=== PATIENT | male | born 1940 | race Caucasian/White ===

== ENCOUNTER 2016-10-26 11:45 | Inpatient (IN) | payer MEDICARE ==
[2016-10-26] MEDS ORDERED: SODIUM CHLORIDE 0.9% 1,000 ML IV STA (13:42)
[2016-10-26] MEDS ORDERED: MECLIZINE 12.5 MG TAB PO STA (13:42)
[2016-10-26] MEDS ORDERED: RX INFO: IV CONTRAST WAS GIVEN 1 EACH MISC MISCELLANE PRN (13:43)
[2016-10-26] MEDS ORDERED: METOCLOPRAMIDE 5 MG/ML 2 ML VIAL IVP STA (13:43)
--- NOTE | 2016-10-26 13:46 | ED ---
General Adult HPI - General Chief complaint: Dizziness Stated complaint: VISUAL DISTURBANCE, DIZZINESS Time Seen by Provider: 10/26/16 13:26 Source: patient, family, RN notes reviewed Mode of arrival: ambulatory Limitations: no limitations - History of Present Illness Initial comments: Patient is a pleasant 76-year-old male presenting to the emergency department complaining of dizziness. Onset of symptoms was a few days ago. Symptoms do worsen with exertion and improves with rest or lying down. Patient feels lightheaded. Patient has blurred vision. Patient has double and occasionally triple vision. Family states patient's words are sometimes hard to understand. Family also states patient has been somewhat more forgetful over the past couple of days. No isolated area of weakness. - Related Data Home Medications Medication Instructions Recorded Confirmed Lisinopril [Zestril] 20 mg PO BID 01/13/14 10/26/16 Pravastatin Sodium [Pravachol] 40 mg PO HS 01/13/14 10/26/16 Ranitidine HCl 150 mg PO BID 01/13/14 10/26/16 amLODIPine BESYLATE [Norvasc] 5 mg PO DAILY 01/13/14 10/26/16 Acetaminophen [Tylenol] 500 mg PO Q4-6H PRN 07/06/16 10/26/16 glipiZIDE [Glucotrol] 5 mg PO AC-BRKFST 07/06/16 10/26/16 Allergies Allergy/AdvReac Type Severity Reaction Status Date / Time celecoxib [From Celebrex] Allergy Severe GI BLEED Verified 10/26/16 14:15 aspirin Allergy Intermediate STOMACH Verified 10/26/16 14:15 PROBLEMS Review of Systems ROS Statement: Those systems with pertinent positive or pertinent negative responses have been documented in the HPI. ROS Other: All systems not noted in ROS Statement are negative. Constitutional: Denies: fever Eyes: Denies: eye pain ENT: Denies: ear pain Respiratory: Denies: cough Cardiovascular: Denies: chest pain Endocrine: Denies: fatigue Gastrointestinal: Denies: abdominal pain Genitourinary: Denies: dysuria Musculoskeletal: Denies: back pain Skin: Denies: rash Neurological: Reports: other (Dizziness) Past Medical History Past Medical History: Cancer, COPD, Diabetes Mellitus, Eye Disorder, GERD/Reflux , GI Bleed, Hyperlipidemia, Hypertension, Prostate Disorder, Sleep Apnea/CPAP/ BIPAP Additional Past Medical History / Comment(s): HX GLAUCOMA. PROSTATE CA 2014, HX RADIATION X24 TX, LAST 3 WKS AGO. NO TX FOR SLEEP APNEA IN YEARS. homone injections, biopsy 2015, 56 seed inplants jun 2016, radiation may 2016. History of Any Multi-Drug Resistant Organisms: None Reported Past Surgical History: Adenoidectomy, Appendectomy, Orthopedic Surgery, Tonsillectomy Additional Past Surgical History / Comment(s): EXC BACK CYSTS. EXC BILAT CATARACTS. BILAT SHOULDERS. ORIF RT FEMUR, 1 F/U SURGERY, THEN MANIPULATION. Past Anesthesia/Blood Transfusion Reactions: No Reported Reaction Past Psychological History: No Psychological Hx Reported Smoking Status: Former smoker Past Alcohol Use History: None Reported Additional Past Alcohol Use History / Comment(s): SMOKED [age] YEARS OLD EST, 1 PPD OR <, QUIT 1993 Past Drug Use History: None Reported - Past Family History Sister(s) Family Medical History: Cancer Mother Family Medical History: Cancer General Exam Limitations: no limitations General appearance: alert, in no apparent distress Head exam: Present: atraumatic, normocephalic Eye exam: Present: normal appearance, PERRL, EOMI. Absent: nystagmus ENT exam: Present: normal oropharynx Neck exam: Present: normal inspection Respiratory exam: Present: normal lung sounds bilaterally Cardiovascular Exam: Present: regular rate, normal rhythm GI/Abdominal exam: Present: soft. Absent: tenderness Extremities exam: Present: normal inspection. Absent: pedal edema, calf tenderness Neurological exam: Present: alert, oriented X3, CN II-XII intact. Absent: motor sensory deficit Expanded Patient oriented to: Present: person, place, time Cranial nerves: EOM's Intact: Normal, Facial Sensation: Normal Cerebellar function: Finger to Nose: Normal Sensory exam: Upper Extremity Light Touch: Normal, Lower Extremity Light Touch: Normal Motor strength exam: RUE: 5, LUE: 5, RLE: 5, LLE: 5 Eye Response: (4) open spontaneously Motor Response: (6) obeys commands Verbal Response: (5) oriented Psychiatric exam: Present: normal affect, normal mood Skin exam: Absent: rash Course Vital Signs 10/26/16 10/26/16 10/26/16 12:22 13:22 14:22 Temperature 98.8 F Pulse Rate 101 H 90 82 Respiratory 17 18 18 Rate Blood Pressure 150/67 134/77 139/81 O2 Sat by Pulse 96 99 99 Oximetry 10/26/16 15:22 Temperature Pulse Rate 82 Respiratory 18 Rate Blood Pressure 140/61 O2 Sat by Pulse Oximetry EKG Findings - EKG Comments: EKG Findings:: Normal sinus rhythm at 94. Normal intervals. Normal axis. Normal QRS. Normal ST-T. Medical Decision Making - Medical Decision Making Patient reevaluated and resting comfortably in bed. No improvement with medications. Patient and family updated on results and plan. Case was thus in detail with Dr. Howard, covering for Dr. nathan, who will admit for Dr. Morrow. - Lab Data Result diagrams: 10/26/16 13:55 10/26/16 13:55 Lab Results 10/26/16 10/26/16 10/26/16 Range/Units 13:55 13:55 13:55 WBC 5.6 (3.8-10.6) k/uL RBC 4.36 (4.30-5.90) m/uL Hgb 12.6 L (13.0-17.5) gm/dL Hct 37.6 L (39.0-53.0) % MCV 86.2 (80.0-100.0) fL MCH 29.0 (25.0-35.0) pg MCHC 33.6 (31.0-37.0) g/dL RDW 14.4 (11.5-15.5) % Plt Count 205 (150-450) k/uL Neutrophils % 66 % Lymphocytes % 17 % Monocytes % 9 % Eosinophils % 4 % Basophils % 1 % Neutrophils # 3.7 (1.3-7.7) k/uL Lymphocytes # 1.0 (1.0-4.8) k/uL Monocytes # 0.5 (0-1.0) k/uL Eosinophils # 0.2 (0-0.7) k/uL Basophils # 0.0 (0-0.2) k/uL PT 10.2 (9.0-12.0) sec INR 1.0 (<1.1) Sodium 140 (137-145) mmol/L Potassium 4.8 (3.5-5.1) mmol/L Chloride 100 (98-107) mmol/L Carbon Dioxide 28 (22-30) mmol/L Anion Gap 12 mmol/L BUN 29 H (9-20) mg/dL Creatinine 1.18 (0.66-1.25) mg/dL Est GFR (MDRD) Af Amer >60 (>60 ml/min/1.73 sqM) Est GFR (MDRD) Non-Af >60 (>60 ml/min/1.73 sqM) Glucose 114 H (74-99) mg/dL Calcium 10.1 (8.4-10.2) mg/dL Total Bilirubin 0.6 (0.2-1.3) mg/dL AST 33 (17-59) U/L ALT 36 (21-72) U/L Alkaline Phosphatase 93 (38-126) U/L Troponin I (0.000-0.034) ng/mL Total Protein 7.8 (6.3-8.2) g/dL Albumin 4.0 (3.5-5.0) g/dL 10/26/16 Range/Units 13:55 WBC (3.8-10.6) k/uL RBC (4.30-5.90) m/uL Hgb (13.0-17.5) gm/dL Hct (39.0-53.0) % MCV (80.0-100.0) fL MCH (25.0-35.0) pg MCHC (31.0-37.0) g/dL RDW (11.5-15.5) % Plt Count (150-450) k/uL Neutrophils % % Lymphocytes % % Monocytes % % Eosinophils % % Basophils % % Neutrophils # (1.3-7.7) k/uL Lymphocytes # (1.0-4.8) k/uL Monocytes # (0-1.0) k/uL Eosinophils # (0-0.7) k/uL Basophils # (0-0.2) k/uL PT (9.0-12.0) sec INR (<1.1) Sodium (137-145) mmol/L Potassium (3.5-5.1) mmol/L Chloride (98-107) mmol/L Carbon Dioxide (22-30) mmol/L Anion Gap mmol/L BUN (9-20) mg/dL Creatinine (0.66-1.25) mg/dL Est GFR (MDRD) Af Amer (>60 ml/min/1.73 sqM) Est GFR (MDRD) Non-Af (>60 ml/min/1.73 sqM) Glucose (74-99) mg/dL Calcium (8.4-10.2) mg/dL Total Bilirubin (0.2-1.3) mg/dL AST (17-59) U/L ALT (21-72) U/L Alkaline Phosphatase (38-126) U/L Troponin I <0.012 (0.000-0.034) ng/mL Total Protein (6.3-8.2) g/dL Albumin (3.5-5.0) g/dL - Radiology Data Radiology results: report reviewed (Computed tomography scan of the brain shows no acute intercranial abnormality. Atrophy and chronic changes are present.) Disposition Clinical Impression: Transient cerebral ischemia Disposition: ADMITTED IP TO THIS HOSP
[2016-10-26 14:17] LABS: Basophils % (A) 1 %; CH 29.2; Eosinophils # (A) 0.2 k/uL (0-0.7); Eosinophils % (A) 4 %; HCT 37.6 % (39.0-53.0); HDW 3.14; HGB 12.6 gm/dL (13.0-17.5); Luc # (Auto) 0.19; Luc % (Auto) 3; Lymphocytes % (A) 17 %; MCHC 33.6 g/dL (31.0-37.0); MCV 86.2 fL (80.0-100.0); Mean Platelet Volume 7.3; Monocytes # (A) 0.5 k/uL (0-1.0); Monocytes % (A) 9 %; Neutrophils # (A) 3.7 k/uL (1.3-7.7); Neutrophils % (A) 66 %; RBC 4.36 m/uL (4.30-5.90); RDW 14.4 % (11.5-15.5); WBC 5.6 k/uL (3.8-10.6); WBC (Perox) 5.77
[2016-10-26 14:24] LABS: Prothrombin Time 10.2 sec (9.0-12.0)
[2016-10-26 14:29] LABS: ALT 36 U/L (21-72); AST 33 U/L (17-59); Alkaline Phosphatase 93 U/L (38-126); Anion Gap 12 mmol/L; Blood Urea Nitrogen 29 mg/dL (9-20); Calcium 10.1 mg/dL (8.4-10.2); Carbon Dioxide 28 mmol/L (22-30); Chloride 100 mmol/L (98-107); Glucose 114 mg/dL (74-99); Non-African American GFR(MDRD) >60 (>60 ml/min/1.73 sqM); Potassium 4.8 mmol/L (3.5-5.1); Sodium 140 mmol/L (137-145); Total Bilirubin 0.6 mg/dL (0.2-1.3); Total Protein 7.8 g/dL (6.3-8.2)
--- NOTE | 2016-10-26 15:24 | CT ---
EXAMINATION TYPE: CT brain wo/w con DATE OF EXAM: 10/26/2016 3:15 PM COMPARISON: NONE HISTORY: Patient complains of episode of dizziness, blurred vision, and confusion today. CT DLP: 2072.1 mGycm Automated exposure control for dose reduction was used. CONTRAST: CT scan of the head is performed with IV Contrast, patient injected with 100 mL of Omnipaque 300. FINDINGS: There are mild, generalized changes of sulcal prominence and ventriculomegaly, compatible with atroph ic change. There is mild, diffuse periventricular white matter lucency, compatible with chronic white matter ischemic change. There is no acute focal lesion, mass effect or midline shift identified. I d o not see evidence of intracranial blood. Following intravenous administration of contrast, I do not see evidence of abnormal enhancement. There is mild mucoperiosteal thickening involving the ethmoid air cells and maxillary sinuses. IMPRESSION: 1. NO ACUTE INTRACRANIAL ABNORMALITY. 2. MILD ATROPHIC CHANGE. 3. CHRONIC WHITE MATTER ISCHEMIC CHANGE. 4. CHRONIC MUCOPERIOSTEAL THICKENING INVOLVING THE MAXILLARY AND ETHMOID AIR CELLS.
[2016-10-26] MEDS: SODIUM CHLORIDE 0.9% 1,000 ML IV SCH (17:23)
--- NOTE | 2016-10-26 17:44 | US ---
EXAMINATION TYPE: US carotid duplex BILAT DATE OF EXAM: 10/26/2016 5:00 PM COMPARISON: NONE CLINICAL HISTORY: Stenosis. Dizziness, double vision, slurred speech EXAM MEASUREMENTS: RIGHT: Peak Systolic Velocity (PSV) cm/sec ----- Right CCA: 99.3 ----- Right ICA: 117.0 ----- Right ECA: 97.6 ICA/CCA ratio: 1.2 RIGHT: End Diastole cm/sec ----- Right CCA: 18.4 ----- Right ICA: 28.5 ----- Right ECA: 6.2 LEFT: Peak Systolic Velocity (PSV) cm/sec ----- Left CCA: 105.7 ----- Left ICA: 97.6 ----- Left ECA: 74.4 ICA/CCA ratio: 0.9 LEFT: End Diastole cm/sec ----- Left CCA: 13.7 ----- Left ICA: 23.8 ----- Left ECA: 74.4 VERTEBRALS (direction of flow): Right Vertebral: Antegrade Left Vertebral: Antegrade IMPRESSION: 1. Mild plaque noted bilateral bifurcations. 2. No evidence of significant stenosis. 3. Increased velocities left vertebral.
[2016-10-26 19:21] LABS: Hemoglobin A1C 6.8 % (4.2-6.1)
[2016-10-26] MEDS: PRAVASTATIN SODIUM 40 MG TAB PO SCH (20:11)
[2016-10-26] MEDS: FAMOTIDINE 20 MG TAB PO SCH (20:11)
--- NOTE | 2016-10-26 20:12 | P.CNNES ---
History of Present Illness Consult date: 10/26/16 Reason for Consult: This patient admitted with acute diplopia and slurred speech. Review of Systems Constitutional: Denies chills, Denies fever Eyes: denies blurred vision, denies pain Ears, nose, mouth and throat: Denies headache, Denies sore throat Cardiovascular: Denies chest pain, Denies shortness of breath Respiratory: Denies cough Gastrointestinal: Denies abdominal pain, Denies diarrhea, Denies nausea, Denies vomiting Musculoskeletal: Denies myalgias Integumentary: Denies pruritus, Denies rash Neurological: Reports aphasia, Reports double vision, Reports gait dysfunction, Reports headaches, Reports motor disturbance, Reports paresthesias, Denies numbness, Denies weakness Psychiatric: Denies anxiety, Denies depression Endocrine: Denies fatigue, Denies weight change Past Medical History Past Medical History: Cancer, COPD, Diabetes Mellitus, Eye Disorder, GERD/Reflux , GI Bleed, Hyperlipidemia, Hypertension, Prostate Disorder, Sleep Apnea/CPAP/ BIPAP Additional Past Medical History / Comment(s): HX GLAUCOMA. PROSTATE CA 2014, HX RADIATION X24 TX, LAST 3 WKS AGO. NO TX FOR SLEEP APNEA IN YEARS. homone injections, biopsy 2015, 56 seed inplants jun 2016, radiation may 2016. History of Any Multi-Drug Resistant Organisms: None Reported Past Surgical History: Adenoidectomy, Appendectomy, Orthopedic Surgery, Tonsillectomy Additional Past Surgical History / Comment(s): EXC BACK CYSTS. EXC BILAT CATARACTS. BILAT SHOULDERS. ORIF RT FEMUR, 1 F/U SURGERY, THEN MANIPULATION. Past Anesthesia/Blood Transfusion Reactions: No Reported Reaction Past Psychological History: No Psychological Hx Reported Smoking Status: Former smoker Past Alcohol Use History: None Reported Additional Past Alcohol Use History / Comment(s): SMOKED [age] YEARS OLD EST, 1 PPD OR <, QUIT 1993 Past Drug Use History: None Reported - Past Family History Sister(s) Family Medical History: Cancer Mother Family Medical History: Cancer Medications and Allergies Home Medications Medication Instructions Recorded Confirmed Type Lisinopril [Zestril] 20 mg PO BID 01/13/14 10/26/16 History Pravastatin Sodium [Pravachol] 40 mg PO HS 01/13/14 10/26/16 History Ranitidine HCl 150 mg PO BID 01/13/14 10/26/16 History amLODIPine BESYLATE [Norvasc] 5 mg PO DAILY 01/13/14 10/26/16 History Acetaminophen [Tylenol] 500 mg PO Q4-6H PRN 07/06/16 10/26/16 History glipiZIDE [Glucotrol] 5 mg PO AC-BRKFST 07/06/16 10/26/16 History Allergies Allergy/AdvReac Type Severity Reaction Status Date / Time celecoxib [From Celebrex] Allergy Severe GI BLEED Verified 10/26/16 14:15 aspirin Allergy Intermediate STOMACH Verified 10/26/16 14:15 PROBLEMS Physical Examination - Vital Signs Vital Signs: Vital Signs Temp Pulse Pulse Resp BP BP Pulse Ox 10/26/16 17:59 98.4 F 99 18 143/69 100 10/26/16 17:07 97.8 F 87 20 158/65 99 - Constitutional General appearance: average body habitus, cooperative - EENT EENT: PERRL, mucous membranes moist - Respiratory Respiratory: lungs clear, normal breath sounds - Cardiovascular Cardiovascular: regular rate, normal S1, normal S2 Extremities: no peripheral edema bilaterally - Gastrointestinal Gastrointestinal: normoactive bowel sounds - Integumentary Integumentary: normal - Neurologic Cranial nerve examination: PERRL, EOMI, V1/V2/V3 grossly intact, face symmetric , intact gag reflex, intact corneal reflex, normal palatal elevation Speech examination: intact Sensorimotor examination: intact Detailed motor examination: grossly full strength in all extremities Motor examination - right side: 5/5: biceps, triceps, wrist flexion, wrist extension, justice court judge, hip flexors, knee extensors, dorsiflexion, toe extension (EHL) , plantarflexion Motor examination - left side: 5/5: biceps, triceps, wrist flexion, wrist extension, justice court judge, hip flexors, knee extensors, dorsiflexion, toe extension (EHL) , plantarflexion Detailed sensory examination: intact Reflex and gait examination: intact Reflexes: 1+: ankle, bicep, knee, tricep Cerebellar examination: ocular dysmetria - Musculoskeletal Musculoskeletal: no pain - Psychiatric Psychiatric: mood/affect appropriate, cooperative Results - Laboratory Findings CBC and BMP: 10/26/16 13:55 10/26/16 13:55 Assessment and Plan (1) Arterial ischemic stroke, vertebrobasilar, brainstem, acute Status: Acute Code(s): I63.219 - CEREB INFRC DUE TO UNSP OCCLS OR STENOSIS OF UNSP VERTEB ART; I63.22 - CEREBRAL INFRC DUE TO UNSP OCCLS OR STENOSIS OF BASILAR ART (2) Aphasia Status: Acute Code(s): R47.01 - APHASIA (3) Diplopia Status: Acute Code(s): H53.2 - DIPLOPIA (4) Transient cerebral ischemia Status: Acute Code(s): G45.9 - TRANSIENT CEREBRAL ISCHEMIC ATTACK, UNSPECIFIED Plan: This patient is a 76-year-old male who was admitted to Hospital with symptoms of mild expressive aphasia and diplopia. Patient states his symptoms started on Saturday in which she was noticing double vision. He describes it mostly as a horizontal diplopia. His symptoms worsened on Saturday. Due to the difficulty with his driving he became very concerned on Saturday evening. He decided to come to the hospital for further evaluation today. He was seen in the ER at [facility] by Dr. Ordoñez. He underwent a computed tomography scan of the brain which revealed no acute intracranial abnormality. Dr. Ordoñez performed NIH stroke scale which was noted to be 0. He was admitted to hospital for further neurological evaluation. Patient did complain of mild dizziness but mostly visual disturbance with diplopia. His neurological examination at this time reveals him to have some left ocular muscle impairment. These findings suggest possibility of brainstem stroke. We have recommended that he undergo a complete stroke evaluation. He has an underlying recent history of prostate cancer for which he is undergone extensive radiation therapy and seed implants. He is being followed closely in the neurology clinic for this. His most recent PSA was 0.08. The patient has no previous history of TIA or stroke. At this time we would recommend he be placed on one aspirin 81 mg daily for secondary stroke prevention and will await his further stroke workup and evaluation. His overall prognosis at this time remains guarded. Time with Patient: Greater than 30
[2016-10-26 22:00] LABS: Glucose,Whole Blood 160 mg/dL (75-99)
[2016-10-26] MEDS: INSULIN LISPRO (humaLOG) 300 UNIT/3 ML VIAL SQ SCH (22:09)
[2016-10-27] MEDS: SODIUM CHLORIDE 0.9% 1,000 ML IV SCH ×2 (05:32→10:41)
[2016-10-27 06:22] LABS: Basophils % (A) 1 %; CH 28.6; CHCM 32.9; Eosinophils # (A) 0.3 k/uL (0-0.7); Eosinophils % (A) 6 %; HCT 32.9 % (39.0-53.0); HDW 3.06; Luc % (Auto) 4; Lymphocytes % (A) 21 %; MCH 29.1 pg (25.0-35.0); MCHC 33.3 g/dL (31.0-37.0); MCV 87.1 fL (80.0-100.0); Mean Platelet Volume 6.5; Monocytes # (A) 0.4 k/uL (0-1.0); Monocytes % (A) 9 %; Neutrophils # (A) 2.8 k/uL (1.3-7.7); Neutrophils % (A) 60 %; RBC 3.77 m/uL (4.30-5.90); RDW 14.3 % (11.5-15.5); WBC 4.6 k/uL (3.8-10.6); WBC (Perox) 4.82
[2016-10-27 06:31] LABS: Anion Gap 8 mmol/L; Blood Urea Nitrogen 23 mg/dL (9-20); Calcium 9.2 mg/dL (8.4-10.2); Carbon Dioxide 28 mmol/L (22-30); Chloride 102 mmol/L (98-107); Cholesterol 130 mg/dL (<200); Glucose 171 mg/dL (74-99); HDL Cholesterol 39 mg/dL (40-60); Non-African American GFR(MDRD) >60 (>60 ml/min/1.73 sqM); Potassium 4.8 mmol/L (3.5-5.1); Sodium 138 mmol/L (137-145); Triglycerides 95 mg/dL (<150)
[2016-10-27 06:34] LABS: Glucose,Whole Blood 172 mg/dL (75-99)
[2016-10-27] MEDS: INSULIN LISPRO (humaLOG) 300 UNIT/3 ML VIAL SQ SCH ×4 (07:06→22:37)
[2016-10-27] MEDS: glipiZIDE 5 MG TAB PO SCH (07:06)
--- NOTE | 2016-10-27 09:09 | MR ---
EXAMINATION TYPE: MR brain wo/w con DATE OF EXAM: 10/27/2016 8:52 AM COMPARISON: Previous CT scan of the brain dated 10/26/2016. HISTORY: Dizziness, blurred vision TECHNIQUE: Multiplanar, multiecho imaging of the brain was obtained with and without intravenous adm inistration of 17 mL intravenous MultiHance. FINDINGS: Midline structures are unremarkable. There is a normal craniocervical junction. Echoplanar diffusion imaging is normal. There are generalized changes of sulcal prominence and ventriculomegaly compatible with atrophic marquis ge. There are normal vascular flow voids. The orbits appear normal. There is no evidence of a CP angle mass lesion. There are innumerable punctate FLAIR lesions within the cerebral hemispheres. This is likely on the b asis of small vessel disease. There is no mass effect, midline shift or intracranial blood. Following intravenous administration of gadolinium, I do not see evidence of abnormal enhancement. There is mucoperiosteal thickening involving the maxillary sinuses. IMPRESSION: 1. NO ACUTE INTRACRANIAL ABNORMALITY. 2. GENERALIZED ATROPHY. 3. DIFFUSE PUNCTATE FLAIR LESIONS THROUGHOUT THE CEREBRAL HEMISPHERES LIKELY ON THE BASIS SMALL VESSE L DISEASE. 4. CHRONIC MAXILLARY MUCOSAL SINUS DISEASE.
[2016-10-27] MEDS: FAMOTIDINE 20 MG TAB PO SCH ×2 (10:40→20:44)
[2016-10-27 11:55] LABS: Glucose,Whole Blood 147 mg/dL (75-99)
[2016-10-27 16:42] LABS: Glucose,Whole Blood 103 mg/dL (75-99)
--- NOTE | 2016-10-27 17:26 | HP ---
DATE OF ADMISSION: 10/26/2016 CHIEF COMPLAINT: Dizziness and severe vertigo. HISTORY OF PRESENT ILLNESS: This 76-year-old gentleman with a past medical history of multiple medical problems including COPD, history of diabetes, history of GERD, gastrointestinal bleed, hypertension, hyperlipidemia, history of sleep apnea, and history of glaucoma, history of adenoidectomy, being followed by Dr. Morrow in the outpatient setting is complaining of dizziness and vertigo. The patient had symptoms about a few days ago. The patient also had diplopia on looking to the left apparently which improved significantly. The patient also felt lightheadedness. The patient also had blurring of vision. Because of multiple symptomatology, the patient came to [facility] and was admitted to the hospital for further evaluation and treatment. The patient's neurologist evaluated the patient, multiple neurovascular work-up. CT scan showed mild atrophic changes of chronic white matter changes. No acute intracranial abnormality was noted. Carotid Doppler showed mild plaques with no evidence of any significant stenosis and increased velocity of the left was also noted. The brain MRI shows generalized atrophy, diffuse punctate linear lesions and chronic maxillary mucosal disease. There is no history of any fevers, no history of headache, loss of consciousness or seizures. PAST MEDICAL HISTORY: History of COPD, diabetes mellitus, type II, GERD, GI bleed, hypertension, hyperlipidemia, prostate disorder, sleep apnea. Medications prior to admission include home medications are: 1. Tylenol 500 mg q.4 6 p.r.n. 2. Glucotrol 5 mg a.c. breakfast. 3. Norvasc 5 mg p.o. daily. 4. Ranitidine 150 mg p.o. b.i.d. 5. Pravachol 40 mg at bedtime. 6. Zestril 20 mg b.i.d. ALLERGIES: CELEBREX AND ASPIRIN. FAMILY HISTORY: History of heart problems and cancer in the family. SOCIAL HISTORY: Previous history of smoking. No history of current smoking, alcohol intake. REVIEW OF SYSTEMS: HEENT: As mentioned earlier. CARDIOVASCULAR: No angina or palpitations. RESPIRATORY: No cough. GI: No nausea. : No dysuria. Nervous system: As mentioned earlier. ALLERGY/IMMUNOLOGY: No asthma or hayfever. MUSCULOSKELETAL: as mentioned earlier. HEMATOLOGY/ONCOLOGY: No history of anemia. ENDOCRINE: Diabetes. CONSTITUTIONAL: As mentioned earlier. DERMATOLOGY: Negative. PSYCHIATRY: As mentioned earlier. RHEUMATOLOGY: Negative. PHYSICAL EXAMINATION: Patient is alert and oriented x3. Pulse is 84, blood pressure 124/74, respiration 16, temperature 97.6, pulse ox 98% on 2 liters. HEENT: Conjunctivae normal. Oral mucosa moist. NECK: No jugular venous distention. No carotid bruit. No lymph node enlargement. CARDIOVASCULAR: S1, S2 muffled. No S3, no S4. RESPIRATORY: Breath sounds diminished at the bases. No rhonchi. No crackles. ABDOMEN: Soft, nontender. No mass palpable. EXTREMITIES: Legs no edema, no swelling. Nervous system: Higher functions as mentioned. Cranial nerves II through XII grossly intact. No weakness. No diplopia. No nystagmus. Moves all 4 limbs. No weakness. No signs of cerebellar incoordination. LABS: WBC 4.7 and hemoglobin 11, glucose 117. 39. ASSESSMENT: 1. Dizziness and vertigo and diplopia, possible acute transient ischemic attack involving the vertebrobasilar system. 2. Anemia, normocytic anemia of chronic disease. 3. Increased velocity in the left vertebral artery. 4. Increased random blood sugar. 5. Diabetes mellitus type 2. 6. History of chronic obstructive pulmonary disease. 7. History gastroesophageal reflux disease. 8. History of gastrointestinal bleed. 9. Hypertension. 10. Hyperlipidemia. 11. History of sleep apnea. 12. History of glaucoma. 13. History of prostate cancer. 14. History of radiation. 15. History of sleep apnea. 16. History of adenoidectomy. 17. History of degenerative joint disease. 18. Remote history of nicotine dependence. 19. FULL CODE. RECOMMENDATIONS AND DISCUSSION: In this 76-year-old gentleman who presented with multiple complex medical issues, we will monitor the patient closely. Continue the current medications, continue symptomatic treatment. I recommend continue with current medications. I would also recommend antiplatelet treatment and closely follow with neurology. Guarded prognosis because of multiple complex medical issues. Further recommendations to follow. Please also add to the final diagnosis(es): History of. Otherwise copy to Dr. Morrow who is the primary care physician. I would also recommend MRA also. MTDD
--- NOTE | 2016-10-27 17:51 | ECHOF ---
Referral Reason:Thrombus MEASUREMENTS -------- HEIGHT: 182.9 cm WEIGHT: 88.5 kg BP: 131/57 RVIDd: 2.5 cm (< 3.3) IVSd: 1.0 cm (0.6 - 1.1) LVIDd: 4.4 cm (3.9 - 5.3) LVPWd: 1.1 cm (0.6 - 1.1) IVSs: 1.3 cm LVIDs: 3.4 cm LVPWs: 1.2 cm LA Diam: 4.0 cm (2.7 - 3.8) LAESV Index (A-L): 23.13 ml/m Ao Diam: 3.3 cm (2.0 - 3.7) AV Cusp: 1.9 cm (1.5 - 2.6) LA Diam: 4.0 cm (2.7 - 3.8) MV EXCURSION: 24.295 mm (> 18.000) MV EF SLOPE: 63 mm/s (70 - 150) EPSS: 0.7 cm MV E Acosta: 0.66 m/s MV DecT: 324 ms MV A Acosta: 1.01 m/s MV E/A Ratio: 0.65 RAP: 5.00 mmHg RVSP: 18.36 mmHg FINDINGS -------- Sinus rhythm. This was a technically adequate study. The left ventricular size is normal. There is mild concentric left ventricular hypertrophy. Overall left ventricular systolic function is normal with, an EF between 55 - 60 %. The right ventricle is normal in size. The left atrial size is normal. The right atrial size is normal. The aortic valve is trileaflet, and appears structurally normal. No aortic stenosis or regurgitation. The mitral valve is normal. Mild mitral regurgitation is present. The tricuspid valve appears structurally normal. Mild tricuspid regurgitation present. There is no evidence of pulmonary hypertension. The right ventricular systolic pressure, as measured by Doppler, is 18.36mmHg. There is no pulmonic regurgitation present. The aortic root size is normal. There is no pericardial effusion. CONCLUSIONS -------- 1. Sinus rhythm. 2. There is no pericardial effusion. 3. There is mild concentric left ventricular hypertrophy. 4. Overall left ventricular systolic function is normal with, an EF between 55 - 60 %. 5. The left atrial size is normal. 6. The aortic valve is trileaflet, and appears structurally normal. No aortic stenosis or regurgitation. 7. Mild mitral regurgitation is present. 8. Mild tricuspid regurgitation present. 9. There is no evidence of pulmonary hypertension. 10. There is no pulmonic regurgitation present. BUSINESS INTEGRATION MANAGER: Astrid Lim RDCS
--- NOTE | 2016-10-27 18:37 | P.PN ---
Subjective This patient is a 76-year-old male who was admitted to Hospital with symptoms of acute diplopia. Patient also had some mild speech impairment which did slowly resolve. His speech is now back to normal. Patient was admitted for possible stroke involving the brainstem area. He was sent for MRI of the brain this morning. MRI is reported negative for any acute stroke. Specifically there is no evidence of brainstem stroke. Dr. Jernigan has requested MRA of the brain. We will await these results. There was no enhancing lesions noted on the MRI of the brain. Patient does have history of underlying prostate cancer. Patient seems to be doing fairly well this morning. Patient states he has had no further episodes of recurrent diplopia. He denies any feelings of dizziness today. Daughter was at bedside and states that his initial symptoms were clearly more severe with the involvement of his speech. She states his speech is now entirely normal. His initial presentation revealed him to have some dysarthric speech. We will await further completion of his stroke workup. Patient does have some ALLERGY to aspirin. We would recommend beginning the patient on Plavix 75 mg daily for secondary stroke prevention. Patient has not had any further recurrence of diplopia. He does have an speech teacher he sees Dr. Vladimir Obrien in the outpatient setting. Patient may benefit from ophthalmology consultation soon after discharge. We will await the MRA to be done and will review those results when they become available. Case was discussed today at length with the patient and his daughter at bedside. All their questions were answered. His overall prognosis at this time remains fair. Objective - Vital Signs Vital signs: Vital Signs Temp 97.6 F 10/27/16 09:22 Pulse 86 10/27/16 09:22 Resp 16 10/27/16 09:22 BP 128/74 10/27/16 09:22 Pulse Ox 98 10/27/16 09:22 Intake & Output 10/26/16 10/27/16 10/27/16 18:59 06:59 18:59 Intake Total 375 180 Output Total 100 150 Balance 275 30 Weight 88.5 kg Intake: IV 375 Sodium Chloride 0.9% 1, 375 000 ml @ 75 mls/hr IV . [id number] STA Rx#:[id number] Oral 180 Output: Urine 100 150 Other: Voiding Method Urinal Urinal # Voids 200 - Exam Physical examination: PHYSICAL EXAMINATION: Patient is resting comfortably in bed. VITAL SIGNS: Blood pressure is [125/72]. Heart rate is [92]. Respiration is [16] . Temperature is [97.7]. HEENT: Head is atraumatic, neck is supple, there were no carotid bruits. CHEST: Lungs are clear to auscultation and percussion. CARDIAC: S1, S2 normal rate and rhythm. There is no murmur. ABDOMEN: Soft and nontender. Bowel sounds are present. EXTREMITIES: There is no pedal edema. Peripheral pulses are present. Neurological examination: Patient's neurological examination is unchanged from yesterday. Patient has no evidence of any ocular muscle weakness involving the left eye movements. Patient denies any dizziness or vertigo. Neurological examination is nonfocal. - Labs CBC & Chem 7: 10/27/16 05:36 10/27/16 05:36 Labs: Abnormal Lab Results - Last 24 Hours (Table) 10/26/16 10/27/16 10/27/16 Range/Units 21:40 05:36 05:36 RBC 3.77 L (4.30-5.90) m/uL Hgb 11.0 L (13.0-17.5) gm/dL Hct 32.9 L (39.0-53.0) % BUN 23 H (9-20) mg/dL Glucose 171 H (74-99) mg/dL POC Glucose (mg/dL) 160 H (75-99) mg/dL HDL Cholesterol 39 L (40-60) mg/dL 10/27/16 Range/Units 06:08 RBC (4.30-5.90) m/uL Hgb (13.0-17.5) gm/dL Hct (39.0-53.0) % BUN (9-20) mg/dL Glucose (74-99) mg/dL POC Glucose (mg/dL) 172 H (75-99) mg/dL HDL Cholesterol (40-60) mg/dL Assessment and Plan (1) Arterial ischemic stroke, vertebrobasilar, brainstem, acute Status: Acute Code(s): I63.219 - CEREB INFRC DUE TO UNSP OCCLS OR STENOSIS OF UNSP VERTEB ART; I63.22 - CEREBRAL INFRC DUE TO UNSP OCCLS OR STENOSIS OF BASILAR ART (2) Aphasia Status: Acute Code(s): R47.01 - APHASIA (3) Diplopia Status: Acute Code(s): H53.2 - DIPLOPIA (4) Transient cerebral ischemia Status: Acute Code(s): G45.9 - TRANSIENT CEREBRAL ISCHEMIC ATTACK, UNSPECIFIED Plan: This patient is a 76-year-old male initially admitted with episode of diplopia and slurred speech. He underwent MRI of the brain today which fails to reveal any evidence of acute intracranial abnormality. Nonspecific white matter changes were noted. Patient was recommended started on Plavix 75 mg daily for secondary stroke prevention. Echocardiogram reveals ejection fraction of 55-60 percent. he has had no further episodes of lightheadedness or dizziness. We're waiting MRA study to be completed. His overall prognosis at this time remains guarded. Case was discussed at length with the patient and his daughter. MRI results were reviewed today in detail. There is no evidence to suggest brainstem stroke. His clinical history suggests possibility of vertebrobasilar insufficiency as possible etiology for his symptoms. We will continue close neurological follow-up of this patient during this admission.
[2016-10-27] MEDS: PRAVASTATIN SODIUM 40 MG TAB PO SCH (20:43)
[2016-10-27 21:06] LABS: Glucose,Whole Blood 183 mg/dL (75-99)
[2016-10-28] MEDS: SODIUM CHLORIDE 0.9% 1,000 ML IV SCH ×3 (00:15→19:35)
[2016-10-28 07:28] LABS: Glucose,Whole Blood 151 mg/dL (75-99)
[2016-10-28] MEDS: INSULIN LISPRO (humaLOG) 300 UNIT/3 ML VIAL SQ SCH ×4 (07:55→20:06)
[2016-10-28] MEDS: glipiZIDE 5 MG TAB PO SCH (07:56)
[2016-10-28] MEDS: CLOPIDOGREL 75 MG TAB PO SCH (11:36)
[2016-10-28] MEDS: FAMOTIDINE 20 MG TAB PO SCH ×2 (11:36→20:06)
[2016-10-28] MEDS: PANTOPRAZOLE 40 MG TABLET PO SCH ×2 (11:36→17:31)
[2016-10-28 11:41] LABS: Glucose,Whole Blood 196 mg/dL (75-99)
--- NOTE | 2016-10-28 15:23 | P.PN ---
Subjective This patient is a 76-year-old male who was admitted to Hospital with symptoms of acute diplopia. Patient also had some mild speech impairment which did slowly resolve. His speech is now back to normal. Patient was admitted for possible stroke involving the brainstem area. He was sent for MRI of the brain this morning. MRI is reported negative for any acute stroke. Specifically there is no evidence of brainstem stroke. Dr. Jernigan has requested MRA of the brain. We will await these results. There was no enhancing lesions noted on the MRI of the brain. Patient does have history of underlying prostate cancer. Patient seems to be doing fairly well this morning. Patient states he has had no further episodes of recurrent diplopia. He denies any feelings of dizziness today. Daughter was at bedside and states that his initial symptoms were clearly more severe with the involvement of his speech. She states his speech is now entirely normal. His initial presentation revealed him to have some dysarthric speech. We will await further completion of his stroke workup. Patient does have some ALLERGY to aspirin. We would recommend beginning the patient on Plavix 75 mg daily for secondary stroke prevention. Patient has not had any further recurrence of diplopia. 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 Vladimir Obrien in the outpatient setting. Patient may benefit from ophthalmology consultation soon after discharge. We will await the MRA to be done and will review those results when they become available. MRA will likely be completed tomorrow. Patient has been started on Plavix for secondary stroke prevention. The patient states he was able to get up and walk around the hallways today several times. He did feel slight dizziness but nothing severe. We have explained to the patient that this could be some form of mild vestibulitis. We will await his MRA results and if this is negative he may be able to be discharged home tomorrow. His mild vestibular disturbance can be followed up outpatient. All their questions were answered. His overall prognosis at this time remains fair. Objective - Vital Signs Vital signs: Vital Signs Temp 97.6 F 10/28/16 07:00 Pulse 94 10/27/16 20:00 Resp 16 10/28/16 07:00 BP 139/66 10/28/16 07:00 Pulse Ox 96 10/28/16 07:00 Intake & Output 10/27/16 10/28/16 10/28/16 18:59 06:59 18:59 Intake Total 1930 620 Output Total 800 300 Balance 1130 -300 620 Intake: IV 1000 Sodium Chloride 0.9% 1, 1000 000 ml @ 75 mls/hr IV . [id number] STA Rx#:[id number] Oral 930 620 Output: Urine 800 300 Other: Voiding Method Urinal Urinal # Voids 2 - Exam Physical examination: PHYSICAL EXAMINATION: Patient is resting comfortably in bed. VITAL SIGNS: Blood pressure is [139/67]. Heart rate is [94]. Respiration is [16] . Temperature is [97.7]. HEENT: Head is atraumatic, neck is supple, there were no carotid bruits. CHEST: Lungs are clear to auscultation and percussion. CARDIAC: S1, S2 normal rate and rhythm. There is no murmur. ABDOMEN: Soft and nontender. Bowel sounds are present. EXTREMITIES: There is no pedal edema. Peripheral pulses are present. Neurological examination: Patient's neurological examination is unchanged from yesterday. Patient has no evidence of any ocular muscle weakness involving the left eye movements. Patient denies any dizziness or vertigo. Neurological examination is nonfocal. - Labs CBC & Chem 7: 10/27/16 05:36 10/27/16 05:36 Labs: Abnormal Lab Results - Last 24 Hours (Table) 10/27/16 10/27/16 10/28/16 Range/Units 16:40 21:04 07:26 POC Glucose (mg/dL) 103 H 183 H 151 H (75-99) mg/dL 10/28/16 Range/Units 11:39 POC Glucose (mg/dL) 196 H (75-99) mg/dL Assessment and Plan (1) Arterial ischemic stroke, vertebrobasilar, brainstem, acute Status: Acute Code(s): I63.219 - CEREB INFRC DUE TO UNSP OCCLS OR STENOSIS OF UNSP VERTEB ART; I63.22 - CEREBRAL INFRC DUE TO UNSP OCCLS OR STENOSIS OF BASILAR ART (2) Aphasia Status: Acute Code(s): R47.01 - APHASIA (3) Diplopia Status: Acute Code(s): H53.2 - DIPLOPIA (4) Transient cerebral ischemia Status: Acute Code(s): G45.9 - TRANSIENT CEREBRAL ISCHEMIC ATTACK, UNSPECIFIED Plan: This patient is a 76-year-old male who was admitted to hospital with symptoms suggesting possible TIA. Patient had symptoms of double vision as well as mild slurred speech. He also had intermittent dizziness. He underwent an MRI of the brain which was negative for any evidence of acute stroke. He is scheduled to undergo MRA for further evaluation. Patient has been doing better with no further recurrence of double vision. He does follow with Dr. Obrien his control systems specialist in the outpatient setting. We've recommended that he see Dr. Obrien soon after he is discharged from hospital. Patient has been started on Plavix for secondary stroke prevention. His current symptoms suggest possibility of TIA at this time. We will continue close monitoring of the patient during this admission. His overall prognosis at this time remains guarded.
--- NOTE | 2016-10-28 16:43 | PN ---
DATE OF SERVICE: 10/28/2016 This 76-year-old gentleman was admitted with possible acute vertebrobasilar TIA is being closely monitored. No chest pain or palpitation. No fever. The MRI did not show any acute abnormality. MRA is pending. On exam, alert and oriented x3, pulse 80, blood pressure is 139/62, respiratory rate 16, temperature 97.9, pulse ox 98% on room air. HEENT: Conjunctivae normal. NECK: No jugular venous distention. CARDIOVASCULAR: S1, S2 muffled. RESPIRATORY: Breath sounds diminished at the bases. No rhonchi. No crackles. ABDOMEN: Soft. Nontender. Legs: No edema. No swelling. CENTRAL NERVOUS SYSTEM: Higher functions as mentioned. Moves all four limbs. No focal deficits. LYMPHATICS: No lymph nodes palpable in the neck, axillae or groin. SKIN: No ulcer, rash or bleeding. LABS: Accu-Cheks 151, 186. ASSESSMENT: 1. Dizziness, vertigo, diplopia, possible acute transient ischemic attack involving the vertebrobasilar system. 2. Anemia, normocytic anemia of chronic disease. 3. Increased velocity in the left vertebral artery. 4. Increased random blood sugar. 5. Type 2 diabetes mellitus. 6. History of chronic obstructive pulmonary disease. 7. History of gastroesophageal reflux disease. 8. History of gastrointestinal bleed. 9. Hypertension, essential. 10. Hyperlipidemia. 11. History of sleep apnea. 12. History of glaucoma. 13. History of prostate cancer. 14. History of radiation. 15. History of adenoidectomy. 16. History of degenerative joint disease. 17. Remote history of nicotine dependence. 18. FULL CODE. RECOMMENDATIONS AND DISCUSSION: Recommend to continue current medications, continue with monitoring, symptomatic treatment. This 76-year-old gentleman admitted with multiple medical problems, at this time, we will await for the MRI report. Recommended Plavix and combination of the Protonix if okay with Dr. Martínez because of the patient's allergies mostly, GI intolerance also. Prognosis guarded. Discussed with the patient, the patient understands and agrees.
[2016-10-28 17:17] LABS: Glucose,Whole Blood 149 mg/dL (75-99)
[2016-10-28] MEDS: PRAVASTATIN SODIUM 40 MG TAB PO SCH (20:06)
[2016-10-28 20:12] LABS: Glucose,Whole Blood 189 mg/dL (75-99)
[2016-10-29] MEDS: SODIUM CHLORIDE 0.9% 1,000 ML IV SCH ×2 (05:12→14:26)
[2016-10-29 06:57] LABS: Glucose,Whole Blood 135 mg/dL (75-99)
[2016-10-29] MEDS: CLOPIDOGREL 75 MG TAB PO SCH (07:22)
[2016-10-29] MEDS: PANTOPRAZOLE 40 MG TABLET PO SCH ×2 (07:22→17:36)
[2016-10-29] MEDS: glipiZIDE 5 MG TAB PO SCH (07:23)
[2016-10-29] MEDS: FAMOTIDINE 20 MG TAB PO SCH (07:23)
[2016-10-29] MEDS: INSULIN LISPRO (humaLOG) 300 UNIT/3 ML VIAL SQ SCH ×4 (07:24→21:50)
[2016-10-29 12:02] LABS: Glucose,Whole Blood 105 mg/dL (75-99)
[2016-10-29] MEDS ORDERED: ACETAMINOPHEN TAB 500 MG TAB PO PRN (15:20)
[2016-10-29 17:13] LABS: Glucose,Whole Blood 185 mg/dL (75-99)
--- NOTE | 2016-10-29 19:00 | PN ---
DATE OF SERVICE: 10/29/2016 This 76-year-old gentleman who was admitted with dizziness and vertigo is being evaluated for vertebrobasilar TIA. MRA is pending at this time. No chest pain. No palpitations. No fever. On exam, alert and oriented times three. Pulse 72, blood pressure 140/77, respiratory rate 16, temperature 98.1, pulse ox 97% on room air. HEENT: Conjunctivae normal. NECK: No jugular venous distention. CARDIOVASCULAR SYSTEM: S1, S2 muffled. RESPIRATORY: Breath sounds diminished at the bases. No rhonchi and no crackles. ABDOMEN: Soft. LEGS: No edema. No swelling. CENTRAL NERVOUS SYSTEM: No focal deficits. LABS: Accu-Cheks 109. Other labs are noted. ASSESSMENT: 1. Dizziness, vertigo, diplopia; possible acute transient ischemic attack involving the vertebrobasilar system. 2. Anemia, normocytic anemia of chronic disease. 3. Increased blood loss in the left vertebral artery. 4. Increased random blood sugar. 5. Diabetes mellitus type 2. 6. History of chronic obstructive pulmonary disease. 7. History of gastroesophageal reflux disease. 8. History of gastrointestinal bleed. 9. Hypertension, essential. 10. Hyperlipidemia. 11. History of sleep apnea. 12. History of glaucoma. 13. History of prostate cancer. 14. History of radiation. 15. History of adenoidectomy. 16. History of degenerative joint disease. 17. Remote history of nicotine dependence. 18. FULL CODE. RECOMMENDATIONS AND DISCUSSION: Recommend to continue current medications. Continue symptomatic treatment. Continue complete neurovascular work-up. Otherwise symptomatic treatment will be provide. The patient is only on antiplatelet agents. Further recommendations to follow.
[2016-10-29 20:21] LABS: Glucose,Whole Blood 183 mg/dL (75-99)
[2016-10-29] MEDS: PRAVASTATIN SODIUM 40 MG TAB PO SCH (21:52)
--- NOTE | 2016-10-29 22:27 | MR ---
EXAMINATION TYPE: MR angio head wo/neck wo/w con DATE OF EXAM: 10/29/2016 5:13 PM COMPARISON: NONE HISTORY: TIA headaches lightheaded CONTRAST: 20 mL MultiHance TECHNIQUE: Multiplanar multiecho imaging on a 3.0 Diane magnet is performed through the takotna of Kel lis. 3-D wngz-un-wadqgs imaging is performed. Source images are reviewed on the computer in the axi al plane. Reconstructed images rotating on the computer are reviewed. FINDINGS: The internal carotid arteries bifurcate normally into A1 and M1 segments. The A2 segments are normal. Middle cerebral artery branches are normal. Anterior communicating artery is patent. Posterior communicating arteries are not well identified on Three-D reconstructed images. However, wh at appears to be an infundibulum appear to be present. Close evaluation of the source images suggest small patent posterior communicating arteries present bilaterally which appears to account for the ap parent infundibulum. Vertebrobasilar arteries within the ticqa-gx-wtxc are normal. Posterior cerebral vasculature is norm al although somewhat tortuous.. No suspicious aneurysm or aneurysmal dilatation is evident. No obst ructions are identified. No significant flow-limiting stenosis is evident. IMPRESSIONS: 1. NORMAL MRA CROW OF GUZMAN. MRA neck INDICATION: TIA, dizzy, headaches Contrast: 20 mL MultiHance TECHNIQUE: 3-D jeim-pp-eyhyoc imaging is performed through the bilateral carotid vessels and proximal vertebral arteries. Three-D reconstructed images are reviewed. FINDINGS: No persistent stenosis is evident within the common carotid arteries or carotid bifurcation s. Internal and external carotid vessels appear patent. Source images are reviewed. No focal stenosis is evident. On the 3-D reconstructed images some mild n arrowing without flow-limiting stenosis may be within the origin of the right proximal internal carot id artery. IMPRESSIONS: 1. Mild plaquing without significant flow-limiting stenosis proximal origin right internal carotid ar christa. 2. No significant flow-limiting stenosis within the left vertebral artery or bilateral vertebral ender edward.
--- NOTE | 2016-10-29 23:15 | P.PN ---
Subjective This patient is a 76-year-old male who was admitted to Hospital with symptoms of acute diplopia. Patient also had some mild speech impairment which did slowly resolve. His speech is now back to normal. Patient was admitted for possible stroke involving the brainstem area. He was sent for MRI of the brain this morning. MRI is reported negative for any acute stroke. Specifically there is no evidence of brainstem stroke. Dr. Jernigan has requested MRA of the brain. We will await these results. There was no enhancing lesions noted on the MRI of the brain. Patient does have history of underlying prostate cancer. Patient seems to be doing fairly well this morning. Patient states he has had no further episodes of recurrent diplopia. He denies any feelings of dizziness today. Daughter was at bedside and states that his initial symptoms were clearly more severe with the involvement of his speech. She states his speech is now entirely normal. His initial presentation revealed him to have some dysarthric speech. We will await further completion of his stroke workup. Patient does have some ALLERGY to aspirin. We would recommend beginning the patient on Plavix 75 mg daily for secondary stroke prevention. Patient has not had any further recurrence of diplopia. 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 Vladimir Obrien in the outpatient setting. Patient may benefit from ophthalmology consultation soon after discharge. We will await the MRA to be done and will review those results when they become available. MRA will likely be completed tomorrow. Patient has been started on Plavix for secondary stroke prevention. The patient states he was able to get up and walk around the hallways today several times. He did feel slight dizziness but nothing severe. We have explained to the patient that this could be some form of mild vestibulitis. We will await his MRA results and if this is negative he may be able to be discharged home tomorrow. His mild vestibular disturbance can be followed up outpatient. Patient underwent MRI of the brain today which is reviewed and is negative for any acute changes. MRI in GO of the head and neck is negative for any changes. We would recommend patient may be discharged tomorrow now that neuro imaging studies have been reviewed and are negative. He may follow-up in the outpatient neurology clinic in 2-3 weeks. All their questions were answered. His overall prognosis at this time remains fair. Objective - Vital Signs Vital signs: Vital Signs Temp 98.1 F 10/29/16 14:49 Pulse 95 10/29/16 17:44 Resp 16 10/29/16 16:00 BP 165/76 10/29/16 17:44 Pulse Ox 96 10/29/16 14:49 Intake & Output 10/29/16 10/29/16 10/30/16 06:59 18:59 06:59 Intake Total 480 400 Output Total 300 Balance 180 400 Weight 88.5 kg Intake: Oral 480 400 Output: Urine 300 Other: Voiding Method Urinal Urinal # Voids 3 2 - Exam Physical examination: PHYSICAL EXAMINATION: Patient is resting comfortably in bed. VITAL SIGNS: Blood pressure is [165/76]. Heart rate is [95]. Respiration is [16] . Temperature is [98.1]. HEENT: Head is atraumatic, neck is supple, there were no carotid bruits. CHEST: Lungs are clear to auscultation and percussion. CARDIAC: S1, S2 normal rate and rhythm. There is no murmur. ABDOMEN: Soft and nontender. Bowel sounds are present. EXTREMITIES: There is no pedal edema. Peripheral pulses are present. Neurological examination: Patient's neurological examination is unchanged from yesterday. Patient has no evidence of any ocular muscle weakness involving the left eye movements. Patient denies any dizziness or vertigo. Neurological examination is nonfocal. - Labs CBC & Chem 7: 10/27/16 05:36 10/27/16 05:36 Labs: Abnormal Lab Results - Last 24 Hours (Table) 10/29/16 10/29/16 10/29/16 Range/Units 06:51 11:56 17:10 POC Glucose (mg/dL) 135 H 105 H 185 H (75-99) mg/dL 10/29/16 Range/Units 20:11 POC Glucose (mg/dL) 183 H (75-99) mg/dL Assessment and Plan (1) Arterial ischemic stroke, vertebrobasilar, brainstem, acute Status: Acute Code(s): I63.219 - CEREB INFRC DUE TO UNSP OCCLS OR STENOSIS OF UNSP VERTEB ART; I63.22 - CEREBRAL INFRC DUE TO UNSP OCCLS OR STENOSIS OF BASILAR ART (2) Aphasia Status: Acute Code(s): R47.01 - APHASIA (3) Diplopia Status: Acute Code(s): H53.2 - DIPLOPIA (4) Transient cerebral ischemia Status: Acute Code(s): G45.9 - TRANSIENT CEREBRAL ISCHEMIC ATTACK, UNSPECIFIED Plan: This patient is a 76-year-old male being evaluated for recent episode of diplopia and possible vertebrobasilar insufficiency. He underwent MRI MRA today the results of which are noted above. MRI/MRA is negative for any acute changes. Patient neurological examination is nonfocal today. He may be considered for discharge home tomorrow. He may follow-up in the outpatient neurology clinic in 2-3 weeks. His overall prognosis at this time remains guarded.
[2016-10-30 02:07] VITALS: RESP 16
[2016-10-30] MEDS: SODIUM CHLORIDE 0.9% 1,000 ML IV SCH (04:22)
[2016-10-30 06:53] LABS: Glucose,Whole Blood 133 mg/dL (75-99)
[2016-10-30] MEDS: glipiZIDE 5 MG TAB PO SCH (07:31)
[2016-10-30] MEDS: PANTOPRAZOLE 40 MG TABLET PO SCH (07:32)
[2016-10-30] MEDS: INSULIN LISPRO (humaLOG) 300 UNIT/3 ML VIAL SQ SCH (07:32)
[2016-10-30] MEDS: CLOPIDOGREL 75 MG TAB PO SCH (07:32)
[2016-10-30 07:35] VITALS: TEMP 98
[2016-10-30 07:42] VITALS: BP 144/63; PULSE 97
[2016-10-30 07:42] LABS: Basophils % (A) 0 %; CH 28.8; CHCM 34.5; Eosinophils # (A) 0.3 k/uL (0-0.7); Eosinophils % (A) 6 %; HCT 33.2 % (39.0-53.0); HDW 3.23; HGB 11.4 gm/dL (13.0-17.5); Luc # (Auto) 0.21; Luc % (Auto) 4; Lymphocytes # (A) 0.8 k/uL (1.0-4.8); Lymphocytes % (A) 16 %; MCH 28.6 pg (25.0-35.0); MCHC 34.2 g/dL (31.0-37.0); MCV 83.6 fL (80.0-100.0); Mean Platelet Volume 6.7; Monocytes # (A) 0.5 k/uL (0-1.0); Monocytes % (A) 10 %; Neutrophils # (A) 3.5 k/uL (1.3-7.7); Neutrophils % (A) 65 %; RBC 3.97 m/uL (4.30-5.90); RDW 14.3 % (11.5-15.5); WBC 5.4 k/uL (3.8-10.6); WBC (Perox) 5.63
[2016-10-30 07:51] LABS: Anion Gap 12 mmol/L; Blood Urea Nitrogen 23 mg/dL (9-20); Calcium 9.5 mg/dL (8.4-10.2); Carbon Dioxide 26 mmol/L (22-30); Chloride 100 mmol/L (98-107); Glucose 137 mg/dL (74-99); Non-African American GFR(MDRD) >60 (>60 ml/min/1.73 sqM); Potassium 4.5 mmol/L (3.5-5.1); Sodium 138 mmol/L (137-145)
--- NOTE | 2016-10-31 11:11 | DS ---
DATE OF ADMISSION: 10/26/2016 DATE OF DISCHARGE: 10/30/2016 DATE OF SERVICE: 10/30/2016 FINAL DIAGNOSES: 1. Dizziness, vertigo, diplopia, possible acute transient ischemic attack involving the vertebrobasilar system. 2. Anemia, normocytic anemia of chronic disease. 3. Normal vertebral arteries in MRA of the brain. 4. Increased random blood sugar and diabetes mellitus type 2. 5. History of chronic obstructive pulmonary disease. 6. History of gastroesophageal reflux disease. 7. History of gastrointestinal bleed. 8. Hypertension, essential. 9. Hyperlipidemia. 10. History of sleep apnea. 11. History of glaucoma. 12. History of prostate cancer. 13. History of radiation. 14. History of adenoidectomy. 15. History of degenerative joint disease. 16. Remote history nicotine dependence. 17. FULL CODE. DISCHARGE DISPOSITION: The patient will be discharged in a stable condition with guarded prognosis. Neurology cleared the patient for discharge. HISTORY OF PRESENT ILLNESS: This 76-year-old gentleman with a past medical history of multiple medical problems being followed by Dr. Morrow in the outpatient setting, admitted with dizziness and some diplopia. The patient was monitored closely. CAT scan was normal and MRI and MRA was also normal, not showing any abnormalities in the vasculature or acute stroke. The patient treated symptomatically, improved significantly. Dr. Martínez saw the patient during the hospitalization. Please refer to the multiple consultation notes and progress notes for further details. Neurovascular work-up was basically negative. On exam, vitals are stable. CARDIOVASCULAR SYSTEM: S1, S2 muffled. ABDOMEN: Soft. NERVOUS SYSTEM: No focal deficits. DISCHARGE ADVICE: 1. Diet is cardiac. 2. Activity limited until followup. 3. Follow up with Dr. Martínez as advised. 4. Follow up with Dr. Morrow in 2 to 3 days. Medications will be: 1. Tylenol 500 mg q.4 p.r.n. 2. Plavix 75 mg p.o. daily. 3. Zestril 10 mg p.o. b.i.d. 4. Antivert 12.5 mg q.8 p.r.n. 5. Protonix 40 mg b.i.d. 6. Pravachol 40 mg q.h.s. 7. Glucotrol 5 mg a.c. breakfast. Once again, the patient will be discharged in a stable condition with guarded prognosis.
--- NOTE | 2016-11-02 21:46 | EEG ---
DATE OF SERVICE: 10/29/2016 INDICATION FOR EXAMINATION: This patient is a 76-year-old male being evaluated for dizziness and diplopia. Symptoms came on suddenly and have now gradually resolved. Patient being evaluated for brainstem TIA. AGE: 76 years. EEG FINDINGS: A routine 21-channel, awake digital EEG recording was accomplished utilizing the 10-20 international system with bipolar and referential montages. The background activity in the most alert resting state consists of a low to medium amplitude, fairly well-developed and well-sustained 7-8 Hz activity over the posterior head regions. This posterior rhythm attenuates to eye opening. There is a small amount of low amplitude 18-20 Hz beta activity seen maximally over the anterior head regions. Muscle and movement artifact was observed on a few occasions during the tracing. Hyperventilation was not performed. Photic stimulation at flash frequencies of 2-30 Hz produced a good symmetrical occipital driving response. No epileptiform discharges were seen. IMPRESSION: This EEG is within normal limits for the patient's age. The EEG failed to reveal any focal, lateralized or epileptiform abnormalities. Clinical correlation is recommended.
== END 2016-10-30 11:20 | disposition home or self-care (01) | DRG 69 ==
LOC: EC 11:45 → 6SEL 16:07 → 3SUR 10-27 21:01
PROVIDERS: ADMIT Internal Medicine; ATTEND Internal Medicine
DX: G45.0 Vertebro-basilar artery syndrome (principal); J44.9 Chronic obstructive pulmonary disease, unspecified; E11.9 Type 2 diabetes mellitus without complications; I10 Essential (primary) hypertension; D63.8 Anemia in other chronic diseases classified elsewhere; E78.5 Hyperlipidemia, unspecified; K21.9 Gastro-esophageal reflux disease without esophagitis; G47.30 Sleep apnea, unspecified; H40.9 Unspecified glaucoma; M19.91 Primary osteoarthritis, unspecified site; Z87.891 Personal history of nicotine dependence; Z88.6 Allergy status to analgesic agent; Z88.8 Allergy status to other drugs, medicaments and biological substances; Z90.49 Acquired absence of other specified parts of digestive tract; Z98.41 Cataract extraction status, right eye; Z98.42 Cataract extraction status, left eye; Z85.46 Personal history of malignant neoplasm of prostate; Z92.3 Personal history of irradiation; Z79.84 Long term (current) use of oral hypoglycemic drugs; Z79.899 Other long term (current) drug therapy
CPT/HCPCS: 36415; 70470; 70544; 70549; 70553; 80048; 80053; 80061; 83036; 84484; 85025; 85610; 93005; 93306; 93880; 95819; 96361; 96374; 99285

== ENCOUNTER → 2016-11-09 | Outpatient (CLI) | payer MEDICARE | END | disposition home or self-care (01) | LOC: LABWHC1 14:14 | PROVIDERS: ATTEND Ophthalmology | DX: H20.9 Unspecified iridocyclitis (principal) | CPT/HCPCS: 36415; 85652 ==

== ENCOUNTER 2016-11-29 11:03 | Day surgery (SDC) | payer MEDICARE ==
--- NOTE | 2016-11-28 13:19 | P.HPIHPCON ---
History of Present Illness H&P Date: 11/28/16 Chief Complaint: central vision loss right eye, elevated sed rate, bilateral temporal headac impression; 1. central vision loss right eye blurred vision left eye 2. posterior distribution TIA with dysarthria, diploplia, diminished acuity left eye, central vision loss right eye 09/2016 3. diabetes mellitus 4. elevated sedimentation rate with diagnosis of temporal arteritis plan; 1. bilateral temporal artery biopsy and related procedures Risks and benefits of procedure discussed including infection, bleeding, poor wound healing. Patient understands the risks and benefits of the procedure and is willing to have it performed. Scheduled urgently for 11/29/2016. 76 y/o man, referred for aforementioned complaints. Hospitalized in September 2016 for visual loss in right eye, blurred vision left eye, diplopia, dysarthria. Extensive workup including carotid duplex, MRA of neck and brain failed to demonstrate evidence of carotid stenosis. 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 Recent opthalmology evaluation demonstrated central vision loss right eye and ESR = 66. Patient denies a history of collagen vascular disease or giant cell arteritis in the past. Denies history of CVA. CMHx; HTN, diabetes mellitus, GERD, hyperlipidemia, COPD, prostate cancer in remission, nicotine dependence in remission, glaucoma PSHx; radiation seeds for prostate, appendix, right leg femur rodding after trauma x 2, knee surgery, bilateral rotator cuff repair, cataract extraction bilaterally, tonsils and adenoids Habits; 30 pack year history of nicotine dependence stopped 30 years ago, no EtOH or IVDA ROS; 10 system review with positive findings as per HPI Allergies; ASA, Celebrex FHx; CVA, CA, stomach cancer, breast cancer PE: WDWN male in NAD, BP =  HEENT: normocephalic, anicteric sclera, normal oral mucosa, good dentition, no carotid bruits or JVD, trachea is midline, no thyromegaly or lymphadenopathy, Lungs; clear bilaterally Heart; RRR, normal S1 and S2 ABD; soft, non-tender, no palpable pulsatile organomegaly or bruits EXTR; femoral, popliteal, dorsalis pedis and posterior tibial pulses are palpable bilaterally; moderate right leg edema with degenerative changes of the right knee Sed Rate; 66 Remainder of records including carotid duplex, MRA, MRI reviewed. No evidence of significant carotid stenosis bilaterally. Consent for Procedure: I have explained the operation/procedure to the patient, including the risks, benefits, side effects, alternative therapies (including not receiving the proposed treatment or service), the likelihood of the patient achieving his/her goals, and potential recuperation problems for the procedure/sedation/analgesia , as well as any blood products, if indicated. I also explained to the patient the risks, benefits and side effects of the alternatives, as well as the risks related to not receiving the proposed procedure, care, treatment, or services. Past Medical History Past Medical History: Cancer, COPD, Diabetes Mellitus, Eye Disorder, GERD/Reflux , GI Bleed, Hyperlipidemia, Hypertension, Prostate Disorder, Sleep Apnea/CPAP/ BIPAP Additional Past Medical History / Comment(s): HX past GLAUCOMA. PROSTATE CA 2014, HX RADIATION X24 TX, LAST 3 WKS AGO. NO TX FOR SLEEP APNEA IN YEARS. homone injections, biopsy 2015, 54 seed inplants jun 2016, radiation may 2016.PNE VACCINE 2-3 YEARS AGO NOT SURE OF EXACT DATE. History of Any Multi-Drug Resistant Organisms: None Reported Past Surgical History: Adenoidectomy, Appendectomy, Orthopedic Surgery, Tonsillectomy Additional Past Surgical History / Comment(s): EXC BACK CYSTS. EXC BILAT CATARACTS. BILAT SHOULDERS sx. ORIF RT FEMUR, 1 F/U SURGERY, THEN MANIPULATION.PROSTATE BRACHYTHERAPY/RADIOACTIVE SEED INPLANTS Past Anesthesia/Blood Transfusion Reactions: No Reported Reaction Past Psychological History: No Psychological Hx Reported Additional Psychological History / Comment(s): PT LIVES ALONE IN A SINGLE LEVEL HOME THAT HAS 5 STEPS TO GET INTO HOME. PT IS INDEPENDANT. NO OUTSIDE SERVICES , NO MEDICAL EQUIPMENT. DRIVES. NO PETS. SERVED IN THE [employer]. 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 Smoking Status: Former smoker Past Alcohol Use History: None Reported Additional Past Alcohol Use History / Comment(s): SMOKED [age] YEARS OLD EST, 1 PPD OR <, QUIT 1993 Past Drug Use History: None Reported - Past Family History Sister(s) Family Medical History: Cancer Father Additional Family Medical History / Comment(s): " FROM [place] FLU IN THE 1959'S Mother Family Medical History: Cancer Additional Family Medical History / Comment(s): "HEART PROBLEMS" Medications and Allergies Home Medications Medication Instructions Recorded Confirmed Type Pravastatin Sodium [Pravachol] 40 mg PO HS 01/13/14 10/26/16 History Acetaminophen [Tylenol] 500 mg PO Q4-6H PRN 07/06/16 10/26/16 History glipiZIDE [Glucotrol] 5 mg PO AC-BRKFST 07/06/16 10/26/16 History Allergies Allergy/AdvReac Type Severity Reaction Status Date / Time celecoxib [From Celebrex] Allergy Severe GI BLEED Verified 10/26/16 14:15 aspirin Allergy Intermediate STOMACH Verified 10/26/16 14:15 PROBLEMS
[2016-11-28 13:45] VITALS: BMI 26.7
[~2016-11-29 11:03] MED LIST: DEXAMETHASONE SOD PHOSPHATE 10 MG/ML 1 ML VIAL IV ONE; HYDROmorphone 1 MG/ML 1 ML SYRINGE IVP PRN; LACTATED RINGERS 1,000 ML IV SCH; LIDOCAINE 1% 20 ML VIAL (10MG/ML) FOR IV START INTRADERMA PRN; MIDAZOLAM 2 MG/2 ML VIAL IV PRN; ONDANSETRON 4 MG/2 ML VIAL IVP ONE; ceFAZolin 2 GM in SODIUM CHLORIDE 0.9% 100 ML IVPB ONE
[2016-11-29 11:30] VITALS: RESP 16
[2016-11-29 11:39] LABS: Glucose,Whole Blood 139 mg/dL (75-99)
[2016-11-29] MEDS ORDERED: fentaNYL (PF) 50 MCG/ML 2 ML AMP ONE (12:24)
[2016-11-29] MEDS ORDERED: PHENYLEPHRINE-0.9% NACL SYG 1 MG/10 ML SYRINGE ONE (12:24)
[2016-11-29] MEDS ORDERED: PROPOFOL 10 MG/ML 20 ML VIAL IV ONE (12:24)
[2016-11-29] MEDS ORDERED: LIDOCAINE 1% INJ 10MG/ML (20 ML MDV) ONE ×2 (12:24)
[2016-11-29] MEDS ORDERED: SUCCINYLCHOLINE CHLORIDE 100 MG/5 ML SYR IV ONE (12:24)
[2016-11-29] MEDS ORDERED: GLYCOPYRROLATE 0.2 MG/ML 2 ML VIAL ONE (12:24)
[2016-11-29] MEDS ORDERED: MIDAZOLAM 2 MG/2 ML VIAL ONE (12:24)
[2016-11-29] MEDS ORDERED: LIDOCAINE 1%-EPI 1:100,000 20 ML VIAL SUBMUCOSAL ONE ×4 (13:41→14:04)
[2016-11-29 14:42] VITALS: TEMP 97.2
[2016-11-29] MEDS ORDERED: ONDANSETRON 4 MG TAB PO PRN (14:43)
[2016-11-29] MEDS ORDERED: oxyCODONE-APAP 5-325MG 1 EACH TAB PO PRN (14:45)
[2016-11-29 14:57] LABS: Glucose,Whole Blood 102 mg/dL (75-99)
--- NOTE | 2016-11-29 15:42 | P.OP ---
Date of Procedure: 11/29/16 Preoperative Diagnosis: temporal arteritis Postoperative Diagnosis: temporal arteritis Procedure(s) Performed: bilateral temporal artery biopsies Anesthesia: GETA Surgeon: Ilsa Hopson Estimated Blood Loss (ml): 10 Pathology: other (bilateral temporal artery) Condition: stable Disposition: PACU Indications for Procedure: temporal arteritis Description of Procedure: After induction of adequate general anesthesia via LMA, the patient's right temporal area was prepped and draped in the usual sterile fashion. An incision was made overlying the right temporal artery adjacent to the ear. This was carried through the skin and subcutaneous tissues to the right temporal artery. Branches of the right temporal artery was identified and isolated and divided between 4-0 silk ties. A 5-0 Prolene stick tie was used to ligate the right temporal artery proximally and distally. A 2 cm segment of the artery was submitted as a specimen. The area was copiously irrigated with saline solution. Hemostasis was assured with electrocautery. The incision was closed in layers with a 5-0 Monocryl used to approximate the subcutaneous tissues and a 5-0 Monocryl used to approximate the skin in a subcuticular fashion. Dermabond to skin. Needle and sponge counts were correct. The left temporal artery was harvested in a similar fashion to the patient's right. Patient tolerated the procedure well and was returned to the recovery room in satisfactory condition.
[2016-11-29 15:49] VITALS: BP 122/55; PULSE 88
[2016-11-29 15:49] LABS: Glucose,Whole Blood 123 mg/dL (75-99)
== END 2016-11-29 16:30 | disposition home or self-care (01) ==
LOC: OR 11:03
PROVIDERS: ATTEND Surgery
DX: M31.6 Other giant cell arteritis (principal); I10 Essential (primary) hypertension; E78.5 Hyperlipidemia, unspecified; G47.30 Sleep apnea, unspecified; E11.9 Type 2 diabetes mellitus without complications; Z79.4 Long term (current) use of insulin; Z79.84 Long term (current) use of oral hypoglycemic drugs; I69.398 Other sequelae of cerebral infarction; H54.61 Unqualified visual loss, right eye, normal vision left eye; K21.9 Gastro-esophageal reflux disease without esophagitis; Z79.02 Long term (current) use of antithrombotics/antiplatelets; Z79.52 Long term (current) use of systemic steroids; Z79.899 Other long term (current) drug therapy; R42 Dizziness and giddiness
CPT/HCPCS: 88305; 37609; J2250; J0690; J2405; J2001; J3010; J2370; J0330; J2704

== ENCOUNTER → 2016-12-27 | Outpatient (CLI) | payer MEDICARE ==
--- NOTE | 2016-12-27 19:18 | CT ---
EXAMINATION TYPE: CT angio chest DATE OF EXAM: 12/27/2016 COMPARISON: 07/25/2012 HISTORY: recent TIA with vasculitis to brain. CONTRAST: CTA thoracic aorta with 3-D reconstruction is performed following the injection of 80 mL of Visipaque 320. Contrast CTA of the thoracic aorta was performed from the lung apex through the upper abdomen. 3D reconstruction imaging obtained at a separate workstation. CT Chest: THORACIC AORTA: No evidence for thoracic aortic aneurysm. Mild atheromatous changes seen. There is n o evidence for dissection or periaortic collection. No vascular irregularity to suggest vasculitis. B ranch vessels are patent. LUNGS: The lungs are clear and free of infiltrate or atelectasis. No pulmonary nodule or mass is det ected. No pleural effusion or CT evidence of interstitial lung disease. MEDIASTINUM: No evidence for mediastinal hematoma. The heart is not enlarged. No evidence for med iastinal mass or adenopathy. HILAR STRUCTURES: No evidence for mass. No hilar adenopathy is appreciated. OTHER: 4 cm cyst upper pole right kidney. Mild fatty hepatic infiltration. 1 cm cyst left hepatic lob e. IMPRESSION- No evidence for thoracic aortic aneurysm, dissection or changes of arteritis.
== END | disposition home or self-care (01) ==
LOC: RADCTMAIN 16:40
PROVIDERS: ATTEND Internal Medicine Rheumatology
DX: M31.6 Other giant cell arteritis (principal)
CPT/HCPCS: 71275; Q9967

== ENCOUNTER → 2017-01-31 | Outpatient (CLI) | payer MEDICARE | END | disposition home or self-care (01) | LOC: LABWHC1 11:04 | PROVIDERS: ATTEND Radiology Radiation Oncology | DX: C61 Malignant neoplasm of prostate (principal) | CPT/HCPCS: 36415; 84153 ==

== ENCOUNTER 2017-03-11 17:35 | Inpatient (IN) | payer MEDICARE ==
[2017-03-11] MEDS ORDERED: NITROGLYCERIN OINT 1 INCH/GM PACKET TOPICAL STA (18:11)
--- NOTE | 2017-03-11 18:16 | ED ---
Arrhythmia/Palpitations HPI - General Chief Complaint: Arrhythmia/Palpitations Stated Complaint: abnormal EKG sent by PCP Time Seen by Provider: 03/11/17 17:55 Source: patient, family Mode of arrival: wheelchair Limitations: no limitations - History of Present Illness Initial Comments: This 76-year-old white male presents with a complaint of a heart arrhythmia. He relates that he was at his doctor's office today and they did an EKG which showed evidence of atrial fibrillation with rapid ventricular response with a heart rate of 141. He denies any known history of previous atrial fibrillation or atrial flutter. He states that he has, over the past 2 weeks, had intermittent episodes of similar. This apparently was a routine evaluation today. He will obtain some chest pain which is described as a achy pressure in the midsternal region with diaphoresis and shortness of breath. He has converted back to normal sinus rhythm on arrival to ER and his symptoms have resolved at this time. He denies any previous known cardiac problems. He has a remote history of stress test many years ago. He is unsure of when this was. He's never had a heart catheterization. He denies any radiation of the pain. He denies any leg pain but complains of some minimal swelling which he thinks is due to his steroids. He apparently was diagnosed with temporal arteritis back in September 2016 and has been on some steroids ever since. Eyes any history of DVT or PE but does have a history of COPD. No other complaints or modifying factors. - Related Data Home Medications Medication Instructions Recorded Confirmed Pravastatin Sodium [Pravachol] 40 mg PO HS 01/13/14 03/11/17 Insulin Aspart [NovoLOG Flexpen] See Protocol SQ TID-W/MEALS 11/28/16 03/11/17 Pantoprazole [Protonix] 40 mg PO QAM 11/28/16 03/11/17 predniSONE 30 mg PO DAILY 11/28/16 03/11/17 Bimatoprost [Lumigan .01% Ophth 1 drop BOTH EYES HS 03/11/17 03/11/17 Soln] Insulin Aspart [NovoLOG Flexpen] 12 units SQ AC-TID 03/11/17 03/11/17 Insulin Glargine [Lantus] 16 unit SQ HS 03/11/17 03/11/17 Timolol 0.5% Ophth Soln [Timoptic 1 drop BOTH EYES BID 03/11/17 03/11/17 0.5% Ophth Soln] glipiZIDE [Glucotrol] 10 mg PO AC-BRKFST 03/11/17 03/11/17 Previous Rx's Medication Instructions Recorded Clopidogrel [Plavix] 75 mg PO DAILY #30 tab 10/29/16 Lisinopril [Zestril] 10 mg PO BID #0 10/29/16 Allergies Allergy/AdvReac Type Severity Reaction Status Date / Time celecoxib [From Celebrex] Allergy Severe GI BLEED Verified 03/11/17 18:51 aspirin Allergy Intermediate STOMACH Verified 03/11/17 18:51 PROBLEMS Review of Systems ROS Statement: Those systems with pertinent positive or pertinent negative responses have been documented in the HPI. ROS Other: All systems not noted in ROS Statement are negative. Past Medical History Past Medical History: Atrial Flutter, Cancer, COPD, Diabetes Mellitus, Eye Disorder, GERD/Reflux, GI Bleed, Hyperlipidemia, Hypertension, Prostate Disorder , Sleep Apnea/CPAP/BIPAP Additional Past Medical History / Comment(s): having problems at times being unable to see and head pressure,HX past GLAUCOMA. PROSTATE CA 2015, HX RADIATION X24 TX-Apr 2016,. NO TX FOR SLEEP APNEA IN YEARS. hormone injections , biopsy 2015, 54 seed inplants jun 2016, radiation may 2016.PNE VACCINE 2-3 YEARS AGO NOT SURE OF EXACT DATE.freq urination,Steroid tx November 2016 History of Any Multi-Drug Resistant Organisms: None Reported Past Surgical History: Adenoidectomy, Appendectomy, Orthopedic Surgery, Tonsillectomy Additional Past Surgical History / Comment(s): EXC BACK CYSTS. EXC BILAT CATARACTS. BILAT SHOULDERS sx. ORIF RT FEMUR, 1 F/U SURGERY, THEN MANIPULATION.PROSTATE BRACHYTHERAPY/RADIOACTIVE SEED INPLANTS Past Anesthesia/Blood Transfusion Reactions: Motion Sickness Past Psychological History: No Psychological Hx Reported Smoking Status: Former smoker Past Alcohol Use History: None Reported Past Drug Use History: None Reported - Past Family History Sister(s) Family Medical History: Cancer Additional Family Medical History / Comment(s): breast CA Father History Unknown: Yes Additional Family Medical History / Comment(s): " FROM [place] FLU IN THE S Mother Family Medical History: Cancer, CVA/TIA Additional Family Medical History / Comment(s): "HEART PROBLEMS" General Exam - General Exam Comments Initial Comments: GENERAL: The patient is well nourished and well hydrated. VITAL SIGNS: Heart rate, blood pressure, respiratory rate reviewed as recorded in nurse's notes. EYES: Pupils are round and reactive. Extraocular movements are intact. No conjunctival / lid redness or swelling. ENT: No external evidence of injury, swelling, or ecchymosis. Airway is patent. Throat is clear. NECK: Nontender. No swelling or evidence of injury. No subcutaneous emphysema. Trachea is midline. No thyroid mass. HEART: Regular rate and rhythm. Good peripheral pulses. LUNGS/CHEST: Breath sounds clear and equal bilaterally. No rales, rhonchi, or wheezes. No ecchymosis, subcutaneous emphysema, or tenderness. ABDOMEN: Abdomen soft without tenderness. No palpable masses or organomegaly. No peritoneal signs. No abdominal wall swelling or ecchymosis. EXTREMITIES: No extremity tenderness. Normal muscle tone and function. No thoracolumbar tenderness. NEUROLOGIC: Sensation is grossly intact. Cranial nerve exam reveals face is symmetrical, tongue is midline, speech is clear. SKIN: No abrasions or ecchymosis is noted. No induration or masses noted. PSYCHIATRIC: Alert and oriented. Appropriate behavior and judgment. Limitations: no limitations Course Vital Signs 03/11/17 03/11/17 17:39 18:26 Temperature 96.2 F L Pulse Rate 104 H 82 Respiratory 18 Rate Blood Pressure 181/82 149/69 O2 Sat by Pulse 97 98 Oximetry Medical Decision Making - Medical Decision Making The patient was seen and examined. All diagnostics were reviewed. The EKG from his doctor's office earlier today does show evidence of atrial fibrillation with rapid ventricular response at a heart rate of [address]-T wave changes primarily in lead 1 and aVL. The EKG in the ER shows a normal sinus rhythm at a rate of [address]-T wave changes. The SD interval is 114, QRS duration is 82, and the QTc interval is 389. An IV is started and he is placed on a ekg monitor tech no ectopy is identified. Aspirin was not given due to his ALLERGY. He started on some Nitropaste. The chest x- ray does not show any acute processes per my review. The laboratory overall is fairly unremarkable. He is doing quite well on recheck with continued normal sinus rhythm and no further chest pain. It is felt as though he would benefit from admission to the hospital for further treatment. He is agreeable. Case will be discussed with internal medicine shortly for admission. - Lab Data Result diagrams: 03/11/17 18:09 03/11/17 18:09 Lab Results 03/11/17 03/11/17 03/11/17 Range/Units 18:09 18:09 18:09 WBC 9.1 (3.8-10.6) k/uL RBC 4.33 (4.30-5.90) m/uL Hgb 13.5 (13.0-17.5) gm/dL Hct 40.8 (39.0-53.0) % MCV 94.3 (80.0-100.0) fL MCH 31.1 (25.0-35.0) pg MCHC 33.0 (31.0-37.0) g/dL RDW 16.1 H (11.5-15.5) % Plt Count 148 L (150-450) k/uL Neutrophils % 91 % Lymphocytes % 5 % Monocytes % 3 % Eosinophils % 0 % Basophils % 0 % Neutrophils # 8.3 H (1.3-7.7) k/uL Lymphocytes # 0.4 L (1.0-4.8) k/uL Monocytes # 0.3 (0-1.0) k/uL Eosinophils # 0.0 (0-0.7) k/uL Basophils # 0.0 (0-0.2) k/uL Anisocytosis Slight PT (9.0-12.0) sec INR (<1.2) APTT (22.0-30.0) sec Sodium 136 L (137-145) mmol/L Potassium 4.7 (3.5-5.1) mmol/L Chloride 103 (98-107) mmol/L Carbon Dioxide 27 (22-30) mmol/L Anion Gap 6 mmol/L BUN 30 H (9-20) mg/dL Creatinine 0.99 (0.66-1.25) mg/dL Est GFR (MDRD) Af Amer >60 (>60 ml/min/1.73 sqM) Est GFR (MDRD) Non-Af >60 (>60 ml/min/1.73 sqM) Glucose 247 H (74-99) mg/dL Calcium 9.2 (8.4-10.2) mg/dL Magnesium 1.8 (1.6-2.3) mg/dL Total Bilirubin 0.5 (0.2-1.3) mg/dL AST 22 (17-59) U/L ALT 53 (21-72) U/L Alkaline Phosphatase 95 (38-126) U/L Total Creatine Kinase 39 L (55-170) U/L CK-MB (CK-2) 1.6 (0.0-2.4) ng/mL CK-MB (CK-2) Rel Index 4.1 Troponin I 0.033 (0.000-0.034) ng/mL Total Protein 5.9 L (6.3-8.2) g/dL Albumin 3.6 (3.5-5.0) g/dL / Range/Units 18:09 WBC (3.8-10.6) k/uL RBC (4.30-5.90) m/uL Hgb (13.0-17.5) gm/dL Hct (39.0-53.0) % MCV (80.0-100.0) fL MCH (25.0-35.0) pg MCHC (31.0-37.0) g/dL RDW (11.5-15.5) % Plt Count (150-450) k/uL Neutrophils % % Lymphocytes % % Monocytes % % Eosinophils % % Basophils % % Neutrophils # (1.3-7.7) k/uL Lymphocytes # (1.0-4.8) k/uL Monocytes # (0-1.0) k/uL Eosinophils # (0-0.7) k/uL Basophils # (0-0.2) k/uL Anisocytosis PT 9.6 (9.0-12.0) sec INR 0.9 (<1.2) APTT 20.4 L (22.0-30.0) sec Sodium (137-145) mmol/L Potassium (3.5-5.1) mmol/L Chloride (98-107) mmol/L Carbon Dioxide (22-30) mmol/L Anion Gap mmol/L BUN (9-20) mg/dL Creatinine (0.66-1.25) mg/dL Est GFR (MDRD) Af Amer (>60 ml/min/1.73 sqM) Est GFR (MDRD) Non-Af (>60 ml/min/1.73 sqM) Glucose (74-99) mg/dL Calcium (8.4-10.2) mg/dL Magnesium (1.6-2.3) mg/dL Total Bilirubin (0.2-1.3) mg/dL AST (17-59) U/L ALT (21-72) U/L Alkaline Phosphatase (38-126) U/L Total Creatine Kinase (55-170) U/L CK-MB (CK-2) (0.0-2.4) ng/mL CK-MB (CK-2) Rel Index Troponin I (0.000-0.034) ng/mL Total Protein (6.3-8.2) g/dL Albumin (3.5-5.0) g/dL Disposition Clinical Impression: Atrial fibrillation with rapid ventricular response, Chest pain, Unstable angina, Dyspnea Disposition: ADMITTED IP TO THIS [facility] Condition: Good Time of Disposition: 19:06 Decision Date: 03/11/17 Decision Time: 19:06
[2017-03-11 18:33] LABS: ALT 53 U/L (21-72); AST 22 U/L (17-59); Alkaline Phosphatase 95 U/L (38-126); Anion Gap 6 mmol/L; Blood Urea Nitrogen 30 mg/dL (9-20); Calcium 9.2 mg/dL (8.4-10.2); Carbon Dioxide 27 mmol/L (22-30); Chloride 103 mmol/L (98-107); Glucose 247 mg/dL (74-99); Magnesium 1.8 mg/dL (1.6-2.3); Non-African American GFR(MDRD) >60 (>60 ml/min/1.73 sqM); Potassium 4.7 mmol/L (3.5-5.1); Sodium 136 mmol/L (137-145); Total Bilirubin 0.5 mg/dL (0.2-1.3); Total Protein 5.9 g/dL (6.3-8.2)
[2017-03-11 18:36] LABS: Anisocytosis Slight; Basophils % (A) 0 %; CH 31.9; Eosinophils % (A) 0 %; HCT 40.8 % (39.0-53.0); HDW 3.02; HGB 13.5 gm/dL (13.0-17.5); Luc # (Auto) 0.09; Luc % (Auto) 1; Lymphocytes # (A) 0.4 k/uL (1.0-4.8); Lymphocytes % (A) 5 %; MCH 31.1 pg (25.0-35.0); MCV 94.3 fL (80.0-100.0); Mean Platelet Volume 7.5; Monocytes # (A) 0.3 k/uL (0-1.0); Monocytes % (A) 3 %; Neutrophils # (A) 8.3 k/uL (1.3-7.7); Neutrophils % (A) 91 %; RBC 4.33 m/uL (4.30-5.90); RDW 16.1 % (11.5-15.5); WBC 9.1 k/uL (3.8-10.6); WBC (Perox) 8.79
[2017-03-11 18:39] LABS: INR 0.9 (<1.2); Prothrombin Time 9.6 sec (9.0-12.0)
[2017-03-11 18:49] LABS: Partial Thromboplastin Time 20.4 sec (22.0-30.0)
[2017-03-11 18:54] LABS: Creatine Kinase MB 1.6 ng/mL (0.0-2.4); Troponin I 0.033 ng/mL (0.000-0.034)
--- NOTE | 2017-03-11 19:06 | XR ---
EXAMINATION TYPE: XR chest 2V DATE OF EXAM: 03/11/2017 COMPARISON: NONE HISTORY: Tachycardia and chest pain TECHNIQUE: Frontal and lateral views of the chest are obtained. FINDINGS: Heart is normal. Lungs are clear of consolidation. There is small linear density at the hayede ng bases. There is no pleural effusion. Thoracic aorta is atheromatous. IMPRESSION: Mild subsegmental atelectasis at the lung bases. Normal heart.
[2017-03-11] MEDS ORDERED: HEPARIN SODIUM,PORCINE 5,000 UNIT/ML 1 ML VIAL IV PRN (19:28)
[2017-03-11] MEDS ORDERED: NITROGLYCERIN SL TABS 0.4 MG TAB SUBLINGUAL PRN (19:28)
[2017-03-11] MEDS ORDERED: HEPARIN SODIUM,PORCINE 5,000 UNIT/ML 1 ML VIAL IV ONE (19:28)
[2017-03-11] MEDS: HEPARIN SODIUM,PORCINE/D5W PMX 25,000 UNIT in DEXTROSE/WATER 1 500ML.BAG IV SCH (19:41)
[2017-03-11 20:45] LABS: Glucose,Whole Blood 215 mg/dL (75-99)
[2017-03-11 20:58] VITALS: BMI 28.7
[2017-03-11] MEDS ORDERED: LISINOPRIL 10 MG TAB PO SCH (21:00)
[2017-03-11] MEDS ORDERED: PRAVASTATIN SODIUM 40 MG TAB PO SCH (21:00)
[2017-03-11] MEDS: INSULIN GLARGINE 100 UNIT/ML 10 ML VIAL SQ SCH (21:06)
[2017-03-11] MEDS: INSULIN LISPRO (humaLOG) 300 UNIT/3 ML VIAL SQ SCH (21:10)
[2017-03-11] MEDS: TIMOLOL 0.5% OPHTH DROPS 5 ML BTL BOTH EYES SCH (21:11)
[2017-03-11] MEDS: LATANOPROST 0.005% OPHTH DROPS 2.5 ML BTL BOTH EYES SCH (21:11)
[2017-03-11 23:38] LABS: Hemoglobin A1C 8.6 % (4.2-6.1)
[2017-03-12 00:54] LABS: Creatine Kinase MB 1.7 ng/mL (0.0-2.4)
[2017-03-12 00:57] LABS: Troponin I 0.093 ng/mL (0.000-0.034)
[2017-03-12] MEDS: NITROGLYCERIN OINT 1 INCH/GM PACKET TOPICAL SCH ×5 (01:32→23:53)
[2017-03-12 07:01] LABS: Glucose,Whole Blood 166 mg/dL (75-99)
[2017-03-12 07:47] LABS: Mean Platelet Volume 7.7
[2017-03-12 08:15] LABS: Cholesterol 157 mg/dL (<200); HDL Cholesterol 78 mg/dL (40-60)
[2017-03-12 08:22] LABS: Creatine Kinase MB 1.6 ng/mL (0.0-2.4)
[2017-03-12 08:29] LABS: Troponin I 0.093 ng/mL (0.000-0.034)
[2017-03-12] MEDS: TIMOLOL 0.5% OPHTH DROPS 5 ML BTL BOTH EYES SCH ×2 (08:42→21:48)
[2017-03-12] MEDS: INSULIN LISPRO (humaLOG) 300 UNIT/3 ML VIAL SQ SCH ×7 (08:46→21:53)
[2017-03-12] MEDS: PANTOPRAZOLE 40 MG TABLET PO SCH (08:47)
[2017-03-12] MEDS: CLOPIDOGREL 75 MG TAB PO SCH (08:48)
[2017-03-12] MEDS: glipiZIDE 10 MG TAB PO SCH (08:48)
[2017-03-12] MEDS: predniSONE 20 MG TAB PO SCH (08:49)
[2017-03-12] MEDS: LISINOPRIL 20 MG TAB PO SCH (08:55)
[2017-03-12] MEDS: METOPROLOL TARTRATE 25 MG TAB PO SCH ×2 (08:56→21:49)
[2017-03-12] MEDS ORDERED: amLODIPine 5 MG TAB PO SCH (09:00)
--- NOTE | 2017-03-12 09:45 | ECHOF ---
Referral Reason: MEASUREMENTS -------- HEIGHT: 180.3 cm WEIGHT: 95.7 kg BP: 162/79 IVSd: 1.4 cm (0.6 - 1.1) LVIDd: 3.7 cm (3.9 - 5.3) LVPWd: 1.4 cm (0.6 - 1.1) IVSs: 1.7 cm LVIDs: 2.1 cm LVPWs: 1.8 cm Ao Diam: 3.4 cm (2.0 - 3.7) AV Cusp: 2.1 cm (1.5 - 2.6) LA Diam: 3.7 cm (2.7 - 3.8) MV EXCURSION: 10.065 mm (> 18.000) MV EF SLOPE: 56 mm/s (70 - 150) EPSS: 0.6 cm MV E Acosta: 0.88 m/s MV DecT: 203 ms MV A Acosta: 1.02 m/s MV E/A Ratio: 0.86 RAP: 5.00 mmHg RVSP: 9.64 mmHg FINDINGS -------- Sinus rhythm. This was a technically good study. There is moderate concentric left ventricular hypertrophy. Overall left ventricular systolic function is normal with, an EF between 55 - 60 %. The right ventricle is normal in size and function. The left atrium is normal in size. The right atrium is normal in size. Aortic valve is trileaflet and is mildly thickened. The mitral valve leaflets are mildly thickened. Mild mitral regurgitation is present. Trace tricuspid regurgitation present. The right ventricular systolic pressure, as measured by Doppler, is 9.64mmHg. Pulmonic valve appears structurally normal. The aortic root size is normal. The pericardium is normal. CONCLUSIONS -------- 1. Sinus rhythm. 2. Mild mitral regurgitation is present. 3. Trace tricuspid regurgitation present. 4. The right ventricular systolic pressure, as measured by Doppler, is 9.64mmHg. 5. Pulmonic valve appears structurally normal. 6. The aortic root size is normal. 7. The pericardium is normal. 8. This was a technically good study. 9. There is moderate concentric left ventricular hypertrophy. 10. Overall left ventricular systolic function is normal with, an EF between 55 - 60 %. 11. The right ventricle is normal in size and function. 12. The left atrium is normal in size. 13. The right atrium is normal in size. 14. Aortic valve is trileaflet and is mildly thickened. 15. The mitral valve leaflets are mildly thickened. WOOD PILER: Paris Charles RDCS
[2017-03-12 12:10] LABS: Glucose,Whole Blood 126 mg/dL (75-99)
--- NOTE | 2017-03-12 12:13 | CONS ---
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 He also carries a diagnosis of some temporal arteritis, takes Prednisone. He went to Dr. Morrow office and he was evaluated by Dr. Morrow who felt that he was looking pale, short of breath, diaphoretic, and was in atrial fibrillation with rapid rate and was transferred here. By the time he came to the ER, he was in normal sinus rhythm. At the time he was here with TIA in spring of this year, no arrhythmia was detected and his carotids were unremarkable. However, it appears that paroxysmal atrial fibrillation is the cause for his TIA. He is now in sinus rhythm resting comfortably. Troponins show borderline elevation. He has symptoms of palpitations, diaphoresis and chest tightness have resolved completely. He has had an echocardiogram which was also unremarkable. He is resting comfortably without symptoms. PAST MEDICAL HISTORY: 1. Type 2 diabetes mellitus. 2. Hypertensive cardiovascular disease. 3. Recent TIA from which he had a decent recovery. 4. History of sleep apnea, uses BIPAP. 5. Prostate CA status post radiation therapy. 6. History of gastroesophageal reflux disease. ALLERGIES: He has some bleeding with Celebrex. HOME MEDICATIONS: At home include: 1. Pravastatin 40 mg daily. 2. Insulin. 3. Protonix. 4. Glipizide. 5. Plavix 75 mg daily. 6. Lisinopril 20 mg b.i.d. 7. Prednisone 30 mg daily. On examination, blood pressure is 170/70. Pulse rate is about 80 per minute and regular. HEENT unremarkable. Fundus was not examined by me. Neck is supple. There is no JVD. I do not hear a carotid bruit. There is no thyromegaly. Heart exam reveals S1, S2 heard normally without rub, murmur or gallop. Lungs are clear. Abdomen soft, nontender. Lower extremities reveal bilateral 1+ edema. Diminished pulses. Central nervous system grossly no focal deficits. IMPRESSION: 1. Paroxysmal symptomatic atrial fibrillation back in sinus rhythm now. 2. Type 2 diabetes. 3. Hypertension. 4. Hyperlipidemia. 5. Sleep apnea syndrome. 6. History of prostate cancer. 7. History of recent transient ischemic attack. RECOMMENDATIONS: this patient will require full anticoagulation. I am recommending an echocardiogram, additional troponin levels and also to continue IV heparin for the time being. I will obtain information regarding his Prednisone usage and also if there is any other inflammatory arthritis going on. The patient will require a stress test which can probably be arranged as an outpatient. We will increase activity at this time, initiate him on a beta yoselyn as well. BP control needs to be optimized. Thank you very much for the consult. OMAR
[2017-03-12 17:00] LABS: Glucose,Whole Blood 313 mg/dL (75-99)
[2017-03-12 17:00] LABS: Glucose,Whole Blood 343 mg/dL (75-99)
[2017-03-12] MEDS ORDERED: ATORVASTATIN 40 MG TAB PO SCH (21:00)
[2017-03-12 21:11] LABS: Glucose,Whole Blood 233 mg/dL (75-99)
[2017-03-12] MEDS: LATANOPROST 0.005% OPHTH DROPS 2.5 ML BTL BOTH EYES SCH (21:48)
[2017-03-12] MEDS: APIXABAN 5 MG TAB PO SCH (21:49)
[2017-03-12] MEDS: INSULIN GLARGINE 100 UNIT/ML 10 ML VIAL SQ SCH (21:52)
[2017-03-12] MEDS: HEPARIN SODIUM,PORCINE/D5W PMX 25,000 UNIT in DEXTROSE/WATER 1 500ML.BAG IV SCH (22:04)
--- NOTE | 2017-03-12 22:34 | P.HPIM ---
History of Present Illness H&P Date: 03/12/17 Chief Complaint: Abnormal EKGs sent by PCP This 76-year-old male with a known history of hypertension, diabetes type 2 due to steroid-induced, recently diagnosed in September with temporal arteritis on steroids, history of TIA, obstructive sleep apnea, presents with a complaint of a heart arrhythmia. He relates that he was at his doctor's office today and they did an EKG which showed evidence of atrial fibrillation with rapid ventricular response with a heart rate of 141. He denies any known history of previous atrial fibrillation or atrial flutter. He states that he has, over the past 2 weeks, had intermittent episodes of similar. This apparently was a routine evaluation today. He will obtain some chest pain which is described as a achy pressure in the midsternal region with diaphoresis and shortness of breath. He has converted back to normal sinus rhythm on arrival to ER. And His Symptoms Have Resolved at This Stevie e. He denies any previous known cardiac problems. He has a remote history of stress test many years ago. He denies any radiation of the pain. He denies any leg pain but complains of some minimal swelling which he thinks is due to his steroids. He apparently was diagnosed with temporal arteritis back in September 2016 and has been on long-term tapping steroids ever since. Patient denied any dizziness or lightheadedness. Patient had 2-D echocardiogram done today. Patient was found to have elevated troponin level peaked at 0.093. Cardiology is planning for stress test tomorrow. Review of Systems CONSTITUTIONAL: No fever, no malaise, no fatigue. HEENT: No recent visual problems or hearing problems. Denied any sore throat. CARDIOVASCULAR: No chest pain, orthopnea, PND, no palpitations, no syncope. PULMONARY: , no hemoptysis. GASTROINTESTINAL: No diarrhea, no nausea, no vomiting, no abdominal pain. Normoactive bowel sounds. NEUROLOGICAL: No headaches, no weakness, no numbness. HEMATOLOGICAL: Denies any bleeding or petechiae. GENITOURINARY: Denies any burning micturition, frequency, or urgency. MUSCULOSKELETAL/RHEUMATOLOGICAL: Denies any joint pain, swelling, or any muscle pain. ENDOCRINE: Denies any polyuria or polydipsia. The rest of the 14-point review of systems is negative. Past Medical History Past Medical History: Atrial Flutter, Cancer, COPD, Diabetes Mellitus, Eye Disorder, GERD/Reflux, GI Bleed, Hyperlipidemia, Hypertension, Prostate Disorder , Sleep Apnea/CPAP/BIPAP Additional Past Medical History / Comment(s): having problems at times being unable to see and head pressure,HX past GLAUCOMA. PROSTATE CA 2015, HX RADIATION X24 TX-Apr 2016,. NO TX FOR SLEEP APNEA IN YEARS. hormone injections , biopsy 2016, 54 seed inplants jun 2016, radiation may 2016.PNE VACCINE 2-3 YEARS AGO NOT SURE OF EXACT DATE.freq urination,Steroid tx November 2016 History of Any Multi-Drug Resistant Organisms: None Reported Past Surgical History: Adenoidectomy, Appendectomy, Orthopedic Surgery, Tonsillectomy Additional Past Surgical History / Comment(s): EXC BACK CYSTS. EXC BILAT CATARACTS. BILAT SHOULDERS sx. ORIF RT FEMUR, 1 F/U SURGERY, THEN MANIPULATION.PROSTATE BRACHYTHERAPY/RADIOACTIVE SEED INPLANTS Past Anesthesia/Blood Transfusion Reactions: Motion Sickness Past Psychological History: No Psychological Hx Reported Additional Psychological History / Comment(s): PT LIVES ALONE IN A SINGLE LEVEL HOME THAT HAS 5 STEPS TO GET INTO HOME. PT IS INDEPENDANT. NO OUTSIDE SERVICES , NO MEDICAL EQUIPMENT. DRIVES. NO PETS. SERVED IN THE [employer]. 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 Smoking Status: Former smoker Past Alcohol Use History: None Reported Additional Past Alcohol Use History / Comment(s): SMOKED 16-40 YEARS OLD EST, 1 PPD OR <, QUIT Past Drug Use History: None Reported - Past Family History Sister(s) Family Medical History: Cancer Additional Family Medical History / Comment(s): breast CA Father History Unknown: Yes Additional Family Medical History / Comment(s): " FROM [place] FLU IN THE Mother Family Medical History: Cancer, CVA/TIA Additional Family Medical History / Comment(s): "HEART PROBLEMS" Medications and Allergies Home Medications Medication Instructions Recorded Confirmed Type Pravastatin Sodium [Pravachol] 40 mg PO HS 01/13/14 03/11/17 History Insulin Aspart [NovoLOG Flexpen] See Protocol SQ TID-W/MEALS 11/28/16 03/11/17 History Pantoprazole [Protonix] 40 mg PO QAM 11/28/16 03/11/17 History predniSONE 30 mg PO DAILY 11/28/16 03/11/17 History Bimatoprost [Lumigan .01% Ophth 1 drop BOTH EYES HS 03/11/17 03/11/17 History Soln] Insulin Aspart [NovoLOG Flexpen] 12 units SQ AC-TID 03/11/17 03/11/17 History Insulin Glargine [Lantus] 16 unit SQ HS 03/11/17 03/11/17 History Timolol 0.5% Ophth Soln [Timoptic 1 drop BOTH EYES BID 03/11/17 03/11/17 History 0.5% Ophth Soln] glipiZIDE [Glucotrol] 10 mg PO AC-BRKFST 03/11/17 03/11/17 History Allergies Allergy/AdvReac Type Severity Reaction Status Date / Time celecoxib [From Celebrex] Allergy Severe GI BLEED Verified 03/11/17 18:51 aspirin Allergy Intermediate STOMACH Verified 03/11/17 18:51 PROBLEMS Physical Exam Vitals: Vital Signs Temp Pulse Pulse Resp BP BP Pulse Ox 03/12/17 15:44 98.3 F 73 18 141/68 94 L 03/12/17 11:48 98.0 F 68 18 155/75 96 03/12/17 08:00 18 03/12/17 07:59 97.7 F 67 18 158/75 97 03/12/17 04:00 71 16 03/12/17 03:52 98.1 F 71 16 162/79 98 03/12/17 00:00 73 16 03/11/17 23:43 97.7 F 73 16 182/81 98 03/11/17 20:34 97.8 F 76 16 196/83 100 03/11/17 20:30 80 16 03/11/17 20:18 97.3 F L 03/11/17 19:30 79 17 168/75 97 03/11/17 18:26 82 149/69 98 03/11/17 17:39 96.2 F L 104 H 18 181/82 97 Intake and Output 03/12/17 03/12/17 03/12/17 06:59 14:59 22:59 Intake Total 117 405.737 Output Total 200 Balance 117 205.737 Intake: Intake, IV Titration 117 165.737 Amount Heparin Sodium,Porcine/ 117 165.737 D5w Pmx 25,000 unit In Dextrose/Water 1 500ml. bag @ 10.351 UNITS/KG/HR 20 mls/hr IV .Q24H [facility] Rx #:[id number] Oral 240 Output: Urine 200 Other: Voiding Method Toilet Toilet # Voids 1 Weight 96 kg PHYSICAL EXAMINATION: Patient is lying in the bed comfortably, no acute distress, awake alert and oriented.. HEENT: Normocephalic. Neck is supple. Pupils reactive. Nostrils clear. Oral cavity is moist. Ears reveal no drainage. Neck reveals no JVD, carotid bruits, or thyromegaly. CHEST EXAMINATION: Trachea is central. Symmetrical expansion. Lung [place] clear to auscultation and percussion. CARDIAC: Normal S1, S2 with no gallops. No murmurs ABDOMEN: Soft. Bowel sounds normal. No organomegaly. No abdominal bruits. Extremities: 1+ edema. No clubbing or cyanosis Neurologically awake, alert, oriented x3 with well-coordinated movements. Skin: no rash or skin lesions Musculoskeletal: no joint swelling or deformity. Results CBC & Chem 7: 03/12/17 07:27 03/11/17 18:09 Labs: Abnormal Lab Results - Last 24 Hours (Table) 03/11/17 03/11/17 03/11/17 Range/Units 18:09 18:09 18:09 RDW 16.1 H (11.5-15.5) % Plt Count 148 L (150-450) k/uL Neutrophils # 8.3 H (1.3-7.7) k/uL Lymphocytes # 0.4 L (1.0-4.8) k/uL APTT (22.0-30.0) sec Sodium 136 L (137-145) mmol/L BUN 30 H (9-20) mg/dL Glucose 247 H (74-99) mg/dL POC Glucose (mg/dL) (75-99) mg/dL Hemoglobin A1c (4.2-6.1) % Total Creatine Kinase 39 L (55-170) U/L Troponin I (0.000-0.034) ng/mL Total Protein 5.9 L (6.3-8.2) g/dL HDL Cholesterol (40-60) mg/dL 03/11/17 03/11/17 03/11/17 Range/Units 18:09 18:09 20:42 RDW (11.5-15.5) % Plt Count (150-450) k/uL Neutrophils # (1.3-7.7) k/uL Lymphocytes # (1.0-4.8) k/uL APTT 20.4 L (22.0-30.0) sec Sodium (137-145) mmol/L BUN (9-20) mg/dL Glucose (74-99) mg/dL POC Glucose (mg/dL) 215 H (75-99) mg/dL Hemoglobin A1c 8.6 H (4.2-6.1) % Total Creatine Kinase (55-170) U/L Troponin I (0.000-0.034) ng/mL Total Protein (6.3-8.2) g/dL HDL Cholesterol (40-60) mg/dL 03/12/17 03/12/17 03/12/17 Range/Units 00:01 06:59 07:27 RDW (11.5-15.5) % Plt Count (150-450) k/uL Neutrophils # (1.3-7.7) k/uL Lymphocytes # (1.0-4.8) k/uL APTT (22.0-30.0) sec Sodium (137-145) mmol/L BUN (9-20) mg/dL Glucose (74-99) mg/dL POC Glucose (mg/dL) 166 H (75-99) mg/dL Hemoglobin A1c (4.2-6.1) % Total Creatine Kinase 31 L 23 L (55-170) U/L Troponin I 0.093 H* 0.093 H* (0.000-0.034) ng/mL Total Protein (6.3-8.2) g/dL HDL Cholesterol (40-60) mg/dL 03/12/17 03/12/17 03/12/17 Range/Units 07:27 07:27 07:27 RDW (11.5-15.5) % Plt Count 135 L (150-450) k/uL Neutrophils # (1.3-7.7) k/uL Lymphocytes # (1.0-4.8) k/uL APTT 103.6 H* (22.0-30.0) sec Sodium (137-145) mmol/L BUN (9-20) mg/dL Glucose (74-99) mg/dL POC Glucose (mg/dL) (75-99) mg/dL Hemoglobin A1c (4.2-6.1) % Total Creatine Kinase (55-170) U/L Troponin I (0.000-0.034) ng/mL Total Protein (6.3-8.2) g/dL HDL Cholesterol 78 H (40-60) mg/dL 03/12/17 Range/Units 12:08 RDW (11.5-15.5) % Plt Count (150-450) k/uL Neutrophils # (1.3-7.7) k/uL Lymphocytes # (1.0-4.8) k/uL APTT (22.0-30.0) sec Sodium (137-145) mmol/L BUN (9-20) mg/dL Glucose (74-99) mg/dL POC Glucose (mg/dL) 126 H (75-99) mg/dL Hemoglobin A1c (4.2-6.1) % Total Creatine Kinase (55-170) U/L Troponin I (0.000-0.034) ng/mL Total Protein (6.3-8.2) g/dL HDL Cholesterol (40-60) mg/dL Thrombosis Risk Factor Assmnt - Choose All That Apply Any of the Below Risk Factors Present?: No Each Risk Factor Represents 2 Points: Age 61-74 years Thrombosis Risk Factor Assessment Total Risk Factor Score: 2 Thrombosis Risk Factor Assessment Level: Low Risk Assessment and Plan Plan: #1 paroxysmal atrial fibrillation with rapid ventricle rate. Currently converted to sinus rhythm line #2 recently diagnosed temporal arteritis. Currently on long-term tapping dose of steroids. On follow with rheumatology with Dr. Keith #3 recently diagnosed with diabetes type 2 likely steroid induced as above #4 hypertension 5 hyperlipidemia #6 obstructive sleep apnea #7 prostate cancer history status post radiation #8 elevated troponin level. #9 osteoarthritis and GERD Plan: Patient will be continued on telemetry monitoring. 2-D echo was done. Patient was started on full anticoagulation with eliquis. We'll continue with the home medications for his chronic medical conditions. Cardiology is planning for stress test either in the hospital or outpatient. Further recommendations based on the clinical course. Time with Patient: Greater than 30
[2017-03-13 04:23] VITALS: RESP 18
[2017-03-13] MEDS: NITROGLYCERIN OINT 1 INCH/GM PACKET TOPICAL SCH (06:34)
[2017-03-13 07:01] LABS: Glucose,Whole Blood 121 mg/dL (75-99)
[2017-03-13 07:32] LABS: Anisocytosis Slight; Basophils # (A) 0.1 k/uL (0-0.2); Basophils % (A) 1 %; CH 31.7; CHCM 33.6; Eosinophils # (A) 0.1 k/uL (0-0.7); Eosinophils % (A) 1 %; HCT 40.6 % (39.0-53.0); HDW 3.08; HGB 12.9 gm/dL (13.0-17.5); Luc % (Auto) 3; Lymphocytes # (A) 1.6 k/uL (1.0-4.8); Lymphocytes % (A) 21 %; MCHC 31.7 g/dL (31.0-37.0); MCV 94.7 fL (80.0-100.0); Mean Platelet Volume 7.5; Monocytes # (A) 0.5 k/uL (0-1.0); Monocytes % (A) 7 %; Neutrophils # (A) 5.5 k/uL (1.3-7.7); Neutrophils % (A) 68 %; RBC 4.29 m/uL (4.30-5.90); RDW 16.3 % (11.5-15.5)
[2017-03-13 07:41] LABS: Anion Gap 5 mmol/L; Blood Urea Nitrogen 23 mg/dL (9-20); Calcium 9.2 mg/dL (8.4-10.2); Carbon Dioxide 31 mmol/L (22-30); Chloride 102 mmol/L (98-107); Glucose 119 mg/dL (74-99); Non-African American GFR(MDRD) >60 (>60 ml/min/1.73 sqM); Potassium 4.4 mmol/L (3.5-5.1); Sodium 138 mmol/L (137-145)
[2017-03-13] MEDS: LISINOPRIL 20 MG TAB PO SCH (10:22)
[2017-03-13] MEDS: hydrALAZINE HCL 25 MG TAB PO SCH ×2 (10:22→18:11)
[2017-03-13] MEDS: CLOPIDOGREL 75 MG TAB PO SCH (10:22)
[2017-03-13] MEDS: METOPROLOL TARTRATE 25 MG TAB PO SCH (10:22)
[2017-03-13] MEDS: APIXABAN 5 MG TAB PO SCH (10:23)
[2017-03-13] MEDS: glipiZIDE 10 MG TAB PO SCH (10:23)
[2017-03-13] MEDS: PANTOPRAZOLE 40 MG TABLET PO SCH (10:23)
[2017-03-13] MEDS: predniSONE 20 MG TAB PO SCH (10:23)
[2017-03-13] MEDS: TIMOLOL 0.5% OPHTH DROPS 5 ML BTL BOTH EYES SCH (10:26)
[2017-03-13] MEDS: INSULIN LISPRO (humaLOG) 300 UNIT/3 ML VIAL SQ SCH ×6 (10:28→18:11)
[2017-03-13 12:06] LABS: Glucose,Whole Blood 127 mg/dL (75-99)
[2017-03-13 16:09] VITALS: BP 167/72; PULSE 78; TEMP 97.7
[2017-03-13 16:57] LABS: Glucose,Whole Blood 172 mg/dL (75-99)
--- NOTE | 2017-03-14 00:52 | P.DS ---
Providers Date of admission: 03/11/17 19:28 Expected date of discharge: 03/13/17 Attending physician: Natasha Champagne Consults: 03/11/17 19:28 Consult Physician Urgent Consulting Provider: Jessica Lal Consult Reason/Comments: cp, a-fib Do you want consulting provider notified?: Yes Primary care physician: [facility] Course: Discharge diagnosis #1 paroxysmal atrial fibrillation with rapid ventricle rate. Currently converted to sinus rhythm. Rate controlled #2 recently diagnosed temporal arteritis. Currently on long-term tapping dose of steroids. On follow up with rheumatology with Dr. Keith #3 recently diagnosed with diabetes type 2 likely steroid induced as above #4 hypertension 5 hyperlipidemia #6 obstructive sleep apnea #7 prostate cancer history status post radiation #8 elevated troponin level. 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 He relates that he was at his doctor's office today and they did an EKG which showed evidence of atrial fibrillation with rapid ventricular response with a heart rate of 141. He denies any known history of previous atrial fibrillation or atrial flutter. He states that he has, over the past 2 weeks, had intermittent episodes of similar. This apparently was a routine evaluation today. He will obtain some chest pain which is described as a achy pressure in the midsternal region with diaphoresis and shortness of breath. He has converted back to normal sinus rhythm on arrival to ER. And His Symptoms Have Resolved at This Stevie e. He denies any previous known cardiac problems. He has a remote history of stress test many years ago. He denies any radiation of the pain. He denies any leg pain but complains of some minimal swelling which he thinks is due to his steroids. He apparently was diagnosed with temporal arteritis back in September 2016 and has been on long-term tapping steroids ever since. Patient denied any dizziness or lightheadedness. Patient had 2-D echocardiogram done showed normal EF. Patient was found to have elevated troponin level peaked at 0.093. Cardiology recommends outpatient stress test. Patient was started on anti-coagulation in the form of eliquis. Plavix has been discontinued. Patient was started on metoprolol and hydralazine for better blood pressure control. Patient is clinically much improved now and is stable for discharge. Discharge physical examination was done. Patient Condition at Discharge: Good Plan - Discharge Summary New Discharge Prescriptions: New Apixaban [Eliquis] 5 mg PO BID #60 tab hydrALAZINE HCL [Apresoline] 25 mg PO TID #90 tab Metoprolol Tartrate [Lopressor] 25 mg PO BID #60 tab Continue Pravastatin Sodium [Pravachol] 40 mg PO HS Lisinopril [Zestril] 10 mg PO BID #0 predniSONE 30 mg PO DAILY Pantoprazole [Protonix] 40 mg PO QAM Insulin Aspart [NovoLOG Flexpen] See Protocol SQ TID-W/MEALS glipiZIDE [Glucotrol] 10 mg PO AC-BRKFST Insulin Glargine [Lantus] 16 unit SQ HS Insulin Aspart [NovoLOG Flexpen] 12 units SQ AC-TID Timolol 0.5% Ophth Soln [Timoptic 0.5% Ophth Soln] 1 drop BOTH EYES BID Bimatoprost [Lumigan .01% Ophth Soln] 1 drop BOTH EYES HS Discontinued Clopidogrel [Plavix] 75 mg PO DAILY #30 tab Discharge Medication List Pravastatin Sodium [Pravachol] 40 mg PO HS 01/13/14 [History] Lisinopril [Zestril] 10 mg PO BID #0 10/29/16 [Rx] Insulin Aspart [NovoLOG Flexpen] See Protocol SQ TID-W/MEALS 11/28/16 [History] Pantoprazole [Protonix] 40 mg PO QAM 11/28/16 [History] predniSONE 30 mg PO DAILY 11/28/16 [History] Bimatoprost [Lumigan .01% Ophth Soln] 1 drop BOTH EYES HS 03/11/17 [History] Insulin Aspart [NovoLOG Flexpen] 12 units SQ AC-TID 03/11/17 [History] Insulin Glargine [Lantus] 16 unit SQ HS 03/11/17 [History] Timolol 0.5% Ophth Soln [Timoptic 0.5% Ophth Soln] 1 drop BOTH EYES BID [History] glipiZIDE [Glucotrol] 10 mg PO AC-BRKFST 03/11/17 [History] Apixaban [Eliquis] 5 mg PO BID #60 tab 03/13/17 [Rx] Metoprolol Tartrate [Lopressor] 25 mg PO BID #60 tab 03/13/17 [Rx] hydrALAZINE HCL [Apresoline] 25 mg PO TID #90 tab 03/13/17 [Rx] Follow up Appointment(s)/Referral(s): Tra Smith MD [STAFF PHYSICIAN] - 1 Week (Saturday, March 20 at 2:15) Jose Morrow DO [Primary Care Provider] - 1 Week Patient Instructions/Handouts: Chest Pain (GEN) Discharge Disposition: HOME SELF-CARE
== END 2017-03-13 18:08 | disposition home or self-care (01) | DRG 310 ==
LOC: EC 17:35 → 3OBS 19:28 → OBSVTOIN 19:28 → 3OBS 19:48
PROVIDERS: ADMIT Internal Medicine; ATTEND Internal Medicine
DX: I48.0 Paroxysmal atrial fibrillation (principal); M31.6 Other giant cell arteritis; I11.9 Hypertensive heart disease without heart failure; J44.9 Chronic obstructive pulmonary disease, unspecified; E11.9 Type 2 diabetes mellitus without complications; E78.5 Hyperlipidemia, unspecified; G47.33 Obstructive sleep apnea (adult) (pediatric); K21.9 Gastro-esophageal reflux disease without esophagitis; M19.90 Unspecified osteoarthritis, unspecified site; R74.8 Abnormal levels of other serum enzymes; T38.0X5A Adverse effect of glucocorticoids and synthetic analogues, initial encounter; Z79.02 Long term (current) use of antithrombotics/antiplatelets; Z79.4 Long term (current) use of insulin; Z79.899 Other long term (current) drug therapy; Z85.46 Personal history of malignant neoplasm of prostate; Z86.73 Personal history of transient ischemic attack (TIA), and cerebral infarction without residual deficits; Z87.891 Personal history of nicotine dependence; Z88.6 Allergy status to analgesic agent; Z88.8 Allergy status to other drugs, medicaments and biological substances
CPT/HCPCS: 36415; 71020; 80048; 80053; 80061; 82550; 82553; 83036; 83735; 84156; 84484; 85025; 85049; 85610; 85730; 93005; 93306; 96365; 96374; 96376; 99285

== ENCOUNTER → 2017-07-31 | Outpatient (CLI) | payer MEDICARE ==
[2017-07-31 11:51] LABS: ALT 41 U/L (21-72); AST 22 U/L (17-59); Albumin 3.9 g/dL (3.5-5.0); Alkaline Phosphatase 82 U/L (38-126); Anion Gap 10 mmol/L; Blood Urea Nitrogen 21 mg/dL (9-20); Calcium 9.6 mg/dL (8.4-10.2); Carbon Dioxide 29 mmol/L (22-30); Chloride 100 mmol/L (98-107); Glucose 286 mg/dL (74-99); Potassium 4.5 mmol/L (3.5-5.1); Sodium 139 mmol/L (137-145); Total Bilirubin 0.4 mg/dL (0.2-1.3); Total Protein 6.8 g/dL (6.3-8.2)
[2017-07-31 12:22] LABS: Prostate Specific Antigen <0.10 ng/mL (0.00-4.00)
== END | disposition home or self-care (01) ==
LOC: LABWHC1 11:12
PROVIDERS: ATTEND Radiology Radiation Oncology
DX: C61 Malignant neoplasm of prostate (principal)
CPT/HCPCS: 36415; 80053; 84153; 85652

== ENCOUNTER → 2017-09-25 | Outpatient (CLI) | payer MEDICARE ==
[2017-09-25 10:29] LABS: Blood Urea Nitrogen 23 mg/dL (9-20)
--- NOTE | 2017-09-25 11:57 | CT ---
EXAMINATION TYPE: CT angio chest DATE OF EXAM: 09/25/2017 COMPARISON: 12/27/2016 HISTORY: Giant cell arteritis CT DLP: 786.4 mGycm. Automated Exposure Control for Dose Reduction was Utilized. CONTRAST: CTA scan of the thorax is performed with IV Contrast, patient injected with 80 mL of Visipaque 320, p ulmonary embolism protocol. 3-D MIP Images are created on CT scanner and reviewed. FINDINGS: LUNGS: The lungs are grossly clear, there is no concerning parenchymal mass or nodule identified. T here is no pleural effusion or pneumothorax seen. The tracheobronchial tree is patent. Subpleural sc arring is seen within the right lower lobe peripherally. MEDIASTINUM: There is no evidence of thoracic aortic dissection or aneurysm. Mild three-vessel britt ry calcifications are seen. There is moderate calcific and noncalcific atheromatous plaquing of the a ortic arch and descending thoracic aorta is noncircumferential. No evidence of surrounding inflammato ry change to suggest active arteritis. There is ostial narrowing (approximately 50%) at the origin of the celiac artery from calcific atherosclerosis. There is satisfactory enhancement of the pulmonary artery and its branches, there is no CT evidence for pulmonary embolism. There are no greater than 1 cm hilar or mediastinal lymph nodes. No cardiomegaly or pericardial effusion is seen. OTHER: There is a stable fluid attenuated left hepatic cyst measuring 9 mm. There is diffuse hypoatte nuation of the hepatic parenchyma most commonly related to hepatic steatosis. This limits evaluation for underlying hepatic masses. Fluid attenuated exophytic right superior pole renal cyst measures 3.6 cm. There is a small hiatal hernia noted. Mild multilevel degenerative changes of the thoracic spine are noted. IMPRESSION: 1. No evidence of thoracic aortic aneurysm, dissection, or active arteritis. 2. Mild three-vessel coronary artery calcifications, marker for coronary artery disease. 3. 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 Stenosis is approximately 50 %. 4. Hepatic steatosis, stable left hepatic cyst, small hiatal hernia, and right exophytic superior latoya e renal cyst.
== END | disposition home or self-care (01) ==
LOC: RADCTMAIN 09:52
PROVIDERS: ATTEND Internal Medicine Rheumatology
DX: I77.4 Celiac artery compression syndrome (principal); I25.10 Atherosclerotic heart disease of native coronary artery without angina pectoris; M31.6 Other giant cell arteritis
CPT/HCPCS: 82565; 84520; 71275; 36415; Q9967

== ENCOUNTER 2017-11-26 07:33 | Day surgery (SDC) | payer MEDICARE ==
[2017-11-22 18:09] VITALS: BMI 25.2
[~2017-11-26 07:33] MED LIST changes: -DEXAMETHASONE SOD PHOSPHATE 10 MG/ML 1 ML VIAL IV ONE; -HYDROmorphone 1 MG/ML 1 ML SYRINGE IVP PRN; -MIDAZOLAM 2 MG/2 ML VIAL IV PRN; -ONDANSETRON 4 MG/2 ML VIAL IVP ONE; -ceFAZolin 2 GM in SODIUM CHLORIDE 0.9% 100 ML IVPB ONE
[2017-11-26 07:59] VITALS: TEMP 98.5
[2017-11-26] MEDS ORDERED: LACTATED RINGERS 1,000 ML IV ONE (08:00)
[2017-11-26 08:09] LABS: Glucose,Whole Blood 103 mg/dL (75-99)
[2017-11-26] MEDS ORDERED: PROPOFOL 10 MG/ML 20 ML VIAL IV ONE (08:48)
[2017-11-26 09:23] VITALS: RESP 16
--- NOTE | 2017-11-26 09:26 | P.PCN ---
Date of Procedure: 11/26/17 Procedure(s) Performed: Procedure: Colonoscopy and polypectomy. Preoperative diagnosis: Positive occult blood in the stools. Postoperative diagnosis: 1. Mild proctitis consistent with radiation proctitis with no active bleeding at the time of this exam. 2. Diverticulosis with no evidence of acute diverticulitis or strictures. 3. Two small polyps in the sigmoid and distal sigmoid snared but no large polyps or cancer. Preparation: HalfLytely prep. Sedation: Was provided by anesthesia. Brief clinical history: The patient is a 77-year-old male who is referred for this evaluation for finding of occult positive blood in his stools. He has no abdominal complaints, overt bleeding or anemia. His last colonoscopy was more than 11 years ago. Procedure: With the patient on his left lateral decubitus position and after informed consent and adequate sedation, the perianal area was inspected and it did not show any fissures or fistulas. There were no masses felt on digital rectal examination. The Olympus CFQ 160L video colonoscope was then inserted in the rectum in the usual fashion and advanced to the cecum. There were multiple diverticular orifices noted mostly on the left side with few around the hepatic flexure and on the right side with no evidence of acute diverticulitis or strictures. There was a small area in the rectum close to the anorectal junction that showed erythema, friability and submucosal hemorrhage consistent with radiation proctitis but there was no obvious telangiectatic vessels or spontaneous bleeding. Elsewhere, the mucosa appeared healthy. There were 2 small polyps one in the distal sigmoid close to the rectosigmoid junction and one in the mid sigmoid, both were snared and retrieved by suction but there were no large polyps or cancer. The patient tolerated the procedure well. Plan: The patient was reassured. Consideration can be given for repeat exam in 5 years depending on the pathology results. Discussed dietary measures. If he has overt bleeding in the future, argon plasma coagulation can be considered for the treatment of his radiation proctitis. In the absence of upper GI complaints or anemia, I did not recommend upper GI workup at this time for the workup of his occult positive stools and that can be kept as a contingency. He will follow up with you as planned and I will be happy to see in the office in the future.
[2017-11-26 09:36] VITALS: BP 131/60; PULSE 68
[2017-11-26 09:41] LABS: Glucose,Whole Blood 93 mg/dL (75-99)
== END 2017-11-26 10:09 | disposition home or self-care (01) ==
LOC: ORWHC2ENDO 07:33
DX: D12.5 Benign neoplasm of sigmoid colon (principal); K62.89 Other specified diseases of anus and rectum; K57.30 Diverticulosis of large intestine without perforation or abscess without bleeding; R19.5 Other fecal abnormalities; J44.9 Chronic obstructive pulmonary disease, unspecified; E11.9 Type 2 diabetes mellitus without complications; G47.33 Obstructive sleep apnea (adult) (pediatric); I10 Essential (primary) hypertension; E78.5 Hyperlipidemia, unspecified; I25.10 Atherosclerotic heart disease of native coronary artery without angina pectoris; I48.92 Unspecified atrial flutter; K21.9 Gastro-esophageal reflux disease without esophagitis; Z99.89 Dependence on other enabling machines and devices; Z85.46 Personal history of malignant neoplasm of prostate; Z86.73 Personal history of transient ischemic attack (TIA), and cerebral infarction without residual deficits; Z79.01 Long term (current) use of anticoagulants; Z79.84 Long term (current) use of oral hypoglycemic drugs; Z79.899 Other long term (current) drug therapy; Z88.6 Allergy status to analgesic agent; Z91.048 Other nonmedicinal substance allergy status
CPT/HCPCS: 88305; 45385; J2704

== ENCOUNTER 2019-12-19 15:02 | Inpatient (IN) | payer MEDICARE ==
[2019-12-19] MEDS ORDERED: SODIUM CHLORIDE 0.9% 500 ML 500 ML IV STA (15:35)
[2019-12-19] MEDS ORDERED: MORPHINE SULFATE 4 MG/ML SYRINGE IV STA (15:35)
--- NOTE | 2019-12-19 15:44 | ED ---
General Adult HPI - General Chief complaint: Abdominal Pain Stated complaint: Back pain Time Seen by Provider: 12/19/19 15:18 Source: patient, RN notes reviewed, old records reviewed Mode of arrival: ambulatory Limitations: no limitations - History of Present Illness Initial comments: 79-year-old male patient presents to ED for chief complaint of abdominal pain ongoing for 2 weeks. Patient reports that lasted a states that abdominal pain predominantly in his left lower quadrant region which radiates up to his left flank. Patient denies any fevers. Patient is anticoagulated on Coumadin for atrial fibrillation. Patient denies any chest pain or shortness of breath. Patient denies any rectal bleeding however does report that approximately one month ago he did have some blood in his stool. Systemic: Pt denies fatigue, fever/chills, rash. Pt denies weakness, night sweats, weight loss. Neuro: Pt denies headache, visual disturbances, syncope or pre-syncope. HEENT: Pt denies ocular discharge or irritation, otalgia, rhinorrhea, pharyngitis or notable lymphadenopathy. Cardiopulmonary: Pt denies chest pain, SOB, heart palpitations, dyspnea on e xertion. Abdominal/GI: Pt denies n/v/d. : Pt denies dysuria, burning w/ urination, frequency/urgency. Denies new onset urinary or bowel incontinence. MSK: Pt denies myalgia, loss of strength or function in extremities. Neuro: Pt denies new onset weakness, paresthesias. - Related Data Home Medications Medication Instructions Recorded Confirmed Pravastatin Sodium [Pravachol] 40 mg PO HS@2200 01/13/14 12/19/19 Pantoprazole [Protonix] 40 mg PO DAILY@0800 11/28/16 12/19/19 Timolol 0.5% Ophth Soln [Timoptic 1 drop BOTH EYES BID@0800,2200 03/11/17 12/19/19 0.5% Ophth Soln] Ferrous Sulfate [Feosol] 325 mg PO DAILY@1200 11/22/17 12/19/19 Methotrexate Sodium [Methotrexate] 25 mg PO FR@1900 11/22/17 12/19/19 metFORMIN HCL [Glucophage] 500 mg PO BID@0800,1700 11/22/17 12/19/19 Folic Acid 0.8 mg PO HS@22012/19/19 12/19/19 Latanoprost/Pf [Latanoprost 0.005% 1 drop BOTH EYES HS@219912/19/19 12/19/19 Eye Drop] Lisinopril [Zestril] 20 mg PO DAILY@0800 12/19/19 12/19/19 Metoprolol Tartrate [Lopressor] 50 mg PO BID@0800,1900 12/19/19 12/19/19 Repaglinide [Prandin] 1 mg PO BID@0800,1700 12/19/19 12/19/19 Warfarin Sodium [Jantoven] 2.5 mg PO DAILY@189912/19/19 12/19/19 amLODIPine [Norvasc] 5 mg PO DAILY@189912/19/19 12/19/19 Allergies Allergy/AdvReac Type Severity Reaction Status Date / Time celecoxib [From Celebrex] Allergy Severe GI BLEED Verified 12/19/19 18:27 aspirin Allergy Intermediate STOMACH Verified 12/19/19 18:27 PROBLEMS Review of Systems ROS Statement: Those systems with pertinent positive or pertinent negative responses have been documented in the HPI. ROS Other: All systems not noted in ROS Statement are negative. Past Medical History Past Medical History: Atrial Flutter, Cancer, COPD, CVA/TIA, Diabetes Mellitus, Eye Disorder, GERD/Reflux, GI Bleed, Hyperlipidemia, Hypertension, Prostate Disorder, Renal Disease, Sleep Apnea/CPAP/BIPAP Additional Past Medical History / Comment(s): PROSTATE CA 2015, HX RADIATION X24 TX-Apr 2016. NO TX FOR SLEEP APNEA IN YEARS. hormone injections, biopsy 2015, 54 seed inplants jun 2016, radiation may 2016. freq urination. 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 RECENT BLOOD IN STOOL. History of Any Multi-Drug Resistant Organisms: None Reported Past Surgical History: Adenoidectomy, Appendectomy, Orthopedic Surgery, Tonsillectomy Additional Past Surgical History / Comment(s): EXC BACK CYSTS. EXC BILAT CATARACTS. BILAT SHOULDERS sx. ORIF RT FEMUR, 1 F/U SURGERY, THEN MANIPU LATION. PROSTATE BRACHYTHERAPY/RADIOACTIVE SEED INPLANTS. TEMPORAL ARTERITIS PROCEDURE. Past Anesthesia/Blood Transfusion Reactions: No Reported Reaction Additional Past Anesthesia/Blood Transfusion Reaction / Comment(s): DENIES Past Psychological History: No Psychological Hx Reported Smoking Status: Former smoker Past Alcohol Use History: None Reported Past Drug Use History: None Reported - Past Family History Sister(s) Family Medical History: Cancer Additional Family Medical History / Comment(s): breast CA Father History Unknown: Yes Additional Family Medical History / Comment(s): " FROM [place] FLU IN THE S Mother Family Medical History: Cancer, CVA/TIA Additional Family Medical History / Comment(s): "HEART PROBLEMS" General Exam - General Exam Comments Initial Comments: Constitutional: NAD, AOX3, Pt has pleasant affect. HEENT: NC/AT, trachea midline, neck supple, no lymphadenopathy. Posterior pharynx non erythematous, without exudates. External ears appear normal, without discharge. Mucous membranes moist. Eyes PERRLA, EOM intact. There is no scleral icterus. No pallor noted. Cardiopulmonary: RRR, no murmurs, rubs or gallops, no JVD noted. Lungs CTAB in anterior and posterior [place]. No peripheral edema. Abdominal exam: Abdomen soft and non-distended. Abdomen mildly tender to palpation left lower quadrant region. Right upper quadrant nontender Duarte sign negative. Bowel sounds active in LLQ. No hepatosplenomegaly. No ecchymosis Neuro: CN II-XII grossly intact. No nuchal rigidity. No raccon eyes, no walsh sign, no hemotympanum. No cervical spinal tenderness. MSK: No posterior calf tenderness bilaterally, homans sign negative bilaterally. Posterior tibialis and radial pulse +2 bilaterally. Sensation intact in upper and lower extremities. Full active ROM in upper and lower extremities, 5/5 stregnth. Limitations: no limitations Course Vital Signs 12/19/19 12/19/19 15:13 17:13 Temperature 98.8 F Pulse Rate 122 H 93 Respiratory 18 16 Rate Blood Pressure 157/72 144/58 O2 Sat by Pulse 98 98 Oximetry Medical Decision Making - Medical Decision Making 79-year-old male patient presents to ED for chief complaint of abdominal pain ongoing for 2 weeks. Patient reports that lasted a states that abdominal pain predominantly in his left lower quadrant region which radiates up to his left fl ank. Patient denies any fevers. Patient is anticoagulated on Coumadin for atrial fibrillation. Patient denies any chest pain or shortness of breath. Patient denies any rectal bleeding however does report that approximately one month ago he did have some blood in his stool. Patient will signs are stable, afebrile. Physical exam did display tenderness to to left lower quadrant region. Laboratory investigations are obtained are non-impressive. Repeat evaluation patient was seen a did have some pain radiating up to his left shoulder as well. CT abdomen and pelvis was performed, findings are highly suspicious for new metastasis with hepatic lesion spine lesions a pancreatic on body lesions. New from 2018. Mild pericolic fat stranding in the sigmoid colon which could relate to acute omental infarct or focal acute on, became sigmoid diverticulitis. Gallbladder hydropic in size with small amount of adjacent fat stranding. Physical exam consistent with acute uncomplicated diverticulitis. No right upper quadrant tenderness, Duarte sign negative. Patient she and Zosyn. He'll be admitted for surgical, oncology evaluations. Case discussed with Dr. Parry. - Lab Data Result diagrams: 12/19/19 16:00 12/19/19 16:00 Lab Results 12/19/19 12/19/19 12/19/19 Range/Units 16:00 16:00 16:00 WBC 9.1 (3.8-10.6) k/uL RBC 4.23 L (4.30-5.90) m/uL Hgb 12.7 L (13.0-17.5) gm/dL Hct 40.0 (39.0-53.0) % MCV 94.6 (80.0-100.0) fL MCH 30.1 (25.0-35.0) pg MCHC 31.8 (31.0-37.0) g/dL RDW 15.8 H (11.5-15.5) % Plt Count 159 (150-450) k/uL Neutrophils % 82 % Lymphocytes % 8 % Monocytes % 8 % Eosinophils % 1 % Basophils % 0 % Neutrophils # 7.4 (1.3-7.7) k/uL Lymphocytes # 0.7 L (1.0-4.8) k/uL Monocytes # 0.7 (0-1.0) k/uL Eosinophils # 0.1 (0-0.7) k/uL Basophils # 0.0 (0-0.2) k/uL PT 29.8 H (9.0-12.0) sec INR 3.0 H (<1.2) APTT 43.5 H (22.0-30.0) sec Sodium (137-145) mmol/L Potassium (3.5-5.1) mmol/L Chloride (98-107) mmol/L Carbon Dioxide (22-30) mmol/L Anion Gap mmol/L BUN (9-20) mg/dL Creatinine (0.66-1.25) mg/dL Est GFR (CKD-EPI)AfAm (>60 ml/min/1.73 sqM) Est GFR (CKD-EPI)NonAf (>60 ml/min/1.73 sqM) Glucose (74-99) mg/dL Plasma Lactic Acid Marshall (0.7-2.0) mmol/L Calcium (8.4-10.2) mg/dL Total Bilirubin (0.2-1.3) mg/dL AST (17-59) U/L ALT (4-49) U/L Alkaline Phosphatase (38-126) U/L Troponin I (0.000-0.034) ng/mL Total Protein (6.3-8.2) g/dL Albumin (3.5-5.0) g/dL Lipase (23-300) U/L Urine Color Urine Appearance (Clear) Urine pH (5.0-8.0) Ur Specific [place] (1.001-1.035) Urine Protein (Negative) Urine Glucose (UA) (Negative) Urine Ketones (Negative) Urine Blood (Negative) Urine Nitrite (Negative) Urine Bilirubin (Negative) Urine Urobilinogen (<2.0) mg/dL Ur Leukocyte Esterase (Negative) Urine RBC (0-5) /hpf Urine WBC (0-5) /hpf Ur Squamous Epith Cells (0-4) /hpf Hyaline Casts (0-2) /lpf Urine Mucus (None) /hpf Stool Occult Blood Negative (Negative) 12/19/19 12/19/19 12/19/19 Range/Units 16:00 16:00 16:00 WBC (3.8-10.6) k/uL RBC (4.30-5.90) m/uL Hgb (13.0-17.5) gm/dL Hct (39.0-53.0) % MCV (80.0-100.0) fL MCH (25.0-35.0) pg MCHC (31.0-37.0) g/dL RDW (11.5-15.5) % Plt Count (150-450) k/uL Neutrophils % % Lymphocytes % % Monocytes % % Eosinophils % % Basophils % % Neutrophils # (1.3-7.7) k/uL Lymphocytes # (1.0-4.8) k/uL Monocytes # (0-1.0) k/uL Eosinophils # (0-0.7) k/uL Basophils # (0-0.2) k/uL PT (9.0-12.0) sec INR (<1.2) APTT (22.0-30.0) sec Sodium 133 L (137-145) mmol/L Potassium 4.4 (3.5-5.1) mmol/L Chloride 98 (98-107) mmol/L Carbon Dioxide 25 (22-30) mmol/L Anion Gap 10 mmol/L BUN 19 (9-20) mg/dL Creatinine 1.06 (0.66-1.25) mg/dL Est GFR (CKD-EPI)AfAm 78 (>60 ml/min/1.73 sqM) Est GFR (CKD-EPI)NonAf 68 (>60 ml/min/1.73 sqM) Glucose 244 H (74-99) mg/dL Plasma Lactic Acid Marshall 1.2 (0.7-2.0) mmol/L Calcium 8.9 (8.4-10.2) mg/dL Total Bilirubin 0.8 (0.2-1.3) mg/dL AST 23 (17-59) U/L ALT 13 (4-49) U/L Alkaline Phosphatase 85 (38-126) U/L Troponin I (0.000-0.034) ng/mL Total Protein 7.0 (6.3-8.2) g/dL Albumin 3.9 (3.5-5.0) g/dL Lipase 51 (23-300) U/L Urine Color Yellow Urine Appearance Clear (Clear) Urine pH 5.5 (5.0-8.0) Ur Specific [place] 1.022 (1.001-1.035) Urine Protein 1+ H (Negative) Urine Glucose (UA) 4+ H (Negative) Urine Ketones Trace H (Negative) Urine Blood Small H (Negative) Urine Nitrite Negative (Negative) Urine Bilirubin Negative (Negative) Urine Urobilinogen 2.0 (<2.0) mg/dL Ur Leukocyte Esterase Negative (Negative) Urine RBC 2 (0-5) /hpf Urine WBC 1 (0-5) /hpf Ur Squamous Epith Cells <1 (0-4) /hpf Hyaline Casts 7 H (0-2) /lpf Urine Mucus Many H (None) /hpf Stool Occult Blood (Negative) 12/19/19 Range/Units 16:00 WBC (3.8-10.6) k/uL RBC (4.30-5.90) m/uL Hgb (13.0-17.5) gm/dL Hct (39.0-53.0) % MCV (80.0-100.0) fL MCH (25.0-35.0) pg MCHC (31.0-37.0) g/dL RDW (11.5-15.5) % Plt Count (150-450) k/uL Neutrophils % % Lymphocytes % % Monocytes % % Eosinophils % % Basophils % % Neutrophils # (1.3-7.7) k/uL Lymphocytes # (1.0-4.8) k/uL Monocytes # (0-1.0) k/uL Eosinophils # (0-0.7) k/uL Basophils # (0-0.2) k/uL PT (9.0-12.0) sec INR (<1.2) APTT (22.0-30.0) sec Sodium (137-145) mmol/L Potassium (3.5-5.1) mmol/L Chloride (98-107) mmol/L Carbon Dioxide (22-30) mmol/L Anion Gap mmol/L BUN (9-20) mg/dL Creatinine (0.66-1.25) mg/dL Est GFR (CKD-EPI)AfAm (>60 ml/min/1.73 sqM) Est GFR (CKD-EPI)NonAf (>60 ml/min/1.73 sqM) Glucose (74-99) mg/dL Plasma Lactic Acid Marshall (0.7-2.0) mmol/L Calcium (8.4-10.2) mg/dL Total Bilirubin (0.2-1.3) mg/dL AST (17-59) U/L ALT (4-49) U/L Alkaline Phosphatase (38-126) U/L Troponin I <0.012 (0.000-0.034) ng/mL Total Protein (6.3-8.2) g/dL Albumin (3.5-5.0) g/dL Lipase (23-300) U/L Urine Color Urine Appearance (Clear) Urine pH (5.0-8.0) Ur Specific [place] (1.001-1.035) Urine Protein (Negative) Urine Glucose (UA) (Negative) Urine Ketones (Negative) Urine Blood (Negative) Urine Nitrite (Negative) Urine Bilirubin (Negative) Urine Urobilinogen (<2.0) mg/dL Ur Leukocyte Esterase (Negative) Urine RBC (0-5) /hpf Urine WBC (0-5) /hpf Ur Squamous Epith Cells (0-4) /hpf Hyaline Casts (0-2) /lpf Urine Mucus (None) /hpf Stool Occult Blood (Negative) - EKG Data -: EKG Interpreted by Me (and Dr. Parry ) EKG Comments: Ventricular rate 14,.: 36, QRS 82, QT/QTC 324 shows 426% tachycardia, nonspecific ST-T wave abnormality. No concern for acute ischemia at this time. Disposition Clinical Impression: Lesion of spleen, Lesion of pancreas, Liver lesion, Acute diverticulitis Disposition: ADMITTED IP TO THIS [facility] Condition: Serious Is patient prescribed a controlled substance at d/c from ED?: No
[2019-12-19 16:20] LABS: Basophils % (A) 0 %; Eosinophils # (A) 0.1 k/uL (0-0.7); Eosinophils % (A) 1 %; HGB 12.7 gm/dL (13.0-17.5); Lymphocytes # (A) 0.7 k/uL (1.0-4.8); Lymphocytes % (A) 8 %; MCH 30.1 pg (25.0-35.0); MCHC 31.8 g/dL (31.0-37.0); MCV 94.6 fL (80.0-100.0); Mean Platelet Volume 8.7; Monocytes # (A) 0.7 k/uL (0-1.0); Monocytes % (A) 8 %; Neutrophils # (A) 7.4 k/uL (1.3-7.7); Neutrophils % (A) 82 %; Platelet Count 159 k/uL (150-450); RBC 4.23 m/uL (4.30-5.90); RDW 15.8 % (11.5-15.5); WBC 9.1 k/uL (3.8-10.6)
[2019-12-19 16:28] LABS: Appearance,Urine Clear (Clear); Bilirubin,Urine Negative (Negative); Blood,Urine Small (Negative); Color,Urine Yellow; Glucose,Urine (UA) 4+ (Negative); Hyaline Casts,Urine 7 /lpf (0-2); Ketones,Urine Trace (Negative); Leukocyte Esterase,Urine Negative (Negative); Mucus,Urine Many /hpf; Nitrite,Urine Negative (Negative); PH, Urine 5.5 (5.0-8.0); Protein,Urine 1+ (Negative); RBC,Urine 2 /hpf (0-5); Specific Gravity,Urine 1.022 (1.001-1.035); Squamous Epithelial Cell,Urine <1 /hpf (0-4); WBC,Urine 1 /hpf (0-5)
[2019-12-19 16:31] LABS: Albumin 3.9 g/dL (3.5-5.0); Calcium 8.9 mg/dL (8.4-10.2); Potassium 4.4 mmol/L (3.5-5.1); Total Bilirubin 0.8 mg/dL (0.2-1.3)
[2019-12-19 16:36] LABS: Partial Thromboplastin Time 43.5 sec (22.0-30.0); Prothrombin Time 29.8 sec (9.0-12.0)
--- NOTE | 2019-12-19 17:13 | CT ---
EXAMINATION TYPE: CT ChestAbdPelvis w con DATE OF EXAM: 12/19/2019 COMPARISON: No prior CT of the abdomen. CT chest dated 09/25/2017 HISTORY: GENERALIZED BODY PAIN CT DLP: 1130.9 mGycm. Automated Exposure Control for Dose Reduction was Utilized. CONTRAST: CT scan of the thorax, abdomen and pelvis is performed with IV Contrast, patient injected with 100 mL of Isovue 300. FINDINGS: LUNGS: Multifocal linear areas appear as scarring within the lungs. No focal consolidation seen. Th ere is no pleural effusion or pneumothorax seen. The tracheobronchial tree is patent. MEDIASTINUM: Severe atherosclerosis of the thoracic aorta. Central pulmonary embolus. Moderate britt ry artery calcifications, marker of coronary artery disease. There are no greater than 1 cm hilar or mediastinal lymph nodes. No pericardial effusion is seen. OTHER: Small hiatal hernia. Bilateral retroareolar probable gynecomastia. LIVER/GB: There are 7 new hypoattenuated hepatic lesions with peripheral enhancement highly suspiciou s for metastasis the largest measuring 2.5 cm on image 63 within the inferior right hepatic lobe. The re is background hepatic steatosis with diffuse hypoattenuation of the hepatic parenchyma limiting ev aluation of the hepatic masses. The gallbladder is hydropic in size measuring 10.1 cm in length witho ut radiopaque calculi seen on CT. Common bile duct does not appear enlarged on coronal image 46. This measures 4 mm. There is some fat straining however seen surrounding the gallbladder on coronal image 45. PANCREAS: There are multiple lesions of the pancreatic tail and of the pancreatic body. Pancreatic ta il mass measures approximately 3.6 cm. Pancreatic body mass measures proximally 2.4 cm. SPLEEN: There are multiple splenic masses measuring up to 5.2 cm that are new from the prior and highly suspicious for metastasis. ADRENALS: No significant abnormality is seen. KIDNEYS: Right renal mass measures 3.5 cm of the superior pole and measures Hounsfield units of a sim ple cyst. No hydronephrosis of either kidney. BOWEL: Focal inflammatory fat stranding is seen surrounding the sigmoid colon on image 105. Multiple sigmoid diverticula are seen. GENITAL ORGANS: Brachytherapy beads are noted within the prostate. LYMPH NODES: Prominent lymph node adjacent to the ascending colon on coronal image 47 measures 7 mm. Perirectal lymph node measures 9 mm and is suspicious on image 111. OSSEOUS STRUCTURES: Mottled appearance of the bone marrow of the spine likely relates to diffuse osse ous demineralization rather than metastasis. Moderate degenerative change of the spine throughout. IMPRESSION: 1. Findings highly suspicious for new metastasis with hepatic lesions, splenic lesions, and pancreati c tail and body lesions. Findings are new from the prior of 2018. 2. Mild pericolonic fat stranding in the sigmoid colon, which could relate to an acute omental infarc t or focal acute uncomplicated sigmoid diverticulitis. Colonoscopy is recommended as there is a suspi cious 9 mm perirectal lymph node and prominent lymph node at the cecum. 3. The gallbladder is hydropic in size with small amount of adjacent fat stranding. Correlate with se rum laboratory values to exclude acute cholecystitis.
[2019-12-19] MEDS ORDERED: metroNIDAZOLE-NS PMX 500 MG in SALINE 1 100ML.BAG IVPB STA (17:23)
[2019-12-19] MEDS ORDERED: PIPERACILLIN-TAZOBACTAM 3.375 GM in SODIUM CHLORIDE 0.9% 100 ML IVPB STA (17:34)
[2019-12-19] MEDS ORDERED: NALOXONE 0.4 MG/ML 1 ML VIAL IV PRN (18:29)
[2019-12-19] MEDS ORDERED: MORPHINE SULFATE 4 MG/ML SYRINGE IV PRN (18:29)
[2019-12-19] MEDS ORDERED: SODIUM CHLORIDE 0.9% 500 ML 500 ML IV ONE (18:49)
[2019-12-19] MEDS ORDERED: ALPRAZolam 0.25 MG TAB PO PRN (20:58)
[2019-12-19] MEDS ORDERED: TEMAZEPAM 15 MG CAP PO PRN (20:58)
[2019-12-19 21:28] LABS: Glucose,Whole Blood 146 mg/dL (75-99)
--- NOTE | 2019-12-19 23:04 | HP ---
HISTORY AND PHYSICAL DATE OF SERVICE: 12/19/2019 CHIEF COMPLAINTS: Abdominal pain. HISTORY OF PRESENT ILLNESS: This 79-year-old gentleman with a past medical history of multiple medical issues including atrial fibrillation, history of prostate cancer, CVA, TIA, diabetes type 2, hypertension, hyperlipidemia, being followed by Dr. Morrow in the outpatient setting, complaining of abdominal pain for the last 2 weeks. The pain started in the left lower quadrant and radiated up and became diffuse with some abdominal distention. Patient came to [facility] today. The patient also had some reddish stool per rectum and CT scan of the abdomen showed highly suggestive of multiple metastasis and hepatic lesions, splenic lesions and pancreatic tail and body lesions, which is found to be new and mild pericolonic fat stranding in the sigmoid colon also noted, could be due to omental infarct or focal sigmoid diverticulitis and the patient was admitted for further evaluation and treatment. Gallbladder was found to be hydropic. There is no history of fever, rigors. There is no history of headache, loss of consciousness, seizures at this time. PAST MEDICAL HISTORY: Atrial fibrillation, history of COPD, CVA, TIA, diabetes type 2, history of hypertension, hyperlipidemia, history of prostate cancer. MEDICATIONS: Home medications are: 1. Methotrexate 25 mg p.o. Saturday. 2. Latanoprost 0.05% 1 drop both eyes. 3. Iron sulfate 320 mg daily. 4. Timoptic 1 drop both eyes b.i.d. 5. Prandin 1 mg p.o. b.i.d. 6. Glucophage 500 mg p.o. b.i.d. 7. Folic acid 0.8 mg q.h.s. 8. Jantoven 2.5 mg p.o. daily. 9. Pravachol 40 mg q.h.s. 10.Lopressor 50 mg p.o. b.i.d. 11.Zestril 20 mg p.o. daily. 12.Norvasc 5 mg p.o. daily. 13.Protonix 40 mg p.o. daily. ALLERGIES: CELEBREX AND ASPIRIN. FAMILY HISTORY: History of CVA, TIA, heart problems. SOCIAL HISTORY: History of smoking. No history of alcohol intake. REVIEW OF SYSTEMS: ENT: Diminished vision. Diminished hearing. CARDIOVASCULAR: No angina or palpitations. RESPIRATIONS: No cough or hemoptysis. GI as mentioned earlier. no dysuria. NERVOUS SYSTEM: No numbness or weakness. ALLERGY/IMMUNOLOGY: No asthma or hayfever. MUSCULOSKELETAL as mentioned earlier. HEMATOLOGY/ONCOLOGY: As mentioned. ENDOCRINE as mentioned earlier. CONSTITUTIONAL: As mentioned earlier. DERMATOLOGY: Negative. RHEUMATOLOGY negative. PSYCHIATRY as mentioned earlier. PHYSICAL EXAMINATION: Alert and oriented times two. Pulse 93, blood pressure 144/58, respirations 16, temp 98.8, pulse ox 98% on room air. HEENT: Conjunctivae normal. Oral mucosa moist. NECK is no jugular venous distention. No carotid bruit. No lymph node enlargement. CARDIOVASCULAR system: S1, S2 muffled. No S3, no S4. RESPIRATORY: Breath sounds diminished in the bases. A few rhonchi. No crackles. ABDOMEN: Soft. Mild diffuse distention. It is rather tense. Mild diffusely tender. No guarding. No rigidity. No mass palpable. Bowel sounds diminished. No ascites. LEGS: No edema. No swelling. NERVOUS SYSTEM: Higher functions as mentioned earlier. Moves all 4 limbs. No focal deficits. Lymphatics: No lymph nodes palpable in the neck, axillae or groin. JOINTS: No active deforming arthropathy. SKIN: No ulcer, rash or bleeding. LABS: WBC 4.2, hemoglobin 12.7. INR is 3. Sodium 133 and glucose 244. Hepatic enzymes are normal. ASSESSMENT: 1. Abdominal pain for evaluation possible multiple metastasis to liver, spleen, pancreatic tail and body. 2. Possible sigmoid diverticulitis with mild pericolonic fat stranding. 3. Gallbladder hydrops. 4. Diabetes mellitus type 2. 5. History of prostate cancer. 6. Hyponatremia. 7. Coumadin monitoring. 8. Anemia, normocytic anemia of chronic disease. 9. History of atrial flutter. 10.History of chronic obstructive pulmonary disease. 11.History of cerebrovascular accident, transient ischemic attack. 12.Diabetes mellitus type 2. 13.Gastroesophageal reflux disease. 14.History of gastrointestinal bleed. 15.Hypertension. 16.Hyperlipidemia. 17.History of renal disease. 18.History of sleep apnea. 19.History of adenoidectomy. 20.History of appendectomy. 21.Remote history of nicotine dependence. 22.History of memory loss. 23.FULL CODE. RECOMMENDATIONS AND DISCUSSION: This 79-year-old gentleman who presented with multiple complex medical issues, at this time I recommend to continue the current medications. The possibility of malignancy to be considered but however we will initiate treatment with empiric IV antibiotics and consult surgery and as well as Hematology/Oncology. The home medication will be resumed. Symptomatic treatment with pain medication also will be offered. The prognosis extremely guarded because of multiple complex medical issues. Discussed with the patient and daughter at the bedside who understands and agrees. Further recommendations to follow. A copy of dictation will be forwarded to Dr. Morrow who is the primary physician. See orders for details. The patient will require either biopsies or endoscopies eventually. MMODL / IJN: [id number] /
[2019-12-19] MEDS: TIMOLOL 0.5% OPHTH DROPS 5 ML BTL BOTH EYES SCH (23:07)
[2019-12-19] MEDS: PANTOPRAZOLE 40 MG/10 ML VIAL IVP SCH (23:08)
[2019-12-20] MEDS: PIPERACILLIN-TAZOBACTAM 3.375 GM in SODIUM CHLORIDE 0.9% 100 ML IVPB SCH ×3 (00:19→17:35)
[2019-12-20] MEDS ORDERED: metroNIDAZOLE-NS PMX 500 MG in SALINE 1 100ML.BAG IVPB SCH (01:00)
[2019-12-20 06:42] LABS: INR 3.2 (<1.2)
[2019-12-20 06:44] LABS: Basophils % (A) 0 %; Eosinophils # (A) 0.1 k/uL (0-0.7); Eosinophils % (A) 0 %; HCT 38.3 % (39.0-53.0); HGB 12.4 gm/dL (13.0-17.5); Lymphocytes # (A) 0.6 k/uL (1.0-4.8); Lymphocytes % (A) 5 %; MCH 31.2 pg (25.0-35.0); MCHC 32.4 g/dL (31.0-37.0); MCV 96.2 fL (80.0-100.0); Mean Platelet Volume 8.6; Monocytes # (A) 0.6 k/uL (0-1.0); Monocytes % (A) 5 %; Neutrophils % (A) 89 %; Platelet Count 151 k/uL (150-450); RBC 3.98 m/uL (4.30-5.90); RDW 15.8 % (11.5-15.5); WBC 12.4 k/uL (3.8-10.6)
[2019-12-20 06:52] LABS: Calcium 8.4 mg/dL (8.4-10.2); Potassium 4.4 mmol/L (3.5-5.1)
[2019-12-20 06:52] LABS: Glucose,Whole Blood 192 mg/dL (75-99)
[2019-12-20] MEDS ORDERED: cefTRIAXone 1,000 MG VIAL (IM USE) IM SCH (09:00)
--- NOTE | 2019-12-20 09:54 | XR ---
EXAMINATION TYPE: XR chest 1V portable DATE OF EXAM: 12/20/2019 COMPARISON: 03/11/2017 HISTORY: Congestive heart failure. Shortness of breath. TECHNIQUE: Single frontal view of the chest is obtained. FINDINGS: There is no focal air space opacity, pleural effusion, or pneumothorax seen. Chronic inter stitial prominence. Multifocal scarring. The cardiac silhouette size is within within normal limits a nd mediastinum is rotated secondary to patient positioning. The osseous structures are intact. IMPRESSION: No acute process. No radiographic sequela of decompensated congestive heart failure.
[2019-12-20] MEDS: PANTOPRAZOLE 40 MG/10 ML VIAL IVP SCH (10:49)
[2019-12-20] MEDS: TIMOLOL 0.5% OPHTH DROPS 5 ML BTL BOTH EYES SCH ×2 (10:49→21:49)
[2019-12-20 11:08] LABS: Glucose,Whole Blood 182 mg/dL (75-99)
--- NOTE | 2019-12-20 12:23 | NM ---
EXAMINATION TYPE: NM bone scan whole body DATE OF EXAM: 12/20/2019 COMPARISON: 12/20/2019 HISTORY: Prostate cancer. Metastasis. Delayed whole-body scanning was performed following the injection of 25.8 mCi Tc 99m MDP. Images acq uired 3 hours post injection. FINDINGS: Multifocal uptake is seen within the right femur however photopenic defect is also seen, possible rig ht knee arthroplasty. Pedicular uptake is seen along the right lower thoracic spine. Likely degenerat miguel uptake in the left patella and right lower foot. IMPRESSION: Multifocal abnormal uptake in the right femur could be metastatic or related to presumed right femoral shaft as there is an photopenic defect. Multifocal uptake along the pedicles of the rig ht lower transverse process are indeterminant.
--- NOTE | 2019-12-20 12:37 | P.GSCN ---
History of Present Illness Consult date: 12/20/19 History of present illness: this is a 79-year-old male with past medical history significant for prostate cancer which was treated with radiation at that time. Patient states that over the last several weeks she's been having pain that started in his hips mostly on his right side and has since extended into his back in upper left flank. Patient states the pain is progressively been getting worse. He denies any change in bowel movements he denies any nausea vomiting he denies any fevers or chills. He had a colonoscopy 2 years ago which he states had some small polyps but was otherwise normal at that time. Past Medical History Past Medical History: Atrial Flutter, Cancer, COPD, CVA/TIA, Diabetes Mellitus, Eye Disorder, GERD/Reflux, GI Bleed, Hyperlipidemia, Hypertension, Prostate Disorder, Renal Disease, Sleep Apnea/CPAP/BIPAP Additional Past Medical History / Comment(s): PROSTATE CA 2015, HX RADIATION X24 [place]-Apr 2016. NO TX FOR SLEEP APNEA IN YEARS. hormone injections, biopsy 2015, 54 seed inplants jun 2016, radiation may 2016. freq urination. 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 RECENT BLOOD IN STOOL. History of Any Multi-Drug Resistant Organisms: None Reported Past Surgical History: Adenoidectomy, Appendectomy, Orthopedic Surgery, Tonsillectomy Additional Past Surgical History / Comment(s): EXC BACK CYSTS. EXC BILAT CATARACTS. BILAT SHOULDERS sx. ORIF RT FEMUR, 1 F/U SURGERY, THEN M ANIPULATION. PROSTATE BRACHYTHERAPY/RADIOACTIVE SEED INPLANTS. TEMPORAL ARTERITIS PROCEDURE. Past Anesthesia/Blood Transfusion Reactions: No Reported Reaction Additional Past Anesthesia/Blood Transfusion Reaction / Comm: DENIES Past Psychological History: No Psychological Hx Reported Additional Psychological History / Comment(s): PT LIVES ALONE IN A SINGLE LEVEL HOME THAT HAS 5 STEPS TO GET INTO HOME. PT IS INDEPENDANT. NO OUTSIDE SERVICES , NO MEDICAL EQUIPMENT. DRIVES. NO PETS. SERVED IN THE [employer]. 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 Smoking Status: Former smoker Past Alcohol Use History: None Reported Additional Past Alcohol Use History / Comment(s): SMOKED [age] YEARS OLD EST, 1 PPD OR <, QUIT . NO ALCOHOL SINCE 1991. Past Drug Use History: None Reported - Past Family History Sister(s) Family Medical History: Cancer Additional Family Medical History / Comment(s): breast CA Father History Unknown: Yes Additional Family Medical History / Comment(s): " FROM [place] FLU IN THE S Mother Family Medical History: Cancer, CVA/TIA Additional Family Medical History / Comment(s): "HEART PROBLEMS" Medications and Allergies Home Medications Medication Instructions Recorded Confirmed Type Pravastatin Sodium [Pravachol] 40 mg PO HS@219901/13/14 12/19/19 History Pantoprazole [Protonix] 40 mg PO DAILY@0800 11/28/16 12/19/19 History Timolol 0.5% Ophth Soln [Timoptic 1 drop BOTH EYES BID@0800,219903/11/17 12/19/19 History 0.5% Ophth Soln] Ferrous Sulfate [Feosol] 325 mg PO DAILY@1200 11/22/17 12/19/19 History Methotrexate Sodium [Methotrexate] 25 mg PO FR@189911/22/17 12/19/19 History metFORMIN HCL [Glucophage] 500 mg PO BID@0800,17011/22/17 12/19/19 History Folic Acid 0.8 mg PO HS@219912/19/19 12/19/19 History Latanoprost/Pf [Latanoprost 0.005% 1 drop BOTH EYES HS@219912/19/19 12/19/19 History Eye Drop] Lisinopril [Zestril] 20 mg PO DAILY@0812/19/19 12/19/19 History Metoprolol Tartrate [Lopressor] 50 mg PO BID@0800,189912/19/19 12/19/19 History Repaglinide [Prandin] 1 mg PO BID@0800,1700 12/19/19 12/19/19 History Warfarin Sodium [Jantoven] 2.5 mg PO DAILY@189912/19/19 12/19/19 History amLODIPine [Norvasc] 5 mg PO DAILY@189912/19/19 12/19/19 History Allergies Allergy/AdvReac Type Severity Reaction Status Date / Time celecoxib [From Celebrex] Allergy Severe GI BLEED Verified 12/19/19 18:27 aspirin Allergy Intermediate STOMACH Verified 12/19/19 18:27 PROBLEMS Surgical - Exam Osteopathic Statement: *. No significant issues noted on an osteopathic structural exam other than those noted in the History and Physical/Consult. Vital Signs Temp Pulse Resp BP Pulse Ox 98.8 F 122 H 18 157/72 98 12/19/19 15:13 12/19/19 15:13 12/19/19 15:13 12/19/19 15:13 12/19/19 15:13 - General well developed, well nourished, no distress - Neck trachea midline - Respiratory normal expansion, normal respiratory effort - Cardiovascular Rhythm: regular - Abdomen soft nondistended mild tenderness palpation periumbilical - Neurologic normal coordination, normal sensation - Psychiatric oriented to time, oriented to place Results - Labs 12/20/19 06:21 12/20/19 06:21 Abnormal Lab Results - Last 24 Hours (Table) 12/19/19 12/19/19 12/19/19 Range/Units 16:00 16:00 16:00 WBC (3.8-10.6) k/uL RBC 4.23 L (4.30-5.90) m/uL Hgb 12.7 L (13.0-17.5) gm/dL Hct (39.0-53.0) % RDW 15.8 H (11.5-15.5) % Neutrophils # (1.3-7.7) k/uL Lymphocytes # 0.7 L (1.0-4.8) k/uL PT 29.8 H (9.0-12.0) sec INR 3.0 H (<1.2) APTT 43.5 H (22.0-30.0) sec Sodium (137-145) mmol/L Glucose (74-99) mg/dL POC Glucose (mg/dL) (75-99) mg/dL Urine Protein 1+ H (Negative) Urine Glucose (UA) 4+ H (Negative) Urine Ketones Trace H (Negative) Urine Blood Small H (Negative) Hyaline Casts 7 H (0-2) /lpf Urine Mucus Many H (None) /hpf 12/19/19 12/19/19 12/20/19 Range/Units 16:00 21:27 06:21 WBC 12.4 H (3.8-10.6) k/uL RBC 3.98 L (4.30-5.90) m/uL Hgb 12.4 L (13.0-17.5) gm/dL Hct 38.3 L (39.0-53.0) % RDW 15.8 H (11.5-15.5) % Neutrophils # 11.0 H (1.3-7.7) k/uL Lymphocytes # 0.6 L (1.0-4.8) k/uL PT (9.0-12.0) sec INR (<1.2) APTT (22.0-30.0) sec Sodium 133 L (137-145) mmol/L Glucose 244 H (74-99) mg/dL POC Glucose (mg/dL) 146 H (75-99) mg/dL Urine Protein (Negative) Urine Glucose (UA) (Negative) Urine Ketones (Negative) Urine Blood (Negative) Hyaline Casts (0-2) /lpf Urine Mucus (None) /hpf 12/20/19 12/20/19 12/20/19 Range/Units 06:21 06:21 06:51 WBC (3.8-10.6) k/uL RBC (4.30-5.90) m/uL Hgb (13.0-17.5) gm/dL Hct (39.0-53.0) % RDW (11.5-15.5) % Neutrophils # (1.3-7.7) k/uL Lymphocytes # (1.0-4.8) k/uL PT 31.0 H (9.0-12.0) sec INR 3.2 H (<1.2) APTT (22.0-30.0) sec Sodium 135 L (137-145) mmol/L Glucose 195 H (74-99) mg/dL POC Glucose (mg/dL) 192 H (75-99) mg/dL Urine Protein (Negative) Urine Glucose (UA) (Negative) Urine Ketones (Negative) Urine Blood (Negative) Hyaline Casts (0-2) /lpf Urine Mucus (None) /hpf 12/20/19 Range/Units 11:07 WBC (3.8-10.6) k/uL RBC (4.30-5.90) m/uL Hgb (13.0-17.5) gm/dL Hct (39.0-53.0) % RDW (11.5-15.5) % Neutrophils # (1.3-7.7) k/uL Lymphocytes # (1.0-4.8) k/uL PT (9.0-12.0) sec INR (<1.2) APTT (22.0-30.0) sec Sodium (137-145) mmol/L Glucose (74-99) mg/dL POC Glucose (mg/dL) 182 H (75-99) mg/dL Urine Protein (Negative) Urine Glucose (UA) (Negative) Urine Ketones (Negative) Urine Blood (Negative) Hyaline Casts (0-2) /lpf Urine Mucus (None) /hpf Diabetes panel 12/19/19 12/20/19 Range/Units 16:00 06:21 Sodium 133 L 135 L (137-145) mmol/L Potassium 4.4 4.4 (3.5-5.1) mmol/L Chloride 98 100 (98-107) mmol/L Carbon Dioxide 25 26 (22-30) mmol/L BUN 19 17 (9-20) mg/dL Creatinine 1.06 1.17 (0.66-1.25) mg/dL Glucose 244 H 195 H (74-99) mg/dL Calcium 8.9 8.4 (8.4-10.2) mg/dL AST 23 (17-59) U/L ALT 13 (4-49) U/L Alkaline Phosphatase 85 (38-126) U/L Total Protein 7.0 (6.3-8.2) g/dL Albumin 3.9 (3.5-5.0) g/dL Calcium panel 12/19/19 12/20/19 Range/Units 16:00 06:21 Calcium 8.9 8.4 (8.4-10.2) mg/dL Albumin 3.9 (3.5-5.0) g/dL Pituitary panel 12/19/19 12/20/19 Range/Units 16:00 06:21 Sodium 133 L 135 L (137-145) mmol/L Potassium 4.4 4.4 (3.5-5.1) mmol/L Chloride 98 100 (98-107) mmol/L Carbon Dioxide 25 26 (22-30) mmol/L BUN 19 17 (9-20) mg/dL Creatinine 1.06 1.17 (0.66-1.25) mg/dL Glucose 244 H 195 H (74-99) mg/dL Calcium 8.9 8.4 (8.4-10.2) mg/dL Adrenal panel 12/19/19 12/20/19 Range/Units 16:00 06:21 Sodium 133 L 135 L (137-145) mmol/L Potassium 4.4 4.4 (3.5-5.1) mmol/L Chloride 98 100 (98-107) mmol/L Carbon Dioxide 25 26 (22-30) mmol/L BUN 19 17 (9-20) mg/dL Creatinine 1.06 1.17 (0.66-1.25) mg/dL Glucose 244 H 195 H (74-99) mg/dL Calcium 8.9 8.4 (8.4-10.2) mg/dL Total Bilirubin 0.8 (0.2-1.3) mg/dL AST 23 (17-59) U/L ALT 13 (4-49) U/L Alkaline Phosphatase 85 (38-126) U/L Total Protein 7.0 (6.3-8.2) g/dL Albumin 3.9 (3.5-5.0) g/dL Assessment and Plan Assessment: history of prostate cancer suspect metastasis Possible diverticulitis or colitis Plan: continue with antibiotics, diet as tolerated, no plans for acute surgical intervention at this time. Patient does not have any clinical signs consistent with gallbladder disease. His distended gallbladder on computed tomography scan could've simply been secondary to being NPO at the time.
[2019-12-20] MEDS: METOPROLOL TARTRATE 50 MG TAB PO SCH ×2 (13:25→20:53)
[2019-12-20] MEDS: LISINOPRIL 10 MG TAB PO SCH (13:25)
[2019-12-20] MEDS: INSULIN ASPART (NovoLOG) 100 UNIT/ML VIAL SQ SCH ×3 (13:27→20:53)
[2019-12-20 16:51] LABS: Glucose,Whole Blood 281 mg/dL (75-99)
--- NOTE | 2019-12-20 19:56 | PN ---
PROGRESS NOTE DATE OF SERVICE: 12/20/2019 This 79-year-old gentleman who was admitted with severe abdominal pain had suspected multiple metastases, liver, spleen and pancreas. Patient also had possible sigmoid diverticulitis. Bone scan has been ordered. The patient is also seen by multiple consultants including Surgery. The bone scan showed multifocal abnormal uptake in the right femur, could be metastasis; multifocal uptake on the pedicles of the right lower transverse process also determined. Dr. Adam from Surgery recommended antibiotics and not planning any acute surgical intervention at this time. PSA is pending at this time. Hematology/Oncology following the patient closely. PAST MEDICAL HISTORY: Reviewed. REVIEW OF SYSTEMS: CARDIOVASCULAR SYSTEM: No angina. RESPIRATORY: No cough. GI: As mentioned earlier. : No dysuria. NERVOUS SYSTEM: No numbness or weakness. CURRENT MEDICATIONS: 1. [place] 5 mg q.6h p.r.n. 2. Xanax 0.5 t.i.d. 3. NovoLog scale. 4. Zestril 20 mg daily. 5. Lopressor 50 mg p.o. b.i.d. 6. Morphine sulfate 4 mg IV q.4h p.r.n. 7. Narcan p.r.n. 8. Protonix 40 mg IV daily. 9. Zosyn 3.375 IV q.8. 10.Restoril 50 mg q.h.s. 11.Timoptic 1 drop b.i.d. PHYSICAL EXAMINATION: Patient alert and oriented x3. Pulse 100, blood pressure 160/65, respirations 16, temp 98.7, pulse ox 98% on room air. HEENT is conjunctivae normal. HEENT: Conjunctivae normal. Oral mucosa moist. NECK: No jugular venous distention. No lymph node enlargement. CARDIOVASCULAR: S1, S2. RESPIRATORY: Diminished breath sounds at the bases. A few scattered rhonchi and crackles. ABDOMEN: Soft, obese. Mild diffuse discomfort but slightly better compared to yesterday. Bowel sounds present. No mass palpable. LEGS: No edema, no swelling. NERVOUS SYSTEM: No focal deficits. LABS: WBC 12.4, hemoglobin 12.4. INR is 3.2. ASSESSMENT: 1. Abdominal pain for evaluation, possible multiple metastases to the liver, spleen, pancreatic tail and body of undetermined primary. 2. Possible sigmoid diverticulitis with mild pericolonic fat stranding. 3. Gallbladder hydrops. 4. Diabetes type 2. 5. History of prostate cancer. 6. Hyponatremia. 7. Coumadin monitoring. 8. Mild Coumadin coagulopathy. 9. History of normocytic anemia of chronic disease. 10.History of atrial flutter. 11.History of chronic obstructive pulmonary disease. 12.History of cerebrovascular accident, transient ischemic attack. 13.Diabetes type 2. 14.History of gastroesophageal reflux disease. 15.History of gastrointestinal bleed. 16.Hypertension. 17.Hyperlipidemia. 18.History of renal disease. 19.History of sleep apnea. 20.History of adenoidectomy. 21.History of appendectomy. 22.Remote history of nicotine dependence. 23.History of memory loss. 24.FULL CODE. RECOMMENDATIONS AND DISCUSSION: I recommend to continue current medications, continue to monitor, continue symptomatic treatment. Otherwise, at this time I recommend to hold off the Coumadin. Otherwise, continue the IV antibiotics. Surgical input appreciated. I would also recommend for full evaluation by Hematology/Oncology. The bone scan noted highly suspicious for malignancy. We will continue to monitor. PSA and other CEA reports are pending at this time. Guarded prognosis. Further recommendations to follow. MMODL / IJN: [id number] /
[2019-12-20 20:18] LABS: Glucose,Whole Blood 195 mg/dL (75-99)
[2019-12-20] MEDS: HYDROcodone/APAP 5-325MG 1 EACH TAB PO PRN (22:33)
[2019-12-21] MEDS: PIPERACILLIN-TAZOBACTAM 3.375 GM in SODIUM CHLORIDE 0.9% 100 ML IVPB SCH ×4 (00:10→23:20)
[2019-12-21 00:13] LABS: Glucose,Whole Blood 151 mg/dL (75-99)
[2019-12-21 06:17] LABS: Basophils % (A) 0 %; Eosinophils # (A) 0.2 k/uL (0-0.7); Eosinophils % (A) 2 %; HCT 34.8 % (39.0-53.0); HGB 11.4 gm/dL (13.0-17.5); Hypochromasia Slight; Lymphocytes # (A) 0.9 k/uL (1.0-4.8); Lymphocytes % (A) 10 %; MCH 31.9 pg (25.0-35.0); MCHC 32.8 g/dL (31.0-37.0); MCV 97.2 fL (80.0-100.0); Macrocytosis Slight; Mean Platelet Volume 9.2; Monocytes # (A) 0.4 k/uL (0-1.0); Monocytes % (A) 4 %; Neutrophils # (A) 7.5 k/uL (1.3-7.7); Neutrophils % (A) 82 %; Platelet Count 146 k/uL (150-450); RBC 3.58 m/uL (4.30-5.90); RDW 15.9 % (11.5-15.5); WBC 9.1 k/uL (3.8-10.6)
[2019-12-21 06:26] LABS: INR 2.5 (<1.2); Prothrombin Time 24.6 sec (9.0-12.0)
[2019-12-21 06:32] LABS: Calcium 8.2 mg/dL (8.4-10.2); Potassium 4.4 mmol/L (3.5-5.1)
[2019-12-21 07:14] LABS: Glucose,Whole Blood 172 mg/dL (75-99)
--- NOTE | 2019-12-21 07:56 | P.CONS ---
History of Present Illness - Reason for Consult Consult date: 12/21/19 - Chief Complaint suspected metastatic disease - History of Present Illness 79-year-old male with a past medical history of prostate cancer treated with radiation, atrial Flutter, COPD, TIA, diabetes, chronic kidney disease, Presented with abdominal pain, ongoing for the last 2 weeks with predominantly in the left lower quadrant which radiates to the left flank, without any signs of infection or fever. The patient is on Coumadin for atrial fibrillation and does complain of fatigue. No active bleeding as such. The patient has tenderness in the left lower quadrant of the abdomen, CT of a bdomen and pelvis showed highly suspicious findings of prostatic disease with lesions and liver spine with acute uncomplicated diverticulitis. Patient is currently on antibiotics and surgery evaluation ongoing. Review of Systems pain in the abdomen and bones, and rest of the review of systems is negative Past Medical History Past Medical History: Atrial Flutter, Cancer, COPD, CVA/TIA, Diabetes Mellitus, Eye Disorder, GERD/Reflux, GI Bleed, Hyperlipidemia, Hypertension, Prostate Disorder, Renal Disease, Sleep Apnea/CPAP/BIPAP Additional Past Medical History / Comment(s): PROSTATE CA 2016, HX RADIATION X24 TX-Apr 2016. NO TX FOR SLEEP APNEA IN YEARS. hormone injections, biopsy 2015, 54 seed inplants jun 2016, radiation may 2016. freq urination. 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 RECENT BLOOD IN STOOL. History of Any Multi-Drug Resistant Organisms: None Reported Past Surgical History: Adenoidectomy, Appendectomy, Orthopedic Surgery, Tonsillectomy Additional Past Surgical History / Comment(s): EXC BACK CYSTS. EXC BILAT CATARACTS. BILAT SHOULDERS sx. ORIF RT FEMUR, 1 F/U SURGERY, THEN MANIPULATI ON. PROSTATE BRACHYTHERAPY/RADIOACTIVE SEED INPLANTS. TEMPORAL ARTERITIS PROCEDURE. Past Anesthesia/Blood Transfusion Reactions: No Reported Reaction Additional Past Anesthesia/Blood Transfusion Reaction / Comm: DENIES Past Psychological History: No Psychological Hx Reported Additional Psychological History / Comment(s): PT LIVES ALONE IN A SINGLE LEVEL HOME THAT HAS 5 STEPS TO GET INTO HOME. PT IS INDEPENDANT. NO OUTSIDE SERVICES , NO MEDICAL EQUIPMENT. DRIVES. NO PETS. SERVED IN THE [employer]. 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 Smoking Status: Former smoker Past Alcohol Use History: None Reported Additional Past Alcohol Use History / Comment(s): SMOKED [age] YEARS OLD EST, 1 PPD OR <, QUIT . NO ALCOHOL SINCE 1991. Past Drug Use History: None Reported - Past Family History Sister(s) Family Medical History: Cancer Additional Family Medical History / Comment(s): breast CA Father History Unknown: Yes Additional Family Medical History / Comment(s): " FROM [place] FLU IN THE Mother Family Medical History: Cancer, CVA/TIA Additional Family Medical History / Comment(s): "HEART PROBLEMS" Medications and Allergies Home Medications Medication Instructions Recorded Confirmed Type Pravastatin Sodium [Pravachol] 40 mg PO HS@01/13/12/19/19 History Pantoprazole [Protonix] 40 mg PO DAILY@0811/28/16 12/19/19 History Timolol 0.5% Ophth Soln [Timoptic 1 drop BOTH EYES BID@0800,219903/11/17 12/19/19 History 0.5% Ophth Soln] Ferrous Sulfate [Feosol] 325 mg PO DAILY@1200 11/22/17 12/19/19 History Methotrexate Sodium [Methotrexate] 25 mg PO FR@189911/22/17 12/19/19 History metFORMIN HCL [Glucophage] 500 mg PO BID@0800,169911/22/17 12/19/19 History Folic Acid 0.8 mg PO HS@219912/19/19 12/19/19 History Latanoprost/Pf [Latanoprost 0.005% 1 drop BOTH EYES HS@219912/19/19 12/19/19 History Eye Drop] Lisinopril [Zestril] 20 mg PO DAILY@0812/19/19 12/19/19 History Metoprolol Tartrate [Lopressor] 50 mg PO BID@0800,189912/19/19 12/19/19 History Repaglinide [Prandin] 1 mg PO BID@0800,169912/19/19 12/19/19 History Warfarin Sodium [Jantoven] 2.5 mg PO DAILY@189912/19/19 12/19/19 History amLODIPine [Norvasc] 5 mg PO DAILY@189912/19/19 12/19/19 History Allergies Allergy/AdvReac Type Severity Reaction Status Date / Time celecoxib [From Celebrex] Allergy Severe GI BLEED Verified 12/19/19 18:27 aspirin Allergy Intermediate STOMACH Verified 12/19/19 18:27 PROBLEMS Physical Exam Vitals: Vital Signs Temp Pulse Resp BP Pulse Ox 12/21/19 05:28 97.4 F L 70 16 154/64 96 12/20/19 21:00 98.5 F 83 16 159/64 95 12/20/19 16:00 84 16 12/20/19 13:06 98.7 F 100 16 162/65 98 12/20/19 08:00 100 16 Intake and Output 12/20/19 12/21/19 12/21/19 22:59 06:59 14:59 Intake Total 100 590 Balance 100 590 Intake: Intake, IV Titration 100 Amount Piperacillin-Tazobactam 3 100 .375 gm In Sodium Chloride 0.9% 100 ml @ 25 mls/hr IVPB Q8HR [facility] Rx# :[id number] Oral 590 Other: Voiding Method Toilet # Voids 2 2 The patient appeared well nourished and normally developed. Vital signs as documented. Head exam is unremarkable. No scleral icterus or corneal arcus noted. Neck is without jugular venous distension, thyromegaly, or carotid bruits. Carotid upstrokes are brisk bilaterally. Lungs are clear to auscultation and percussion. Cardiac exam reveals the PMI to be normally sized and situated. Rhythm is regular. First and second heart sounds normal. No murmurs, rubs or gallops. Abdominal exam reveals normal bowel sounds, no masses, no organomegaly and no aortic enlargement. Extremities are nonedematous and both femoral and pedal pulses are normal. Results CBC & Chem 7: 12/21/19 06:07 12/21/19 06:07 Labs: Abnormal Lab Results - Last 24 Hours (Table) 12/20/19 12/20/19 12/20/19 Range/Units 11:07 16:50 20:17 RBC (4.30-5.90) m/uL Hgb (13.0-17.5) gm/dL Hct (39.0-53.0) % RDW (11.5-15.5) % Plt Count (150-450) k/uL Lymphocytes # (1.0-4.8) k/uL PT (9.0-12.0) sec INR (<1.2) Sodium (137-145) mmol/L BUN (9-20) mg/dL Creatinine (0.66-1.25) mg/dL Glucose (74-99) mg/dL POC Glucose (mg/dL) 182 H 281 H 195 H (75-99) mg/dL Calcium (8.4-10.2) mg/dL 12/21/19 12/21/19 12/21/19 Range/Units 00:12 06:07 06:07 RBC 3.58 L (4.30-5.90) m/uL Hgb 11.4 L (13.0-17.5) gm/dL Hct 34.8 L (39.0-53.0) % RDW 15.9 H (11.5-15.5) % Plt Count 146 L (150-450) k/uL Lymphocytes # 0.9 L (1.0-4.8) k/uL PT 24.6 H (9.0-12.0) sec INR 2.5 H (<1.2) Sodium (137-145) mmol/L BUN (9-20) mg/dL Creatinine (0.66-1.25) mg/dL Glucose (74-99) mg/dL POC Glucose (mg/dL) 151 H (75-99) mg/dL Calcium (8.4-10.2) mg/dL 12/21/19 12/21/19 Range/Units 06:07 06:54 RBC (4.30-5.90) m/uL Hgb (13.0-17.5) gm/dL Hct (39.0-53.0) % RDW (11.5-15.5) % Plt Count (150-450) k/uL Lymphocytes # (1.0-4.8) k/uL PT (9.0-12.0) sec INR (<1.2) Sodium 136 L (137-145) mmol/L BUN 22 H (9-20) mg/dL Creatinine 1.30 H (0.66-1.25) mg/dL Glucose 171 H (74-99) mg/dL POC Glucose (mg/dL) 172 H (75-99) mg/dL Calcium 8.2 L (8.4-10.2) mg/dL Microbiology - Last 24 Hours (Table) 12/19/19 17:53 Blood Culture - Preliminary Blood No Growth after 24 hours Assessment and Plan Assessment: #1. Suspected metastatic disease with lesions in spleen, pancreas multiple places.: He presented with severe abdominal pain: - Bone scan has been ordered. Which shows multifocal abnormal uptake in the right femur and right lower transverse process. - PSA has been ordered. - Plan to check other tumor markers, ultrasound-guided biopsy. - MRI brain - CT chest without contrast in view of chronic kidney disease. - oncology team to follow tomorrow #2. History of prostate cancer check PSA. Results pending. #3. Diverticulitis with abdominal pain and signs of infection. Sigmoid diverticulitis. #4. History of atrial fibrillation on Coumadin. - Coumadin on hold. #5. COPD, TIA, diabetes, chronic kidney disease. Anemia with hemoglobin 11.4. Thrombocytopenia mild with platelet count of 146. Electrolyte imbalance with sodium 136. Acute on chronic kidney disease current creatinine 1.30. Significant hydration after scans. Thank you for allowing me to participate in the care of your patient. Archana Celeste MD Hematology Oncology [id number] , [address] [place] [address] Office: [phone] Time with Patient: Greater than 30
[2019-12-21] MEDS: HYDROcodone/APAP 5-325MG 1 EACH TAB PO PRN ×3 (08:19→22:27)
[2019-12-21] MEDS: LISINOPRIL 10 MG TAB PO SCH (08:22)
[2019-12-21] MEDS: PANTOPRAZOLE 40 MG/10 ML VIAL IVP SCH (08:23)
[2019-12-21] MEDS: INSULIN ASPART (NovoLOG) 100 UNIT/ML VIAL SQ SCH ×4 (08:23→22:29)
[2019-12-21] MEDS: METOPROLOL TARTRATE 50 MG TAB PO SCH ×2 (08:23→22:20)
[2019-12-21] MEDS: TIMOLOL 0.5% OPHTH DROPS 5 ML BTL BOTH EYES SCH ×2 (08:33→22:23)
[2019-12-21 11:52] LABS: Glucose,Whole Blood 183 mg/dL (75-99)
[2019-12-21 17:21] LABS: Glucose,Whole Blood 218 mg/dL (75-99)
--- NOTE | 2019-12-21 18:39 | CT ---
EXAMINATION TYPE: CT chest wo con DATE OF EXAM: 12/21/2019 COMPARISON: 12/19/2019 HISTORY: Metastatic disease CT DLP: 466 mGycm Automated exposure control for dose reduction was used. Images were obtained from the thoracic inlet to the diaphragm with no contrast. There is a mild to moderate left pleural effusion. Heart size is normal. There is no pericardial effu nicanor. Thoracic aorta is atheromatous. There is no mediastinal adenopathy. There is some mild atelecta sis in the left lower lobe adjacent to the pleural fluid. There is minimal subsegmental atelectasis r ight lung base. There are no hilar masses. There is some coronary artery calcification. Thoracic spine is intact. There is some spurring of the thoracic vertebra. The ribs appear intact. Th ere are rounded low-density masses in the spleen that measure up to 5.5 cm. IMPRESSION: There is left pleural effusion that is new compared to recent exam. There is mild atelectasis at the lung bases that is new compared to recent exam. Low-density splenic masses or cysts unchanged.
--- NOTE | 2019-12-21 20:33 | PN ---
PROGRESS NOTE DATE OF SERVICE: 12/21/2019 This 79-year-old gentleman who was admitted with severe abdominal pain, was suspected to have multiple metastasis of the liver, spleen, pancreatic tail and as well as body. The patient was also thought to have a sigmoid diverticulitis. Patient is being empirically treated with antibiotic at this time. A bone scan was done. Surgical and Hematology/Oncology is also following the patient. Bone scan showed multiple abnormalities, abnormal intakes and INR is 2.5 and creatinine is 1.3. Otherwise PSA is not available and as well as CA 1999, CEA as well which was ordered by Hematology/Oncology. The patient is being given symptomatic treatment at this time as mentioned earlier. PAST MEDICAL HISTORY: Reviewed. REVIEW OF SYSTEMS: Cardiovascular system: No angina. Respiration: No cough. GI: As mentioned earlier. : No dysuria. Nervous system: No numbness or weakness. CURRENT MEDICATIONS: 1. [place] 5 mg. 2. Xanax. 3. NovoLog. 4. Zestril. 5. Lopressor. 6. Morphine sulfate. 7. Narcan. 8. Protonix. 9. Zosyn. 10.Restoril. 11.Timoptic. PHYSICAL EXAM: Patient is alert, oriented x3. Pulse 60. Blood pressure 132/62, respirations 16, temperature 98.2, pulse ox 94% on room air. HEENT: Conjunctivae normal. NECK: No JVD. CARDIOVASCULAR: S1, S2 muffled. Respiration: Breath sounds diminished in the bases. A few scattered rhonchi. ABDOMEN: Soft, mild diffuse distention. Mild diffuse tenderness present. Otherwise, no guarding. No mass palpable. No ascites. LEGS: No edema. No swelling. Nervous system: No focal deficits. LABS: WBC 9.2, hemoglobin 7.4, INR is 2.5, sodium is 136, creatinine is 1.30. ASSESSMENT: 1. 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 2. History of sigmoid diverticulitis with mild pericolonic fat stranding. 3. Gallbladder hydrops. 4. Diabetes mellitus type 2. 5. History of prostate cancer. 6. Hyponatremia. 7. Coumadin monitoring. 8. Mild Coumadin coagulopathy. 9. History of normocytic anemia of chronic disease. 10.History of atrial flutter. 11.History of chronic obstructive pulmonary disease. 12.Cerebrovascular accident/transient ischemic attack. 13.Diabetes mellitus type 2. 14.History of gastroesophageal reflux disease. 15.History of gastrointestinal bleed. 16.Hypertension. 17.Hyperlipidemia. 18.History of renal disease. 19.History of sleep apnea. 20.History of adenoidectomy. 21.History of appendectomy. 22.Remote history of nicotine dependence. 23.History of memory loss. 24.FULL CODE. RECOMMENDATIONS AND DISCUSSION: This 79-year-old gentleman who presented with multiple complex medical issues, we will monitor the patient closely. Continue the current medications, symptomatic treatment. Otherwise, await PSA reports. Bone scan noted. Closely follow with Hematology/Oncology. Prognosis guarded because of multiple complex medical issues. Further recommendations to follow. MMODL / IJN: [id number] /
[2019-12-21 21:34] LABS: Glucose,Whole Blood 217 mg/dL (75-99)
[2019-12-21] MEDS: SODIUM CHLORIDE 0.9% 1,000 ML IV SCH (22:20)
[2019-12-22 07:13] LABS: Glucose,Whole Blood 167 mg/dL (75-99)
[2019-12-22] MEDS: HYDROcodone/APAP 5-325MG 1 EACH TAB PO PRN ×3 (07:24→22:20)
[2019-12-22] MEDS: LISINOPRIL 10 MG TAB PO SCH (07:25)
[2019-12-22] MEDS: PANTOPRAZOLE 40 MG/10 ML VIAL IVP SCH (07:25)
[2019-12-22] MEDS: METOPROLOL TARTRATE 50 MG TAB PO SCH ×2 (07:25→20:17)
[2019-12-22] MEDS: TIMOLOL 0.5% OPHTH DROPS 5 ML BTL BOTH EYES SCH ×2 (07:26→21:12)
[2019-12-22 07:43] LABS: Basophils % (A) 0 %; Eosinophils # (A) 0.3 k/uL (0-0.7); Eosinophils % (A) 3 %; HCT 34.1 % (39.0-53.0); HGB 11.1 gm/dL (13.0-17.5); Hypochromasia Slight; Lymphocytes # (A) 0.8 k/uL (1.0-4.8); Lymphocytes % (A) 10 %; MCH 31.7 pg (25.0-35.0); MCHC 32.6 g/dL (31.0-37.0); Mean Platelet Volume 8.7; Monocytes # (A) 0.3 k/uL (0-1.0); Monocytes % (A) 4 %; Neutrophils # (A) 6.5 k/uL (1.3-7.7); Neutrophils % (A) 82 %; Platelet Count 166 k/uL (150-450); RBC 3.52 m/uL (4.30-5.90); RDW 15.7 % (11.5-15.5)
[2019-12-22 07:49] LABS: INR 1.7 (<1.2); Prothrombin Time 16.3 sec (9.0-12.0)
[2019-12-22 07:59] LABS: Calcium 8.5 mg/dL (8.4-10.2); Potassium 4.5 mmol/L (3.5-5.1)
--- NOTE | 2019-12-22 08:27 | MR ---
EXAMINATION TYPE: MR brain wo/w con DATE OF EXAM: 12/22/2019 COMPARISON: Prior MRI brain October 27, 2016. Whole body bone scan December 20, 2019. HISTORY: CVA History, Prostate CA History. Looking for Brain Mets TECHNIQUE: Multiplanar, multisequence images of the brain and brainstem is performed without and with IV contras t, utilizing 8.5 mL intravenous Gadavist . FINDINGS: Diffusion weighted images demonstrate no evidence of a recent infarct or other diffusion ab normality. There is no worrisome extra-axial fluid collection. There is diffuse ventricular and sulc al prominence redemonstrated. There are scattered foci of T2 hyperintensity seen throughout the super ficial, deep, and periventricular white matter. Lesions are nonspecific in appearance and distributio n but are most likely on basis of product of chronic small vessel ischemic change in patient of this age. Midline structures demonstrate normal morphology. The craniocervical junction appears within normal limits. Post contrast images demonstrate no abnormal enhancement. The dural venous sinuses appear pa tent. The visualized sinuses are clear and the globes are intact bilaterally on current study. Some p atchy fluid signal redemonstrated inferiorly in the right mastoid air cells. IMPRESSION: 1. No suspicious new enhancing intraparenchymal mass to suggest metastatic disease to the brain. 2. Background mild to moderate diffuse cerebral atrophy and moderate chronic small vessel ischemic ch simi without significant change or progression from prior MRI.
[2019-12-22] MEDS: PIPERACILLIN-TAZOBACTAM 3.375 GM in SODIUM CHLORIDE 0.9% 100 ML IVPB SCH ×3 (08:29→23:31)
[2019-12-22] MEDS: INSULIN ASPART (NovoLOG) 100 UNIT/ML VIAL SQ SCH ×4 (08:32→21:13)
[2019-12-22 11:46] LABS: Glucose,Whole Blood 207 mg/dL (75-99)
[2019-12-22] MEDS: SODIUM CHLORIDE 0.9% 1,000 ML IV SCH (12:50)
[2019-12-22 13:12] LABS: Protein, Total 5.8 g/dL (6.2-8.2)
[2019-12-22 15:27] LABS: Carcinoembryonic Antigen 136.6 ng/mL (0.0-4.9)
--- NOTE | 2019-12-22 16:16 | P.PN ---
Subjective Progress Note Date: 12/22/19 Principal diagnosis: new lesions liver Discussed CT results and plan for liver biopsy with patient. ALso reviewed negative MRI of the brain. Objective - Vital Signs Vital signs: Vital Signs Temp 97.9 F 12/22/19 12:27 Pulse 67 12/22/19 12:27 Resp 17 12/22/19 12:27 BP 139/63 12/22/19 12:27 Pulse Ox 96 12/22/19 12:27 Intake & Output 12/21/19 12/22/19 12/22/19 18:59 06:59 18:59 Intake Total 100 450 Balance 100 450 Intake: Intake, IV Titration 100 250 Amount Piperacillin-Tazobactam 3 100 100 .375 gm In Sodium Chloride 0.9% 100 ml @ 25 mls/hr IVPB Q8HR ADY Rx# :[id number] Sodium Chloride 0.9% 1, 150 000 ml @ 50 mls/hr IV . Q20H ADY Rx#:[id number] Oral 200 Other: Voiding Method Toilet Toilet # Voids 3 1 # Bowel Movements 0 - Exam Gen: Alert and oriented, poor historian Neck: Supple Head: NCAT Lung: Diminished bases, no increased effort Heart: Irr, Reg Abdomen: Distended, tender Ext: No edema Skin: No lesions or rashes Mood: Calm - Labs CBC & Chem 7: 12/22/19 07:17 12/22/19 07:17 Labs: Abnormal Lab Results - Last 24 Hours (Table) 12/20/19 12/21/19 12/21/19 Range/Units 06:21 16:57 21:33 RBC (4.30-5.90) m/uL Hgb (13.0-17.5) gm/dL Hct (39.0-53.0) % RDW (11.5-15.5) % Lymphocytes # (1.0-4.8) k/uL PT (9.0-12.0) sec INR (<1.2) Sodium (137-145) mmol/L BUN (9-20) mg/dL Glucose (74-99) mg/dL POC Glucose (mg/dL) 218 H 217 H (75-99) mg/dL Total Protein (PEP) (6.2-8.2) g/dL Carcinoembryonic Ag 136.6 H (0.0-4.9) ng/mL CA 19-9 Antigen 86229.0 H (0.0-34.9) U/mL 12/22/19 12/22/19 12/22/19 Range/Units 07:11 07:17 07:17 RBC (4.30-5.90) m/uL Hgb (13.0-17.5) gm/dL Hct (39.0-53.0) % RDW (11.5-15.5) % Lymphocytes # (1.0-4.8) k/uL PT (9.0-12.0) sec INR (<1.2) Sodium 136 L (137-145) mmol/L BUN 22 H (9-20) mg/dL Glucose 163 H (74-99) mg/dL POC Glucose (mg/dL) 167 H (75-99) mg/dL Total Protein (PEP) 5.8 L (6.2-8.2) g/dL Carcinoembryonic Ag (0.0-4.9) ng/mL CA 19-9 Antigen (0.0-34.9) U/mL 12/22/19 12/22/19 12/22/19 Range/Units 07:17 07:17 11:45 RBC 3.52 L (4.30-5.90) m/uL Hgb 11.1 L (13.0-17.5) gm/dL Hct 34.1 L (39.0-53.0) % RDW 15.7 H (11.5-15.5) % Lymphocytes # 0.8 L (1.0-4.8) k/uL PT 16.3 H (9.0-12.0) sec INR 1.7 H (<1.2) Sodium (137-145) mmol/L BUN (9-20) mg/dL Glucose (74-99) mg/dL POC Glucose (mg/dL) 207 H (75-99) mg/dL Total Protein (PEP) (6.2-8.2) g/dL Carcinoembryonic Ag (0.0-4.9) ng/mL CA 19-9 Antigen (0.0-34.9) U/mL Microbiology - Last 24 Hours (Table) 12/19/19 17:53 Blood Culture - Preliminary Blood No Growth after 48 hours Assessment and Plan Plan: Assessment and Recommendations: Suspected metastatic disease with lesions in spleen, pancreas multiple places.: He presented with severe abdominal pain: - Bone scan has been ordered. Which shows multi-focal abnormal uptake in the right femur and right lower transverse process. - PSA has been ordered. - Plan to check other tumor markers, ultrasound-guided biopsy. - MRI brain Negative - CT chest without contrast in view of chronic kidney disease. - Oncology team to follow tomorrow - Ca 19-9 Increased, MRCP and GI to follow History of prostate cancer - Check PSA. Results pending. Diverticulitis with abdominal pain and signs of infection. Sigmoid diverticulitis. History of atrial fibrillation on Coumadin. - Coumadin on hold. COPD, TIA, diabetes, chronic kidney disease. Anemia Thrombocytopenia Electrolyte imbalance Acute on chronic kidney disease PLan 12/22/19: - Biopsy of liver Lesions - MRI/MRCP to evaluate Pancreas
[2019-12-22 17:11] LABS: Glucose,Whole Blood 291 mg/dL (75-99)
[2019-12-22 19:50] LABS: Amylase 60 U/L (30-110)
[2019-12-22 20:47] LABS: Glucose,Whole Blood 227 mg/dL (75-99)
--- NOTE | 2019-12-22 21:57 | PN ---
PROGRESS NOTE DATE OF SERVICE: 12/22/2019 This 79-year-old gentleman who was admitted with abdominal pain with possible multiple metastases in the liver and spleen and pancreatic tail is being closely monitored. Hematology/Oncology following the patient closely. Brain MRI is normal. CT scan of chest was noted. PSA is awaited as well as bone scan. Hematology/Oncology is following the patient closely. Past medical history reviewed. CEA is 136 and CA19.9 is 70,000 REVIEW OF SYSTEMS: CARDIOVASCULAR SYSTEM: No angina, palpitations. RESPIRATORY SYSTEM: As mentioned earlier. GI: As mentioned earlier. : No dysuria or retention. NERVOUS SYSTEM: No numbness, weakness. CURRENT MEDICATIONS: Reviewed. They include: 1. [place] 5 mg q.6 p.r.n. 2. Xanax 0.25 t.i.d. 3. NovoLog. 4. Zestril. 5. Lopressor. 6. Narcan. 7. Protonix. 8. Zosyn. 9. Restoril. 10.Timoptic. PHYSICAL EXAMINATION: Patient is alert, oriented x3. Pulse is 62, blood pressure 148/60, respiration 12, temperature 97.9, pulse ox 96% on room air. HEENT: Conjunctivae normal. NECK: No jugular venous distention. CARDIOVASCULAR SYSTEM: S1, S2 muffled. RESPIRATORY SYSTEM: Breath sounds diminished at the bases. No rhonchi. No crackles. ABDOMEN: Soft. Mild diffuse distention. Non-tender. No guarding or rigidity. No mass palpable. LEGS: No edema. No swelling. NERVOUS SYSTEM: No focal deficit. LABS: WBC 8, hemoglobin 11.1. INR 1.7. Sodium 136. ASSESSMENT: 1. Abdominal pain with possible multiple metastases with liver, spleen and pancreatic tail and body, undetermined primary; possibly prostate or colon. 2. History of sigmoid diverticulitis with mild pericolonic fat stranding. 3. Gallbladder hydrops. 4. Diabetes mellitus, type 2. 5. History of prostate cancer. 6. Hyponatremia. 7. Coumadin monitoring. 8. Mild Coumadin coagulopathy, present on admission. 9. Normocytic anemia of chronic disease. 10.History of atrial flutter. 11.History of chronic obstructive pulmonary disease. 12.Cerebrovascular accident, transient ischemic attack. 13.History of gastroesophageal reflux disease. 14.History of gastrointestinal bleed. 15.Hypertension. 16.Hyperlipidemia. 17.History of renal disease. 18.History of sleep apnea. 19.Adenoidectomy. 20.History of appendectomy. 21.Remote history of nicotine dependence. 22.History of memory loss. 23.FULL CODE. RECOMMENDATIONS AND DISCUSSION: I recommend to continue current medications, continue with the monitoring, symptomatic treatment. The patient might require some biopsies and possible endoscopies. Will continue to monitor. Closely follow with Hematology/Oncology. Will discuss the case with Hematology/Oncology and Surgery as well. I would also recommend piyush and possible intervention. Radiology consultation as well. Once again, the prognosis is guarded. See orders for details. Further recommendations to follow. MMODL / IJN: [id number] / OMAR
[2019-12-23 07:10] LABS: Glucose,Whole Blood 173 mg/dL (75-99)
[2019-12-23] MEDS: PANTOPRAZOLE 40 MG/10 ML VIAL IVP SCH (07:37)
[2019-12-23] MEDS: PIPERACILLIN-TAZOBACTAM 3.375 GM in SODIUM CHLORIDE 0.9% 100 ML IVPB SCH ×2 (07:38→15:36)
[2019-12-23] MEDS: LISINOPRIL 10 MG TAB PO SCH (07:38)
[2019-12-23] MEDS: METOPROLOL TARTRATE 50 MG TAB PO SCH ×2 (07:38→21:55)
[2019-12-23] MEDS: INSULIN ASPART (NovoLOG) 100 UNIT/ML VIAL SQ SCH ×4 (07:38→21:56)
[2019-12-23] MEDS: TIMOLOL 0.5% OPHTH DROPS 5 ML BTL BOTH EYES SCH ×2 (07:39→21:57)
[2019-12-23] MEDS: SODIUM CHLORIDE 0.9% 1,000 ML IV SCH (07:40)
[2019-12-23 08:55] LABS: INR 1.2 (<1.2); Prothrombin Time 12.2 sec (9.0-12.0)
[2019-12-23 11:30] LABS: Glucose,Whole Blood 295 mg/dL (75-99)
--- NOTE | 2019-12-23 15:42 | CT ---
EXAMINATION TYPE: CT biopsy abdomen percutaneous DATE OF EXAM: 12/23/2019 COMPARISON: CT chest abdomen pelvis 12/19/2019 HISTORY: Intra-abdominal mass The procedure was explained to the patient. The risks, complications, benefits, and alternatives wer e discussed and any questions were answered. Informed consent was obtained. Patient was placed supi ne on the CT table and prepped and draped in the usual sterile fashion. All elements of maximal barrier and sterile technique utilized. Utilizing CT guidance, an 18 gauge core biopsy needle access into intra-abdominal mass in the right a bdomen was achieved and two18 gauge core samples were obtained. The patient was stable throughout th e procedure and remained stable upon discharge. IMPRESSION: 1. Successful 18 gauge core biopsy of a right intra-abdominal mass.
[2019-12-23 15:58] LABS: Albumin 2.82 g/dL (3.80-4.90); Gamma Globulin 0.84 g/dL (0.70-1.50)
[2019-12-23 17:02] LABS: Glucose,Whole Blood 139 mg/dL (75-99)
[2019-12-23] MEDS ORDERED: hydrALAZINE HCL 20 MG/ML 1 ML VIAL IVP PRN (17:18)
[2019-12-23] MEDS ORDERED: cloNIDine HCL 0.1 MG TAB PO PRN (17:18)
--- NOTE | 2019-12-23 17:30 | P.PN ---
<Carisa Snider - Last Filed: 12/23/19 17:28> Subjective Progress Note Date: 12/23/19 Principal diagnosis: new lesions liver Status post biopsy of intra abdominal mass today, will await pathology Objective - Vital Signs Vital signs: Vital Signs Temp 97.8 F 12/23/19 15:40 Pulse 69 12/23/19 15:58 Resp 20 12/23/19 15:40 BP 192/85 12/23/19 15:58 Pulse Ox 96 12/23/19 15:58 Intake & Output 12/22/19 12/23/19 12/23/19 18:59 06:59 18:59 Intake Total 1880 240 Balance 1880 240 Intake: Intake, IV Titration 700 Amount Piperacillin-Tazobactam 3 100 .375 gm In Sodium Chloride 0.9% 100 ml @ 25 mls/hr IVPB Q8HR ADY Rx# :[id number] Sodium Chloride 0.9% 1, 600 000 ml @ 50 mls/hr IV . Q20H ADY Rx#:[id number] Oral 1180 240 Other: Voiding Method Toilet Toilet Toilet Urinal Urinal # Voids 4 1 2 # Bowel Movements 1 - Exam Gen: Alert and oriented, poor historian Neck: Supple Head: NCAT Lung: Diminished bases, no increased effort Heart: Irr, Reg Abdomen: Distended, tender Ext: No edema Skin: No lesions or rashes Mood: Calm - Labs CBC & Chem 7: 12/22/19 07:17 12/22/19 07:17 Labs: Abnormal Lab Results - Last 24 Hours (Table) 12/22/19 12/22/19 12/23/19 Range/Units 07:17 20:46 07:09 PT (9.0-12.0) sec INR (<1.2) POC Glucose (mg/dL) 227 H 173 H (75-99) mg/dL Albumin (PEP) 2.82 L (3.80-4.90) g/dL Beonz-8-Mxfsrsrde 0.47 H (0.10-0.40) g/dL 12/23/19 12/23/19 12/23/19 Range/Units 08:00 11:28 17:00 PT 12.2 H (9.0-12.0) sec INR 1.2 H (<1.2) POC Glucose (mg/dL) 295 H 139 H (75-99) mg/dL Albumin (PEP) (3.80-4.90) g/dL Fatmk-9-Hvvssrbjx (0.10-0.40) g/dL Microbiology - Last 24 Hours (Table) 12/19/19 17:53 Blood Culture - Preliminary Blood No Growth after 72 hours Assessment and Plan Plan: Assessment and Recommendations: Suspected metastatic disease with lesions in spleen, pancreas multiple places.: He presented with severe abdominal pain: - Bone scan has been ordered. Which shows multi-focal abnormal uptake in the right femur and right lower transverse process. - PSA has been ordered. - Await path from abdominal mass biopsy from 12/22 - MRI brain Negative - CT chest without contrast in view of chronic kidney disease. - Oncology team to follow tomorrow - Ca 19-9 Increased, History of prostate cancer - Check PSA. <1 Diverticulitis with abdominal pain and signs of infection. Sigmoid diverticulitis. History of atrial fibrillation on Coumadin. - Coumadin on hold. COPD, TIA, diabetes, chronic kidney disease. Anemia Thrombocytopenia Electrolyte imbalance Acute on chronic kidney disease PLan - Status post biopsy of intra-abdominal mass, await pathology - PSA <1, Ca 19-9 greater than [address]. Appears to be unrelated to prostate cancer history and more likely a secondary primary malignancy. <Scot,John - Last Filed: 12/23/19 22:47> Objective - Vital Signs Vital signs: Vital Signs Temp 98.0 F 12/23/19 19:38 Pulse 90 12/23/19 19:38 Resp 18 12/23/19 19:38 BP 172/72 12/23/19 19:38 Pulse Ox 96 12/23/19 19:38 Intake & Output 12/23/19 12/23/19 12/24/19 06:59 18:59 06:59 Intake Total 1880 240 Balance 1880 240 Intake: Intake, IV Titration 700 Amount Piperacillin-Tazobactam 3 100 .375 gm In Sodium Chloride 0.9% 100 ml @ 25 mls/hr IVPB Q8HR ADY Rx# :[id number] Sodium Chloride 0.9% 1, 600 000 ml @ 50 mls/hr IV . Q20H ADY Rx#:[id number] Oral 1180 240 Other: Voiding Method Toilet Toilet Urinal Urinal # Voids 1 2 - Exam Fullness RUQ, Likely hepatomegaly - Labs CBC & Chem 7: 12/22/19 07:17 12/22/19 07:17 Labs: Abnormal Lab Results - Last 24 Hours (Table) 12/22/19 12/23/19 12/23/19 Range/Units 07:17 07:09 08:00 PT 12.2 H (9.0-12.0) sec INR 1.2 H (<1.2) POC Glucose (mg/dL) 173 H (75-99) mg/dL Albumin (PEP) 2.82 L (3.80-4.90) g/dL Qbldc-6-Lcomqebve 0.47 H (0.10-0.40) g/dL 12/23/19 12/23/19 12/23/19 Range/Units 11:28 17:00 21:18 PT (9.0-12.0) sec INR (<1.2) POC Glucose (mg/dL) 295 H 139 H 288 H (75-99) mg/dL Albumin (PEP) (3.80-4.90) g/dL Ifdun-2-Qcvgrjhlq (0.10-0.40) g/dL Microbiology - Last 24 Hours (Table) 12/19/19 17:53 Blood Culture - Preliminary Blood No Growth after 96 hours Assessment and Plan Plan: Add: D/W Radiology. Decided to proceed with biopsy of peritoneal mass, rather than liver mass, due to better accessibility Await biopsy results. At this time, pancreatobiliary primary is major differential
[2019-12-23] MEDS: amLODIPine 10 MG TAB PO SCH (19:48)
[2019-12-23] MEDS: HYDROcodone/APAP 5-325MG 1 EACH TAB PO PRN (19:49)
[2019-12-23 21:19] LABS: Glucose,Whole Blood 288 mg/dL (75-99)
[2019-12-23] MEDS: LISINOPRIL 20 MG TAB PO SCH (21:55)
--- NOTE | 2019-12-23 22:28 | PN ---
PROGRESS NOTE DATE OF SERVICE: 12/23/2019 This 79-year-old gentleman who was admitted with abdominal pain and multiple mass lesions had a CT-guided biopsy of the hepatic lesion, right intraabdominal mass by Interventional Radiology. The patient tolerated the procedure well, but the patient was found to be hypertensive. Brain MRI was negative. The patient is being closely monitored. Past medical history reviewed. REVIEW OF SYSTEMS: CARDIOVASCULAR SYSTEM: No angina, palpitations. RESPIRATORY SYSTEM: As mentioned earlier. GI: As mentioned earlier. : No dysuria or retention. NERVOUS SYSTEM: No numbness, weakness. CURRENT MEDICATIONS: 1. [place] 5 mg q.6 p.r.n. 2. Xanax. 3. Norvasc. 4. Catapres. 5. Apresoline. 6. Zestril. 7. Lopressor. 8. Protonix. 9. Timoptic. PHYSICAL EXAMINATION: Patient is alert, oriented x3. Pulse is 69, blood pressure 192/85, respiration 20, temperature 97.8, pulse ox 96% on room air. HEENT: Conjunctivae normal. NECK: No jugular venous distention. CARDIOVASCULAR SYSTEM: S1, S2 muffled. RESPIRATORY SYSTEM: Breath sounds diminished at the bases. No rhonchi. No crackles. ABDOMEN: Soft. Status post biopsy. No guarding. No rigidity. LEGS: No edema. No swelling. NERVOUS SYSTEM: No focal deficit. Skin: LABS: INR 1.2. Glucose 195. WBC 8, hemoglobin 11.4. CA 19-9 is 70,000. ASSESSMENT: 1. Abdominal pain with possible multiple metastases of the liver, spleen and pancreatic tail and body, undetermined primary, possibly prostate or colon, status post biopsy. 2. History of sigmoid diverticulitis with mild pericolonic fat stranding. 3. Hypertension and hypertensive urgency. 4. Gallbladder hydrops. 5. Diabetes mellitus, type 2. 6. History of prostate cancer. 7. Hyponatremia. 8. Coumadin monitoring. 9. Mild Coumadin coagulopathy, present on admission, improved. 10.Normocytic anemia of chronic disease. 11.History of atrial flutter. 12.History of chronic obstructive pulmonary disease. 13.Cerebrovascular accident, transient ischemic attack. 14.History of gastroesophageal reflux disease. 15.History of gastrointestinal bleed. 16.Hypertension. 17.Hyperlipidemia. 18.History of renal disease. 19.History of sleep apnea. 20.History of adenoidectomy. 21.History of appendectomy. 22.Remote history of nicotine dependence. 23.History of memory loss. 24.FULL CODE. RECOMMENDATIONS AND DISCUSSION: I recommend to continue current medications, continue symptomatic treatment. Otherwise, currently the blood pressure is elevated. I have noted I would recommend increasing the dose of lisinopril to 20 mg p.o. b.i.d. and also add Norvasc to the current regimen. P.r.n. medication also may be noted, but because of the recent biopsy, blood pressure needs to be checked very closely, and I would also recommend follow-up labs in the morning, including CBC. I had a detailed discussion with Dr. Ellison and await biopsy. The various possibilities, including multiple malignancies, were also discussed. The PSA as mentioned earlier. CA 19-9 as well as CEA is elevated, but still PSA is pending at this time. Once again, the prognosis is extremely guarded because of multiple complex medical issues and further recommendations to follow. See orders for further details. Discussed with staff. EMMA / IJN: [id number] / OMAR
[2019-12-24] MEDS: PIPERACILLIN-TAZOBACTAM 3.375 GM in SODIUM CHLORIDE 0.9% 100 ML IVPB SCH ×4 (00:31→23:27)
--- NOTE | 2019-12-24 05:12 | CONS ---
CONSULTATION DATE OF DICTATION: 12/23/2019 REASON FOR CONSULTATION: Abdominal pain, elevated CA 19 at 70,000. HISTORY OF PRESENT ILLNESS: The patient is a 79-year-old pleasant white male who was admitted to the hospital with diffuse abdominal pain for the last few days duration. Describes the pain to be mostly in the epigastric and right upper quadrant abdominal area with no associated nausea or vomiting. No rectal bleeding or melena. He lost about 10 pounds in the last few weeks duration. He in the ER he did have CT of the abdomen and pelvis done that showed multiple lesions in the liver, splenic lesions, lesion in pancreatic tail and body, suspicious for metastatic disease. Patient is scheduled for a liver biopsy today. Oncology has been consulted. Tumor markers were done. CA 19-9 was noted at 70,000. PAST MEDICAL HISTORY: COPD, history of CVA and TIA in the past, atrial fibrillation, diabetes mellitus, hypertension, hyperlipidemia, remote history of pancreatic cancer. MEDICATIONS: Medications at home include methotrexate, iron sulfate, Timoptic, Prandin, Glucophage, folic acid, Januvia, Pravachol, Lopressor, Zestril, Norvasc, and Protonix. ALLERGIES: CELEBREX and ASPIRIN. SOCIAL HISTORY: No smoking. No alcohol use. FAMILY HISTORY: Father had coronary artery disease and CVA. REVIEW OF SYSTEMS: CARDIOPULMONARY: No chest pain or shortness of breath. GENITOURINARY: No dysuria or hematuria. MUSCULOSKELETAL: Unremarkable. SKIN: Unremarkable. ENDOCRINE: Unremarkable. PSYCHIATRY: Unremarkable. NEUROLOGY: Unremarkable. ENT/VISION: Unremarkable. CONSTITUTIONAL: Weight loss of 10 pounds. No fever, chills, night sweats. PHYSICAL EXAMINATION: He appears comfortable, no apparent distress Vital [place]. [place] [address], pulse rate is 90, temperature 98. HEENT EXAMINATION: Unremarkable. Conjunctivae pink. Sclerae anicteric. Oral cavity, no lesions. NECK: No JVD or lymph node enlargement. CHEST: Clear to auscultation. HEART: Regular rate and rhythm. ABDOMEN: Soft, nontender, nondistended. Bowel sounds are positive. There is mild tenderness in the left lower quadrant area. Rest of the abdomen was benign. Bowel sounds are positive. EXTREMITIES: No pedal edema. SKIN: No rashes. NEUROLOGIC: Alert and oriented x3. No focal deficits. LABS: Labs at the time of admission to the hospital: WBC 9.1, hemoglobin 12.3, platelets normal. Basic metabolic panel, BUN was 19, creatinine 1.06. PTT was 29 with an INR of 3. Today PT/INR 1.2. AST, ALT, T-bilirubin and alkaline phosphatase are completely within normal limits. Stool occult blood was negative. CA 19-9 is 70,000. CEA 136. IMPRESSION: This is a patient who presents to the hospital with abdominal pain for the last 3 days duration. CAT scan of the abdomen and pelvis showed multiple lesions in the liver and spleen as well as lesion in the pancreas all suspicious for metastatic disease. 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 The patient is scheduled for an ultrasound-guided liver biopsy later today. RECOMMENDATIONS: 1. Proceed with liver biopsy. 2. No need for an MRCP at the present time. 3. Continue with symptomatic and supportive care. 4. Await biopsy results and we will follow with you closely. Thank you for this consultation. SANDYL / IJN: [id number] /
[2019-12-24 07:09] LABS: Glucose,Whole Blood 166 mg/dL (75-99)
[2019-12-24 08:01] LABS: Basophils # (A) 0.1 k/uL (0-0.2); Basophils % (A) 1 %; Eosinophils # (A) 0.2 k/uL (0-0.7); Eosinophils % (A) 4 %; HCT 35.4 % (39.0-53.0); Hypochromasia Slight; Lymphocytes # (A) 0.8 k/uL (1.0-4.8); Lymphocytes % (A) 14 %; MCH 30.1 pg (25.0-35.0); MCHC 31.2 g/dL (31.0-37.0); MCV 96.4 fL (80.0-100.0); Mean Platelet Volume 8.1; Monocytes # (A) 0.5 k/uL (0-1.0); Monocytes % (A) 10 %; Neutrophils # (A) 3.8 k/uL (1.3-7.7); Neutrophils % (A) 69 %; Platelet Count 181 k/uL (150-450); RBC 3.67 m/uL (4.30-5.90); RDW 15.9 % (11.5-15.5); WBC 5.6 k/uL (3.8-10.6)
[2019-12-24] MEDS: INSULIN ASPART (NovoLOG) 100 UNIT/ML VIAL SQ SCH ×4 (08:01→21:11)
[2019-12-24] MEDS: PANTOPRAZOLE 40 MG/10 ML VIAL IVP SCH (08:02)
[2019-12-24] MEDS: METOPROLOL TARTRATE 50 MG TAB PO SCH ×2 (08:02→19:44)
[2019-12-24] MEDS: amLODIPine 10 MG TAB PO SCH (08:03)
[2019-12-24] MEDS: TIMOLOL 0.5% OPHTH DROPS 5 ML BTL BOTH EYES SCH ×2 (08:03→21:12)
[2019-12-24] MEDS: LISINOPRIL 20 MG TAB PO SCH ×2 (08:03→21:11)
[2019-12-24 08:04] LABS: Calcium 8.8 mg/dL (8.4-10.2); Potassium 4.8 mmol/L (3.5-5.1)
[2019-12-24] MEDS: HYDROcodone/APAP 5-325MG 1 EACH TAB PO PRN ×2 (08:11→16:52)
[2019-12-24 11:14] LABS: Glucose,Whole Blood 245 mg/dL (75-99)
--- NOTE | 2019-12-24 13:08 | CDI ---
Documentation Clarification Form Date: 12/24/2019 CDS: Love Nelson, CCS, CCDS Admit Date: 12/19/2019 Patient Name: Kaleb Duvall Discharge Date: ATTENTION: The Clinical Documentation Specialists (CDI) and [facility] Coding Staff appreciate your assistance in clarifying documentation. Please respond to the clarification below the line at the bottom and electronically sign. The CDI & [facility] Coding staff will review the response and follow-up if needed. Please note: Queries are made part of the Legal Health Record. If you have any questions, please contact the author of this message via ITS. Dear Dr. Brice Jernigan: Atrial Fibrillation is documented in the 12/18 ED note: "Patient is anticoagulated on Coumadin for atrial fibrillation." Also documented in the 12/18 History & Physical, the 12/20 Oncology Consult and subsequent Progress Notes without further specificity. History/Risk Factors: Atrial fibrillation, COPD, CVA, DM II, Hypertension, Hyperlipidemia & Prostate Cancer. Clinical Indicators: Presented to the ED on 12/18 with abdominal pain & fatigue for 2 weeks, LLQ & radiating up with abdominal distention. Patient is being evaluated for possible metastatic or new primary cancer of Pancreas, Spleen & Liver. EKG 12/18: R 104 Sinus tachycardia, Nonspecific ST & T Wave abnormality. Home meds: Coumadin, Pravachol, Methotrexate, Lopressor, Zestril & Norvasc. VS 12/18: P 122^, BP 157/72^ Treatment: IV Morphine, IV fluid bolus 500 mls @ 999 mls/hr, IV Protonix, IV Zosyn, po Lopressor, po Zestril, po Norvasc. Cardiology was not consulted. In your professional opinion, can you please clarify the type of Atrial Fibrillation, if known? Chronic/Permanent Paroxysmal Other, please specify Unable to determine (Last Revision: October 2017) Paroxysmal MTDD
--- NOTE | 2019-12-24 13:22 | CDI ---
Documentation Clarification Form Date: 12/24/2019 CDS: Love Nelson, CCS, CCDS Admit Date: 12/19/2019 Patient Name: Kaleb Duvall Discharge Date: ATTENTION: The Clinical Documentation Specialists (CDI) and [facility] Coding Staff appreciate your assistance in clarifying documentation. Please respond to the clarification below the line at the bottom and electronically sign. The CDI & [facility] Coding staff will review the response and follow-up if needed. Please note: Queries are made part of the Legal Health Record. If you have any questions, please contact the author of this message via ITS. Dear Dr. Archana Celeste or Dr. Sekou Johnson: CKD is documented in the Oncology Consult on 12/20 and also in subsequent Oncology Progress Notes on 12/21 & 12/22. History/Risk Factors: DM II, Prostate Cancer, Anemia of Chronic Disease, Atrial Flutter nos, Atrial Fibrillation nos, COPD, CVA, GERD, GI Bleed, Hypertension, Hyperlipidemia, Sleep apnea & Former smoker. Clinical Indicators: GFR this admission: 12/18: 68, 12/19: 60, 12/20: 53, 12/21: 56, 12/23: 66. GFR 10/26/16: >60, 10/30/2016: >60, 03/13/2017: >60, 07/31/2017: 54, 09/25/2017: 56 BUN this admission: 12/18: 19, 12/19: 17, 12/20: 22, 12/21: 22, 12/23: 13 Creatinine this admission: 12/18: 1.06, 12/19: 1.17, 12/20: 1.30^, 12/21: 1.24, 12/23: 1.08 Home Meds: Methotrexate Na, Feosol, Prandin, Glucophage, Warfarin Na, Pravachol, Lopressor, Zestril, Norvasc Treatment: IV Morphine, IV fluid 500 mls @ 999 mls/hr x2, IV Zosyn, IV Protonix, Insulin sq. Nephrology is not consulted this admission. In order to capture the severity of condition, please clarify the stage of the CKD, if known: CKD Stage 1 (GFR > 90) CKD Stage 2 (GFR 60-89) CKD Stage 3 (GFR 30-59) Other, please specify Unable to determine (Last Revision: August 2019) Chronic kidney disease stage II MTDD
[2019-12-24 15:16] VITALS: BMI 25.2
[2019-12-24 17:32] LABS: Glucose,Whole Blood 259 mg/dL (75-99)
[2019-12-24 20:15] LABS: Glucose,Whole Blood 216 mg/dL (75-99)
--- NOTE | 2019-12-24 22:34 | PN ---
PROGRESS NOTE DATE OF DICTATION: 12/24/2019 This patient is a 79-year-old pleasant white male admitted to the hospital with abdominal pain. CT scan showed multiple lesions in the liver, spleen, tail of the pancreas consistent with metastases. His CA19-9 was noted at 70,000. He underwent right abdominal mass biopsy yesterday. Results are still pending at the time of this dictation. He denies any new symptoms. PHYSICAL EXAMINATION: He appears comfortable. No apparent distress. VITAL SIGNS: Stable. Blood pressure is 155/66, pulse rate 80, temperature 98.1. HEENT examination unremarkable. Conjunctivae pink. Sclerae anicteric. Oral cavity no lesions. NECK: No JVD or lymph node enlargement. CHEST: Clear to auscultation. HEART: Regular rate and rhythm. ABDOMEN: Soft. Mild diffuse tenderness in the right upper quadrant area. Rest of the abdomen was benign. EXTREMITIES: No pedal edema. SKIN: No rashes. NEUROLOGIC: Alert and oriented x3. No focal deficits. LABS: Labs from today show WBC 5.6, hemoglobin 11, platelets 181. Basic metabolic panel is within normal limits. IMPRESSION: Diffuse abdominal pain. CT scan showed multiple lesions in the liver, spleen, tail of the pancreas and elevated CA 19-9, all suspicious for metastases. CA 19-9 elevated at 70,000. Status post CT-guided biopsy yesterday, results of which are pending at the time of this dictation. Oncology is following the patient closely. RECOMMENDATIONS: 1. Await biopsy results. 2. No need for any endoscopic intervention at the present time since his serum transaminases are within normal limits. 3. Will sign off at this time. Please call us if needed. Thank you for this consultation. MMODL / IJN: [id number] /
--- NOTE | 2019-12-24 23:12 | P.PN ---
Progress Note - Text Progress Note Date: 12/24/19 Presenting complaint: Abdominal pain Interval history: Patient admitted with 2 weeks of progressive abdominal pain. Computed tomography scan of the abdomen showed multiple hepatic masses and what appeared to be metastatic disease in the pancreas and the spleen. Bone scan did show some lighting up in right femur. MRI of the brain did not show any metastatic disease. Patient on December 22 underwent biopsy of the right intra-abdominal mass. Today-sitting up. Some abdominal pain present. No nausea vomiting. Review of systems: Was done for constitutional, cardiovascular, GI, pulmonary. relevant finding as above Active Medications Hydrocodone Bitart/Acetaminophen ([place] 5-325) 1 each PO Q6HR PRN PRN Reason: Pain Last Admin: 12/24/19 16:52 Dose: 1 each Documented by: Alprazolam (Xanax) 0.25 mg PO TID PRN PRN Reason: Anxiety Amlodipine Besylate (Norvasc) 10 mg PO DAILY [facility] Last Admin: 12/24/19 08:03 Dose: 10 mg Documented by: Clonidine (Catapres) 0.1 mg PO Q4HR PRN PRN Reason: Hypertension Hydralazine HCl (Apresoline) 10 mg IVP Q4HR PRN PRN Reason: Blood Pressure - High Piperacillin Sod/Tazobactam (Sod 3.375 gm/ Sodium Chloride) 100 mls @ 25 mls/hr IVPB Q8HR [facility] Last Admin: 12/24/19 16:48 Dose: 25 mls/hr Documented by: Insulin Aspart (Novolog) 0 unit SQ ACHS [facility]; Protocol Last Admin: 12/24/19 21:11 Dose: 3 unit Documented by: Lisinopril (Zestril) 20 mg PO BID [facility] Last Admin: 12/24/19 21:11 Dose: 20 mg Documented by: Metoprolol Tartrate (Lopressor) 50 mg PO BID@0800,1900 [facility] Last Admin: 12/24/19 19:44 Dose: 50 mg Documented by: Morphine Sulfate (Morphine Sulfate (Inj)) 4 mg IV Q4HR PRN PRN Reason: Severe Pain Last Admin: 12/19/19 19:25 Dose: 4 mg Documented by: Naloxone HCl (Narcan) 0.2 mg IV Q2M PRN PRN Reason: Opioid Reversal Pantoprazole Sodium (Protonix) 40 mg IVP DAILY [facility] Last Admin: 12/24/19 08:02 Dose: 40 mg Documented by: Temazepam (Restoril) 15 mg PO HS PRN PRN Reason: Insomnia Timolol Maleate (Timoptic) 1 drops BOTH EYES BID@0800,2200 [facility] Last Admin: 12/24/19 21:12 Dose: 1 drops Documented by: On examination: VITAL SIGNS: 97.7, 59, 18, 129/72, 97% on room air GENERAL APPEARANCE: Sitting at the edge of the bed, slightly uncomfortable HEENT: Normal external appearance of nose and ear. Oral cavity normal EYES: Pupils equal. Conjunctiva normal. NECK: JVD not raised. Mass not palpable. RESPIRATORY: Respiratory effort normal. Lungs clear to auscultation. CARDIOVASCULAR: First and second sounds normal. No edema. ABDOMEN: Soft. Some tenderness, abdominal mass palpable, no guarding or rigidity.. PSYCHIATRY: Alert and oriented x3. Mood and affect a bit anxious Assessment: -Intra-abdominal metastatic disease with liver masses, pancreatic masses and splenic masses. Status post biopsy. -Atrial flutter -COPD -GERD -Hyperlipidemia -Essential hypertension -Obstructive sleep apnea -History of prostate cancer with treatment -Sigmoid diverticulosis Plan: Patient status post intra-abdominal mass biopsy. Medication treatment plan is to continue. Will discuss with oncology. Patient should be renewed to go home and follow-up following biopsy results. Further treatment will be decided from there.
[2019-12-24 23:22] VITALS: RESP 16
--- NOTE | 2019-12-25 01:10 | P.PN ---
Subjective Progress Note Date: 12/24/19 The pt continues to c/o abdominal pain, mostly RUQ and upper abdomen. He has occasional nausea. No f/c/obvious bleeding Objective - Vital Signs Vital signs: Vital Signs Temp 97.9 F 12/24/19 20:09 Pulse 78 12/24/19 20:09 Resp 16 12/24/19 20:09 BP 161/67 12/24/19 20:09 Pulse Ox 95 12/24/19 20:09 Intake & Output 12/24/19 12/24/19 12/25/19 06:59 18:59 06:59 Intake Total 1880 720 300 Output Total 1 Balance 1880 720 299 Weight 84.368 kg Intake: Intake, IV Titration 700 Amount Piperacillin-Tazobactam 3 100 .375 gm In Sodium Chloride 0.9% 100 ml @ 25 mls/hr IVPB Q8HR [facility] Rx# :[id number] Sodium Chloride 0.9% 1, 600 000 ml @ 50 mls/hr IV . Q20H [facility] Rx#:[id number] Oral 1180 720 300 Output: Urine 1 Other: Voiding Method Toilet Toilet Urinal Urinal # Voids 2 2 - Constitutional General appearance: Present: no acute distress - EENT Eyes: Present: EOMI ENT: Present: hearing grossly normal, normal oropharynx - Respiratory Respiratory: bilateral: CTA - Cardiovascular Rhythm: regular Heart sounds: normal: S1, S2 - Gastrointestinal General gastrointestinal: Present: distended Localized gastrointestinal: tender: RUQ - Integumentary Integumentary: Present: normal - Neurologic Neurologic: Present: CNII-XII intact - Musculoskeletal Musculoskeletal: Present: generalized weakness, strength equal bilaterally - Psychiatric Psychiatric: Present: A&O x's 3, appropriate affect - Labs CBC & Chem 7: 12/24/19 07:13 12/24/19 07:13 Labs: Abnormal Lab Results - Last 24 Hours (Table) 12/24/19 12/24/19 12/24/19 Range/Units 07:07 07:13 07:13 RBC 3.67 L (4.30-5.90) m/uL Hgb 11.0 L (13.0-17.5) gm/dL Hct 35.4 L (39.0-53.0) % RDW 15.9 H (11.5-15.5) % Lymphocytes # 0.8 L (1.0-4.8) k/uL Sodium 136 L (137-145) mmol/L Glucose 165 H (74-99) mg/dL POC Glucose (mg/dL) 166 H (75-99) mg/dL 12/24/19 12/24/19 12/24/19 Range/Units 11:12 17:29 20:09 RBC (4.30-5.90) m/uL Hgb (13.0-17.5) gm/dL Hct (39.0-53.0) % RDW (11.5-15.5) % Lymphocytes # (1.0-4.8) k/uL Sodium (137-145) mmol/L Glucose (74-99) mg/dL POC Glucose (mg/dL) 245 H 259 H 216 H (75-99) mg/dL Microbiology - Last 24 Hours (Table) 12/19/19 17:53 Blood Culture - Preliminary Blood No Growth after 120 hours Assessment and Plan (1) Metastatic cancer Narrative/Plan: s/p biopsy. Results are pending. At this time prostate primary is ruled out. UGI /pancreatobiliary etiology is the main differential. Await final path for further recommendations. D/W pt that we can discuss prognosis and management options only once path is finalized. However surgical or RT as a definitive option can be ruled out based on extent of disease. I also discussed that if primary site cannot be totally defined, he may need additional procedures/scans for the same Current Visit: Yes Status: Acute Code(s): C79.9 - SECONDARY MALIGNANT NEOPLASM OF UNSPECIFIED SITE SNOMED Code(s): 893110241 (2) Neoplasm related pain Narrative/Plan: Pt currently controlled with [place] 5, and occasional IV morphine. Plan on oral regimen Current Visit: Yes Status: Acute Code(s): G89.3 - NEOPLASM RELATED PAIN (ACUTE) (CHRONIC) SNOMED Code(s): 02120048039951 Plan: Dfer to the admitting surface and other consultants, for managment
[2019-12-25] MEDS: HYDROcodone/APAP 5-325MG 1 EACH TAB PO PRN ×2 (01:12→08:28)
[2019-12-25 06:04] VITALS: BP 174/68; PULSE 71; TEMP 97.4
[2019-12-25 07:10] LABS: Glucose,Whole Blood 207 mg/dL (75-99)
[2019-12-25 07:22] LABS: Basophils % (A) 1 %; Eosinophils # (A) 0.3 k/uL (0-0.7); Eosinophils % (A) 4 %; HCT 33.6 % (39.0-53.0); Hypochromasia Slight; Lymphocytes # (A) 0.9 k/uL (1.0-4.8); Lymphocytes % (A) 15 %; MCH 31.4 pg (25.0-35.0); MCHC 32.8 g/dL (31.0-37.0); MCV 95.9 fL (80.0-100.0); Monocytes # (A) 0.7 k/uL (0-1.0); Monocytes % (A) 11 %; Neutrophils # (A) 3.8 k/uL (1.3-7.7); Neutrophils % (A) 65 %; Platelet Count 170 k/uL (150-450); RDW 15.9 % (11.5-15.5); WBC 5.9 k/uL (3.8-10.6)
[2019-12-25 07:36] LABS: Calcium 8.6 mg/dL (8.4-10.2); Potassium 4.6 mmol/L (3.5-5.1)
[2019-12-25] MEDS: PANTOPRAZOLE 40 MG/10 ML VIAL IVP SCH (08:15)
[2019-12-25] MEDS: METOPROLOL TARTRATE 50 MG TAB PO SCH (08:16)
[2019-12-25] MEDS: LISINOPRIL 20 MG TAB PO SCH (08:16)
[2019-12-25] MEDS: INSULIN ASPART (NovoLOG) 100 UNIT/ML VIAL SQ SCH ×2 (08:16→13:12)
[2019-12-25] MEDS: amLODIPine 10 MG TAB PO SCH (08:16)
[2019-12-25] MEDS: PIPERACILLIN-TAZOBACTAM 3.375 GM in SODIUM CHLORIDE 0.9% 100 ML IVPB SCH (08:16)
[2019-12-25] MEDS: TIMOLOL 0.5% OPHTH DROPS 5 ML BTL BOTH EYES SCH (08:19)
[2019-12-25 11:41] LABS: Glucose,Whole Blood 189 mg/dL (75-99)
--- NOTE | 2019-12-25 16:12 | P.PN ---
Subjective Progress Note Date: 12/25/19 Principal diagnosis: new lesions liver Planniong for Discharge today, we will follow-up in office for finalized path results and diagnosis within two weeks Objective - Vital Signs Vital signs: Vital Signs Temp 97.4 F L 12/25/19 05:09 Pulse 71 12/25/19 05:09 Resp 16 12/25/19 05:09 BP 174/68 12/25/19 05:09 Pulse Ox 97 12/25/19 05:09 Intake & Output 12/24/19 12/25/19 12/25/19 18:59 06:59 18:59 Intake Total 720 700 Output Total 1 Balance 720 699 Weight 84.368 kg Intake: Intake, IV Titration 100 Amount Piperacillin-Tazobactam 3 100 .375 gm In Sodium Chloride 0.9% 100 ml @ 25 mls/hr IVPB Q8HR [facility]PLACED [facility] Rx# :[id number] Oral 720 600 Output: Urine 1 Other: Voiding Method Toilet Toilet Toilet Urinal Urinal Urinal # Voids 2 1 - Exam - Constitutional General appearance: Present: no acute distress - EENT Eyes: Present: EOMI ENT: Present: hearing grossly normal, normal oropharynx - Respiratory Respiratory: bilateral: CTA - Cardiovascular Rhythm: regular Heart sounds: normal: S1, S2 - Gastrointestinal General gastrointestinal: Present: distended Localized gastrointestinal: tender: RUQ - Integumentary Integumentary: Present: normal - Neurologic Neurologic: Present: CNII-XII intact - Musculoskeletal Musculoskeletal: Present: generalized weakness, strength equal bilaterally - Psychiatric Psychiatric: Present: A&O x's 3, appropriate affect - Labs CBC & Chem 7: 12/25/19 07:05 12/25/19 07:05 Labs: Abnormal Lab Results - Last 24 Hours (Table) 12/24/19 12/24/19 12/25/19 Range/Units 17:29 20:09 07:03 RBC (4.30-5.90) m/uL Hgb (13.0-17.5) gm/dL Hct (39.0-53.0) % RDW (11.5-15.5) % Lymphocytes # (1.0-4.8) k/uL Sodium (137-145) mmol/L Glucose (74-99) mg/dL POC Glucose (mg/dL) 259 H 216 H 207 H (75-99) mg/dL 12/25/19 12/25/19 12/25/19 Range/Units 07:05 07:05 11:37 RBC 3.50 L (4.30-5.90) m/uL Hgb 11.0 L (13.0-17.5) gm/dL Hct 33.6 L (39.0-53.0) % RDW 15.9 H (11.5-15.5) % Lymphocytes # 0.9 L (1.0-4.8) k/uL Sodium 135 L (137-145) mmol/L Glucose 181 H (74-99) mg/dL POC Glucose (mg/dL) 189 H (75-99) mg/dL Microbiology - Last 24 Hours (Table) 12/19/19 17:53 Blood Culture - Preliminary Blood No Growth after 120 hours Assessment and Plan Plan: Assessment and Recommendations: Suspected metastatic disease with lesions in spleen, pancreas multiple places.: He presented with severe abdominal pain: - Bone scan shows multi-focal abnormal uptake in the right femur and right lower transverse process. - Abdominal mass biopsy from 12/22 - MRI brain Negative - Ca 19-9 increased - Await path History of prostate cancer - Check PSA. <1 Diverticulitis with abdominal pain and signs of infection. Sigmoid diverticulitis. History of atrial fibrillation on Coumadin. - Coumadin per cardio COPD, TIA, diabetes, chronic kidney disease. Anemia Thrombocytopenia Electrolyte imbalance Acute on chronic kidney disease PLan - Will follow-up in office within two weeks to review pathology results and options for treatment. Physician Attest: I have completed the full history and physical and agree with above dictation, dictated as a scribe
--- NOTE | 2019-12-25 23:19 | P.DS ---
Providers Date of admission: 12/19/19 18:26 Expected date of discharge: 12/25/19 Attending physician: Sekou Johnson Consults: 12/19/19 18:29 Consult Physician Stat Consulting Provider: John Ellison Consult Reason/Comments: Acute diverticulitis, new onset lesions to the liver spleen pancreas Do you want consulting provider notified?: Yes Consult Physician Stat Consulting Provider: Jefe Adam Consult Reason/Comments: Acute diverticulitis, new onset lesions to the liver spleen pancreas Do you want consulting provider notified?: Yes Primary care physician: [facility] Course: Presenting complaint: Abdominal pain Interval history: Patient admitted with 2 weeks of progressive abdominal pain. Computed tomography scan of the abdomen showed multiple hepatic masses and what appeared to be metastatic disease in the pancreas and the spleen. Bone scan did show some lighting up in right femur. MRI of the brain did not show any metastatic disease. Patient on December 22 underwent biopsy of the right intra-abdominal mass. Today-sitting up. Some abdominal pain present. No nausea vomiting. Biopsy results are pending. Discussed kavitha from oncology. And discussed with the patient. Patient be discharged home today. Aurora as been prescribed. Start talking for was done. And side effects of narcotics were discussed. Discussion and discharge planning more than 35 minutes Consultation: Dr. Ellison from oncology Dr. Radha Ramsey from GI On examination: VITAL SIGNS: 97.4, 71, 16, 174/68, 97% on room air GENERAL APPEARANCE: Sitting at the edge of the bed, awake HEENT: Normal external appearance of nose and ear. Oral cavity normal EYES: Pupils equal. Conjunctiva normal. NECK: JVD not raised. Mass not palpable. RESPIRATORY: Respiratory effort normal. Lungs clear to auscultation. CARDIOVASCULAR: First and second sounds normal. No edema. ABDOMEN: Soft. Some tenderness, abdominal mass palpable, no guarding or rigidity.. PSYCHIATRY: Alert and oriented x3. Mood and affect a bit anxious INVESTIGATIONS, reviewed in the clinical context: White count 5.9 hemoglobin 11 potassium 4.6 creatinine 1.17 Hematological studies as above Assessment: -Intra-abdominal metastatic disease with liver masses, pancreatic masses and splenic masses. Status post biopsy. Pending results -Paroxysmal Atrial flutter -COPD -GERD -Hyperlipidemia -Essential hypertension -Obstructive sleep apnea -History of prostate cancer with treatment -Sigmoid diverticulosis Disposition: Home Patient Condition at Discharge: Undetermined Plan - Discharge Summary Discharge Rx Participant: No New Discharge Prescriptions: New HYDROcodone/APAP 5-325MG [A[place] 5-325] 1 each PO Q6HR PRN #30 tab PRN Reason: Pain amLODIPine [Norvasc] 10 mg PO DAILY #30 tab Lisinopril-Hctz 20-12.5 mg [Zestoretic 20-12.5] 1 tab PO BID #60 tab Continue Pantoprazole [Protonix] 40 mg PO DAILY@0800 Timolol 0.5% Ophth Soln [Timoptic 0.5% Ophth Soln] 1 drop BOTH EYES BID@0800,2200 metFORMIN HCL [Glucophage] 500 mg PO BID@0800,1700 Methotrexate Sodium [Methotrexate] 25 mg PO FR@1900 Ferrous Sulfate [Iron (65 MG Elemental)] 325 mg PO DAILY@1200 Latanoprost/Pf [Latanoprost 0.005% Eye Drop] 1 drop BOTH EYES HS@2200 Repaglinide [Prandin] 1 mg PO BID@0800,1700 Folic Acid 0.8 mg PO HS@2200 Warfarin Sodium [Jantoven] 2.5 mg PO DAILY@1900 Metoprolol Tartrate [Lopressor] 50 mg PO BID@0800,1900 Discontinued Pravastatin Sodium [Pravachol] 40 mg PO HS@2200 Lisinopril [Zestril] 20 mg PO DAILY@0800 No Action amLODIPine [Norvasc] 5 mg PO DAILY@1900 Discharge Medication List Pantoprazole [Protonix] 40 mg PO DAILY@0800 11/28/16 [History] Timolol 0.5% Ophth Soln [Timoptic 0.5% Ophth Soln] 1 drop BOTH EYES BID@0800,2200 03/11/17 [History] Ferrous Sulfate [Iron (65 MG Elemental)] 325 mg PO DAILY@1200 11/22/17 [History] Methotrexate Sodium [Methotrexate] 25 mg PO FR@1900 11/22/17 [History] metFORMIN HCL [Glucophage] 500 mg PO BID@0800,1700 11/22/17 [History] Folic Acid 0.8 mg PO HS@2200 12/19/19 [History] Latanoprost/Pf [Latanoprost 0.005% Eye Drop] 1 drop BOTH EYES HS@2200 05/23/20 [History] Metoprolol Tartrate [Lopressor] 50 mg PO BID@0800,189912/19/19 [History] Repaglinide [Prandin] 1 mg PO BID@0800,1700 12/19/19 [History] Warfarin Sodium [Jantoven] 2.5 mg PO DAILY@189912/19/19 [History] amLODIPine [Norvasc] 5 mg PO DAILY@189912/19/19 [History] HYDROcodone/APAP 5-325MG [Aurora 5-325] 1 each PO Q6HR PRN #30 tab 12/25/19 [Rx] Lisinopril-Hctz 20-12.5 mg [Zestoretic 20-12.5] 1 tab PO BID #60 tab 12/25/19 [Rx] amLODIPine [Norvasc] 10 mg PO DAILY #30 tab 12/25/19 [Rx] Follow up Appointment(s)/Referral(s): John Ellison MD [STAFF PHYSICIAN] - 1 Week (office is closed. please call to get a appt.) Jose Morrow DO [Primary Care Provider] - 1 Week (office to call you with appt. time and date.) Patient Instructions/Handouts: Diverticulitis (DC), Pancreatic Cancer (DC) Activity/Diet/Wound Care/Special Instructions: MAPS/Talking first done Discharge Disposition: HOME SELF-CARE
== END 2019-12-25 13:16 | disposition home or self-care (01) | DRG 375 ==
LOC: EC 15:02 → 5NMEDONC 18:26
PROVIDERS: ADMIT Hospitalist; ATTEND Hospitalist
PROC: 0DBW3ZX Excision of Peritoneum, Percutaneous Approach, Diagnostic (ICD-10-PCS; principal; 2019-12-23)
DX: C78.6 Secondary malignant neoplasm of retroperitoneum and peritoneum (principal); C78.7 Secondary malignant neoplasm of liver and intrahepatic bile duct; E87.1 Hypo-osmolality and hyponatremia; K82.1 Hydrops of gallbladder; N17.9 Acute kidney failure, unspecified; K57.32 Diverticulitis of large intestine without perforation or abscess without bleeding; D63.8 Anemia in other chronic diseases classified elsewhere; E78.5 Hyperlipidemia, unspecified; E11.22 Type 2 diabetes mellitus with diabetic chronic kidney disease; I48.0 Paroxysmal atrial fibrillation; J44.9 Chronic obstructive pulmonary disease, unspecified; I12.9 Hypertensive chronic kidney disease with stage 1 through stage 4 chronic kidney disease, or unspecified chronic kidney disease; K57.30 Diverticulosis of large intestine without perforation or abscess without bleeding; R41.3 Other amnesia; G47.33 Obstructive sleep apnea (adult) (pediatric); G89.3 Neoplasm related pain (acute) (chronic); I16.0 Hypertensive urgency; R16.1 Splenomegaly, not elsewhere classified; R79.1 Abnormal coagulation profile; N18.2 Chronic kidney disease, stage 2 (mild); Z99.89 Dependence on other enabling machines and devices; T45.515A Adverse effect of anticoagulants, initial encounter; D69.6 Thrombocytopenia, unspecified; K21.9 Gastro-esophageal reflux disease without esophagitis; Z11.59 Encounter for screening for other viral diseases; Z79.01 Long term (current) use of anticoagulants; Z79.84 Long term (current) use of oral hypoglycemic drugs; Z79.899 Other long term (current) drug therapy; Z88.6 Allergy status to analgesic agent; Z86.73 Personal history of transient ischemic attack (TIA), and cerebral infarction without residual deficits; Z85.46 Personal history of malignant neoplasm of prostate; Z82.49 Family history of ischemic heart disease and other diseases of the circulatory system; Z80.3 Family history of malignant neoplasm of breast; Z90.49 Acquired absence of other specified parts of digestive tract; Z92.3 Personal history of irradiation; Z90.89 Acquired absence of other organs; Z98.890 Other specified postprocedural states; Z98.42 Cataract extraction status, left eye; Z98.41 Cataract extraction status, right eye; Z87.891 Personal history of nicotine dependence; Z82.3 Family history of stroke
CPT/HCPCS: 36415; 49180; 70553; 71045; 71250; 71260; 74177; 77012; 78306; 80048; 80053; 81001; 82150; 82272; 82378; 83605; 83615; 83690; 84153; 84165; 84484; 85025; 85610; 85730; 86301; 87040; 87635; 88305; 88341; 88342; 93005; 96361; 96365; 96375; 96376; 99285

== ENCOUNTER 2020-01-25 11:46 | Inpatient (IN) | payer MEDICARE ==
--- NOTE | 2020-01-25 12:19 | ED ---
General Adult HPI - General Chief complaint: GI Bleed Stated complaint: GI bleed Time Seen by Provider: 01/25/20 12:07 Source: patient, family Mode of arrival: wheelchair Limitations: physical limitation - History of Present Illness Initial comments: Dictation was produced using [employer] dictation software. please excuse any grammatical, word or spelling errors. This patient was cared for during a federal and state declared state of emergency secondary to Covid 19 Chief Complaint: 79-year-old male past nuchal history of cancer instructed by his oncologist come to the emergency Department for GI bleed. History of Present Illness: 79-year-old male he was at his oncologist office for a checkup today when it was found the patient was expressing GI bleed and syncope. Patient was at his oncologist Dr. medeiros's office today. He was being evaluated. Patient currently has cancer and taken a break from chemotherapy due to severe symptoms. It was revealed to Dr. Ellison that patient has been having several days of bright red blood per rectum. Patient denies any rectal pain. States that he does have some abdominal pain. Is feeling fairly lightheaded whenever he ambulates. Patient states his stool is bright red. He is on Coumadin that he takes for cardiac dysrhythmia. Patient has a chest pain or shortness of breath. The ROS documented in this emergency department record has been reviewed and confirmed by me. Those systems with pertinent positive or negative responses have been documented in the HPI. All other systems are other negative and/or noncontributory. PHYSICAL EXAM: General Impression: Alert and oriented x3, not in acute distress HEENT: Normocephalic atraumatic, extra-ocular movements intact, pupils equal and reactive to light bilaterally, mucous membranes moist. Cardiovascular: Heart regular rate and rhythm Chest: Able to complete full sentences, no retractions, no tachypnea Abdomen: abdomen soft, diffuse abdominal tenderness, non-distended, no organomegaly Musculoskeletal: Pulses present and equal in all extremities, no peripheral edema Motor: no focal deficits noted Neurological: CN II-XII grossly intact, no focal motor or sensory deficits noted Skin: Intact with no visualized rashes Psych: Normal affect and mood Rectal exam: There is bright red blood at the rectal orifice. No active ble eding, no tenderness to palpation with digital rectal exam, no palpable masses in the rectal vault ED course: 79-year-old male presents with bright red blood per rectum. Patient does take Coumadin. No signs upon arrival are within acceptable limits. Laboratory evaluation obtained. Hemoglobin 11.2. Coag panel shows INR of 2.7. Metabolic panel shows elevated renal markers however patient does have baseline elevated creatinine. Troponin negative. Stool occult blood is positive. X-ray shows deformity to the anterior lateral left sixth rib for hairline fracture. Chest x-ray shows no acute processes. While in the emergency department patient had a large bloody bowel movement. Discussed patient case with Dr. Patel of the intensive care he states that patient should be admitted to telemetry floor given stable hemoglobin and normal vitals. Patient given 10 mg of IV vitamin K. Patient's Coumadin will be held. Discussed patient case with Dr. Johnson was went except patient care. EKG interpretation: Ventricular rate 66, normal sinus rhythm,. 1:30, QRS 90, QTC 387. No RI prolongation, no QTC prolongation, no ST or T-wave changes noted. EKG compared to 12/19/2019 showing no changes. Overall, this EKG is unremarkable - Related Data Home Medications Medication Instructions Recorded Confirmed Pantoprazole [Protonix] 40 mg PO DAILY@0800 11/28/16 01/25/20 Timolol 0.5% Ophth Soln [Timoptic 1 drop BOTH EYES BID@0800,0 03/11/17 01/25/20 0.5% Ophth Soln] Ferrous Sulfate [Iron (65 MG 325 mg PO DAILY@1200 11/22/17 01/25/20 Elemental)] Methotrexate Sodium [Methotrexate] 25 mg PO FR@19011/22/17 01/25/20 metFORMIN HCL [Glucophage] 500 mg PO BID@0800,1700 11/22/17 01/25/20 Folic Acid 0.8 mg PO HS@219912/19/19 01/25/20 Latanoprost/Pf [Latanoprost 0.005% 1 drop BOTH EYES HS@219912/19/19 01/25/20 Eye Drop] Metoprolol Tartrate [Lopressor] 50 mg PO BID@0800,1900 12/19/19 01/25/20 Repaglinide [Prandin] 1 mg PO TID 12/19/19 01/25/20 Warfarin Sodium [Jantoven] 2.5 mg PO DAILY@189912/19/19 01/25/20 Hydrocodone/Acetaminophen [[place] 1 tab PO Q6HR PRN 01/25/20 01/25/20 7.5-325] Ondansetron [Zofran] 4 mg PO Q8HR PRN 01/25/20 01/25/20 amLODIPine [Norvasc] 10 mg PO DAILY@189901/25/20 01/25/20 Previous Rx's Medication Instructions Recorded Lisinopril-Hctz 20-12.5 mg 1 tab PO BID #60 tab 12/25/19 [Zestoretic 20-12.5] Allergies Allergy/AdvReac Type Severity Reaction Status Date / Time celecoxib [From Celebrex] AdvReac Severe GI BLEED Verified 01/25/20 13:23 aspirin AdvReac Intermediate STOMACH Verified 01/25/20 13:23 PROBLEMS Review of Systems ROS Statement: Those systems with pertinent positive or pertinent negative responses have been documented in the HPI. ROS Other: All systems not noted in ROS Statement are negative. Past Medical History Past Medical History: Atrial Flutter, Cancer, COPD, CVA/TIA, Diabetes Mellitus, Eye Disorder, GERD/Reflux, GI Bleed, Hyperlipidemia, Hypertension, Prostate Disorder, Renal Disease, Sleep Apnea/CPAP/BIPAP Additional Past Medical History / Comment(s): PROSTATE CA 2015, HX RADIATION X24 TX-Apr 2016. NO TX FOR SLEEP APNEA IN YEARS. hormone injections, biopsy 2015, 54 seed inplants jun 2016, radiation may 2016. freq urination. 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 RECENT BLOOD IN STOOL. History of Any Multi-Drug Resistant Organisms: None Reported Past Surgical History: Adenoidectomy, Appendectomy, Orthopedic Surgery, Tonsillectomy Additional Past Surgical History / Comment(s): EXC BACK CYSTS. EXC BILAT CATARACTS. BILAT SHOULDERS sx. ORIF RT FEMUR, 1 F/U SURGERY, THEN MANIPULATION. PROSTATE BRACHYTHERAPY/RADIOACTIVE SEED INPLANTS. TEMPORAL ARTERITIS PROCEDURE. Past Anesthesia/Blood Transfusion Reactions: No Reported Reaction Additional Past Anesthesia/Blood Transfusion Reaction / Comment(s): DENIES Past Psychological History: No Psychological Hx Reported Smoking Status: Former smoker Past Alcohol Use History: None Reported Past Drug Use History: None Reported - Past Family History Sister(s) Family Medical History: Cancer Additional Family Medical History / Comment(s): breast CA Father History Unknown: Yes Additional Family Medical History / Comment(s): " FROM [place] FLU IN THE S Mother Family Medical History: Cancer, CVA/TIA Additional Family Medical History / Comment(s): "HEART PROBLEMS" General Exam Limitations: physical limitation Course Vital Signs 01/25/20 01/25/20 11:57 13:10 Temperature 98.2 F Pulse Rate 70 67 Respiratory 18 14 Rate Blood Pressure 111/50 135/53 O2 Sat by Pulse 95 98 Oximetry Medical Decision Making - Lab Data Result diagrams: 01/25/20 12:17 01/25/20 12:17 Lab Results 01/25/20 01/25/20 01/25/20 Range/Units 12:17 12:17 12:17 WBC 5.2 (3.8-10.6) k/uL RBC 3.54 L (4.30-5.90) m/uL Hgb 11.2 L (13.0-17.5) gm/dL Hct 33.6 L (39.0-53.0) % MCV 94.9 (80.0-100.0) fL MCH 31.5 (25.0-35.0) pg MCHC 33.2 (31.0-37.0) g/dL RDW 16.3 H (11.5-15.5) % Plt Count 204 (150-450) k/uL Neutrophils % 68 % Lymphocytes % 18 % Monocytes % 4 % Eosinophils % 6 % Basophils % 1 % Neutrophils # 3.5 (1.3-7.7) k/uL Lymphocytes # 1.0 (1.0-4.8) k/uL Monocytes # 0.2 (0-1.0) k/uL Eosinophils # 0.3 (0-0.7) k/uL Basophils # 0.0 (0-0.2) k/uL Anisocytosis Slight PT (9.0-12.0) sec INR (<1.2) APTT (22.0-30.0) sec Sodium 134 L (137-145) mmol/L Potassium 5.0 (3.5-5.1) mmol/L Chloride 100 (98-107) mmol/L Carbon Dioxide 23 (22-30) mmol/L Anion Gap 11 mmol/L BUN 62 H (9-20) mg/dL Creatinine 1.75 H (0.66-1.25) mg/dL Est GFR (CKD-EPI)AfAm 43 (>60 ml/min/1.73 sqM) Est GFR (CKD-EPI)NonAf 37 (>60 ml/min/1.73 sqM) Glucose 235 H (74-99) mg/dL Plasma Lactic Acid [place] 1.2 (0.7-2.0) mmol/L Calcium 9.2 (8.4-10.2) mg/dL Magnesium 1.9 (1.6-2.3) mg/dL Total Bilirubin 0.4 (0.2-1.3) mg/dL AST 46 (17-59) U/L ALT 56 H (4-49) U/L Alkaline Phosphatase 112 (38-126) U/L Troponin I (0.000-0.034) ng/mL Total Protein 7.2 (6.3-8.2) g/dL Albumin 4.0 (3.5-5.0) g/dL Lipase 531 H (23-300) U/L Stool Occult Blood (Negative) Blood Type Blood Type Recheck Bld Type Recheck Status Antibody Screen Spec Expiration Date 01/25/20 01/25/20 01/25/20 Range/Units 12:17 12:17 12:17 WBC (3.8-10.6) k/uL RBC (4.30-5.90) m/uL Hgb (13.0-17.5) gm/dL Hct (39.0-53.0) % MCV (80.0-100.0) fL MCH (25.0-35.0) pg MCHC (31.0-37.0) g/dL RDW (11.5-15.5) % Plt Count (150-450) k/uL Neutrophils % % Lymphocytes % % Monocytes % % Eosinophils % % Basophils % % Neutrophils # (1.3-7.7) k/uL Lymphocytes # (1.0-4.8) k/uL Monocytes # (0-1.0) k/uL Eosinophils # (0-0.7) k/uL Basophils # (0-0.2) k/uL Anisocytosis PT 26.1 H (9.0-12.0) sec INR 2.7 H (<1.2) APTT 33.9 H (22.0-30.0) sec Sodium (137-145) mmol/L Potassium (3.5-5.1) mmol/L Chloride (98-107) mmol/L Carbon Dioxide (22-30) mmol/L Anion Gap mmol/L BUN (9-20) mg/dL Creatinine (0.66-1.25) mg/dL Est GFR (CKD-EPI)AfAm (>60 ml/min/1.73 sqM) Est GFR (CKD-EPI)NonAf (>60 ml/min/1.73 sqM) Glucose (74-99) mg/dL Plasma Lactic Acid Marshall (0.7-2.0) mmol/L Calcium (8.4-10.2) mg/dL Magnesium (1.6-2.3) mg/dL Total Bilirubin (0.2-1.3) mg/dL AST (17-59) U/L ALT (4-49) U/L Alkaline Phosphatase (38-126) U/L Troponin I <0.012 (0.000-0.034) ng/mL Total Protein (6.3-8.2) g/dL Albumin (3.5-5.0) g/dL Lipase (23-300) U/L Stool Occult Blood Positive (Negative) Blood Type Blood Type Recheck Bld Type Recheck Status Antibody Screen Spec Expiration Date 01/25/20 Range/Units 12:45 WBC (3.8-10.6) k/uL RBC (4.30-5.90) m/uL Hgb (13.0-17.5) gm/dL Hct (39.0-53.0) % MCV (80.0-100.0) fL MCH (25.0-35.0) pg MCHC (31.0-37.0) g/dL RDW (11.5-15.5) % Plt Count (150-450) k/uL Neutrophils % % Lymphocytes % % Monocytes % % Eosinophils % % Basophils % % Neutrophils # (1.3-7.7) k/uL Lymphocytes # (1.0-4.8) k/uL Monocytes # (0-1.0) k/uL Eosinophils # (0-0.7) k/uL Basophils # (0-0.2) k/uL Anisocytosis PT (9.0-12.0) sec INR (<1.2) APTT (22.0-30.0) sec Sodium (137-145) mmol/L Potassium (3.5-5.1) mmol/L Chloride (98-107) mmol/L Carbon Dioxide (22-30) mmol/L Anion Gap mmol/L BUN (9-20) mg/dL Creatinine (0.66-1.25) mg/dL Est GFR (CKD-EPI)AfAm (>60 ml/min/1.73 sqM) Est GFR (CKD-EPI)NonAf (>60 ml/min/1.73 sqM) Glucose (74-99) mg/dL Plasma Lactic Acid Marshall (0.7-2.0) mmol/L Calcium (8.4-10.2) mg/dL Magnesium (1.6-2.3) mg/dL Total Bilirubin (0.2-1.3) mg/dL AST (17-59) U/L ALT (4-49) U/L Alkaline Phosphatase (38-126) U/L Troponin I (0.000-0.034) ng/mL Total Protein (6.3-8.2) g/dL Albumin (3.5-5.0) g/dL Lipase (23-300) U/L Stool Occult Blood (Negative) Blood Type O Negative Blood Type Recheck O Neg Bld Type Recheck Status No Antibody Screen NEGATIVE Spec Expiration Date 01/28/2020 - 2345 Critical Care Time Critical Care Time: Yes Total Critical Care Time: 33 Disposition Clinical Impression: GI bleed, Rib fracture Disposition: ADMITTED IP TO THIS [facility] Condition: Fair Referrals: Jose Morrow DO [Primary Care Provider] - 1-2 days Decision Time: 14:00
[2020-01-25 12:36] LABS: Anisocytosis Slight; Basophils % (A) 1 %; Eosinophils # (A) 0.3 k/uL (0-0.7); Eosinophils % (A) 6 %; HCT 33.6 % (39.0-53.0); HGB 11.2 gm/dL (13.0-17.5); Lymphocytes % (A) 18 %; MCH 31.5 pg (25.0-35.0); MCHC 33.2 g/dL (31.0-37.0); MCV 94.9 fL (80.0-100.0); Mean Platelet Volume 9.2; Monocytes # (A) 0.2 k/uL (0-1.0); Monocytes % (A) 4 %; Neutrophils # (A) 3.5 k/uL (1.3-7.7); Neutrophils % (A) 68 %; Platelet Count 204 k/uL (150-450); RBC 3.54 m/uL (4.30-5.90); RDW 16.3 % (11.5-15.5); WBC 5.2 k/uL (3.8-10.6)
[2020-01-25 12:49] LABS: Calcium 9.2 mg/dL (8.4-10.2); Magnesium 1.9 mg/dL (1.6-2.3); Total Bilirubin 0.4 mg/dL (0.2-1.3); Total Protein 7.2 g/dL (6.3-8.2)
--- NOTE | 2020-01-25 12:49 | XR ---
EXAMINATION TYPE: XR chest 2V DATE OF EXAM: 01/25/2020 COMPARISON: 12/20/2019 TECHNIQUE: PA and lateral views submitted. HISTORY: Pain FINDINGS: The lungs are clear and there is no pneumothorax, pleural effusion, or focal pneumonia. Hypertrophi c and degenerative change of the spine. No overt failure. Hyperinflation suggests COPD. IMPRESSION: 1. No acute process.
--- NOTE | 2020-01-25 12:51 | XR ---
EXAMINATION TYPE: XR ribs LT DATE OF EXAM: 01/25/2020 COMPARISON: NONE HISTORY: Pain TECHNIQUE: 4 views submitted FINDINGS: The slight deformity of the anterolateral left sixth rib. Remaining osseous structures are intact. IMPRESSION: Deformity anterolateral left sixth rib correlate for hairline fracture. Bone scan could B E obtained as clinically warranted.
[2020-01-25 12:52] LABS: INR 2.7 (<1.2); Partial Thromboplastin Time 33.9 sec (22.0-30.0); Prothrombin Time 26.1 sec (9.0-12.0)
[2020-01-25] MEDS ORDERED: PANTOPRAZOLE 40 MG/10 ML VIAL IVP ONE (12:53)
[2020-01-25] MEDS ORDERED: PHYTONADIONE 10 MG in SODIUM CHLORIDE 0.9% 50 ML IVPB STA (13:29)
[2020-01-25] MEDS ORDERED: ONDANSETRON 4 MG/2 ML VIAL IVP PRN (14:00)
[2020-01-25] MEDS ORDERED: NALOXONE 0.4 MG/ML 1 ML VIAL IV PRN (14:00)
[2020-01-25] MEDS ORDERED: MORPHINE SULFATE 4 MG/ML SYRINGE IV PRN (14:00)
[2020-01-25] MEDS ORDERED: LIDOCAINE 5% PATCH TOPICAL STA (14:00)
[2020-01-25] MEDS ORDERED: ACETAMINOPHEN TAB 325 MG TAB PO PRN (14:00)
[2020-01-25] MEDS: SODIUM CHLORIDE 0.9% 1,000 ML IV SCH (14:15)
[2020-01-25] MEDS ORDERED: HYDROcodone/APAP 7.5-325MG 1 EACH TAB PO PRN (17:03)
[2020-01-25] MEDS: INSULIN ASPART (NovoLOG) 100 UNIT/ML VIAL SQ SCH ×2 (18:02→22:53)
[2020-01-25 19:25] LABS: Glucose,Whole Blood 153 mg/dL (75-99)
--- NOTE | 2020-01-25 21:26 | P.HPIM ---
History of Present Illness H&P Date: 01/25/20 Chief Complaint: Blood per rectum History of presenting complaint: 79-year-old patient of Dr. Morrow. Presented on December 18 to the hospital with abdominal pain.. Computed tomography scan of the abdomen showed multiple hepatic masses and what appeared to be metastatic disease in the pancreas and the spleen. Bone scan did show some lighting up in right femur. MRI of the br ain did not show any metastatic disease. Patient on December 22 underwent biopsy of the right intra-abdominal mass. Did come back showing metastatic well- differentiated adenocarcinoma. Patient sometimes is forgetful. 2 weeks ago had his first dose of chemotherapy. And felt totally rundown. Poor appetite. He much lying down all the time. For about a week patient been having bleeding per rectum. Had an episode of getting dizzy and passing out. Went to see Dr. Ellison today. Who directed him to the ER. No fever no chills. Review of systems: GEN.: Weak tired rundown decreased appetite EYES: None HEENT: None NECK: None RESPIRATORY: None CARDIOVASCULAR: None GASTROINTESTINAL: As above GENITOURINARY: None MUSCULOSKELETAL: None LYMPHATICS: None HEMATOLOGICAL: None PSYCHIATRY: None NEUROLOGICAL: Chronically a bit forgetful Past medical history to include: Well-differentiated metastatic adenocarcinoma on chemotherapy, paroxysmal atrial flutter, COPD, GERD, hyperlipidemia, hypertension, obstructive sleep apnea, history of prostate cancer with treatment, sigmoid diverticulosis. Stroke in 2017 affecting some vision and memory. Temporal arteritis. Social history: Lives alone. Smoked for 24 years to the age of 42. No alcohol. Since 1991. Did review his chart On examination: VITAL SIGNS: 98.3, 81, 18, 167/77, 98% room air GENERAL APPEARANCE: Laying in bed, tired HEENT: Normal external appearance of nose and ear. Oral cavity normal EYES: Pupils equal. Conjunctiva pale NECK: JVD not raised. Mass not palpable. RESPIRATORY: Respiratory effort normal. Lungs clear to auscultation. CARDIOVASCULAR: First and second sounds normal. No edema. ABDOMEN: Soft. Some tenderness, abdominal mass palpable, no guarding or rigidity.. PSYCHIATRY: Alert and oriented x3. Mood and affect a bit anxious INVESTIGATIONS, reviewed in the clinical context: White count 5.2 hemoglobin 11.2 pro time 26.1 potassium 5 bun 62 creatinine 1.75 blood glucose 235 Previous labs: Hemoglobin on December 24 was 11 "and BUN/creatinine was 17/1.17 Assessment: -Intra-abdominal metastatic disease with liver masses, pancreatic masses and splenic masses. Well-differentiated metastatic adenocarcinoma -Acute recurrent painless fresh bleeding per rectum likely diverticular bleed, POA. Also note that patient is on Coumadin. -Acute blood loss anemia from GI bleed -Paroxysmal Atrial flutter -COPD -GERD -Hyperlipidemia -Essential hypertension -Obstructive sleep apnea -History of prostate cancer with treatment -Sigmoid diverticulosis Plan: Patient did receive vitamin K 10 mg the ER. Home medications resumed. H&H will be followed. Patient may be made nothing by mouth except for medications. An ice chips. Consult GI and oncology. Care was discussed with the patient. Past Medical History Past Medical History: Atrial Flutter, Cancer, COPD, CVA/TIA, Diabetes Mellitus, Eye Disorder, GERD/Reflux, GI Bleed, Hyperlipidemia, Hypertension, Prostate Disorder, Renal Disease, Sleep Apnea/CPAP/BIPAP Additional Past Medical History / Comment(s): PROSTATE CA 2015, HX RADIATION X24 TX-Apr 2016. NO TX FOR SLEEP APNEA IN YEARS. hormone injections, biopsy 2015, 54 seed inplants jun 2016, radiation may 2016. freq urination. 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 RECENT BLOOD IN STOOL. History of Any Multi-Drug Resistant Organisms: None Reported Past Surgical History: Adenoidectomy, Appendectomy, Orthopedic Surgery, Tonsillectomy Additional Past Surgical History / Comment(s): EXC BACK CYSTS. EXC BILAT CATARACTS. BILAT SHOULDERS sx. ORIF RT FEMUR, 1 F/U SURGERY, THEN MANIPULATION. PROSTATE BRACHYTHERAPY/RADIOACTIVE SEED INPLANTS. TEMPORAL ARTERITIS PROCEDURE. Past Anesthesia/Blood Transfusion Reactions: No Reported Reaction Additional Past Anesthesia/Blood Transfusion Reaction / Comment(s): DENIES Past Psychological History: No Psychological Hx Reported Additional Psychological History / Comment(s): PT LIVES ALONE IN A SINGLE LEVEL HOME THAT HAS 5 STEPS TO GET INTO HOME. PT IS INDEPENDANT. NO OUTSIDE SERVICES , NO MEDICAL EQUIPMENT. DRIVES. NO PETS. SERVED IN THE [employer]. 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 Smoking Status: Former smoker Past Alcohol Use History: None Reported Additional Past Alcohol Use History / Comment(s): SMOKED [age] YEARS OLD EST, 1 PPD OR <, QUIT . NO ALCOHOL SINCE 1991. Past Drug Use History: None Reported - Past Family History Sister(s) Family Medical History: Cancer Additional Family Medical History / Comment(s): breast CA Father History Unknown: Yes Additional Family Medical History / Comment(s): " FROM [place] FLU IN THE Mother Family Medical History: Cancer, CVA/TIA Additional Family Medical History / Comment(s): "HEART PROBLEMS" Medications and Allergies Home Medications Medication Instructions Recorded Confirmed Type Pantoprazole [Protonix] 40 mg PO DAILY@0800 11/28/16 01/25/20 History Timolol 0.5% Ophth Soln [Timoptic 1 drop BOTH EYES BID@0800,0 03/11/17 01/25/20 History 0.5% Ophth Soln] Ferrous Sulfate [Iron (65 MG 325 mg PO DAILY@1200 11/22/17 01/25/20 History Elemental)] Methotrexate Sodium [Methotrexate] 25 mg PO FR@189911/22/17 01/25/20 History metFORMIN HCL [Glucophage] 500 mg PO BID@0800,1700 11/22/17 01/25/20 History Folic Acid 0.8 mg PO HS@219912/19/19 01/25/20 History Latanoprost/Pf [Latanoprost 0.005% 1 drop BOTH EYES HS@219912/19/19 01/25/20 History Eye Drop] Metoprolol Tartrate [Lopressor] 50 mg PO BID@0800,1900 12/19/19 01/25/20 History Repaglinide [Prandin] 1 mg PO TID 12/19/19 01/25/20 History Warfarin Sodium [Jantoven] 2.5 mg PO DAILY@189912/19/19 01/25/20 History Lisinopril-Hctz 20-12.5 mg 1 tab PO BID #60 tab 12/25/19 01/25/20 Rx [Zestoretic 20-12.5] Hydrocodone/Acetaminophen [[place] 1 tab PO Q6HR PRN 01/25/20 01/25/20 History 7.5-325] Ondansetron [Zofran] 4 mg PO Q8HR PRN 06/29/20 06/29/20 History amLODIPine [Norvasc] 10 mg PO DAILY@1900 01/25/20 01/25/20 History Allergies Allergy/AdvReac Type Severity Reaction Status Date / Time celecoxib [From Celebrex] AdvReac Severe GI BLEED Verified 01/25/20 13:23 aspirin AdvReac Intermediate STOMACH Verified 01/25/20 13:23 PROBLEMS Physical Exam Vitals: Vital Signs Temp Pulse Pulse Resp BP BP Pulse Ox 01/25/20 19:30 98.3 F 81 18 167/77 98 01/25/20 18:00 70 15 148/75 98 01/25/20 17:30 69 18 133/56 97 01/25/20 17:00 65 18 143/62 94 L 01/25/20 16:30 68 14 148/65 96 01/25/20 16:00 70 10 L 137/57 98 01/25/20 15:30 16 137/57 98 01/25/20 15:00 63 17 143/65 97 01/25/20 14:30 71 18 118/71 93 L 01/25/20 14:00 66 20 123/54 98 01/25/20 13:30 66 12 135/53 97 01/25/20 13:10 67 14 135/53 98 01/25/20 11:57 98.2 F 70 18 111/50 95 Intake and Output 01/25/20 01/25/20 01/25/20 06:59 14:59 22:59 Other: Weight 78.018 kg 78.018 kg Results CBC & Chem 7: 01/25/20 12:17 01/25/20 12:17 Labs: Abnormal Lab Results - Last 24 Hours (Table) 01/25/20 01/25/20 01/25/20 Range/Units 12:17 12:17 12:17 RBC 3.54 L (4.30-5.90) m/uL Hgb 11.2 L (13.0-17.5) gm/dL Hct 33.6 L (39.0-53.0) % RDW 16.3 H (11.5-15.5) % PT 26.1 H (9.0-12.0) sec INR 2.7 H (<1.2) APTT 33.9 H (22.0-30.0) sec Sodium 134 L (137-145) mmol/L BUN 62 H (9-20) mg/dL Creatinine 1.75 H (0.66-1.25) mg/dL Glucose 235 H (74-99) mg/dL POC Glucose (mg/dL) (75-99) mg/dL ALT 56 H (4-49) U/L Lipase 531 H (23-300) U/L 01/25/20 Range/Units 19:24 RBC (4.30-5.90) m/uL Hgb (13.0-17.5) gm/dL Hct (39.0-53.0) % RDW (11.5-15.5) % PT (9.0-12.0) sec INR (<1.2) APTT (22.0-30.0) sec Sodium (137-145) mmol/L BUN (9-20) mg/dL Creatinine (0.66-1.25) mg/dL Glucose (74-99) mg/dL POC Glucose (mg/dL) 153 H (75-99) mg/dL ALT (4-49) U/L Lipase (23-300) U/L Thrombosis Risk Factor Assmnt - Choose All That Apply Any of the Below Risk Factors Present?: No
[2020-01-25 22:16] LABS: Glucose,Whole Blood 159 mg/dL (75-99)
[2020-01-25] MEDS: TIMOLOL 0.5% OPHTH DROPS 5 ML BTL BOTH EYES SCH (22:51)
[2020-01-25] MEDS: LATANOPROST 0.005% OPHTH DROPS 2.5 ML BTL BOTH EYES SCH (22:51)
[2020-01-25] MEDS: LISINOPRIL-HCTZ 20-12.5 MG 1 EACH TAB PO SCH (22:52)
[2020-01-25] MEDS: METOPROLOL TARTRATE 50 MG TAB PO SCH (22:52)
[2020-01-25] MEDS: FOLIC ACID 1 MG TAB PO SCH (22:52)
[2020-01-25] MEDS: amLODIPine 10 MG TAB PO SCH (22:52)
[2020-01-26] MEDS: SODIUM CHLORIDE 0.9% 1,000 ML IV SCH ×3 (00:22→17:47)
[2020-01-26 06:22] LABS: Glucose,Whole Blood 173 mg/dL (75-99)
[2020-01-26 07:02] LABS: Anisocytosis Slight; HGB 10.2 gm/dL (13.0-17.5); MCH 31.5 pg (25.0-35.0); MCHC 32.8 g/dL (31.0-37.0); MCV 95.9 fL (80.0-100.0); Mean Platelet Volume 9.5; Platelet Count 217 k/uL (150-450); RBC 3.24 m/uL (4.30-5.90); RDW 16.4 % (11.5-15.5); WBC 4.2 k/uL (3.8-10.6)
[2020-01-26 07:18] LABS: Calcium 8.7 mg/dL (8.4-10.2); Potassium 4.9 mmol/L (3.5-5.1)
[2020-01-26] MEDS: INSULIN ASPART (NovoLOG) 100 UNIT/ML VIAL SQ SCH ×4 (09:42→21:12)
[2020-01-26] MEDS: METOPROLOL TARTRATE 50 MG TAB PO SCH ×2 (09:43→20:25)
[2020-01-26] MEDS: TIMOLOL 0.5% OPHTH DROPS 5 ML BTL BOTH EYES SCH ×2 (09:44→21:24)
[2020-01-26] MEDS: LISINOPRIL-HCTZ 20-12.5 MG 1 EACH TAB PO SCH ×2 (09:44→20:27)
[2020-01-26] MEDS: PANTOPRAZOLE 40 MG/10 ML VIAL IV SCH (09:45)
[2020-01-26 11:57] LABS: Glucose,Whole Blood 227 mg/dL (75-99)
[2020-01-26] MEDS ORDERED: BISACODYL 5 MG TABLET.DR PO STA (14:01)
[2020-01-26 14:51] VITALS: BMI 23.0
[2020-01-26 16:53] LABS: Glucose,Whole Blood 95 mg/dL (75-99)
[2020-01-26] MEDS ORDERED: MAGNESIUM CITRATE 296 ML BOTTLE PO ONE (18:00)
--- NOTE | 2020-01-26 19:27 | P.PN ---
Progress Note - Text Progress Note Date: 01/26/20 Chief Complaint: Blood per rectum History of presenting complaint: 79-year-old patient of Dr. Morrow. Presented on December 18 to the hospital with abdominal pain.. Computed tomography scan of the abdomen showed multiple hepatic masses and what appeared to be metastatic disease in the pancreas and the spleen. Bone scan did show some lighting up in right femur. MRI of the brain did not show any metastatic disease. Patient on December 22 underwent biopsy of the right intra-abdominal mass. Did come back showing metastatic well- differentiated adenocarcinoma. Patient sometimes is forgetful. 2 weeks ago had his first dose of chemotherapy. And felt totally rundown. Poor appetite. He much lying down all the time. For about a week patient been having bleeding per rectum. Had an episode of getting dizzy and passing out. Went to see Dr. Ellison today. Who directed him to the ER. No fever no chills. Today-still having fresh bleeding rectally. On clear liquids. No abdominal pain. Daughter the bedside. Does feel weak and tired. Review of systems: Was done for constitutional, cardiovascular, GI, pulmonary. relevant finding as above Active Medications Acetaminophen (Tylenol Tab) 650 mg PO Q6HR PRN PRN Reason: Mild Pain or Fever > 100.5 Hydrocodone Bitart/Acetaminophen ([place] 7.5-325) 1 each PO Q6HR PRN PRN Reason: Pain Last Admin: 01/26/20 16:27 Dose: 1 each Documented by: Amlodipine Besylate (Norvasc) 10 mg PO DAILY@1900 [facility] Last Admin: 01/25/20 22:52 Dose: 10 mg Documented by: Folic Acid (Folic Acid) 1 mg PO HS@2200 [facility] Last Admin: 01/25/20 22:52 Dose: 1 mg Documented by: Lisinopril/HCTZ (Zestoretic 20-12.5) 1 each PO BID [facility] Last Admin: 01/26/20 09:44 Dose: 1 each Documented by: Sodium Chloride (Saline 0.9%) 1,000 mls @ 110 mls/hr IV .Q9H6M [facility] Last Admin: 01/26/20 17:47 Dose: 110 mls/hr Documented by: Insulin Aspart (Novolog) 0 unit SQ ACHS [facility]; Protocol Last Admin: 01/26/20 17:46 Dose: Not Given Documented by: Latanoprost (Xalatan 0.005%) 1 drops BOTH EYES HS@2200 [facility] Last Admin: 01/25/20 22:51 Dose: 1 drops Documented by: Methotrexate (Methotrexate) 25 mg PO FR@1900 [facility] Metoprolol Tartrate (Lopressor) 50 mg PO BID@0800,1900 [facility] Last Admin: 01/26/20 09:43 Dose: 50 mg Documented by: Morphine Sulfate (Morphine Sulfate (Inj)) 4 mg IV Q4HR PRN PRN Reason: Severe Pain Naloxone HCl (Narcan) 0.2 mg IV Q2M PRN PRN Reason: Opioid Reversal Ondansetron HCl (Zofran) 4 mg IVP Q8HR PRN PRN Reason: Nausea And Vomiting Pantoprazole Sodium (Protonix) 40 mg IV DAILY [facility] Last Admin: 01/26/20 09:45 Dose: 40 mg Documented by: Timolol Maleate (Timoptic) 1 drops BOTH EYES BID@0800,2200 [facility] Last Admin: 01/26/20 09:44 Dose: 1 drops Documented by: On examination: VITAL SIGNS: 97.9, 74, 18, 152/70, 99% on room air GENERAL APPEARANCE: Laying in bed, tired HEENT: Normal external appearance of nose and ear. Oral cavity normal EYES: Pupils equal. Conjunctiva pale NECK: JVD not raised. Mass not palpable. RESPIRATORY: Respiratory effort normal. Lungs clear to auscultation. CARDIOVASCULAR: First and second sounds normal. No edema. ABDOMEN: Soft. Some tenderness, abdominal mass palpable, no guarding or rigidity.. PSYCHIATRY: Alert and oriented x3. Mood and affect a bit anxious INVESTIGATIONS, reviewed in the clinical context: White count 4.2 hemoglobin 10.2 potassium 4.9 bun 39 creatinine 1.28 Previous labs: White count 5.2 hemoglobin 11.2 pro time 26.1 potassium 5 bun 62 creatinine 1.75 blood glucose 235 Hemoglobin on December 24 was 11 "and BUN/creatinine was 17/1.17 Assessment: -Intra-abdominal metastatic disease with liver masses, pancreatic masses and splenic masses. Well-differentiated metastatic adenocarcinoma. Status post 1 round of chemotherapy -Acute recurrent painless fresh bleeding per rectum likely diverticular bleed, POA.-Recurrent slow to respond -Acute blood loss anemia from GI bleed -Paroxysmal Atrial flutter on Coumadin. Given vitamin K in the ER -COPD -GERD -Hyperlipidemia -Essential hypertension -Obstructive sleep apnea -History of prostate cancer with treatment -Sigmoid diverticulosis -Acute kidney injury, likely prerenal Plan: Had a lengthy talk with the patient and the daughter the bedside. At this point patient is to remain full code. Await further input from GI and oncology. At this point it is somewhat felt that endoscopy may not change the outcome. We will let gastroenterology make the the final determination. Follow H&H. Follow BMP. Continue with IV fluids.
[2020-01-26 20:19] LABS: Glucose,Whole Blood 112 mg/dL (75-99)
[2020-01-26] MEDS: amLODIPine 10 MG TAB PO SCH (20:26)
[2020-01-26] MEDS: FOLIC ACID 1 MG TAB PO SCH (21:22)
[2020-01-26] MEDS: LACTATED RINGERS 1,000 ML IV SCH (21:22)
[2020-01-26] MEDS: LATANOPROST 0.005% OPHTH DROPS 2.5 ML BTL BOTH EYES SCH (21:23)
[2020-01-26 23:50] LABS: % Iron Saturation 14.46 (15.00-50.00)
[2020-01-27 00:09] LABS: Ferritin 889.9 ng/mL (22.0-322.0)
[2020-01-27] MEDS: LACTATED RINGERS 1,000 ML IV SCH ×3 (00:23→20:56)
--- NOTE | 2020-01-27 02:13 | P.CONS ---
History of Present Illness - Reason for Consult Consult date: 01/26/20 Blood per rectum Requesting physician: Sekou Johnson - Chief Complaint Blood per rectum - History of Present Illness 79-year-old male with multiple medical comorbidities including prostate cancer status post radiation therapy and radioactive seed implantation, GERD, hyper tension, hyperlipidemia, diabetes mellitus, metastatic adenocarcinoma for which she recently started chemotherapy who presented to the hospital due to blood per rectum and weakness. The patient reports some painless bright red blood per rectum. Previously he had been seen with similar complaints in 2018 at which time a colonoscopy was performed and significant for polypectomy as well as findings consistent with radiation proctitis. The patient reports weakness and episodes of falling in association with his bleeding as well as see underlying chemotherapy which she is receiving. Laboratory evaluation on presentation significant for hemoglobin of 11.2 found to be 10.2 on repeat blood draw, platelet count 217,000, INR 2.7 (on Coumadin therapy), total bilirubin 0.4, alkaline phosphatase 112, AST 46 and ALT 56. Review of Systems REVIEW OF SYSTEMS: CONSTITUTIONAL: Denies any fevers, chills, weight change but the patient does report fatigue CARDIOVASCULAR: Denies any chest pain, palpitations high or low blood pressures, did have falls and the sensation of passing out. RESPIRATORY: Denies any shortness of breath, hemoptysis or cough. GENITOURINARY: No dysuria or hematuria, history of prostate cancer. MUSCULOSKELETAL: No weakness reported. SKIN: Denies any new rashes or lesions, jaundice or pallor. PSYCHIATRIC: Denies any depression or anxiety. NEUROLOGY: Denies headache, denies any new focal deficits. EARS/NOSE/THROAT: No recent hearing change, congestion, nasal discharge or sore throat. EYES: No pain in eyes, discharge or change in vision. GASTROINTESTINAL: As per HPI. Past Medical History Past Medical History: Atrial Flutter, Cancer, COPD, CVA/TIA, Diabetes Mellitus, Eye Disorder, GERD/Reflux, GI Bleed, Hyperlipidemia, Hypertension, Prostate Disorder, Renal Disease, Sleep Apnea/CPAP/BIPAP Additional Past Medical History / Comment(s): PROSTATE CA 2016, HX RADIATION X24 TX-Apr 2016. NO TX FOR SLEEP APNEA IN YEARS. hormone injections, biopsy 2016, 54 seed inplants jun 2016, radiation may 2016. freq urination. 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 RECENT BLOOD IN STOOL. History of Any Multi-Drug Resistant Organisms: None Reported Past Surgical History: Adenoidectomy, Appendectomy, Orthopedic Surgery, Tonsillectomy Additional Past Surgical History / Comment(s): EXC BACK CYSTS. EXC BILAT CATARACTS. BILAT SHOULDERS sx. ORIF RT FEMUR, 1 F/U SURGERY, THEN MANIPULATION. PROSTATE BRACHYTHERAPY/RADIOACTIVE SEED INPLANTS. TEMPORAL ARTERITIS PROCEDURE. Past Anesthesia/Blood Transfusion Reactions: No Reported Reaction Additional Past Anesthesia/Blood Transfusion Reaction / Comm: DENIES Past Psychological History: No Psychological Hx Reported Additional Psychological History / Comment(s): PT LIVES ALONE IN A SINGLE LEVEL HOME THAT HAS 5 STEPS TO GET INTO HOME. PT IS INDEPENDANT. NO OUTSIDE SERVICES , NO MEDICAL EQUIPMENT. DRIVES. NO PETS. SERVED IN THE [employer]. 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 Smoking Status: Former smoker Past Alcohol Use History: None Reported Additional Past Alcohol Use History / Comment(s): SMOKED [age] YEARS OLD EST, 1 PPD OR <, QUIT . NO ALCOHOL SINCE 1991. Past Drug Use History: None Reported - Past Family History Sister(s) Family Medical History: Cancer Additional Family Medical History / Comment(s): breast CA Father History Unknown: Yes Additional Family Medical History / Comment(s): " FROM SWANSON HOLLIS FLU IN THE Mother Family Medical History: Cancer, CVA/TIA Additional Family Medical History / Comment(s): "HEART PROBLEMS" Medications and Allergies Home Medications Medication Instructions Recorded Confirmed Type Pantoprazole [Protonix] 40 mg PO DAILY@0800 11/28/16 01/25/20 History Timolol 0.5% Ophth Soln [Timoptic 1 drop BOTH EYES BID@0800,2200 03/11/17 01/25/20 History 0.5% Ophth Soln] Ferrous Sulfate [Iron (65 MG 325 mg PO DAILY@1200 11/22/17 01/25/20 History Elemental)] Methotrexate Sodium [Methotrexate] 25 mg PO FR@189911/22/17 01/25/20 History metFORMIN HCL [Glucophage] 500 mg PO BID@0800,1700 11/22/17 01/25/20 History Folic Acid 0.8 mg PO HS@219912/19/19 01/25/20 History Latanoprost/Pf [Latanoprost 0.005% 1 drop BOTH EYES HS@219912/19/19 01/25/20 History Eye Drop] Metoprolol Tartrate [Lopressor] 50 mg PO BID@0800,189912/19/19 01/25/20 History Repaglinide [Prandin] 1 mg PO TID 12/19/19 01/25/20 History Warfarin Sodium [Jantoven] 2.5 mg PO DAILY@189912/19/19 01/25/20 History Lisinopril-Hctz 20-12.5 mg 1 tab PO BID #60 tab 12/25/19 01/25/20 Rx [Zestoretic 20-12.5] Hydrocodone/Acetaminophen [[place] 1 tab PO Q6HR PRN 01/25/20 01/25/20 History 7.5-325] Ondansetron [Zofran] 4 mg PO Q8HR PRN 01/25/20 01/25/20 History amLODIPine [Norvasc] 10 mg PO DAILY@189901/25/20 01/25/20 History Allergies Allergy/AdvReac Type Severity Reaction Status Date / Time celecoxib [From Celebrex] AdvReac Severe GI BLEED Verified 01/25/20 13:23 aspirin AdvReac Intermediate STOMACH Verified 01/25/20 13:23 PROBLEMS Physical Exam Vitals: Vital Signs Temp Pulse Pulse Resp BP BP Pulse Ox 01/26/20 08:00 97.8 F 75 18 136/65 98 01/26/20 04:00 97.5 F L 70 16 142/65 99 01/26/20 00:00 98.3 F 70 16 137/65 98 01/25/20 19:30 98.3 F 81 18 167/77 98 01/25/20 18:00 70 15 148/75 98 01/25/20 17:30 69 18 133/56 97 01/25/20 17:00 65 18 143/62 94 L 01/25/20 16:30 68 14 148/65 96 01/25/20 16:00 70 10 L 137/57 98 01/25/20 15:30 16 137/57 98 01/25/20 15:00 63 17 143/65 97 01/25/20 14:30 71 18 118/71 93 L 01/25/20 14:00 66 20 123/54 98 01/25/20 13:30 66 12 135/53 97 Intake and Output 01/25/20 01/26/20 01/26/20 22:59 06:59 14:59 Other: Voiding Method Toilet Toilet # Voids 1 # Bowel Movements 1 2 Weight 78.018 kg 77.1 kg On physical examination, patient appears comfortable in no apparent distress. HEAD: Normocephalic, atraumatic. EYES: No scleral icterus. No conjunctival injection. MOUTH: No lesions, tongue midline. NECK: Trachea midline, no gross abnormalities. CHEST: Decreased air entry in all lung [place]. HEART: S1-S2 appreciated. ABDOMEN: Soft, obese. Bowel sounds are positive. No organomegaly. No guarding or rigidity. EXTREMITIES: No pedal edema. SKIN: No rashes, no jaundice. NEUROLOGIC: Alert and oriented. No focal deficits. Results CBC & Chem 7: 01/26/20 06:32 01/26/20 06:32 Labs: Abnormal Lab Results - Last 24 Hours (Table) 01/25/20 01/25/20 01/26/20 Range/Units 19:24 22:13 06:20 RBC (4.30-5.90) m/uL Hgb (13.0-17.5) gm/dL Hct (39.0-53.0) % RDW (11.5-15.5) % BUN (9-20) mg/dL Creatinine (0.66-1.25) mg/dL Glucose (74-99) mg/dL POC Glucose (mg/dL) 153 H 159 H 173 H (75-99) mg/dL 01/26/20 01/26/20 01/26/20 Range/Units 06:32 06:32 11:55 RBC 3.24 L (4.30-5.90) m/uL Hgb 10.2 L (13.0-17.5) gm/dL Hct 31.0 L (39.0-53.0) % RDW 16.4 H (11.5-15.5) % BUN 39 H (9-20) mg/dL Creatinine 1.28 H (0.66-1.25) mg/dL Glucose 181 H (74-99) mg/dL POC Glucose (mg/dL) 227 H (75-99) mg/dL Chest x-ray: report reviewed (No acute process on chest x-ray.) Assessment and Plan (1) BRBPR (bright red blood per rectum) Narrative/Plan: 79-year-old male presenting to the hospital secondary to fatigue and painless bright red blood per rectum. Previously evaluated for similar complaints in 2018 patient was found to have radiation proctitis in the setting of prior radiation therapy for prostate cancer as well as polypectomy. Hemoglobin has remained stable at 10.2 from 11.2 on presentation. Unclear etiology with suspicion for bleeding from radiation proctitis, cannot rule out hemorrhoidal bleeding or diverticular bleed or other etiology. Current Visit: Yes Status: Acute Priority: High Code(s): K62.5 - HEMORRHAGE OF ANUS AND RECTUM SNOMED Code(s): 23005335 (2) Anemia associated with acute blood loss Current Visit: Yes Status: Acute Code(s): D62 - ACUTE POSTHEMORRHAGIC ANEMIA SNOMED Code(s): 046344946 (3) GI bleed Current Visit: Yes Status: Acute Code(s): K92.2 - GASTROINTESTINAL HEMORRHAGE, UNSPECIFIED SNOMED Code(s): 09751869 Plan: Supportive care Clear liquid diet Magnesium citrate ordered for tonight Tap water enema ordered for tomorrow Plan for flexible sigmoidoscopy for evaluation of perirectal anatomy with plans for argon plasma coagulation therapy if bleeding is from radiation proctitis, versus local hemorrhoidal care if patient is noted to have inflamed hemorrhoids Continue to monitor hemoglobin and hematocrit and transfuse as needed Nothing by mouth after midnight Thank you for allowing us to participate in the care of the patient
[2020-01-27] MEDS: SODIUM CHLORIDE 0.9% 1,000 ML IV SCH ×3 (04:16→20:55)
[2020-01-27 06:09] LABS: Glucose,Whole Blood 175 mg/dL (75-99)
[2020-01-27 06:56] LABS: Anisocytosis Slight; HCT 29.5 % (39.0-53.0); HGB 9.7 gm/dL (13.0-17.5); MCH 31.6 pg (25.0-35.0); MCHC 33.1 g/dL (31.0-37.0); MCV 95.7 fL (80.0-100.0); Platelet Count 224 k/uL (150-450); RBC 3.08 m/uL (4.30-5.90); RDW 16.5 % (11.5-15.5); WBC 3.8 k/uL (3.8-10.6)
[2020-01-27 07:05] LABS: Calcium 8.4 mg/dL (8.4-10.2); Potassium 4.9 mmol/L (3.5-5.1)
[2020-01-27] MEDS: LISINOPRIL-HCTZ 20-12.5 MG 1 EACH TAB PO SCH ×2 (08:57→21:08)
[2020-01-27] MEDS: METOPROLOL TARTRATE 50 MG TAB PO SCH ×2 (08:57→19:44)
[2020-01-27] MEDS: PANTOPRAZOLE 40 MG/10 ML VIAL IV SCH (08:58)
--- NOTE | 2020-01-27 09:54 | P.CONS ---
History of Present Illness - Reason for Consult Consult date: 01/26/20 metastatic pancreatic adenocarcinoma Requesting physician: Sekou Johnson - Chief Complaint BRBPR - History of Present Illness Mr. Duvall is a very pleasant 79-year-old male patient initially seen in consult 12/21/19. Has a history of prostate cancer treated with radiation. He presented at that time with abdominal pain, localized to the left lower quadrant, 2 weeks, progressive. Associated with some mild nausea, [address] AP showed 7 hepatic lesions, largest 2.5 cm. There are also multiple lesions in the pancreas. Splenic masses also suspicious for metastasis, right renal mass 2.5 cm. Workup showed PSA less than 0.1, chest x- ray was negative, CT of the chest and bone scan showed no definite evidence of metastasis, MRI of the brain was negative. CT-guided biopsy 12/23/19 positive for metastatic poorly differentiated adenocarcinoma, consistent with upper GI or pancreaticobiliary primary. CA 19.9 was greater than 70,000. Patient was started on Gemzar and Abraxane 01/12/20, he is currently status post first cycle. One week after treatment he was seen for an acute visit 01/19/20. Complain of highly being out of bed, hardly any oral intake, dizzy, lightheaded, daughter noted excited and agitated. He denied any other symptoms. He did have syncope with a fall. CMP was checked that day and patient was given hydration. His blo od sugar was noted to be greater than 300. Treatment was held. Seen by Dr. Ellison 01/25/20 with complaints of bright red blood per rectum, consistent, last 4-5 days, INR was therapeutic, patient did not stop this. He was having some left posterior lateral chest wall discomfort where he had fallen previously. No other complaints. When seen today patient had a bowel movement with bright red blood again, his side is persistent but not progressive at this time. 14 point review systems is otherwise negative Review of Systems 14 point review of systems is negative Past Medical History Past Medical History: Atrial Flutter, Cancer, COPD, CVA/TIA, Diabetes Mellitus, Eye Disorder, GERD/Reflux, GI Bleed, Hyperlipidemia, Hypertension, Prostate Disorder, Renal Disease, Sleep Apnea/CPAP/BIPAP Additional Past Medical History / Comment(s): PROSTATE CA 2016, HX RADIATION X24 TX-Apr 2016. NO TX FOR SLEEP APNEA IN YEARS. hormone injections, biopsy 2016, 54 seed inplants jun 2016, radiation may 2016. freq urination. 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 RECENT BLOOD IN STOOL. History of Any Multi-Drug Resistant Organisms: None Reported Past Surgical History: Adenoidectomy, Appendectomy, Orthopedic Surgery, Tonsillectomy Additional Past Surgical History / Comment(s): EXC BACK CYSTS. EXC BILAT CATARA CTS. BILAT SHOULDERS sx. ORIF RT FEMUR, 1 F/U SURGERY, THEN MANIPULATION. PROSTATE BRACHYTHERAPY/RADIOACTIVE SEED INPLANTS. TEMPORAL ARTERITIS PROCEDURE. Past Anesthesia/Blood Transfusion Reactions: No Reported Reaction Additional Past Anesthesia/Blood Transfusion Reaction / Comm: DENIES Past Psychological History: No Psychological Hx Reported Additional Psychological History / Comment(s): PT LIVES ALONE IN A SINGLE LEVEL HOME THAT HAS 5 STEPS TO GET INTO HOME. PT IS INDEPENDANT. NO OUTSIDE SERVICES , NO MEDICAL EQUIPMENT. DRIVES. NO PETS. SERVED IN THE [employer]. 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 Smoking Status: Former smoker Past Alcohol Use History: None Reported Additional Past Alcohol Use History / Comment(s): SMOKED [age] YEARS OLD EST, 1 PPD OR <, QUIT . NO ALCOHOL SINCE 1991. Past Drug Use History: None Reported - Past Family History Sister(s) Family Medical History: Cancer Additional Family Medical History / Comment(s): breast CA Father History Unknown: Yes Additional Family Medical History / Comment(s): " FROM [place]AN[place] FLU IN THE Mother Family Medical History: Cancer, CVA/TIA Additional Family Medical History / Comment(s): "HEART PROBLEMS" Medications and Allergies Home Medications Medication Instructions Recorded Confirmed Type Pantoprazole [Protonix] 40 mg PO DAILY@0800 11/28/16 01/25/20 History Timolol 0.5% Ophth Soln [Timoptic 1 drop BOTH EYES BID@0800,2200 03/11/17 01/25/20 History 0.5% Ophth Soln] Ferrous Sulfate [Iron (65 MG 325 mg PO DAILY@1200 11/22/17 01/25/20 History Elemental)] Methotrexate Sodium [Methotrexate] 25 mg PO FR@1900 11/22/17 01/25/20 History metFORMIN HCL [Glucophage] 500 mg PO BID@0800,1700 11/22/17 01/25/20 History Folic Acid 0.8 mg PO HS@219912/19/19 01/25/20 History Latanoprost/Pf [Latanoprost 0.005% 1 drop BOTH EYES HS@219912/19/19 01/25/20 History Eye Drop] Metoprolol Tartrate [Lopressor] 50 mg PO BID@0800,189912/19/19 01/25/20 History Repaglinide [Prandin] 1 mg PO TID 12/19/19 01/25/20 History Warfarin Sodium [Jantoven] 2.5 mg PO DAILY@189912/19/19 01/25/20 History Lisinopril-Hctz 20-12.5 mg 1 tab PO BID #60 tab 12/25/19 01/25/20 Rx [Zestoretic 20-12.5] Hydrocodone/Acetaminophen [[place] 1 tab PO Q6HR PRN 01/25/20 01/25/20 History 7.5-325] Ondansetron [Zofran] 4 mg PO Q8HR PRN 01/25/20 01/25/20 History amLODIPine [Norvasc] 10 mg PO DAILY@189901/25/20 01/25/20 History Allergies Allergy/AdvReac Type Severity Reaction Status Date / Time celecoxib [From Celebrex] AdvReac Severe GI BLEED Verified 01/25/20 13:23 aspirin AdvReac Intermediate STOMACH Verified 01/25/20 13:23 PROBLEMS Physical Exam Vitals: Vital Signs Temp Pulse Pulse Resp BP BP Pulse Ox 01/26/20 16:00 97.9 F 74 18 152/70 99 01/26/20 12:00 97.8 F 65 18 129/59 96 01/26/20 08:00 97.8 F 75 18 136/65 98 01/26/20 04:00 97.5 F L 70 16 142/65 99 01/26/20 00:00 98.3 F 70 16 137/65 98 01/25/20 19:30 98.3 F 81 18 167/77 98 01/25/20 18:00 70 15 148/75 98 01/25/20 17:30 69 18 133/56 97 01/25/20 17:00 65 18 143/62 94 L Intake and Output 01/26/20 01/26/20 01/26/20 06:59 14:59 22:59 Other: Voiding Method Toilet Toilet # Voids 1 # Bowel Movements 1 2 Weight 77.1 kg 77.1 kg - Constitutional General appearance: average body habitus, cooperative, no acute distress - EENT Eyes: anicteric sclerae, EOMI ENT: hearing grossly normal, normal oropharynx - Neck Neck: no lymphadenopathy - Respiratory left flank discomfort secondary to recent trauma, no unusual bruising or swelling Respiratory: bilateral: CTA - Cardiovascular Rhythm: regular Heart sounds: normal: S1, S2 Abnormal Heart Sounds: no systolic murmur, no diastolic murmur, no rub, no S3 Gallop, no S4 Gallop, no click, no other leg Peripheral Edema: bilateral: None - Gastrointestinal General gastrointestinal: no absent bowel sounds, no decreased bowel sounds, no distended, no hepatomegaly, no hyperactive bowel sounds, normal bowel sounds, no organomegaly, no rigid, no scaphoid, soft, no splenomegaly, no tenderness, no umbilical hernia, no ventral hernia - Integumentary Integumentary: normal - Neurologic Neurologic: CNII-XII intact - Musculoskeletal Musculoskeletal: generalized weakness, strength equal bilaterally - Psychiatric Psychiatric: A&O x's 3, appropriate affect, intact judgment & insight Results CBC & Chem 7: 01/26/20 06:32 01/26/20 06:32 Labs: Abnormal Lab Results - Last 24 Hours (Table) 01/25/20 01/25/20 01/26/20 Range/Units 19:24 22:13 06:20 RBC (4.30-5.90) m/uL Hgb (13.0-17.5) gm/dL Hct (39.0-53.0) % RDW (11.5-15.5) % BUN (9-20) mg/dL Creatinine (0.66-1.25) mg/dL Glucose (74-99) mg/dL POC Glucose (mg/dL) 153 H 159 H 173 H (75-99) mg/dL 01/26/20 01/26/20 01/26/20 Range/Units 06:32 06:32 11:55 RBC 3.24 L (4.30-5.90) m/uL Hgb 10.2 L (13.0-17.5) gm/dL Hct 31.0 L (39.0-53.0) % RDW 16.4 H (11.5-15.5) % BUN 39 H (9-20) mg/dL Creatinine 1.28 H (0.66-1.25) mg/dL Glucose 181 H (74-99) mg/dL POC Glucose (mg/dL) 227 H (75-99) mg/dL Chest x-ray: report reviewed (left sixth rib deformity, possible hairline fracture) CT scan - chest: report reviewed Assessment and Plan (1) BRBPR (bright red blood per rectum) Narrative/Plan: Patient reports bowel movements with bright red blood. Hemoglobin overall is stable, 10.2 today, 11.2 in office prior to hydration last week. Patient is now also in rachel. Coumadin has been held. Vitamin K administered for therapeutic INR. GI consulted. If a source of bleeding is identified and can be corrected will resume Coumadin. Current Visit: Yes Status: Acute Priority: High Code(s): K62.5 - HEMORRHAGE OF ANUS AND RECTUM SNOMED Code(s): 86303260 (2) Anemia Narrative/Plan: Mild in relation to reported BRBPR. Recent chemotherapy is also contributing. Iron studies ordered Current Visit: Yes Status: Acute Priority: Medium Code(s): D64.9 - ANEMIA, UNSPECIFIED SNOMED Code(s): 883693607 Plan: Doctor attests: I performed a history and physical examination of this patient, developed impression and plan of care. Discussed with dictator. I agree with dictators note, documented as a scribe.
[2020-01-27 10:57] LABS: INR 1.1 (<1.2); Prothrombin Time 11.1 sec (9.0-12.0)
[2020-01-27 11:35] LABS: Glucose,Whole Blood 134 mg/dL (75-99)
[2020-01-27] MEDS ORDERED: PROPOFOL 10 MG/ML 20 ML VIAL IV ONE (12:16)
[2020-01-27] MEDS ORDERED: IV FLUID CONTINUATION 1,000 ML IV ONE (12:33)
--- NOTE | 2020-01-27 12:43 | P.PN ---
Subjective Progress Note Date: 01/27/20 Objective - Vital Signs Vital signs: Vital Signs Temp 97.4 F L 01/27/20 11:59 Pulse 62 01/27/20 11:59 Resp 16 01/27/20 11:59 BP 134/63 01/27/20 07:54 Pulse Ox 96 01/27/20 11:59 Intake & Output 01/26/20 01/27/20 01/27/20 18:59 06:59 18:59 Output Total 200 Balance -200 Weight 77.1 kg 77.6 kg Output: Urine 200 Other: Voiding Method Toilet Toilet Toilet # Voids 1 1 # Bowel Movements 1 1 - Constitutional General appearance: Present: average body habitus, cooperative, no acute distress - EENT Eyes: Present: anicteric sclerae, EOMI ENT: Present: hearing grossly normal - Respiratory Respiratory: bilateral: CTA - Cardiovascular Heart sounds: normal: S1, S2 - Peripheral edema leg Peripheral Edema: bilateral: None - Gastrointestinal General gastrointestinal: Present: normal bowel sounds, soft - Neurologic Neurologic: Present: CNII-XII intact - Musculoskeletal Musculoskeletal: Present: strength equal bilaterally - Psychiatric Psychiatric: Present: A&O x's 3, appropriate affect, intact judgment & insight - Labs CBC & Chem 7: 01/27/20 06:26 01/27/20 06:26 Labs: Abnormal Lab Results - Last 24 Hours (Table) 01/26/20 01/26/20 01/27/20 Range/Units 06:32 20:18 06:07 RBC (4.30-5.90) m/uL Hgb (13.0-17.5) gm/dL Hct (39.0-53.0) % RDW (11.5-15.5) % Sodium (137-145) mmol/L BUN (9-20) mg/dL Glucose (74-99) mg/dL POC Glucose (mg/dL) 112 H 175 H (75-99) mg/dL Iron 35 L (65-175) ug/dL % Saturation 14.46 L (15.00-50.00) Ferritin 889.9 H (22.0-322.0) ng/mL Vitamin B12 1066.0 H (200.0-944.0) pg/mL 01/27/20 01/27/20 01/27/20 Range/Units 06:26 06:26 11:34 RBC 3.08 L (4.30-5.90) m/uL Hgb 9.7 L (13.0-17.5) gm/dL Hct 29.5 L (39.0-53.0) % RDW 16.5 H (11.5-15.5) % Sodium 136 L (137-145) mmol/L BUN 22 H (9-20) mg/dL Glucose 159 H (74-99) mg/dL POC Glucose (mg/dL) 134 H (75-99) mg/dL Iron (65-175) ug/dL % Saturation (15.00-50.00) Ferritin (22.0-322.0) ng/mL Vitamin B12 (200.0-944.0) pg/mL Assessment and Plan (1) BRBPR (bright red blood per rectum) Narrative/Plan: Patient reports bowel movements with bright red blood, last night was last episode. Hemoglobin lower today, 9.7. Patient is now in rachel. Coumadin has been held. Vitamin K administered for therapeutic INR. Coags ordered GI consulted, planning endo If a source of bleeding is identified and can be corrected will resume Coumadin. Current Visit: Yes Status: Acute Priority: High Code(s): K62.5 - HEMORRHAGE OF ANUS AND RECTUM SNOMED Code(s): 62570488 (2) Anemia Narrative/Plan: Mild in relation to reported BRBPR. Recent chemotherapy is also contributing. Iron studies most consistent with anemia of inflammation, no iron at this time Current Visit: Yes Status: Acute Priority: Medium Code(s): D64.9 - ANEMIA, UNSPECIFIED SNOMED Code(s): 947469985
[2020-01-27] MEDS: INSULIN ASPART (NovoLOG) 100 UNIT/ML VIAL SQ SCH ×4 (12:52→21:07)
--- NOTE | 2020-01-27 13:18 | P.PCN ---
Date of Procedure: 01/27/20 Description of Procedure: BRIEF HISTORY: 79-year-old male with multiple medical comorbidities including prostate cancer status post radiation therapy and radioactive seed implantation, GERD, hypertension, hyperlipidemia, diabetes mellitus, metastatic adenocarcinoma for which she recently started chemotherapy who presented to the hospital due to blood per rectum and weakness. The patient reports some painless bright red blood per rectum. Previously he had been seen with similar complaints in 2018 at which time a colonoscopy was performed and significant for polypectomy as well as findings consistent with radiation proctitis. The patient reports weakness and episodes of falling in association with his bleeding as well as see underlying chemotherapy which she is receiving. Laboratory evaluation on presentation significant for hemoglobin of 11.2 found to be 10.2 on repeat blood draw, platelet count 217,000, INR 2.7 (on Coumadin therapy), total bilirubin 0.4, alkaline phosphatase 112, AST 46 and ALT 56. PROCEDURE PERFORMED: Flexible sigmoidoscopy with polypectomy and argon plasma coagulation therapy. PREOPERATIVE DIAGNOSIS: Bright red blood per rectum, GI bleed, history of radiation proctitis. ESTIMATED BLOOD LOSS: Minimal. IV sedation per Anesthesia. PROCEDURE: After informed consent was obtained, the patient, was brought into the endoscopy unit. IV sedation was administered by Anesthesia under continuous monitoring. Digital rectal examination was normal. Initially the Olympus pediatric flexible video colonoscope was then inserted in the rectum, gradually advanced into the descending colon. There was a benign appearing stricture in the sigmoid colon likely related to underlying diverticular disease. Multiple small and large mouth diverticula noted insistent with moderate diverticulosis. In the descending colon a 3 mm polyp was seen and removed with cold forcep polypectomy. The scope was then withdrawn through the descending colon, sigmoid colon and into the rectum. In the rectum the patient had multiple areas of oozing telangiectasias consistent with prior history of radiation proctitis. These were treated with argon plasma coagulation therapy with hemostasis achieved. Retroflexion was not performed due to the bleed and to preserve treatment of the affected area. Low-grade internal hemorrhoids were noted. The patient tolerated the procedure well. IMPRESSION: Radiation proctitis with oozing blood noted in the rectum, successfully treated with argon plasma coagulation therapy. No active bleeding or old blood noted proximal to the radiation proctitis. Benign appearing sigmoid stricture likely related to underlying diverticular disease, traversed with a pediatric colonoscope. Diminutive descending colon polyp removed with cold forcep polypectomy. Low-grade internal hemorrhoids. RECOMMENDATIONS: Findings of this examination were discussed with the patient. Okay for full liquid diet. Okay to resume medications. Await pathology from polypectomy. No further endoscopic procedures plans at this time.
[2020-01-27] MEDS: TIMOLOL 0.5% OPHTH DROPS 5 ML BTL BOTH EYES SCH ×2 (15:53→21:17)
[2020-01-27 16:26] LABS: Glucose,Whole Blood 138 mg/dL (75-99)
--- NOTE | 2020-01-27 17:55 | P.PN ---
Progress Note - Text Progress Note Date: 01/27/20 Chief Complaint: Blood per rectum History of presenting complaint: 79-year-old patient of Dr. Morrow. Presented on December 18 to the hospital with abdominal pain.. Computed tomography scan of the abdomen showed multiple hepatic masses and what appeared to be metastatic disease in the pancreas and the spleen. Bone scan did show some lighting up in right femur. MRI of the brain did not show any metastatic disease. Patient on December 22 underwent biopsy of the right intra-abdominal mass. Did come back showing metastatic well- differentiated adenocarcinoma. Patient sometimes is forgetful. 2 weeks ago had his first dose of chemotherapy. And felt totally rundown. Poor appetite. He much lying down all the time. For about a week patient been having bleeding per rectum. Had an episode of getting dizzy and passing out. Went to see Dr. Ellison today. Who directed him to the ER. No fever no chills. Today-patient had significant bleeding again last night. Nothing by mouth today. Receive contrast to get a colonoscopy this afternoon. Review of systems: Was done for constitutional, cardiovascular, GI, pulmonary. relevant finding as above Active Medications Acetaminophen (Tylenol Tab) 650 mg PO Q6HR PRN PRN Reason: Mild Pain or Fever > 100.5 Hydrocodone Bitart/Acetaminophen (Fowler 7.5-325) 1 each PO Q6HR PRN PRN Reason: Pain Last Admin: 01/26/20 16:27 Dose: 1 each Documented by: Amlodipine Besylate (Norvasc) 10 mg PO DAILY@1900 [facility] Last Admin: 01/26/20 20:26 Dose: 10 mg Documented by: Folic Acid (Folic Acid) 1 mg PO HS@2200 [facility] Last Admin: 01/26/20 21:22 Dose: 1 mg Documented by: Lisinopril/HCTZ (Zestoretic 20-12.5) 1 each PO BID [facility] Last Admin: 01/27/20 08:57 Dose: 1 each Documented by: Sodium Chloride (Saline 0.9%) 1,000 mls @ 110 mls/hr IV .Q9H6M [facility] Last Admin: 01/27/20 15:49 Dose: 110 mls/hr Documented by: Lactated Ringer's (Lactated Ringers) 1,000 mls @ 20 mls/hr IV .Q24H [facility] Last Admin: 01/26/20 21:22 Dose: 20 mls/hr Documented by: Lactated Ringer's (Lactated Ringers) 1,000 mls @ 20 mls/hr IV .Q24H [facility] Last Admin: 01/27/20 00:23 Dose: Not Given Documented by: Insulin Aspart (Novolog) 0 unit SQ ACHS [facility]; Protocol Last Admin: 01/27/20 17:51 Dose: 1 unit Documented by: Latanoprost (Xalatan 0.005%) 1 drops BOTH EYES HS@2200 [facility] Last Admin: 01/26/20 21:23 Dose: 1 drops Documented by: Methotrexate (Methotrexate) 25 mg PO FR@1900 [facility] Metoprolol Tartrate (Lopressor) 50 mg PO BID@0800,1900 [facility] Last Admin: 01/27/20 08:57 Dose: 50 mg Documented by: Morphine Sulfate (Morphine Sulfate (Inj)) 4 mg IV Q4HR PRN PRN Reason: Severe Pain Naloxone HCl (Narcan) 0.2 mg IV Q2M PRN PRN Reason: Opioid Reversal Ondansetron HCl (Zofran) 4 mg IVP Q8HR PRN PRN Reason: Nausea And Vomiting Pantoprazole Sodium (Protonix) 40 mg IV DAILY [facility] Last Admin: 01/27/20 08:58 Dose: 40 mg Documented by: Timolol Maleate (Timoptic) 1 drops BOTH EYES BID@0800,2200 [facility] Last Admin: 01/27/20 15:53 Dose: 1 drops Documented by: On examination: VITAL SIGNS: 97.4, 62, 16, 134/63, 98% room air GENERAL APPEARANCE: Laying in bed, tired HEENT: Normal external appearance of nose and ear. Oral cavity normal EYES: Pupils equal. Conjunctiva pale NECK: JVD not raised. Mass not palpable. RESPIRATORY: Respiratory effort normal. Lungs clear to auscultation. CARDIOVASCULAR: First and second sounds normal. No edema. ABDOMEN: Soft. Some tenderness, abdominal mass palpable, no guarding or rigidity.. PSYCHIATRY: Alert and oriented x3. Mood and affect a bit anxious INVESTIGATIONS, reviewed in the clinical context: White count 3.8 hemoglobin 9.7 potassium 4.9 Previous labs: White count 5.2 hemoglobin 11.2 pro time 26.1 potassium 5 bun 62 creatinine 1.75 blood glucose 235 Hemoglobin on December 24 was 11 "and BUN/creatinine was 17/1.17 Assessment: -Intra-abdominal metastatic disease with liver masses, pancreatic masses and splenic masses. Well-differentiated metastatic adenocarcinoma. Status post 1 round of chemotherapy -Acute recurrent fresh bleeding-from radiation proctitis-treated with plasma -Acute blood loss anemia from GI bleed -Paroxysmal Atrial flutter on Coumadin. Given vitamin K in the ER -COPD -GERD -Hyperlipidemia -Essential hypertension -Obstructive sleep apnea -History of prostate cancer with treatment -Sigmoid diverticulosis -Acute kidney injury, likely prerenal-improving Plan: Patient later this afternoon underwent argon plasma quite additional radiation proctitis. Earlier did discuss with the patient. Follow H&H.
[2020-01-27] MEDS: amLODIPine 10 MG TAB PO SCH (19:44)
[2020-01-27 20:27] LABS: Glucose,Whole Blood 223 mg/dL (75-99)
[2020-01-27] MEDS: LATANOPROST 0.005% OPHTH DROPS 2.5 ML BTL BOTH EYES SCH (21:07)
[2020-01-27] MEDS: FOLIC ACID 1 MG TAB PO SCH (21:07)
[2020-01-28] MEDS: SODIUM CHLORIDE 0.9% 1,000 ML IV SCH (06:05)
[2020-01-28 06:08] LABS: Glucose,Whole Blood 143 mg/dL (75-99)
[2020-01-28 07:05] LABS: Anisocytosis Slight; HGB 10.1 gm/dL (13.0-17.5); MCH 31.2 pg (25.0-35.0); MCHC 32.6 g/dL (31.0-37.0); MCV 95.7 fL (80.0-100.0); Macrocytosis Slight; Mean Platelet Volume 9.3; Platelet Count 245 k/uL (150-450); RBC 3.24 m/uL (4.30-5.90); RDW 16.7 % (11.5-15.5); WBC 3.9 k/uL (3.8-10.6)
[2020-01-28 07:12] LABS: INR 1.1 (<1.2); Prothrombin Time 10.9 sec (9.0-12.0)
[2020-01-28 07:28] VITALS: RESP 16
[2020-01-28] MEDS: LISINOPRIL-HCTZ 20-12.5 MG 1 EACH TAB PO SCH (07:49)
[2020-01-28] MEDS: INSULIN ASPART (NovoLOG) 100 UNIT/ML VIAL SQ SCH ×2 (07:49→13:20)
[2020-01-28] MEDS: PANTOPRAZOLE 40 MG/10 ML VIAL IV SCH (07:49)
--- NOTE | 2020-01-28 10:33 | P.PN ---
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 Objective - Vital Signs Vital signs: Vital Signs Temp 98.2 F 01/28/20 07:26 Pulse 79 01/28/20 08:00 Resp 16 01/28/20 08:00 BP 145/66 01/28/20 07:26 Pulse Ox 98 01/28/20 07:26 Intake & Output 01/27/20 01/28/20 01/28/20 18:59 06:59 18:59 Intake Total 580 540 480 Output Total 400 Balance 580 140 480 Weight 77.6 kg Intake: IV 100 Oral 480 540 480 Output: Urine 400 Other: Voiding Method Toilet Toilet Toilet # Voids 2 4 1 # Bowel Movements 1 - Constitutional General appearance: Present: average body habitus, cooperative, no acute distress - EENT Eyes: Present: anicteric sclerae, EOMI ENT: Present: hearing grossly normal - Respiratory Respiratory: bilateral: CTA - Cardiovascular Heart sounds: normal: S1, S2 - Peripheral edema leg Peripheral Edema: bilateral: None - Gastrointestinal General gastrointestinal: Present: soft, tenderness Localized gastrointestinal: tender: epigastric periumbilical - Neurologic Neurologic: Present: CNII-XII intact - Musculoskeletal Musculoskeletal: Present: generalized weakness - Psychiatric Psychiatric: Present: A&O x's 3, appropriate affect, intact judgment & insight - Labs CBC & Chem 7: 01/28/20 06:31 01/27/20 06:26 Labs: Abnormal Lab Results - Last 24 Hours (Table) 01/27/20 01/27/20 01/27/20 Range/Units 11:34 16:25 20:26 RBC (4.30-5.90) m/uL Hgb (13.0-17.5) gm/dL Hct (39.0-53.0) % RDW (11.5-15.5) % POC Glucose (mg/dL) 134 H 138 H 223 H (75-99) mg/dL 01/28/20 01/28/20 Range/Units 06:06 06:31 RBC 3.24 L (4.30-5.90) m/uL Hgb 10.1 L (13.0-17.5) gm/dL Hct 31.0 L (39.0-53.0) % RDW 16.7 H (11.5-15.5) % POC Glucose (mg/dL) 143 H (75-99) mg/dL - Imaging and Cardiology procedure note reviewed Assessment and Plan (1) BRBPR (bright red blood per rectum) Narrative/Plan: Patient reports bowel movements with bright red blood, no BM since argon plasma procedure with Dr. Salas. Hemoglobin stable today at 10.1. Patient is in rachel with recovery in counts anticipated over the next several days. Coumadin has been held. Vitamin K was administered for GI bleeding. A source of bleeding was identified and was treated. Coumadin could be resumed with close monitoring. Will await Attending and consulting MD opinion's as to resuming Coumadin. Current Visit: Yes Status: Acute Priority: High Code(s): K62.5 - HEMORRHAGE OF ANUS AND RECTUM SNOMED Code(s): 34957270 (2) Anemia Narrative/Plan: Mild in relation to reported BRBPR. Recent chemotherapy is also contributing. Iron studies most consistent with anemia of inflammation, no iron at this time. Hgb is stable, no transfusion has been needed this admit. Current Visit: Yes Status: Acute Priority: Medium Code(s): D64.9 - ANEMIA, UNSPECIFIED SNOMED Code(s): 989073741 Plan: Discussed with pt procedure note. Coumadin may be resumed and he needs to monitor for any recurrent bleeding. Pt expressed that he is interested in continuing treatment after he has adequate recovery. This is reasonable. Treatment would be dose reduced. He verbalized understanding. He will have a f/u appt with a provider before resuming treatment
[2020-01-28 11:44] LABS: Glucose,Whole Blood 221 mg/dL (75-99)
[2020-01-28 12:12] VITALS: BP 130/62; PULSE 71; TEMP 98.3
[2020-01-28] MEDS: METOPROLOL TARTRATE 50 MG TAB PO SCH (13:20)
--- NOTE | 2020-01-28 22:57 | P.DS ---
Providers Date of admission: 01/27/20 13:20 Expected date of discharge: 01/28/20 Attending physician: Sekou Johnson Consults: 01/25/20 13:30 Consult Physician Urgent Consulting Provider: Zina Ramsey Consult Reason/Comments: gi bleed Do you want consulting provider notified?: Yes 01/25/20 21:27 Consult Physician Routine Consulting Provider: John Ellison Consult Reason/Comments: Metastatic disease Do you want consulting provider notified?: Yes Primary care physician: Jose [facility] Course: Chief Complaint: Blood per rectum History of presenting complaint: 79-year-old patient of Dr. Morrow. Presented on December 18 to the hospital with abdominal pain.. Computed tomography scan of the abdomen showed multiple hepatic masses and what appeared to be metastatic disease in the pancreas and the spleen. Bone scan did show some lighting up in right femur. MRI of the brain did not show any metastatic disease. Patient on December 22 underwent biopsy of the right intra-abdominal mass. Did come back showing metastatic well- differentiated adenocarcinoma. Patient sometimes is forgetful. 2 weeks ago had his first dose of chemotherapy. And felt totally rundown. Poor appetite. He much lying down all the time. For about a week patient been having bleeding per rectum. Had an episode of getting dizzy and passing out. Went to see Dr. Ellison today. Who directed him to the ER. No fever no chills. Patient underwent colonoscopy. 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 Argon plasma coag which was done. Today-care was discussed with the patient. No further bleeding. Tolerating a diet. Has been using his walker. Feels comfortable going home. Daughter will be checking on him. Coumadin will be resumed. Discussion and discharge planning more than 35 minutes Consultation: Dr. Ellison from oncology Dr. Graham from GI On examination: VITAL SIGNS: 98.3, 71, 16, 130 was 2, 98% room air GENERAL APPEARANCE: Laying in bed, tired HEENT: Normal external appearance of nose and ear. Oral cavity normal EYES: Pupils equal. Conjunctiva pale NECK: JVD not raised. Mass not palpable. RESPIRATORY: Respiratory effort normal. Lungs clear to auscultation. CARDIOVASCULAR: First and second sounds normal. No edema. ABDOMEN: Soft. No tenderness abdominal mass palpable, no guarding or rigidity.. PSYCHIATRY: Alert and oriented x3. Mood and affect a bit anxious INVESTIGATIONS, reviewed in the clinical context: Hemoglobin 10.1 Previous labs: White count 5.2 hemoglobin 11.2 pro time 26.1 potassium 5 bun 62 creatinine 1.75 blood glucose 235 Hemoglobin on December 24 was 11 "and BUN/creatinine was 17/.17 Assessment: -Intra-abdominal metastatic disease with liver masses, pancreatic masses and splenic masses. Well-differentiated metastatic adenocarcinoma. Status post 1 round of chemotherapy -Acute recurrent fresh bleeding-from radiation proctitis-treated with argon plasma coagulation, POA -Acute blood loss anemia from GI bleed, POA -Paroxysmal Atrial flutter on Coumadin. Given vitamin K in the ER -COPD -GERD -Hyperlipidemia -Essential hypertension -Obstructive sleep apnea -History of prostate cancer with treatment -Sigmoid diverticulosis -Acute kidney injury, likely prerenal-improving Disposition: Home CBC BMP-4 days Patient Condition at Discharge: Stable Plan - Discharge Summary Discharge Rx Participant: No New Discharge Prescriptions: Continue Pantoprazole [Protonix] 40 mg PO DAILY@0800 Timolol 0.5% Ophth Soln [Timoptic 0.5% Ophth Soln] 1 drop BOTH EYES BID@0800,2200 metFORMIN HCL [Glucophage] 500 mg PO BID@0800,1700 Methotrexate Sodium [Methotrexate] 25 mg PO FR@1900 Ferrous Sulfate [Iron (65 MG Elemental)] 325 mg PO DAILY@1200 Latanoprost/Pf [Latanoprost 0.005% Eye Drop] 1 drop BOTH EYES HS@2200 Repaglinide [Prandin] 1 mg PO TID Folic Acid 0.8 mg PO HS@2200 Warfarin Sodium [Jantoven] 2.5 mg PO DAILY@1900 Metoprolol Tartrate [Lopressor] 50 mg PO BID@0800,1900 Lisinopril-Hctz 20-12.5 mg [Zestoretic 20-12.5] 1 tab PO BID #60 tab amLODIPine [Norvasc] 10 mg PO DAILY@1900 Ondansetron [Zofran] 4 mg PO Q8HR PRN PRN Reason: Nausea Hydrocodone/Acetaminophen [Salina 7.5-325] 1 tab PO Q6HR PRN PRN Reason: Pain Discharge Medication List Pantoprazole [Protonix] 40 mg PO DAILY@0800 11/28/16 [History] Timolol 0.5% Ophth Soln [Timoptic 0.5% Ophth Soln] 1 drop BOTH EYES BID@0800,2200 03/11/17 [History] Ferrous Sulfate [Iron (65 MG Elemental)] 325 mg PO DAILY@1200 11/22/17 [History] Methotrexate Sodium [Methotrexate] 25 mg PO FR@189911/22/17 [History] metFORMIN HCL [Glucophage] 500 mg PO BID@0800,1700 11/22/17 [History] Folic Acid 0.8 mg PO HS@219912/19/19 [History] Latanoprost/Pf [Latanoprost 0.005% Eye Drop] 1 drop BOTH EYES HS@219912/19/19 [History] Metoprolol Tartrate [Lopressor] 50 mg PO BID@0800,189912/19/19 [History] Repaglinide [Prandin] 1 mg PO TID 12/19/19 [History] Warfarin Sodium [Jantoven] 2.5 mg PO DAILY@189912/19/19 [History] Lisinopril-Hctz 20-12.5 mg [Zestoretic 20-12.5] 1 tab PO BID #60 tab 12/25/19 [Rx] Hydrocodone/Acetaminophen [Salina 7.5-325] 1 tab PO Q6HR PRN 01/25/20 [History] Ondansetron [Zofran] 4 mg PO Q8HR PRN 01/25/20 [History] amLODIPine [Norvasc] 10 mg PO DAILY@189901/25/20 [History] Follow up Appointment(s)/Referral(s): Jose Morrow DO [Primary Care Provider] - 1-2 Days (Office to call to arrange for appointment) Carisa Snider ANPBC [Nurse Practitioner] - 02/04/20 9:15 am [facility], [NON-STAFF] - Patient Instructions/Handouts: Gastrointestinal Bleeding (GEN), Prostate Cancer (GEN) Activity/Diet/Wound Care/Special Instructions: cbc- saturday Discharge Disposition: HOME SELF-CARE
[2020-01-29] MEDS ORDERED: METHOTREXATE SODIUM 2.5 MG TAB PO SCH (19:00)
--- NOTE | 2020-02-02 11:50 | CDI ---
Documentation Clarification Form Date: 02/02/20 From: Taylor Ovalle Phone: If you have a question about this query, please contact Senia Cr, Batching Operator at [phone] between 8am and 5pm. Admit Date: 01/27/20 Discharge Date: 01/28/20 Patient Name: MORALES AL Visit Number: [id number] ATTENTION: The Clinical Documentation Specialists (CDI) and [facility] Coding Staff appreciate your assistance in clarifying documentation. Please respond to the clarification below the line at the bottom and electronically sign. The CDI & [facility] Coding staff will review the response and follow-up if needed. Please note: Queries are made part of the Legal Health Record. If you have any questions, please contact the author of this message via ITS. Dear Dr. Sekou Johnson, Atrial Flutter is documented in the ED note, H&P, both consults , PNs 01/25 & 01/26 and DS. History/Risk factors: intra-abdominal met disease w liver masses, pancreatic masses and splenic masses, s/p round one of chemo, acute recurrent bleeding from radiation proctitis, ABLA, EKG/telemetry: EKG-vent rate 66, MT interval 138, QRS 90, QT/QTc 370/387. Treatment: On Coumadin In your professional opinion, in order to capture the severity of condition; can you please clarify the type of Atrial Flutter if known? Typical/Type I Atypical/Type II Other, please specify Unable to determine Unable to determine MTDD
== END 2020-01-28 14:55 | disposition home health service (06) | DRG 394 ==
LOC: EC 11:46 → INTOOBSV 14:00 → 2SICU 14:00 → 3SCARD 15:51 → OBSVTOIN 01-27 13:20
PROVIDERS: ADMIT Hospitalist; ATTEND Hospitalist
PROC: 0DBM8ZX Excision of Descending Colon, Via Natural or Artificial Opening Endoscopic, Diagnostic (ICD-10-PCS; principal; 2020-01-27 12:25)
PROC: 0W3P8ZZ Control Bleeding in Gastrointestinal Tract, Via Natural or Artificial Opening Endoscopic (ICD-10-PCS; principal; 2020-01-27 12:25)
DX: K62.7 Radiation proctitis (principal); S22.32XA Fracture of one rib, left side, initial encounter for closed fracture; N17.9 Acute kidney failure, unspecified; C78.89 Secondary malignant neoplasm of other digestive organs; K56.699 Other intestinal obstruction unspecified as to partial versus complete obstruction; D62 Acute posthemorrhagic anemia; C25.9 Malignant neoplasm of pancreas, unspecified; C78.7 Secondary malignant neoplasm of liver and intrahepatic bile duct; K92.1 Melena; I48.92 Unspecified atrial flutter; M31.6 Other giant cell arteritis; E11.9 Type 2 diabetes mellitus without complications; J44.9 Chronic obstructive pulmonary disease, unspecified; I10 Essential (primary) hypertension; K64.8 Other hemorrhoids; K63.5 Polyp of colon; K57.30 Diverticulosis of large intestine without perforation or abscess without bleeding; Z20.828 Contact with and (suspected) exposure to other viral communicable diseases; I69.398 Other sequelae of cerebral infarction; I69.311 Memory deficit following cerebral infarction; H53.9 Unspecified visual disturbance; R40.2142 Coma scale, eyes open, spontaneous, at arrival to emergency department; R40.2362 Coma scale, best motor response, obeys commands, at arrival to emergency department; R40.2252 Coma scale, best verbal response, oriented, at arrival to emergency department; K21.9 Gastro-esophageal reflux disease without esophagitis; R29.6 Repeated falls; D64.89 Other specified anemias; E78.5 Hyperlipidemia, unspecified; R35.0 Frequency of micturition; G47.33 Obstructive sleep apnea (adult) (pediatric); Z79.84 Long term (current) use of oral hypoglycemic drugs; Z79.01 Long term (current) use of anticoagulants; Z79.899 Other long term (current) drug therapy; Z87.891 Personal history of nicotine dependence; Z85.46 Personal history of malignant neoplasm of prostate; Z92.3 Personal history of irradiation; Z90.89 Acquired absence of other organs; Z90.49 Acquired absence of other specified parts of digestive tract; Z87.19 Personal history of other diseases of the digestive system; Z98.890 Other specified postprocedural states; Z98.42 Cataract extraction status, left eye; Z98.41 Cataract extraction status, right eye; Z87.2 Personal history of diseases of the skin and subcutaneous tissue; Z88.6 Allergy status to analgesic agent; Y84.2 Radiological procedure and radiotherapy as the cause of abnormal reaction of the patient, or of later complication, without mention of misadventure at the time of the procedure; Z80.3 Family history of malignant neoplasm of breast; Z83.1 Family history of other infectious and parasitic diseases; Z82.3 Family history of stroke; Z80.9 Family history of malignant neoplasm, unspecified; Z82.49 Family history of ischemic heart disease and other diseases of the circulatory system
CPT/HCPCS: 36415; 45331; 45334; 71046; 80048; 80053; 82272; 82607; 82728; 82747; 83540; 83550; 83605; 83690; 83735; 84484; 85025; 85027; 85610; 85730; 86850; 86900; 86901; 88305; 93005; 96365; 96375; 99285

== ENCOUNTER 2020-03-03 11:55 | Inpatient (IN) | payer MEDICARE ==
--- NOTE | 2020-03-03 12:19 | ED ---
General Adult HPI - General Chief complaint: GI Bleed Stated complaint: rectal bleeding Time Seen by Provider: 03/03/20 12:04 Source: patient, RN notes reviewed, old records reviewed Mode of arrival: wheelchair Limitations: no limitations - History of Present Illness Initial comments: 79-year-old male presents for evaluation of rectal bleeding. Patient has had intermittent bleeding for the past 2 weeks. He's had previous issues with rectal bleeding in the past approximately one month ago which did require colonoscopy. He states he had blood work drawn yesterday and had a hemoglobin of 8.9. He is uncertain of his Coumadin level. He states he is on Coumadin with history of atrial fibrillation and previous CVA. He is currently on chemotherapy for stage for pancreatic cancer. He denies fever. He denies vomiting. He states he's had bright red rectal bleeding. No significant abdominal pain. He is lightheaded with some dyspnea. - Related Data Home Medications Medication Instructions Recorded Confirmed Pantoprazole [Protonix] 40 mg PO DAILY@0800 11/28/16 01/25/20 Timolol 0.5% Ophth Soln [Timoptic 1 drop BOTH EYES BID@0800,2200 03/11/17 01/25/20 0.5% Ophth Soln] Ferrous Sulfate [Iron (65 MG 325 mg PO DAILY@1200 11/22/17 01/25/20 Elemental)] metFORMIN HCL [Glucophage] 500 mg PO BID@0800,1700 11/22/17 01/25/20 metHOTREXate sodium [Methotrexate] 25 mg PO FR@189911/22/17 01/25/20 Folic Acid 0.8 mg PO HS@219912/19/19 01/25/20 Latanoprost/Pf [Latanoprost 0.005% 1 drop BOTH EYES HS@219912/19/19 01/25/20 Eye Drop] Metoprolol Tartrate [Lopressor] 50 mg PO BID@0800,189912/19/19 01/25/20 Repaglinide [Prandin] 1 mg PO TID 12/19/19 01/25/20 Warfarin Sodium [Jantoven] 2.5 mg PO DAILY@0 12/19/19 01/25/20 Hydrocodone/Acetaminophen [[place] 1 tab PO Q6HR PRN 01/25/20 01/25/20 7.5-325] Ondansetron [Zofran] 4 mg PO Q8HR PRN 01/25/20 01/25/20 amLODIPine [Norvasc] 10 mg PO DAILY@1900 01/25/20 01/25/20 Previous Rx's Medication Instructions Recorded Lisinopril-Hctz 20-12.5 mg 1 tab PO BID #60 tab 12/25/19 [Zestoretic 20-12.5] Allergies Allergy/AdvReac Type Severity Reaction Status Date / Time celecoxib [From Celebrex] AdvReac Severe GI BLEED Verified 03/03/20 12:03 aspirin AdvReac Intermediate STOMACH Verified 03/03/20 12:03 PROBLEMS Review of Systems ROS Statement: Those systems with pertinent positive or pertinent negative responses have been documented in the HPI. ROS Other: All systems not noted in ROS Statement are negative. Past Medical History Past Medical History: Atrial Flutter, Cancer, COPD, CVA/TIA, Diabetes Mellitus, Eye Disorder, GERD/Reflux, GI Bleed, Hyperlipidemia, Hypertension, Prostate Disorder, Renal Disease, Sleep Apnea/CPAP/BIPAP Additional Past Medical History / Comment(s): PROSTATE CA 2015, HX RADIATION X24 TX-Apr 2016. NO TX FOR SLEEP APNEA IN YEARS. hormone injections, biopsy 2015, 54 seed inplants jun 2016, radiation may 2016. freq urination. 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 RECENT BLOOD IN STOOL. History of Any Multi-Drug Resistant Organisms: None Reported Past Surgical History: Adenoidectomy, Appendectomy, Orthopedic Surgery, Tonsillectomy Additional Past Surgical History / Comment(s): EXC BACK CYSTS. EXC BILAT CATARACTS. BILAT SHOULDERS sx. ORIF RT FEMUR, 1 F/U SURGERY, THEN MANIPULATION. PROSTATE BRACHYTHERAPY/RADIOACTIVE SEED INPLANTS. TEMPORAL ARTERITIS PROCEDURE. Past Anesthesia/Blood Transfusion Reactions: No Reported Reaction Additional Past Anesthesia/Blood Transfusion Reaction / Comment(s): DENIES Past Psychological History: No Psychological Hx Reported Smoking Status: Never smoker Past Alcohol Use History: None Reported Past Drug Use History: None Reported - Past Family History Sister(s) Family Medical History: Cancer Additional Family Medical History / Comment(s): breast CA Father History Unknown: Yes Additional Family Medical History / Comment(s): " FROM [place] FLU IN THE Mother Family Medical History: Cancer, CVA/TIA Additional Family Medical History / Comment(s): "HEART PROBLEMS" General Exam Limitations: no limitations General appearance: alert, in no apparent distress Head exam: Present: atraumatic, normocephalic Eye exam: Present: normal appearance, PERRL ENT exam: Present: normal exam Neck exam: Present: normal inspection. Absent: tenderness, meningismus Respiratory exam: Present: normal lung sounds bilaterally. Absent: respiratory distress, wheezes Cardiovascular Exam: Present: regular rate, normal rhythm GI/Abdominal exam: Present: soft. Absent: distended, tenderness, guarding Rectal exam: Present: normal rectal tone, bloody stool. Absent: hemorrhoids Extremities exam: Present: normal inspection, normal capillary refill. Absent: pedal edema Back exam: Present: normal inspection, full ROM Neurological exam: Present: alert, oriented X3, CN II-XII intact. Absent: motor sensory deficit Psychiatric exam: Present: normal affect, normal mood Skin exam: Present: warm, pallor Course Vital Signs 03/03/20 03/03/20 03/03/20 12:00 12:16 12:30 Temperature 98.4 F Pulse Rate 81 75 Respiratory 20 18 Rate Blood Pressure 126/64 139/66 O2 Sat by Pulse 100 98 100 Oximetry 03/03/20 13:00 Temperature Pulse Rate 79 Respiratory 16 Rate Blood Pressure 126/55 O2 Sat by Pulse 99 Oximetry EKG Findings - EKG Comments: EKG Findings:: EKG: Normal sinus rhythm, rate of 75, OR interval 128, QRS duration 86, QTC 395, no ST segment elevation. Medical Decision Making - Medical Decision Making 79-year-old male with recurrent bright red rectal bleeding. Patient has been evaluated by gastroenterology in the past, has had multiple colonoscopies. He is on Coumadin with an INR of 3.8 today. His hemoglobin was 8.9 yesterday and is 9.0 today this is a 2 g loss compared to one month ago. His vital signs are stable. Patient will be admitted to Dr. Johnson with gastroenterology on consult. - Lab Data Result diagrams: 03/03/20 12:30 03/03/20 12:30 Lab Results 03/03/20 03/03/20 03/03/20 Range/Units 12:30 12:30 12:30 WBC 8.9 (3.8-10.6) k/uL RBC 2.88 L (4.30-5.90) m/uL Hgb 9.0 L D (13.0-17.5) gm/dL Hct 27.5 L (39.0-53.0) % MCV 95.5 (80.0-100.0) fL MCH 31.3 (25.0-35.0) pg MCHC 32.8 (31.0-37.0) g/dL RDW 17.7 H (11.5-15.5) % Plt Count 54 L D (150-450) k/uL Neutrophils % 83 % Lymphocytes % 12 % Monocytes % 1 % Eosinophils % 4 % Basophils % 0 % Neutrophils # 7.3 (1.3-7.7) k/uL Lymphocytes # 1.1 (1.0-4.8) k/uL Monocytes # 0.1 (0-1.0) k/uL Eosinophils # 0.4 (0-0.7) k/uL Basophils # 0.0 (0-0.2) k/uL Manual Slide Review Performed Anisocytosis Slight Macrocytosis Slight PT 37.7 H (9.0-12.0) sec INR 3.8 H (<1.2) APTT 40.0 H (22.0-30.0) sec Sodium 135 L (137-145) mmol/L Potassium 4.7 (3.5-5.1) mmol/L Chloride 103 (98-107) mmol/L Carbon Dioxide 22 (22-30) mmol/L Anion Gap 10 mmol/L BUN 39 H (9-20) mg/dL Creatinine 1.17 (0.66-1.25) mg/dL Est GFR (CKD-EPI)AfAm 69 (>60 ml/min/1.73 sqM) Est GFR (CKD-EPI)NonAf 60 (>60 ml/min/1.73 sqM) Glucose 355 H (74-99) mg/dL Calcium 8.9 (8.4-10.2) mg/dL Magnesium 1.7 (1.6-2.3) mg/dL Total Bilirubin 0.7 (0.2-1.3) mg/dL AST 112 H (17-59) U/L ALT 113 H (4-49) U/L Alkaline Phosphatase 148 H (38-126) U/L Total Protein 6.5 (6.3-8.2) g/dL Albumin 3.6 (3.5-5.0) g/dL Blood Type Blood Type Recheck Bld Type Recheck Status Antibody Screen Spec Expiration Date 03/03/20 Range/Units 12:30 WBC (3.8-10.6) k/uL RBC (4.30-5.90) m/uL Hgb (13.0-17.5) gm/dL Hct (39.0-53.0) % MCV (80.0-100.0) fL MCH (25.0-35.0) pg MCHC (31.0-37.0) g/dL RDW (11.5-15.5) % Plt Count (150-450) k/uL Neutrophils % % Lymphocytes % % Monocytes % % Eosinophils % % Basophils % % Neutrophils # (1.3-7.7) k/uL Lymphocytes # (1.0-4.8) k/uL Monocytes # (0-1.0) k/uL Eosinophils # (0-0.7) k/uL Basophils # (0-0.2) k/uL Manual Slide Review Anisocytosis Macrocytosis PT (9.0-12.0) sec INR (<1.2) APTT (22.0-30.0) sec Sodium (137-145) mmol/L Potassium (3.5-5.1) mmol/L Chloride (98-107) mmol/L Carbon Dioxide (22-30) mmol/L Anion Gap mmol/L BUN (9-20) mg/dL Creatinine (0.66-1.25) mg/dL Est GFR (CKD-EPI)AfAm (>60 ml/min/1.73 sqM) Est GFR (CKD-EPI)NonAf (>60 ml/min/1.73 sqM) Glucose (74-99) mg/dL Calcium (8.4-10.2) mg/dL Magnesium (1.6-2.3) mg/dL Total Bilirubin (0.2-1.3) mg/dL AST (17-59) U/L ALT (4-49) U/L Alkaline Phosphatase (38-126) U/L Total Protein (6.3-8.2) g/dL Albumin (3.5-5.0) g/dL Blood Type O Negative Blood Type Recheck O Neg Bld Type Recheck Status No Antibody Screen NEGATIVE Spec Expiration Date 03/06/2020 - 2329 Critical Care Time Critical Care Time: Yes Total Critical Care Time: 35 Disposition Clinical Impression: GI bleed, Anemia associated with acute blood loss Disposition: ADMITTED IP TO THIS [facility] Condition: Stable Is patient prescribed a controlled substance at d/c from ED?: No Referrals: Jose Morrow DO [Primary Care Provider] - 1-2 days Decision to Admit Reason: Admit from EC Decision Date: 03/03/20 Decision Time: 13:27
[2020-03-03 13:02] LABS: Anisocytosis Slight; Basophils % (A) 0 %; Eosinophils # (A) 0.4 k/uL (0-0.7); Eosinophils % (A) 4 %; HCT 27.5 % (39.0-53.0); Lymphocytes # (A) 1.1 k/uL (1.0-4.8); Lymphocytes % (A) 12 %; MCH 31.3 pg (25.0-35.0); MCHC 32.8 g/dL (31.0-37.0); MCV 95.5 fL (80.0-100.0); Macrocytosis Slight; Mean Platelet Volume 9.5; Monocytes # (A) 0.1 k/uL (0-1.0); Monocytes % (A) 1 %; Neutrophils # (A) 7.3 k/uL (1.3-7.7); Neutrophils % (A) 83 %; RBC 2.88 m/uL (4.30-5.90); RDW 17.7 % (11.5-15.5); WBC 8.9 k/uL (3.8-10.6)
[2020-03-03 13:03] LABS: INR 3.8 (<1.2); Prothrombin Time 37.7 sec (9.0-12.0)
[2020-03-03 13:12] LABS: Albumin 3.6 g/dL (3.5-5.0); Calcium 8.9 mg/dL (8.4-10.2); Magnesium 1.7 mg/dL (1.6-2.3); Potassium 4.7 mmol/L (3.5-5.1); Total Bilirubin 0.7 mg/dL (0.2-1.3); Total Protein 6.5 g/dL (6.3-8.2)
[2020-03-03] MEDS ORDERED: HYDROmorphone 0.5 MG/0.5 ML SYRINGE IVP PRN (13:20)
[2020-03-03] MEDS ORDERED: NALOXONE 0.4 MG/ML 1 ML VIAL IV PRN (13:20)
[2020-03-03 13:22] LABS: Platelet Count 54 k/uL (150-450)
[2020-03-03] MEDS ORDERED: PHYTONADIONE 5 MG in SODIUM CHLORIDE 0.9% 50 ML IVPB STA (13:26)
[2020-03-03] MEDS: SODIUM CHLORIDE 0.9% 1,000 ML IV SCH (13:35)
[2020-03-03] MEDS ORDERED: INSULIN REGULAR 100 UNIT/ML VIAL IV ONE (13:47)
[2020-03-03] MEDS ORDERED: PHYTONADIONE ORAL 5 MG/5 ML ORAL.SYRG PO STA (14:39)
[2020-03-03 16:46] LABS: Glucose,Whole Blood 270 mg/dL (75-99)
[2020-03-03] MEDS: PANTOPRAZOLE 40 MG/10 ML VIAL IV SCH (17:14)
[2020-03-03] MEDS: INSULIN ASPART (NovoLOG) 100 UNIT/ML VIAL SQ SCH ×2 (18:25→20:06)
[2020-03-03 18:55] LABS: Anisocytosis Slight; Basophils % (A) 0 %; Eosinophils # (A) 0.4 k/uL (0-0.7); Eosinophils % (A) 5 %; HCT 23.3 % (39.0-53.0); Lymphocytes # (A) 1.1 k/uL (1.0-4.8); Lymphocytes % (A) 13 %; MCH 30.8 pg (25.0-35.0); MCHC 32.3 g/dL (31.0-37.0); MCV 95.4 fL (80.0-100.0); Macrocytosis Slight; Mean Platelet Volume 10.1; Monocytes # (A) 0.1 k/uL (0-1.0); Monocytes % (A) 1 %; Neutrophils # (A) 6.5 k/uL (1.3-7.7); Neutrophils % (A) 80 %; RBC 2.45 m/uL (4.30-5.90); RDW 17.8 % (11.5-15.5); WBC 8.1 k/uL (3.8-10.6)
[2020-03-03 19:31] LABS: HGB 7.5 gm/dL (13.0-17.5)
[2020-03-03 19:32] LABS: Platelet Count 39 k/uL (150-450)
[2020-03-03 20:06] LABS: Glucose,Whole Blood 283 mg/dL (75-99)
--- NOTE | 2020-03-03 21:59 | CONS ---
CONSULTATION DATE OF DICTATION: March 03, 2020. REQUESTING PHYSICIAN: Dr. Morrow. REASON FOR CONSULTATION: Rectal bleeding. HISTORY OF PRESENT ILLNESS: The patient is a 79-year-old pleasant white male with history of radiation proctitis, admitted to the hospital because of rectal bleeding on and off for the last 2 weeks duration. The patient was just in the hospital 3 weeks ago at which time he was evaluated by Dr. Salas and he underwent a flexible sigmoidoscopy that showed radiation proctitis and he underwent argon plasma coagulation. The patient has history of atrial fibrillation and he has been on Coumadin. When he came to the emergency room, his hemoglobin is 8.9 g/dL. He denies any abdominal pain. He reports no nausea, vomiting. His last dose of Coumadin was yesterday evening. He has been having about 5-6 small bloody bowel movements every day. 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 Ellison following the patient closely. He is undergoing chemotherapy. History of diabetes mellitus, hypertension, hyperlipidemia, chronic kidney disease, sleep apnea, COPD. PAST SURGICAL HISTORY: Appendectomy, adenoidectomy, tonsillectomy, bilateral cataract surgery. Recent flexible sigmoidoscopy. Prostate cancer with radiation therapy and chemotherapy for possible pancreatic or biliary cancer. SOCIAL HISTORY: Remote history of smoking. No alcohol use. FAMILY HISTORY: Unremarkable. REVIEW OF SYSTEMS: CARDIOPULMONARY: No chest pain, no shortness of breath. : No dysuria or hematuria. MEDICATIONS: At home include methotrexate, Glucophage, Norvasc, timolol, Prandin, Protonix, Zofran, Lopressor, Zestoretic, [place], folic acid, and . ALLERGIES: TO ASPIRIN AND CELEBREX. PHYSICAL EXAMINATION: He appears comfortable. No apparent distress. Vital signs stable. Blood pressure is 138/61, pulse is 76, temperature 98.5. HEENT examination unremarkable. Conjunctivae pale. Sclerae anicteric. Oral cavity no lesions. NECK: No JVD or lymph node enlargement. CHEST was clear to auscultation. HEART: Regular rate and rhythm. ABDOMEN: Soft, was nontender, nondistended. Bowel sounds are positive. No organomegaly. NEURO: He is alert and oriented x3. No focal deficits. LABS: WBC 8.1, hemoglobin this morning was 9 and today it is 7.5, platelets 39,000. INR is 3.8. AST, ALT 112, 113 respectively, alkaline phosphatase 148, and T-bilirubin 0.7. IMPRESSION: 1. Acute lower gastrointestinal bleed for the last 2 weeks duration. The patient had multiple episodes of bright red blood per rectum. The patient flexible sigmoidoscopy [address] Salas showed evidence of radiation proctitis with multiple in the rectum for which he underwent argon plasma coagulation. Most likely the bleeding is related to radiation proctitis. 2. Metastatic pancreatic cancer diagnosed November of [address]-guided liver biopsy. Patient undergoing chemotherapy through Dr. Ellison. 3. Anemia and thrombocytopenia related to recent chemotherapy. 4. Atrial fibrillation on Coumadin, currently on hold. RECOMMENDATIONS: 1. Hold Coumadin. 2. Vitamin K 5 mg p.o. x1. 3. Repeat PT/INR in the morning. 4. If the INR is less than 1.5, we will plan on a flexible sigmoidoscopy with argon plasma coagulation. 5. Keep him on a clear liquid diet today and we will follow with you closely. Thank you for this consultation. MMODL / IJN: [id number] /
[2020-03-04 00:27] LABS: Anisocytosis Slight; HGB 7.4 gm/dL (13.0-17.5); MCH 30.5 pg (25.0-35.0); MCHC 32.1 g/dL (31.0-37.0); MCV 95.1 fL (80.0-100.0); Macrocytosis Slight; Mean Platelet Volume 11.1; RBC 2.42 m/uL (4.30-5.90); RDW 17.8 % (11.5-15.5); WBC 8.4 k/uL (3.8-10.6)
[2020-03-04 00:28] LABS: Platelet Count 29 k/uL (150-450)
[2020-03-04 05:51] LABS: Anisocytosis Slight; Basophils % (A) 0 %; Eosinophils # (A) 0.4 k/uL (0-0.7); Eosinophils % (A) 5 %; HCT 24.3 % (39.0-53.0); HGB 7.9 gm/dL (13.0-17.5); Lymphocytes # (A) 0.6 k/uL (1.0-4.8); Lymphocytes % (A) 7 %; MCH 31.3 pg (25.0-35.0); MCHC 32.5 g/dL (31.0-37.0); MCV 96.3 fL (80.0-100.0); Macrocytosis Slight; Mean Platelet Volume 10.7; Monocytes # (A) 0.1 k/uL (0-1.0); Monocytes % (A) 1 %; Neutrophils # (A) 7.4 k/uL (1.3-7.7); Neutrophils % (A) 87 %; RBC 2.52 m/uL (4.30-5.90); RDW 17.7 % (11.5-15.5); WBC 8.6 k/uL (3.8-10.6)
[2020-03-04 05:53] LABS: Platelet Count 28 k/uL (150-450)
[2020-03-04 06:00] LABS: INR 1.2 (<1.2); Prothrombin Time 12.2 sec (9.0-12.0)
[2020-03-04 06:17] LABS: Glucose,Whole Blood 265 mg/dL (75-99)
[2020-03-04] MEDS: INSULIN ASPART (NovoLOG) 100 UNIT/ML VIAL SQ SCH ×4 (06:29→20:58)
[2020-03-04] MEDS: PANTOPRAZOLE 40 MG/10 ML VIAL IV SCH (08:13)
[2020-03-04] MEDS ORDERED: MAGNESIUM CITRATE 296 ML BOTTLE PO ONE (08:20)
[2020-03-04] MEDS ORDERED: ONDANSETRON 4 MG TAB PO PRN (09:49)
[2020-03-04] MEDS: METOPROLOL TARTRATE 50 MG TAB PO SCH ×2 (10:15→20:51)
[2020-03-04 11:40] LABS: Glucose,Whole Blood 244 mg/dL (75-99)
[2020-03-04] MEDS ORDERED: LIDOCAINE 1% INJ 10MG/ML (20 ML MDV) ONE (14:39)
[2020-03-04] MEDS ORDERED: PROPOFOL 10 MG/ML 20 ML VIAL IV ONE (14:39)
[2020-03-04] MEDS ORDERED: IV FLUID CONTINUATION 1,000 ML IV ONE (14:40)
--- NOTE | 2020-03-04 14:59 | P.PCN ---
Date of Procedure: 03/04/20 Procedure(s) Performed: BRIEF HISTORY: Patient is a 79-year-old pleasant to 8 male admitted hospital with severe rectal bleeding for the last 2 weeks' duration. Has history of radiation induced proctitis diagnosed 3 weeks ago when he had an flexible sigmoidoscopy by Dr. Salas for rectal bleeding. He is on Coumadin for A. fib. He was admitted to the hospital yesterday with worsening rectal bleeding. His and scheduled for repeat flexible sigmoidoscopic argon plasma coagulation. PROCEDURE PERFOFMED : Flexible sigmoidoscopy with argon plasma coagulation PREOPERATIVE DIAGNOSIS: rectal bleeding of 2 weeks duration. IV sedation per Anesthesia. PROCEDURE: After informed consent was obtained, the patient, was brought into the endoscopy unit. IV sedation was administered by Anesthesia under continuous monitoring. Digital rectal examination was normal. Initially the Olympus CF-160 flexible video colonoscope was then inserted in the rectum, gradually advanced into the sigmoid colon. Careful examination was performed. Prep was very poor and there was solid stool noted in the proximal rectum and sigmoid colon. In the distal rectum there were multiple scattered telangiectasias with no active bleeding. noted consistent with active radiation proctitis.at this time argon plasma coagulation was performed Retroflexion was performed in the rectum and no lesions were seen. The patient tolerated the procedure well. IMPRESSION: Radiation proctitis with very few scattered telangiectasia just proximal to the dentate line which were coagulated with argon plasma. RECOMMENDATIONS: Findings of this examination were discussed with the patient . Resume Coumadin in 2 days. Advance diet as tolerated..
[2020-03-04] MEDS: TIMOLOL 0.5% OPHTH DROPS 5 ML BTL BOTH EYES SCH ×2 (16:36→21:40)
[2020-03-04 17:39] LABS: Glucose,Whole Blood 280 mg/dL (75-99)
[2020-03-04] MEDS ORDERED: metHOTREXate sodium 2.5 MG TAB PO SCH (19:00)
[2020-03-04 20:48] LABS: Glucose,Whole Blood 347 mg/dL (75-99)
[2020-03-04] MEDS: amLODIPine 10 MG TAB PO SCH (20:50)
[2020-03-04] MEDS: HYDROcodone/APAP 7.5-325MG 1 EACH TAB PO PRN (20:50)
[2020-03-04] MEDS: FOLIC ACID 1 MG TAB PO SCH (20:51)
[2020-03-04] MEDS: LISINOPRIL-HCTZ 20-12.5 MG 1 EACH TAB PO SCH (20:58)
--- NOTE | 2020-03-04 21:09 | P.HPIM ---
History of Present Illness H&P Date: 03/04/20 Chief Complaint: Rectal bleeding History of presenting complaint: 79-year-old patient of Dr. Morrow. Presented on December 18 to the hospital with abdominal pain.. Computed tomography scan of the abdomen showed multiple hepatic masses and what appeared to be metastatic disease in the pancreas and the spleen. Bone scan did show some lighting up in right femur. MRI of the br ain did not show any metastatic disease. Patient on December 22 underwent biopsy of the right intra-abdominal mass. Did come back showing metastatic well- differentiated adenocarcinoma. Today but it January 26 and discharge in January 27. Bleeding from rectum. 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 Argon plasma coagulation was carried out. Patient now presents with intermittent bleeding for last 10 days. Within without stool. Decreased appetite tired rundown. GI was consulted. No rectal pain. Patient been on Coumadin. INR was 3.5. Given vitamin K in the ER. Review of systems: GEN.: Weak tired, decreased appetite EYES: None HEENT: None NECK: None RESPIRATORY: None CARDIOVASCULAR: None GASTROINTESTINAL: As above GENITOURINARY: None MUSCULOSKELETAL: None LYMPHATICS: None HEMATOLOGICAL: None PSYCHIATRY: None NEUROLOGICAL: forgetful Past medical history to include: Well-differentiated metastatic adenocarcinoma on chemotherapy, paroxysmal atrial flutter, COPD, GERD, hyperlipidemia, hypertension, obstructive sleep apnea, history of prostate cancer with treatment, sigmoid diverticulosis. Stroke in 2017 affecting some vision and memory. Temporal arteritis. Radiation proctitis with low bleeding Social history: Lives alone. Smoked for 24 years to the age of 42. No alcohol. Since 1991. On examination: VITAL SIGNS: 98.4, 81, 20, 126/64, 100% room air GENERAL APPEARANCE: Laying in bed, tired HEENT: Normal external appearance of nose and ear. Oral cavity normal EYES: Pupils equal. Conjunctiva pale NECK: JVD not raised. Mass not palpable. RESPIRATORY: Respiratory effort normal. Lungs clear to auscultation. CARDIOVASCULAR: First and second sounds normal. No edema. ABDOMEN: Soft. Nontender, there was palpable, no mass palpable,.. PSYCHIATRY: Alert and oriented x3. Mood and affect a bit anxious INVESTIGATIONS, reviewed in the clinical context: White count 8.9 hemoglobin 9 repeat 7.4 platelets 54 INR 3.8 potassium 4.7 creatinine 1.17 glucose 355 Assessment: -Addiction lower GI bleed with recent admission the hospital found to have radiation proctitis treated with argon plasma coagulation -Intra-abdominal metastatic disease with liver masses, pancreatic masses and spl enic masses. Well-differentiated metastatic adenocarcinoma-on chemotherapy -Acute blood loss anemia from GI bleed -Paroxysmal Atrial-on Coumadin -COPD -GERD -Hyperlipidemia -Essential hypertension -Obstructive sleep apnea -History of prostate cancer with treatment -Sigmoid diverticulosis Plan: Patient did receive 5 mg vitamin K in the ER. GI was consulted. We will need argon plasma coagulation Care was discussed with the patient. Patient is made nothing by mouth. Follow H&H. Past Medical History Past Medical History: Atrial Flutter, Asthma, Blood Disorder, Cancer, COPD, CVA/TIA, Diabetes Mellitus, Eye Disorder, GERD/Reflux, GI Bleed, Hyperlipidemia, Hypertension, Prostate Disorder, Sleep Apnea/CPAP/BIPAP Additional Past Medical History / Comment(s): Pt recently admitted to [facility] on 01/27/20 with intra abdominal metastatic disease with liver/pancreatic/splenic masses/well differentiated adenocarcinoma tx with chemo/recurrent fresh rectal bleeding from radiation proctitis. Other hx: 2016 prostate cancer/bracheother apy/seed implants/radiation, frequent urination, temporal arteritis/giant cell diagnosed with CVA in 2017 with vision affected, NIDDM type II, Nunez's esophagus diagnosed many years ago, hiatal hernia, diverticular disesase, DARIANA-pt states he has not uses bipap in years. History of Any Multi-Drug Resistant Organisms: None Reported Past Surgical History: Adenoidectomy, Appendectomy, Orthopedic Surgery, Prostate Surgery, Tonsillectomy Additional Past Surgical History / Comment(s): EGDs, colonoscopies, prostate biopsy, prostate bracheotherapy/seeds, bilateral rotator cuff surgery, ORIF R femur (hardware in place) with second surgery where R hip bone graft donor then manipulation, cysts removed from back, temporal artery biopsy, bilateral cataract removals Past Anesthesia/Blood Transfusion Reactions: No Reported Reaction, Motion Sickness Additional Past Anesthesia/Blood Transfusion Reaction / Comment(s): DENIES Past Psychological History: No Psychological Hx Reported Additional Psychological History / Comment(s): PT LIVES ALONE IN A SINGLE LEVEL HOME THAT HAS 5 STEPS TO GET INTO HOME. PT IS INDEPENDANT. CURRENTLY RECEIVING HOME CARE THRU [facility]. HAS A WALKER AND GLUCOMETER. NO PETS. SERVED IN THE [employer]. 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 Smoking Status: Former smoker Past Alcohol Use History: None Reported Additional Past Alcohol Use History / Comment(s): Pt states he started smoking in the 1950s and quit in the 1970s. He states he has not drank alcohol sing 1991. Past Drug Use History: None Reported - Past Family History Sister(s) Family Medical History: Cancer Additional Family Medical History / Comment(s): breast CA Father History Unknown: Yes Additional Family Medical History / Comment(s): " FROM [place] FLU IN THE S Mother Family Medical History: Cancer, CVA/TIA Additional Family Medical History / Comment(s): "HEART PROBLEMS" Medications and Allergies Home Medications Medication Instructions Recorded Confirmed Type Pantoprazole [Protonix] 40 mg PO DAILY@0800 11/28/16 03/03/20 History Timolol 0.5% Ophth Soln [Timoptic 1 drop BOTH EYES BID@0800,0 03/11/17 03/03/20 History 0.5% Ophth Soln] Ferrous Sulfate [Iron (65 MG 325 mg PO DAILY@1200 11/22/17 03/03/20 History Elemental)] metFORMIN HCL [Glucophage] 500 mg PO BID@0800,1700 11/22/17 03/03/20 History metHOTREXate sodium [Methotrexate] 25 mg PO FR@189911/22/17 03/03/20 History Folic Acid 0.8 mg PO HS@219912/19/19 03/03/20 History Latanoprost/Pf [Latanoprost 0.005% 1 drop BOTH EYES HS@219912/19/19 03/03/20 History Eye Drop] Metoprolol Tartrate [Lopressor] 50 mg PO BID@0800,1900 12/19/19 03/03/20 History Repaglinide [Prandin] 1 mg PO TID 12/19/19 03/03/20 History Warfarin Sodium [Jantoven] 2.5 mg PO DAILY@189912/19/19 03/03/20 History Lisinopril-Hctz 20-12.5 mg 1 tab PO BID #60 tab 12/25/19 03/03/20 Rx [Zestoretic 20-12.5] Hydrocodone/Acetaminophen [Teague 1 tab PO Q6HR PRN 01/25/20 03/03/20 History 7.5-325] Ondansetron [Zofran] 4 mg PO Q8HR PRN 01/25/20 03/03/20 History amLODIPine [Norvasc] 10 mg PO DAILY@1900 01/25/20 03/03/20 History Allergies Allergy/AdvReac Type Severity Reaction Status Date / Time celecoxib [From Celebrex] AdvReac Severe GI BLEED Verified 03/03/20 13:46 aspirin AdvReac Intermediate STOMACH Verified 03/03/20 13:46 PROBLEMS Physical Exam Vitals: Vital Signs Temp Pulse Pulse Resp BP BP Pulse Ox 03/04/20 08:00 93 16 119/58 94 L 03/04/20 03:53 97.9 F 113 H 18 133/60 99 03/03/20 23:37 97.9 F 93 18 124/64 100 03/03/20 20:03 97.4 F L 81 18 133/78 100 03/03/20 16:00 76 16 138/61 100 03/03/20 14:32 98.3 F 74 16 125/78 98 03/03/20 13:00 79 16 126/55 99 03/03/20 12:30 75 18 139/66 100 03/03/20 12:16 98 03/03/20 12:00 98.4 F 81 20 126/64 100 Intake and Output 03/03/20 03/04/20 03/04/20 22:59 06:59 14:59 Intake Total 480 Output Total 200 Balance 280 Intake: Oral 480 Output: Urine 200 Other: Voiding Method Toilet Toilet # Voids 1 # Bowel Movements 1 2 Weight 77.8 kg Results CBC & Chem 7: 03/04/20 05:34 03/03/20 12:30 Labs: Abnormal Lab Results - Last 24 Hours (Table) 03/03/20 03/03/20 03/03/20 Range/Units 12:30 12:30 12:30 RBC 2.88 L (4.30-5.90) m/uL Hgb 9.0 L D (13.0-17.5) gm/dL Hct 27.5 L (39.0-53.0) % RDW 17.7 H (11.5-15.5) % Plt Count 54 L D (150-450) k/uL Lymphocytes # (1.0-4.8) k/uL PT 37.7 H (9.0-12.0) sec INR 3.8 H (<1.2) APTT 40.0 H (22.0-30.0) sec Sodium 135 L (137-145) mmol/L BUN 39 H (9-20) mg/dL Glucose 355 H (74-99) mg/dL POC Glucose (mg/dL) (75-99) mg/dL AST 112 H (17-59) U/L ALT 113 H (4-49) U/L Alkaline Phosphatase 148 H (38-126) U/L 03/03/20 03/03/20 03/03/20 Range/Units 16:44 18:33 20:04 RBC 2.45 L (4.30-5.90) m/uL Hgb 7.5 L D (13.0-17.5) gm/dL Hct 23.3 L (39.0-53.0) % RDW 17.8 H (11.5-15.5) % Plt Count 39 L (150-450) k/uL Lymphocytes # (1.0-4.8) k/uL PT (9.0-12.0) sec INR (<1.2) APTT (22.0-30.0) sec Sodium (137-145) mmol/L BUN (9-20) mg/dL Glucose (74-99) mg/dL POC Glucose (mg/dL) 270 H 283 H (75-99) mg/dL AST (17-59) U/L ALT (4-49) U/L Alkaline Phosphatase (38-126) U/L 03/04/20 03/04/20 03/04/20 Range/Units 00:09 05:34 05:34 RBC 2.42 L 2.52 L (4.30-5.90) m/uL Hgb 7.4 L 7.9 L (13.0-17.5) gm/dL Hct 23.0 L 24.3 L (39.0-53.0) % RDW 17.8 H 17.7 H (11.5-15.5) % Plt Count 29 L 28 L (150-450) k/uL Lymphocytes # 0.6 L (1.0-4.8) k/uL PT 12.2 H (9.0-12.0) sec INR 1.2 H (<1.2) APTT (22.0-30.0) sec Sodium (137-145) mmol/L BUN (9-20) mg/dL Glucose (74-99) mg/dL POC Glucose (mg/dL) (75-99) mg/dL AST (17-59) U/L ALT (4-49) U/L Alkaline Phosphatase (38-126) U/L 03/04/20 Range/Units 06:15 RBC (4.30-5.90) m/uL Hgb (13.0-17.5) gm/dL Hct (39.0-53.0) % RDW (11.5-15.5) % Plt Count (150-450) k/uL Lymphocytes # (1.0-4.8) k/uL PT (9.0-12.0) sec INR (<1.2) APTT (22.0-30.0) sec Sodium (137-145) mmol/L BUN (9-20) mg/dL Glucose (74-99) mg/dL POC Glucose (mg/dL) 265 H (75-99) mg/dL AST (17-59) U/L ALT (4-49) U/L Alkaline Phosphatase (38-126) U/L Thrombosis Risk Factor Assmnt - Choose All That Apply Any of the Below Risk Factors Present?: Yes Each Factor Represents 1 point: Abnormal pulmonary function (COPD) Other Risk Factors: Yes Each Risk Factor Represents 2 Points: Malignancy Each Risk Factor Represents 3 Points: Age 75 years or older Other congenital or acquired thrombophilia - If yes, enter type in comment: No Thrombosis Risk Factor Assessment Total Risk Factor Score: 6 Thrombosis Risk Factor Assessment Level: High Risk
[2020-03-04] MEDS: LATANOPROST 0.005% OPHTH DROPS 2.5 ML BTL BOTH EYES SCH (21:40)
[2020-03-04] MEDS: SODIUM CHLORIDE 0.9% 1,000 ML IV SCH (23:46)
[2020-03-05 06:13] LABS: Glucose,Whole Blood 242 mg/dL (75-99)
[2020-03-05] MEDS: INSULIN ASPART (NovoLOG) 100 UNIT/ML VIAL SQ SCH ×4 (06:29→20:53)
[2020-03-05] MEDS: PANTOPRAZOLE 40 MG/10 ML VIAL IV SCH (08:12)
[2020-03-05] MEDS: METOPROLOL TARTRATE 50 MG TAB PO SCH ×2 (08:12→18:09)
[2020-03-05] MEDS: LISINOPRIL-HCTZ 20-12.5 MG 1 EACH TAB PO SCH ×2 (08:14→20:53)
[2020-03-05] MEDS: TIMOLOL 0.5% OPHTH DROPS 5 ML BTL BOTH EYES SCH ×2 (09:41→20:52)
[2020-03-05 11:36] LABS: Glucose,Whole Blood 437 mg/dL (75-99)
[2020-03-05] MEDS: SODIUM CHLORIDE 0.9% 1,000 ML IV SCH (11:39)
[2020-03-05] MEDS ORDERED: INSULIN ASPART (NovoLOG) 100 UNIT/ML VIAL SQ ONE (11:52)
[2020-03-05] MEDS ORDERED: INSULIN REGULAR 100 UNIT/ML VIAL SQ ONE (11:53)
[2020-03-05] MEDS: metFORMIN 500 MG TAB PO SCH ×2 (11:59→17:34)
[2020-03-05] MEDS: REPAGLINIDE 1 MG TAB PO SCH ×2 (12:50→17:34)
[2020-03-05 17:18] LABS: Glucose,Whole Blood 126 mg/dL (75-99)
[2020-03-05] MEDS: HYDROcodone/APAP 7.5-325MG 1 EACH TAB PO PRN (17:36)
[2020-03-05 18:07] LABS: Glucose,Whole Blood 164 mg/dL (75-99)
[2020-03-05] MEDS: amLODIPine 10 MG TAB PO SCH (18:10)
[2020-03-05 20:15] LABS: Glucose,Whole Blood 238 mg/dL (75-99)
--- NOTE | 2020-03-05 20:46 | P.PN ---
Progress Note - Text Progress Note Date: 03/05/20 Chief Complaint: Rectal bleeding History of presenting complaint: 79-year-old patient of Dr. Morrow. Presented on December 18 to the hospital with abdominal pain.. Computed tomography scan of the abdomen showed multiple hepatic masses and what appeared to be metastatic disease in the pancreas and the spleen. Bone scan did show some lighting up in right femur. MRI of the brain did not show any metastatic disease. Patient on December 22 underwent biopsy of the right intra-abdominal mass. Did come back showing metastatic well- differentiated adenocarcinoma. Today but it January 26 and discharge in January 27. Bleeding from rectum. 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 Argon plasma coagulation was carried out. Patient now presents with intermittent bleeding for last 10 days. Within without stool. Decreased appetite tired rundown. GI was consulted. No rectal pain. Patient been on Coumadin. INR was 3.5. Given vitamin K in the ER. Patient again underwent argon plasma coagulation. Also found to have very few scattered telangiectasia.-By Dr. Annamarie Ramsey Today-has been up to the bathroom. No further bleeding. A bit tired. Patient eating his meals. Review of systems: Was done for constitutional, cardiovascular, GI, pulmonary. relevant finding as above Active Medications Hydrocodone Bitart/Acetaminophen (Jackson 7.5-325) 1 each PO Q6HR PRN PRN Reason: Pain Last Admin: 03/05/20 17:36 Dose: 1 each Documented by: Amlodipine Besylate (Norvasc) 10 mg PO DAILY@1900 [facility] Last Admin: 03/05/20 18:10 Dose: 10 mg Documented by: Folic Acid (Folic Acid) 1 mg PO HS@2200 [facility] Last Admin: 03/04/20 20:51 Dose: 1 mg Documented by: Lisinopril/HCTZ (Zestoretic 20-12.5) 1 each PO BID [facility] Last Admin: 03/05/20 08:14 Dose: 1 each Documented by: Hydromorphone HCl (Dilaudid) 0.5 mg IVP Q3HR PRN PRN Reason: Moderate Pain Sodium Chloride (Saline 0.9%) 1,000 mls @ 20 mls/hr IV .Q24H [facility] Last Admin: 03/05/20 11:39 Dose: 20 mls/hr Documented by: Insulin Aspart (Novolog) 0 unit SQ ACHS [facility]; Protocol Last Admin: 03/05/20 17:21 Dose: Not Given Documented by: Latanoprost (Xalatan 0.005%) 1 drops BOTH EYES HS@2200 [facility] Last Admin: 03/04/20 21:40 Dose: Not Given Documented by: Metformin HCl (Glucophage) 500 mg PO BID@0800,1700 [facility] Last Admin: 03/05/20 17:34 Dose: 500 mg Documented by: Methotrexate (Methotrexate) 25 mg PO FR@1900 [facility] Last Admin: 03/04/20 20:50 Dose: 25 mg Documented by: Metoprolol Tartrate (Lopressor) 50 mg PO BID@0800,1900 [facility] Last Admin: 03/05/20 18:09 Dose: 50 mg Documented by: Naloxone HCl (Narcan) 0.2 mg IV Q2M PRN PRN Reason: Opioid Reversal Ondansetron HCl (Zofran) 4 mg PO Q8HR PRN PRN Reason: Nausea Repaglinide (Prandin) 1 mg PO AC-TID [facility] Last Admin: 03/05/20 17:34 Dose: 1 mg Documented by: Timolol Maleate (Timoptic) 1 drops BOTH EYES BID@0800,2200 [facility] Last Admin: 03/05/20 09:41 Dose: 1 drops Documented by: On examination: VITAL SIGNS: 98.6, 84, 16, 127/70, 98% room air GENERAL APPEARANCE: Sitting up, bit tired HEENT: Normal external appearance of nose and ear. Oral cavity normal EYES: Pupils equal. Conjunctiva pale NECK: JVD not raised. Mass not palpable. RESPIRATORY: Respiratory effort normal. Lungs clear to auscultation. CARDIOVASCULAR: First and second sounds normal. No edema. ABDOMEN: Soft. Nontender, there was palpable, no mass palpable,.. PSYCHIATRY: Alert and oriented x3. Mood and affect a bit anxious INVESTIGATIONS, reviewed in the clinical context: White count 8.6; 7.9 platelets 28 Accu-Cheks 265, 244, 280 Previous testing White count 8.9 hemoglobin 9 repeat 7.4 platelets 54 INR 3.8 potassium 4.7 creatinine 1.17 glucose 355 Assessment: -If he couldn't lower GI bleed with recent admission the hospital found to have radiation proctitis treated with argon plasma coagulation-underwent same treatment this time to -Intra-abdominal metastatic disease with liver masses, pancreatic masses and splenic masses. Well-differentiated metastatic adenocarcinoma-on chemotherapy -Acute blood loss anemia from GI bleed -Paroxysmal Atrial fibrillation-on Coumadin -COPD -GERD -Hyperlipidemia -Essential hypertension -Obstructive sleep apnea -History of prostate cancer with treatment -Sigmoid diverticulosis -Thrombocytopenia from chemotherapy Plan: Discussed with the patient. Encouraged to ambulate. Repeat CBC in the morning.
[2020-03-05] MEDS: LATANOPROST 0.005% OPHTH DROPS 2.5 ML BTL BOTH EYES SCH (20:52)
[2020-03-05] MEDS: FOLIC ACID 1 MG TAB PO SCH (20:53)
[2020-03-06 06:08] LABS: Glucose,Whole Blood 233 mg/dL (75-99)
[2020-03-06] MEDS: INSULIN ASPART (NovoLOG) 100 UNIT/ML VIAL SQ SCH ×4 (06:24→22:38)
[2020-03-06] MEDS: REPAGLINIDE 1 MG TAB PO SCH ×3 (06:24→22:17)
[2020-03-06 07:23] LABS: Anisocytosis Slight; HCT 22.3 % (39.0-53.0); HGB 7.2 gm/dL (13.0-17.5); MCH 31.4 pg (25.0-35.0); MCHC 32.5 g/dL (31.0-37.0); MCV 96.6 fL (80.0-100.0); Macrocytosis Slight; Mean Platelet Volume 10.3; RBC 2.31 m/uL (4.30-5.90); RDW 17.9 % (11.5-15.5); WBC 3.8 k/uL (3.8-10.6)
[2020-03-06 08:02] LABS: Platelet Count 18 k/uL (150-450)
[2020-03-06] MEDS: LISINOPRIL-HCTZ 20-12.5 MG 1 EACH TAB PO SCH (08:49)
[2020-03-06] MEDS: TIMOLOL 0.5% OPHTH DROPS 5 ML BTL BOTH EYES SCH ×2 (08:49→22:40)
[2020-03-06] MEDS: METOPROLOL TARTRATE 50 MG TAB PO SCH (08:49)
[2020-03-06] MEDS: metFORMIN 500 MG TAB PO SCH ×2 (08:49→22:16)
[2020-03-06 11:36] LABS: Glucose,Whole Blood 295 mg/dL (75-99)
--- NOTE | 2020-03-06 12:18 | P.CONS ---
History of Present Illness - Reason for Consult Consult date: 03/04/20 Pancreatic Cancer on chemo Requesting physician: Sekou Johnson - Chief Complaint Bleeding from rectum - History of Present Illness Mr Duvall is a pleasant white male, initially seen in consult at [facility] on 12/21/19. He has multiple medical issues including a prior history of prostate cancer treated with radiation. The patient had presented with abdominal pain that was generalized with some localization to the left lower quadrant as well as the upper abdomen, that had started about 2 weeks ago, and had been progressive since. During initial work-up for current diagnosis a CT of the abdomen and pelvis done, which showed at least 7 hepatic lesions with peripheral enhancement suspicious for metastasis with the largest 2.5 cm in the inferior right hepatic lobe. There are multiple lesions of the pancreatic tail) prostatic body with apparent direct the lesion measuring 3.6 cm and the pancreatic body mass measuring 2.4 cm. There are multiple splenic masses measuring up to 5.2 cm highly suspicious for metastasis. There was also a right renal mass measuring 2.5 cm. There are prominent lymph nodes adjacent to the ascending colon, as well as evidence of peritoneal deposits. CT of the chest as well as bone scan did not show any definite evidence of metastasis. There was some multifocal abnormal uptake in the right femur, and the patient appeared to have prior right knee arthroplasty. The patient also had MRI of the brain that was negative for metastasis. He had a CT-guided biopsy on 12/23/19 and was then discharged with pain control, on [place]. He was seen for his first office visit on 12/30/19. Biopsy came back positive for metastatic poorly differentiated adenocarcinoma, consistent with upper GI or pancreatobiliary primary. Notably his CA 19-9 in patient had been greater than 70,000. On 01/19/20-He presented to office for an acute visit. He was status post his first cycle of chemotherapy for his new diagnosis of metastatic pancreatic cancer. Gemsar and Abraxane was initiated on 01/12/20 the patient did decide on active treatment and started gemcitabine and Abraxane on 01/12/20. After the first cycle he had multiple side effects. Therefore chemotherapy was held. At his office visit on 01/25/20 he stated that he had been having bleeding per rectum on a regular basis over the past 4-5 days at least. He had continued taking warfarin had not informed us or his PCP of this. He also refused to go to the ER when this was suggested by his family. A few days later he was referred to the ER and subsequently admitted. Hemoglobin showed overall only a mild drop. He underwent a sigmoidoscopy with argon coagulation of multiple telangiectasias in the rectum consistent with radiation proctitis. Prior colonoscopy in 2018 had shown similar features. After discharge chemo was held for a couple weeks until he felt stronger to continue, and he is now status post Cycle 2, Day 8 as of 03/01/20 He presents this time for complaints of bleeding from rectum, GI evaluated and found to have radiation proctitis. Argon plasma coagulation was carried out. His Hemoglobin 7.2 today. Review of Systems A 14 point review of systems assessed and completed and all negative except HPI Past Medical History Past Medical History: Atrial Flutter, Asthma, Blood Disorder, Cancer, COPD, CVA/TIA, Diabetes Mellitus, Eye Disorder, GERD/Reflux, GI Bleed, Hyperlipidemia, Hypertension, Prostate Disorder, Sleep Apnea/CPAP/BIPAP Additional Past Medical History / Comment(s): Pt recently admitted to [facility] on 01/27/20 with intra abdominal metastatic disease with liver/pancreatic/splenic masses/well differentiated adenocarcinoma tx with chemo/recurrent fresh rectal bleeding from radiation proctitis. 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 History of Any Multi-Drug Resistant Organisms: None Reported Past Surgical History: Adenoidectomy, Appendectomy, Orthopedic Surgery, Prostate Surgery, Tonsillectomy Additional Past Surgical History / Comment(s): EGDs, colonoscopies, prostate biopsy, prostate bracheotherapy/seeds, bilateral rotator cuff surgery, ORIF R femur (hardware in place) with second surgery where R hip bone graft donor then manipulation, cysts removed from back, temporal artery biopsy, bilateral cataract removals Past Anesthesia/Blood Transfusion Reactions: No Reported Reaction, Motion Sickness Additional Past Anesthesia/Blood Transfusion Reaction / Comm: DENIES Past Psychological History: No Psychological Hx Reported Additional Psychological History / Comment(s): PT LIVES ALONE IN A SINGLE LEVEL HOME THAT HAS 5 STEPS TO GET INTO HOME. PT IS INDEPENDANT. CURRENTLY RECEIVING HOME CARE THRU [facility]. HAS A WALKER AND GLUCOMETER. NO PETS. SERVED IN THE [employer]. 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 Smoking Status: Former smoker Past Alcohol Use History: None Reported Additional Past Alcohol Use History / Comment(s): Pt states he started smoking in the 1950s and quit in the . He states he has not drank alcohol sing 1991. Past Drug Use History: None Reported - Past Family History Sister(s) Family Medical History: Cancer Additional Family Medical History / Comment(s): breast CA Father History Unknown: Yes Additional Family Medical History / Comment(s): " FROM [place] FLU IN THE S Mother Family Medical History: Cancer, CVA/TIA Additional Family Medical History / Comment(s): "HEART PROBLEMS" Medications and Allergies Home Medications Medication Instructions Recorded Confirmed Type Pantoprazole [Protonix] 40 mg PO DAILY@0800 11/28/16 03/03/20 History Timolol 0.5% Ophth Soln [Timoptic 1 drop BOTH EYES BID@0800,0 03/11/17 03/03/20 History 0.5% Ophth Soln] Ferrous Sulfate [Iron (65 MG 325 mg PO DAILY@1200 11/22/17 03/03/20 History Elemental)] metFORMIN HCL [Glucophage] 500 mg PO BID@0800,1700 11/22/17 03/03/20 History metHOTREXate sodium [Methotrexate] 25 mg PO FR@189911/22/17 03/03/20 History Folic Acid 0.8 mg PO HS@219912/19/19 03/03/20 History Latanoprost/Pf [Latanoprost 0.005% 1 drop BOTH EYES HS@219912/19/19 03/03/20 History Eye Drop] Metoprolol Tartrate [Lopressor] 50 mg PO BID@0800,189912/19/19 03/03/20 History Repaglinide [Prandin] 1 mg PO TID 12/19/19 03/03/20 History Warfarin Sodium [Jantoven] 2.5 mg PO DAILY@189912/19/19 03/03/20 History Lisinopril-Hctz 20-12.5 mg 1 tab PO BID #60 tab 12/25/19 03/03/20 Rx [Zestoretic 20-12.5] Hydrocodone/Acetaminophen [[place] 1 tab PO Q6HR PRN 01/25/20 03/03/20 History 7.5-325] Ondansetron [Zofran] 4 mg PO Q8HR PRN 01/25/20 03/03/20 History amLODIPine [Norvasc] 10 mg PO DAILY@1900 01/25/20 03/03/20 History Allergies Allergy/AdvReac Type Severity Reaction Status Date / Time celecoxib [From Celebrex] AdvReac Severe GI BLEED Verified 03/03/20 13:46 aspirin AdvReac Intermediate STOMACH Verified 03/03/20 13:46 PROBLEMS Physical Exam Vitals: Vital Signs Temp Pulse Pulse Resp BP BP Pulse Ox 03/04/20 08:00 93 16 119/58 94 L 03/04/20 03:53 97.9 F 113 H 18 133/60 99 03/03/20 23:37 97.9 F 93 18 124/64 100 03/03/20 20:03 97.4 F L 81 18 133/78 100 03/03/20 16:00 76 16 138/61 100 03/03/20 14:32 98.3 F 74 16 125/78 98 03/03/20 13:00 79 16 126/55 99 Intake and Output 03/03/20 03/04/20 03/04/20 22:59 06:59 14:59 Intake Total 480 Output Total 200 Balance 280 Intake: Oral 480 Output: Urine 200 Other: Voiding Method Toilet Toilet Toilet # Voids 1 # Bowel Movements 1 2 Weight 77.8 kg - Constitutional General appearance: cooperative, no acute distress - EENT Eyes: PERRLA ENT: NA/AT, normal oropharynx - Neck Neck: normal ROM - Respiratory Respiratory: bilateral: CTA - Cardiovascular Rhythm: irregularly irregular Heart sounds: normal: S1, S2 - Gastrointestinal General gastrointestinal: normal bowel sounds, soft, tenderness - Integumentary Integumentary: pale - Neurologic non focal - Musculoskeletal Musculoskeletal: generalized weakness - Psychiatric Psychiatric: A&O x's 3 Results CBC & Chem 7: 03/07/20 Unknown 03/07/20 Unknown Labs: Abnormal Lab Results - Last 24 Hours (Table) 03/03/20 03/03/20 03/03/20 Range/Units 12:30 12:30 12:30 RBC 2.88 L (4.30-5.90) m/uL Hgb 9.0 L D (13.0-17.5) gm/dL Hct 27.5 L (39.0-53.0) % RDW 17.7 H (11.5-15.5) % Plt Count 54 L D (150-450) k/uL Lymphocytes # (1.0-4.8) k/uL PT 37.7 H (9.0-12.0) sec INR 3.8 H (<1.2) APTT 40.0 H (22.0-30.0) sec Sodium 135 L (137-145) mmol/L BUN 39 H (9-20) mg/dL Glucose 355 H (74-99) mg/dL POC Glucose (mg/dL) (75-99) mg/dL AST 112 H (17-59) U/L ALT 113 H (4-49) U/L Alkaline Phosphatase 148 H (38-126) U/L 03/03/20 03/03/20 03/03/20 Range/Units 16:44 18:33 20:04 RBC 2.45 L (4.30-5.90) m/uL Hgb 7.5 L D (13.0-17.5) gm/dL Hct 23.3 L (39.0-53.0) % RDW 17.8 H (11.5-15.5) % Plt Count 39 L (150-450) k/uL Lymphocytes # (1.0-4.8) k/uL PT (9.0-12.0) sec INR (<1.2) APTT (22.0-30.0) sec Sodium (137-145) mmol/L BUN (9-20) mg/dL Glucose (74-99) mg/dL POC Glucose (mg/dL) 270 H 283 H (75-99) mg/dL AST (17-59) U/L ALT (4-49) U/L Alkaline Phosphatase (38-126) U/L 03/04/20 03/04/20 03/04/20 Range/Units 00:09 05:34 05:34 RBC 2.42 L 2.52 L (4.30-5.90) m/uL Hgb 7.4 L 7.9 L (13.0-17.5) gm/dL Hct 23.0 L 24.3 L (39.0-53.0) % RDW 17.8 H 17.7 H (11.5-15.5) % Plt Count 29 L 28 L (150-450) k/uL Lymphocytes # 0.6 L (1.0-4.8) k/uL PT 12.2 H (9.0-12.0) sec INR 1.2 H (<1.2) APTT (22.0-30.0) sec Sodium (137-145) mmol/L BUN (9-20) mg/dL Glucose (74-99) mg/dL POC Glucose (mg/dL) (75-99) mg/dL AST (17-59) U/L ALT (4-49) U/L Alkaline Phosphatase (38-126) U/L 03/04/20 03/04/20 Range/Units 06:15 11:34 RBC (4.30-5.90) m/uL Hgb (13.0-17.5) gm/dL Hct (39.0-53.0) % RDW (11.5-15.5) % Plt Count (150-450) k/uL Lymphocytes # (1.0-4.8) k/uL PT (9.0-12.0) sec INR (<1.2) APTT (22.0-30.0) sec Sodium (137-145) mmol/L BUN (9-20) mg/dL Glucose (74-99) mg/dL POC Glucose (mg/dL) 265 H 244 H (75-99) mg/dL AST (17-59) U/L ALT (4-49) U/L Alkaline Phosphatase (38-126) U/L Assessment and Plan (1) Anemia associated with acute blood loss Current Visit: Yes Status: Acute Code(s): D62 - ACUTE POSTHEMORRHAGIC ANEMIA SNOMED Code(s): 717929938 (2) Pancreatic adenocarcinoma Current Visit: Yes Status: Acute Code(s): C25.9 - MALIGNANT NEOPLASM OF P ANCREAS, UNSPECIFIED SNOMED Code(s): 089560857 (3) History of prostate cancer Current Visit: Yes Status: Acute Code(s): Z85.46 - PERSONAL HISTORY OF MALIGNANT NEOPLASM OF PROSTATE SNOMED Code(s): 899819232 (4) Radiation proctitis Current Visit: Yes Status: Acute Code(s): K62.7 - RADIATION PROCTITIS SNOMED Code(s): 954457309 Plan: Assessment and PLan: 1. Normocytic Anemia: - Secondary to Acute Blood Loss and Sarabjit of chemotherapy - Check Iron Studies and transfusion support less than 7 2. Bleeding from Rectum: - Status post GI procedure for radiation procititis 3. Pancreatic Cancer: - Status POst Abraxane and Gemsar on 03/01/20 4. Increased LFTS: - Recheck today 5. THrombocytopenia: - Hold Warfarin and all other Anticoagualtion until greater than 50K, if still bleeding transfuse Platlets less than 50K. - Monitor Daily CBC 6. Shortness of Breath: - Chest Xray Today 7. P. Atrial Fibbrilation: - Continue to hold Warfarin until platelets recover PLan: - Recheck Coags, LFTs, anemia panel - Check Chest Xray for SOB - Patient looks pale and chronically ill - Mild temperature increase today (still afebrile) but monitor closely - Transfusion support - COntinue to hold AC therapy with platelets less than 50K
[2020-03-06 12:32] LABS: ALT 94 U/L (4-49); AST 40 U/L (17-59); African American GFR (CKD) 67 (>60 ml/min/1.73 sqM); Alkaline Phosphatase 98 U/L (38-126); Anion Gap 7 mmol/L; Blood Urea Nitrogen 35 mg/dL (9-20); Calcium 8.4 mg/dL (8.4-10.2); Carbon Dioxide 25 mmol/L (22-30); Chloride 101 mmol/L (98-107); Glucose 260 mg/dL (74-99); LDH 577 U/L (313-618); Non-African American GFR(CKD) 58 (>60 ml/min/1.73 sqM); Potassium 4.6 mmol/L (3.5-5.1); Sodium 133 mmol/L (137-145); Total Bilirubin 0.3 mg/dL (0.2-1.3); Total Protein 5.6 g/dL (6.3-8.2)
[2020-03-06 12:35] LABS: Reticulocyte % 0.6 % (0.5-2.0)
[2020-03-06 12:38] LABS: INR 1.1 (<1.2); Prothrombin Time 11.3 sec (9.0-12.0)
--- NOTE | 2020-03-06 13:15 | XR ---
EXAMINATION TYPE: XR chest 2V DATE OF EXAM: 03/06/2020 CLINICAL HISTORY: Shortness of breath TECHNIQUE: Frontal and lateral views of the chest are obtained. COMPARISON: Chest radiograph 01/25/2020 FINDINGS: The cardiomediastinal silhouette is within normal limits for size. Pulmonary vasculature i s normal. There is no focal air space opacity, pleural effusion, or pneumothorax seen. The osseous st ructures are intact. IMPRESSION: No acute cardiopulmonary process.
[2020-03-06] MEDS ORDERED: NITROGLYCERIN SL TABS 0.4 MG TAB SUBLINGUAL ONE (13:22)
[2020-03-06] MEDS ORDERED: NITROGLYCERIN SL TABS 0.4 MG TAB SUBLINGUAL PRN ×3 (13:23→18:58)
[2020-03-06] MEDS ORDERED: ASPIRIN 325 MG TAB PO STA (13:24)
[2020-03-06] MEDS ORDERED: ATORVASTATIN 80 MG TAB PO STA (13:24)
[2020-03-06 13:28] LABS: Anisocytosis Slight; HCT 22.9 % (39.0-53.0); HGB 7.2 gm/dL (13.0-17.5); MCH 30.3 pg (25.0-35.0); MCHC 31.5 g/dL (31.0-37.0); MCV 96.3 fL (80.0-100.0); Macrocytosis Slight; RBC 2.38 m/uL (4.30-5.90); RDW 17.7 % (11.5-15.5); WBC 3.4 k/uL (3.8-10.6)
[2020-03-06 13:37] LABS: Platelet Count 20 k/uL (150-450)
--- NOTE | 2020-03-06 13:43 | P.CNPUL ---
History of Present Illness Consult date: 03/06/20 Reason for consult: chest pain History of present illness: 79-year-old male patient who came developed an acute chest pain hypotension with abnormal EKG changes suggestive an acute ST segment elevation myocardial infarction. The patient was about to get discharged home and he developed chest pain and he got transferred to the intensive care unit. At time of arrival his systolic blood pressure was in the mid 80s. His cardiac rhythm is sinus and the mid 70s. He is having active pressure over the anterior chest area. He looks a bit diaphoretic and pale. He is known to have metastatic pancreatic cancer that was recently diagnosed. The patient was found to have a pancreatic mass with metastases to his liver. He had also multiple splenic masses measuring up to 5.2 cm in size. He also had a renal mass measuring 2.5 cm in size in addition to prominent lymph nodes sedation adjacent to the ascending colon. There was also evidence of peritoneal deposits. The patient decided to proceed with systemic chemotherapy. Following his first cycle of systemic chemo in December 2019, the patient developed side effects and the chemotherapy had to be held because he was admitted to the hospital because of rectal bleeding. At that time he was also noted the correlation with warfarin. He was admitted and he was given a sigmoidoscopy and he was treated with argon plasma coagulation with multiple telangiectasias were found in the rectal area. 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 In any rate, the patient was discharged and he was given a second session of systemic chemotherapy and February 2020. He was readmitted for complaints of rectal bleeding. GI evaluated this patient. Argon plasma was carried out by Dr. Garza where the patient underwent a flexible sigmoidoscopy and he was found again to have radiation proctitis and few scattered telangiectasias. There is related to systemic chemotherapy. The patient has a white cell count of 3.8 with hemoglobin 7.2 and the plated count of 18 this morning. His chest x-ray at time of admission showed no acute cardio pulmonary abnormalities. Review of Systems Constitutional: Reports fatigue, Reports lethargy, Reports poor appetite, Reports weight loss Eyes: denies as per HPI, denies blurred vision, denies bulging eye, denies decreased vision, denies diplopia, denies discharge, denies dry eye, denies irritation, denies itching, denies pain, denies photophobia, denies loss of peripheral vision, denies loss of vision, denies tunnel vision/blind spots Ears: deny: decreased hearing, ear discharge, earache, tinnitus Ears, nose, mouth and throat: Reports as per HPI Cardiovascular: Reports chest pain, Reports decreased exercise tolerance, Reports dyspnea on exertion Respiratory: Reports dyspnea Gastrointestinal: Reports as per HPI Genitourinary: Reports as per HPI Musculoskeletal: Reports as per HPI Musculoskeletal: right: ankle pain, absent: ankle stiffness, ankle swelling, as per HPI, elbow pain, elbow stiffness, elbow swelling, foot pain, foot stiffness, foot swelling, hand pain, hand stiffness, hand swelling, hip pain, hip stiffness, hip swelling, knee pain, knee stiffness, knee swelling, shoulder pain, shoulder stiffness, shoulder swelling, wrist pain, wrist stiffness, wrist swelling Integumentary: Reports as per HPI Neurological: Reports as per HPI Psychiatric: Reports as per HPI Endocrine: Reports as per HPI Hematologic/Lymphatic: Reports as per HPI Allergic/Immunologic: Reports as per HPI Past Medical History Past Medical History: Atrial Flutter, Asthma, Blood Disorder, Cancer, COPD, CVA/TIA, Diabetes Mellitus, Eye Disorder, GERD/Reflux, GI Bleed, Hyperlipidemia, Hypertension, Prostate Disorder, Sleep Apnea/CPAP/BIPAP Additional Past Medical History / Comment(s): Metastatic prostate cancer as the patient has been found to have abdominal metastatic disease with liver/pancreat ic/splenic masses/well differentiated adenocarcinoma tx with chemo/recurrent fresh rectal bleeding from radiation proctitis. 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 History of Any Multi-Drug Resistant Organisms: None Reported Past Surgical History: Adenoidectomy, Appendectomy, Orthopedic Surgery, Prostate Surgery, Tonsillectomy Additional Past Surgical History / Comment(s): EGDs, colonoscopies, prostate biopsy, prostate bracheotherapy/seeds, bilateral rotator cuff surgery, ORIF R femur (hardware in place) with second surgery where R hip bone graft donor then manipulation, cysts removed from back, temporal artery biopsy, bilateral cataract removals Past Anesthesia/Blood Transfusion Reactions: No Reported Reaction, Motion Sickness Additional Past Anesthesia/Blood Transfusion Reaction / Comment(s): DENIES Past Psychological History: No Psychological Hx Reported Additional Psychological History / Comment(s): PT LIVES ALONE IN A SINGLE LEVEL HOME THAT HAS 5 STEPS TO GET INTO HOME. PT IS INDEPENDANT. CURRENTLY RECEIVING HOME CARE THRU [facility]. HAS A WALKER AND GLUCOMETER. NO PETS. SERVED IN THE [place]. HAS HELD JOBS WORKING IN [employer], S[employer] AT [employer] AND [employer]. Smoking Status: Former smoker Past Alcohol Use History: None Reported Additional Past Alcohol Use History / Comment(s): Pt states he started smoking in the 1950s and quit in the . He states he has not drank alcohol sing 1991. Past Drug Use History: None Reported - Past Family History Sister(s) Family Medical History: Cancer Additional Family Medical History / Comment(s): breast CA Father History Unknown: Yes Additional Family Medical History / Comment(s): " FROM [place] FLU IN THE Mother Family Medical History: Cancer, CVA/TIA Additional Family Medical History / Comment(s): "HEART PROBLEMS" Medications and Allergies Home Medications Medication Instructions Recorded Confirmed Type Pantoprazole [Protonix] 40 mg PO DAILY@0800 11/28/16 03/03/20 History Timolol 0.5% Ophth Soln [Timoptic 1 drop BOTH EYES BID@0800,219903/11/17 03/03/20 History 0.5% Ophth Soln] Ferrous Sulfate [Iron (65 MG 325 mg PO DAILY@1200 11/22/17 03/03/20 History Elemental)] metFORMIN HCL [Glucophage] 500 mg PO BID@0800,1700 11/22/17 03/03/20 History metHOTREXate sodium [Methotrexate] 25 mg PO FR@189911/22/17 03/03/20 History Folic Acid 0.8 mg PO HS@219912/19/19 03/03/20 History Latanoprost/Pf [Latanoprost 0.005% 1 drop BOTH EYES HS@219912/19/19 03/03/20 History Eye Drop] Metoprolol Tartrate [Lopressor] 50 mg PO BID@0800,1900 12/19/19 03/03/20 History Repaglinide [Prandin] 1 mg PO TID 12/19/19 03/03/20 History Warfarin Sodium [Jantoven] 2.5 mg PO DAILY@1900 12/19/19 03/03/20 History Lisinopril-Hctz 20-12.5 mg 1 tab PO BID #60 tab 12/25/19 03/03/20 Rx [Zestoretic 20-12.5] Hydrocodone/Acetaminophen [Dearing 1 tab PO Q6HR PRN 01/25/20 03/03/20 History 7.5-325] Ondansetron [Zofran] 4 mg PO Q8HR PRN 01/25/20 03/03/20 History amLODIPine [Norvasc] 10 mg PO DAILY@189901/25/20 03/03/20 History Allergies Allergy/AdvReac Type Severity Reaction Status Date / Time celecoxib [From Celebrex] AdvReac Severe GI BLEED Verified 03/03/20 13:46 aspirin AdvReac Intermediate STOMACH Verified 03/03/20 13:46 PROBLEMS Physical Exam Vitals: Vital Signs Temp Pulse Resp BP Pulse Ox 03/06/20 12:00 98.3 F 87 16 164/67 98 03/06/20 08:00 99.4 F 89 16 117/56 97 03/06/20 04:13 97.5 F L 86 18 132/57 97 03/06/20 00:47 98.3 F 89 18 130/60 98 03/05/20 20:04 98.2 F 92 18 133/57 98 03/05/20 15:28 98.6 F 84 16 127/70 98 Intake and Output 03/05/20 03/06/20 03/06/20 22:59 06:59 14:59 Intake Total 240 236 Balance 240 236 Intake: Oral 240 236 Other: Voiding Method Toilet Toilet # Voids 3 1 # Bowel Movements 2 Weight 74.2 kg The patient is apprehensive, anxious, complaining of chest pain. He looks pale. Mild respiratory distress. Head exam was generally normal. There was no scleral icterus or corneal arcus. Mucous membranes were moist. Neck was supple and without jugular venous distension, thyromegaly, or carotid bruits. Carotids were easily palpable bilaterally. There was no adenopathy. Cardiac exam revealed the PMI to be normally situated and sized. The rhythm was regular and no extrasystoles were noted during several minutes of auscultation. The first and second heart sounds were normal and physiologic splitting of the second heart sound was noted. There were no murmurs, rubs, clicks, or gallops. Lungs were clear to auscultation and percussion, and with normal diaphragmatic excursion. No wheezes or rales were noted. Abdominal exam revealed normal bowel sounds. The abdomen was soft, non-tender, and without masses, organomegaly, or appreciable enlargement of the abdominal aorta. Examination of the extremities revealed easily palpable radial, femoral and pedal pulses. There was no cyanosis, clubbing or edema. Examination of the skin revealed no evidence of significant rashes, suspicious appearing nevi or other concerning lesions. Neurologically, the patient is awake and alert and the patient does not have any focal neurological deficit. Cranial nerves are essentially intact. Results - Laboratory Findings CBC and BMP: 03/06/20 12:06 03/06/20 12:06 ABG WBC 3.8 k/uL (3.8-10.6) 03/06/20 05:47 RBC 2.31 m/uL (4.30-5.90) L 03/06/20 05:47 Hgb 7.2 gm/dL (13.0-17.5) L 03/06/20 05:47 Hct 22.3 % (39.0-53.0) L 03/06/20 05:47 MCV 96.6 fL (80.0-100.0) 03/06/20 05:47 MCH 31.4 pg (25.0-35.0) 03/06/20 05:47 MCHC 32.5 g/dL (31.0-37.0) 03/06/20 05:47 RDW 17.9 % (11.5-15.5) H 03/06/20 05:47 Plt Count 18 k/uL (150-450) L* 03/06/20 05:47 Neutrophils % 87 % 03/04/20 05:34 Lymphocytes % 7 % 03/04/20 05:34 Monocytes % 1 % 03/04/20 05:34 Eosinophils % 5 % 03/04/20 05:34 Basophils % 0 % 03/04/20 05:34 Neutrophils # 7.4 k/uL (1.3-7.7) 03/04/20 05:34 Lymphocytes # 0.6 k/uL (1.0-4.8) L 03/04/20 05:34 Monocytes # 0.1 k/uL (0-1.0) 03/04/20 05:34 Eosinophils # 0.4 k/uL (0-0.7) 03/04/20 05:34 Basophils # 0.0 k/uL (0-0.2) 03/04/20 05:34 Manual Slide Review Performed 03/03/20 12:30 Anisocytosis Slight 03/06/20 05:47 Macrocytosis Slight 03/06/20 05:47 Retic Count 0.6 % (0.5-2.0) 03/06/20 12:06 PT 11.3 sec (9.0-12.0) 03/06/20 12:06 INR 1.1 (<1.2) 03/06/20 12:06 APTT 40.0 sec (22.0-30.0) H 03/03/20 12:30 Sodium 133 mmol/L (137-145) L 03/06/20 12:06 Potassium 4.6 mmol/L (3.5-5.1) 03/06/20 12:06 Chloride 101 mmol/L (98-107) 03/06/20 12:06 Carbon Dioxide 25 mmol/L (22-30) 03/06/20 12:06 Anion Gap 7 mmol/L 03/06/20 12:06 BUN 35 mg/dL (9-20) H 03/06/20 12:06 Creatinine 1.21 mg/dL (0.66-1.25) 03/06/20 12:06 Est GFR (CKD-EPI)AfAm 67 (>60 ml/min/1.73 sqM) 03/06/20 12:06 Est GFR (CKD-EPI)NonAf 58 (>60 ml/min/1.73 sqM) 03/06/20 12:06 Glucose 260 mg/dL (74-99) H 03/06/20 12:06 POC Glucose (mg/dL) 295 mg/dL (75-99) H 03/06/20 11:35 POC Glu [employer] Lines Person ID Head, Samantha 03/06/20 11:35 Calcium 8.4 mg/dL (8.4-10.2) 03/06/20 12:06 Magnesium 2.0 mg/dL (1.6-2.3) 03/06/20 12:06 Total Bilirubin 0.3 mg/dL (0.2-1.3) 03/06/20 12:06 AST 40 U/L (17-59) 03/06/20 12:06 ALT 94 U/L (4-49) H 03/06/20 12:06 Alkaline Phosphatase 98 U/L (38-126) 03/06/20 12:06 Lactate Dehydrogenase 577 U/L (313-618) 03/06/20 12:06 Total Protein 5.6 g/dL (6.3-8.2) L 03/06/20 12:06 Albumin 3.0 g/dL (3.5-5.0) L 03/06/20 12:06 PT/INR, D-dimer PT 11.3 sec (9.0-12.0) 03/06/20 12:06 INR 1.1 (<1.2) 03/06/20 12:06 Abnormal lab findings: Abnormal Labs 03/03/20 03/03/20 03/03/20 12:30 12:30 12:30 RBC 2.88 L Hgb 9.0 L D Hct 27.5 L RDW 17.7 H Plt Count 54 L D Lymphocytes # PT 37.7 H INR 3.8 H APTT 40.0 H Sodium 135 L BUN 39 H Glucose 355 H POC Glucose (mg/dL) AST 112 H ALT 113 H Alkaline Phosphatase 148 H Total Protein Albumin 03/03/20 03/03/20 03/03/20 16:44 18:33 20:04 RBC 2.45 L Hgb 7.5 L D Hct 23.3 L RDW 17.8 H Plt Count 39 L Lymphocytes # PT INR APTT Sodium BUN Glucose POC Glucose (mg/dL) 270 H 283 H AST ALT Alkaline Phosphatase Total Protein Albumin 03/04/20 03/04/20 03/04/20 00:09 05:34 05:34 RBC 2.42 L 2.52 L Hgb 7.4 L 7.9 L Hct 23.0 L 24.3 L RDW 17.8 H 17.7 H Plt Count 29 L 28 L Lymphocytes # 0.6 L PT 12.2 H INR 1.2 H APTT Sodium BUN Glucose POC Glucose (mg/dL) AST ALT Alkaline Phosphatase Total Protein Albumin 03/04/20 03/04/20 03/04/20 06:15 11:34 17:19 RBC Hgb Hct RDW Plt Count Lymphocytes # PT INR APTT Sodium BUN Glucose POC Glucose (mg/dL) 265 H 244 H 280 H AST ALT Alkaline Phosphatase Total Protein Albumin 03/04/20 03/05/20 03/05/20 20:46 06:11 11:35 RBC Hgb Hct RDW Plt Count Lymphocytes # PT INR APTT Sodium BUN Glucose POC Glucose (mg/dL) 347 H 242 H 437 H AST ALT Alkaline Phosphatase Total Protein Albumin 03/05/20 03/05/20 03/05/20 17:16 18:06 20:13 RBC Hgb Hct RDW Plt Count Lymphocytes # PT INR APTT Sodium BUN Glucose POC Glucose (mg/dL) 126 H 164 H 238 H AST ALT Alkaline Phosphatase Total Protein Albumin 03/06/20 03/06/20 03/06/20 05:47 06:06 11:35 RBC 2.31 L Hgb 7.2 L Hct 22.3 L RDW 17.9 H Plt Count 18 L* Lymphocytes # PT INR APTT Sodium BUN Glucose POC Glucose (mg/dL) 233 H 295 H AST ALT Alkaline Phosphatase Total Protein Albumin 03/06/20 12:06 RBC Hgb Hct RDW Plt Count Lymphocytes # PT INR APTT Sodium 133 L BUN 35 H Glucose 260 H POC Glucose (mg/dL) AST ALT 94 H Alkaline Phosphatase Total Protein 5.6 L Albumin 3.0 L - Diagnostic Findings Chest x-ray: image reviewed Assessment and Plan Plan: 1 acute chest pain most consistent with an acute ST segment elevation myocardial infarction. EKG abnormalities involving the anterior and the inferior leads. Currently is still having active chest pain, and he is borderline hypotensive with a systolic blood pressure in the mid 80s. He is receiving IV fluids. Unable to give any antiplatelet agents or heparin and the patient does not seem to be a candidate for acute intervention based on his underlying medical problems, and acetic acid and hematologic abnormalities. 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, post 2 sessions of systemic chemotherapy with Gemzar and Abraxane 4 pancytopenia 5 History of prostate cancer treated by brachytherapy and radiation To give by development of radiation prostatitis 6 episodic lower GI bleed related to radiation proctitis and the patient has received sigmoidoscopy and argon plasma treatments 7 diverticular disease 8 hiatal hernia 9 history of temporal arthritis with CVA back in 2017 10 obstructive sleep apnea not utilizing CPAP therapy Plan Patient transferred to the intensive care unit IV fluids another liter bolus will be given and we'll start pressors were norepinephrine. Once the blood pressure stabilizes, may consider some nitroglycerin and low-dose beta blockers. Echocardiogram We'll consult cardiology in regards for further advice regarding acute STEMI. In my opinion, the patient on a candidate for acute intervention. Not a candidate for cardiac catheterization and opacity stenting or thrombolytic the rapy. His plated count is 18,000 and he was just treated for GI bleeding and the patient may obviously get into bleeding complications if any intervention is considered. We will consider beta blockers, nitrates and other medical treatment once the patient's blood pressure stabilizes. Stat chest x-ray Cardiac enzymes Cardiology consultation prognosis based on his metastatic cancer and ongoing cardiovascular complications We'll continue to follow
[2020-03-06 13:46] LABS: Glucose,Whole Blood 240 mg/dL (75-99)
[2020-03-06 13:46] LABS: Glucose,Whole Blood 302 mg/dL (75-99)
[2020-03-06] MEDS ORDERED: MORPHINE SULFATE 2 MG/ML SYRINGE IVP PRN (13:53)
[2020-03-06] MEDS ORDERED: ONDANSETRON 4 MG TAB PO PRN (13:56)
[2020-03-06] MEDS ORDERED: NITROGLYCERIN-D5W PMX 50 MG in DEXTROSE/WATER 1 250ML.BAG IV SCH (14:00)
[2020-03-06] MEDS: SODIUM CHLORIDE 0.9% 1,000 ML in EMPTY BAG 1 BAG IV ONE ×2 (14:46→22:39)
--- NOTE | 2020-03-06 14:47 | P.CRDCN ---
History of Present Illness Consult date: 03/06/20 Chief complaint: Chest discomfort History of present illness: This is a pleasant 79-year-old gentleman with a past medical history significant for paroxysmal atrial fibrillation, the patient was on oral anticoagulation was Coumadin, diabetes, hypertension, dyslipidemia, who I was asked to see in the intensive care unit for further evaluation of chest discomfort associated with his abnormal EKG concerning for acute anterior ST patient myocardial infarction. The patient was about to leave the hospital and discharged home today when he developed chest discomfort appears to be substernal associated with diaphoresis. An EKG was performed and showed an acute anterior ST elevation myocardial infarction with reciprocal changes. The decision was made toward to treat the patient medically. The patient overall is very ill with severe thrombocytopenia related to recent chemotherapy and also anemia related to GI bleeding. The patient just was diagnosed with primary pancreatic cancer with metastasis to the liver. He also was found to have multiple splenic masses believed to be metastasis as well as. The patient also was diagnosed recently with rectal bleeding secondary to proctitis which believed related to radiation therapy. His platelet earlier today was 20,000. His hemoglobin was 7.2. Giving the above we decided to pursue with a conservative medical approach and not taking the patient to the cardiac odd job laborer. Unfortunately we can't give the patient any antiplatelet at this point in view of the recent GI bleeding. I am going to start the patient on IV nitroglycerin. He is hemodynamically stable. Also I am going to stop the lisinopril as well as amlodipine and start the patient on metoprolol. Beside that we'll keep the patient on morphine when necessary for chest pain. Hold any antiplatelet or any anticoagulation at this point. Will obtain an echocardiogram was Doppler and will follow-up also on the serial c ardiac enzymes. This plan was discussed with the patient as well as with his family. Beside that and in view of the margin a low hemoglobin I am going to transfuse the patient one unit of packed RBC. Past Medical History Past Medical History: Atrial Flutter, Asthma, Blood Disorder, Cancer, COPD, CVA/TIA, Diabetes Mellitus, Eye Disorder, GERD/Reflux, GI Bleed, Hyperlipidemia, Hypertension, Prostate Disorder, Sleep Apnea/CPAP/BIPAP Additional Past Medical History / Comment(s): Metastatic prostate cancer as the patient has been found to have abdominal metastatic disease with liver/pancreatic/splenic masses/well differentiated adenocarcinoma tx with chemo/recurrent fresh rectal bleeding from radiation proctitis. 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 History of Any Multi-Drug Resistant Organisms: None Reported Past Surgical History: Adenoidectomy, Appendectomy, Orthopedic Surgery, Prostate Surgery, Tonsillectomy Additional Past Surgical History / Comment(s): EGDs, colonoscopies, prostate biopsy, prostate bracheotherapy/seeds, bilateral rotator cuff surgery, ORIF R f emur (hardware in place) with second surgery where R hip bone graft donor then manipulation, cysts removed from back, temporal artery biopsy, bilateral cataract removals Past Anesthesia/Blood Transfusion Reactions: No Reported Reaction, Motion Sickness Additional Past Anesthesia/Blood Transfusion Reaction / Comment(s): DENIES Past Psychological History: No Psychological Hx Reported Additional Psychological History / Comment(s): PT LIVES ALONE IN A SINGLE LEVEL HOME THAT HAS 5 STEPS TO GET INTO HOME. PT IS INDEPENDANT. CURRENTLY RECEIVING HOME CARE THRU [facility]. HAS A WALKER AND GLUCOMETER. NO PETS. SERVED IN THE [employer]. 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 Smoking Status: Former smoker Past Alcohol Use History: None Reported Additional Past Alcohol Use History / Comment(s): Pt states he started smoking in the 1950s and quit in the 1970s. He states he has not drank alcohol sing 1991. Past Drug Use History: None Reported - Past Family History Sister(s) Family Medical History: Cancer Additional Family Medical History / Comment(s): breast CA Father History Unknown: Yes Additional Family Medical History / Comment(s): " FROM [place] FLU IN THE S Mother Family Medical History: Cancer, CVA/TIA Additional Family Medical History / Comment(s): "HEART PROBLEMS" Medications and Allergies Home Medications Medication Instructions Recorded Confirmed Type Pantoprazole [Protonix] 40 mg PO DAILY@0800 11/28/16 03/03/20 History Timolol 0.5% Ophth Soln [Timoptic 1 drop BOTH EYES BID@0800,2200 03/11/17 03/03/20 History 0.5% Ophth Soln] Ferrous Sulfate [Iron (65 MG 325 mg PO DAILY@1200 11/22/17 03/03/20 History Elemental)] metFORMIN HCL [Glucophage] 500 mg PO BID@0800,1700 11/22/17 03/03/20 History metHOTREXate sodium [Methotrexate] 25 mg PO FR@189911/22/17 03/03/20 History Folic Acid 0.8 mg PO HS@219912/19/19 03/03/20 History Latanoprost/Pf [Latanoprost 0.005% 1 drop BOTH EYES HS@219912/19/19 03/03/20 History Eye Drop] Metoprolol Tartrate [Lopressor] 50 mg PO BID@0800,189912/19/19 03/03/20 History Repaglinide [Prandin] 1 mg PO TID 12/19/19 03/03/20 History Warfarin Sodium [Jantoven] 2.5 mg PO DAILY@189912/19/19 03/03/20 History Lisinopril-Hctz 20-12.5 mg 1 tab PO BID #60 tab 12/25/19 03/03/20 Rx [Zestoretic 20-12.5] Hydrocodone/Acetaminophen [[place] 1 tab PO Q6HR PRN 01/25/20 03/03/20 History 7.5-325] Ondansetron [Zofran] 4 mg PO Q8HR PRN 01/25/20 03/03/20 History amLODIPine [Norvasc] 10 mg PO DAILY@189901/25/20 03/03/20 History Allergies Allergy/AdvReac Type Severity Reaction Status Date / Time celecoxib [From Celebrex] AdvReac Severe GI BLEED Verified 03/03/20 13:46 aspirin AdvReac Intermediate STOMACH Verified 03/03/20 13:46 PROBLEMS Physical Exam Vitals: Vital Signs Temp Pulse Resp BP Pulse Ox 03/06/20 12:00 98.3 F 87 16 164/67 98 03/06/20 08:00 99.4 F 89 16 117/56 97 03/06/20 04:13 97.5 F L 86 18 132/57 97 03/06/20 00:47 98.3 F 89 18 130/60 98 03/05/20 20:04 98.2 F 92 18 133/57 98 03/05/20 15:28 98.6 F 84 16 127/70 98 Intake and Output 03/05/20 03/06/20 03/06/20 22:59 06:59 14:59 Intake Total 240 236 Balance 240 236 Intake: Oral 240 236 Other: Voiding Method Toilet Toilet # Voids 3 1 # Bowel Movements 2 Weight 74.2 kg - Constitutional General appearance: no acute distress - Respiratory Respiratory: bilateral: CTA - Cardiovascular Rhythm: regular Heart sounds: normal: S1, S2 Results 03/06/20 12:06 03/06/20 12:06 Cardiac Enzymes 03/06/20 03/06/20 Range/Units 12:06 12:09 AST 40 (17-59) U/L Lactate Dehydrogenase 577 (313-618) U/L Troponin I 0.065 H* (0.000-0.034) ng/mL Coagulation 03/06/20 Range/Units 12:06 PT 11.3 (9.0-12.0) sec APTT 23.0 (22.0-30.0) sec CBC 03/06/20 03/06/20 Range/Units 05:47 12:06 WBC 3.8 3.4 L (3.8-10.6) k/uL RBC 2.31 L 2.38 L (4.30-5.90) m/uL Hgb 7.2 L 7.2 L (13.0-17.5) gm/dL Hct 22.3 L 22.9 L (39.0-53.0) % Plt Count 18 L* 20 L (150-450) k/uL Comprehensive Metabolic Panel 03/06/20 Range/Units 12:06 Sodium 133 L (137-145) mmol/L Potassium 4.6 (3.5-5.1) mmol/L Chloride 101 (98-107) mmol/L Carbon Dioxide 25 (22-30) mmol/L BUN 35 H (9-20) mg/dL Creatinine 1.21 (0.66-1.25) mg/dL Glucose 260 H (74-99) mg/dL Calcium 8.4 (8.4-10.2) mg/dL AST 40 (17-59) U/L ALT 94 H (4-49) U/L Alkaline Phosphatase 98 (38-126) U/L Total Protein 5.6 L (6.3-8.2) g/dL Albumin 3.0 L (3.5-5.0) g/dL Current Medications Generic Name Dose Route Start Last Admin Trade Name Freq PRN Reason Stop Dose Admin Hydrocodone Bitart/Acetaminophen 1 each 03/04/20 09:49 03/05/20 17:36 [place] 7.5-325 PO 1 each Q6HR PRN Administration Pain Folic Acid 1 mg 03/04/20 22:00 03/05/20 20:53 Folic Acid PO 1 mg HS@2200 ADY Administration Sodium Chloride 1,000 mls @ 20 mls/hr 03/03/20 13:30 03/05/20 11:39 Saline 0.9% IV 20 mls/hr .Q24H ADY Administration Sodium Chloride 1,000 ml/ IV 1,000 mls @ 74.2 mls/hr 03/06/20 13:24 Solution IV 03/07/20 02:52 .[id number] ONE 1 ML/KG/HR Nitroglycerin/Dextrose 50 mg/ 250 mls @ 0 mls/hr 03/06/20 14:00 03/06/20 14:08 IV Solution IV 5 mcg/min .Q0M ADY 1.5 mls/hr Administration Protocol Titrate Insulin Aspart 0 unit 03/03/20 18:02 03/06/20 12:59 Novolog SQ 4 unit ACHS ADY Administration Protocol Latanoprost 1 drops 03/04/20 22:00 03/05/20 20:52 Xalatan 0.005% BOTH EYES 1 drops HS@2200 ADY Administration Metformin HCl 500 mg 03/05/20 11:49 03/06/20 08:49 Glucophage PO 500 mg BID@0800,1700 ADY Administration Methotrexate 25 mg 03/04/20 19:00 03/04/20 20:50 Methotrexate PO 25 mg FR@1900 ADY Administration Metoprolol Tartrate 25 mg 03/06/20 19:00 Lopressor PO BID@0800,1900 ADY Morphine Sulfate 2 mg 03/06/20 13:53 Morphine Sulfate (Inj) IVP Q4H PRN Pain/Discomfort Naloxone HCl 0.2 mg 03/03/20 13:20 Narcan IV Q2M PRN Opioid Reversal Nitroglycerin 0.4 mg 03/06/20 13:23 03/06/20 13:23 Nitrostat SUBLINGUAL 0.4 mg ONCE PRN Administration Chest Pain Nitroglycerin 0.4 mg 03/06/20 13:24 Nitrostat SUBLINGUAL Q5M PRN Chest Pain Ondansetron HCl 4 mg 03/06/20 13:56 Zofran PO Q6H PRN Nausea Repaglinide 1 mg 03/05/20 12:30 03/06/20 12:58 Prandin PO 1 mg AC-TID ADY Administration Timolol Maleate 1 drops 03/04/20 10:00 03/06/20 08:49 Timoptic BOTH EYES 1 drops BID@0800,2200 ADY Administration Intake and Output 03/05/20 03/06/20 03/06/20 22:59 06:59 14:59 Intake Total 240 236 Balance 240 236 Intake: Oral 240 236 Other: Voiding Method Toilet Toilet # Voids 3 1 # Bowel Movements 2 Weight 74.2 kg 03/06/20 12:06 03/06/20 12:06 Assessment and Plan Assessment: Assessment #1 metastatic pancreatic cancer #2 rectal bleeding #3 severe thrombocytopenia #[address] elevation [place] #5 paroxysmal atrial fibrillation #6 multiple comorbid conditions Plan #1 consider conservative medical approach #2 start the patient on nitroglycerin IV #3 keep the patient on morphine for pain #4 start the patient on metoprolol #5 hold the lisinopril as well as Norvasc #6 transfuse one unit of packed RBC #7 an echocardiogram was Doppler #8 follow-up with the patient
[2020-03-06] MEDS ORDERED: ONDANSETRON 4 MG/2 ML VIAL IVP PRN (15:02)
--- NOTE | 2020-03-06 15:07 | P.PN ---
Progress Note - Text Progress Note Date: 03/06/20 Chief Complaint: Rectal bleeding History of presenting complaint: 79-year-old patient of Dr. Morrow. Presented on December 18 to the hospital with abdominal pain.. Computed tomography scan of the abdomen showed multiple hepatic masses and what appeared to be metastatic disease in the pancreas and the spleen. Bone scan did show some lighting up in right femur. MRI of the brain did not show any metastatic disease. Patient on December 22 underwent biopsy of the right intra-abdominal mass. Did come back showing metastatic well- differentiated adenocarcinoma. Today but it January 26 and discharge in January 27. Bleeding from rectum. 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 Argon plasma coagulation was carried out. Patient now presents with intermittent bleeding for last 10 days. Within without stool. Decreased appetite tired rundown. GI was consulted. No rectal pain. Patient been on Coumadin. INR was 3.5. Given vitamin K in the ER. Patient again underwent argon plasma coagulation. Also found to have very few scattered telangiectasia.-By Dr. Annamarie Ramsey Today-so the patient earlier today. He tolerated diet. Keen to go home. Platelets 18. No bleeding. He is due to have a CBC in [address] Ellison's office. Patient was being prepared to go home. Did in the afternoon Pineda chest pain and ST elevation IA. Moved to the ICU. Could not be given antiplatelet agents or thrombolytics because on cardiac catheterization because of low platelet. Review of systems: Was done for constitutional, cardiovascular, GI, pulmonary. relevant finding as above Active Medications Hydrocodone Bitart/Acetaminophen ([place] 7.5-325) 1 each PO Q6HR PRN PRN Reason: Pain Last Admin: 03/05/20 17:36 Dose: 1 each Documented by: Folic Acid (Folic Acid) 1 mg PO HS@2200 ADY Last Admin: 03/05/20 20:53 Dose: 1 mg Documented by: Sodium Chloride (Saline 0.9%) 1,000 mls @ 20 mls/hr IV .Q24H ADY Last Admin: 03/05/20 11:39 Dose: 20 mls/hr Documented by: Sodium Chloride 1,000 ml/ IV (Solution) 1,000 mls @ 74.2 mls/hr IV .[id number] ONE Stop: 03/07/20 02:52 Last Admin: 03/06/20 14:46 Dose: 74.2 mls/hr Documented by: Nitroglycerin/Dextrose 50 mg/ (IV Solution) 250 mls @ 0 mls/hr IV .Q0M [facility]; Protocol Last Admin: 03/06/20 14:08 Dose: 5 mcg/min, 1.5 mls/hr Documented by: Insulin Aspart (Novolog) 0 unit SQ ACHS [facility]; Protocol Last Admin: 03/06/20 12:59 Dose: 4 unit Documented by: Latanoprost (Xalatan 0.005%) 1 drops BOTH EYES HS@2200 [facility] Last Admin: 03/05/20 20:52 Dose: 1 drops Documented by: Metformin HCl (Glucophage) 500 mg PO BID@0800,1700 [facility] Last Admin: 03/06/20 08:49 Dose: 500 mg Documented by: Methotrexate (Methotrexate) 25 mg PO FR@1900 [facility] Last Admin: 03/04/20 20:50 Dose: 25 mg Documented by: Metoprolol Tartrate (Lopressor) 25 mg PO BID@0800,1900 [facility] Morphine Sulfate (Morphine Sulfate (Inj)) 2 mg IVP Q4H PRN PRN Reason: Pain/Discomfort Last Admin: 03/06/20 14:41 Dose: 2 mg Documented by: Naloxone HCl (Narcan) 0.2 mg IV Q2M PRN PRN Reason: Opioid Reversal Nitroglycerin (Nitrostat) 0.4 mg SUBLINGUAL ONCE PRN PRN Reason: Chest Pain Last Admin: 03/06/20 13:23 Dose: 0.4 mg Documented by: Nitroglycerin (Nitrostat) 0.4 mg SUBLINGUAL Q5M PRN PRN Reason: Chest Pain Ondansetron HCl (Zofran) 4 mg IVP Q6HR PRN PRN Reason: Nausea And Vomiting Repaglinide (Prandin) 1 mg PO AC-TID [facility] Last Admin: 03/06/20 12:58 Dose: 1 mg Documented by: Timolol Maleate (Timoptic) 1 drops BOTH EYES BID@0800,2200 [facility] Last Admin: 03/06/20 08:49 Dose: 1 drops Documented by: On examination: VITAL SIGNS: 99.4, 89, 16, 117/56, 97% room air GENERAL APPEARANCE: Sitting of age the bed, comfortable HEENT: Normal external appearance of nose and ear. Oral cavity normal EYES: Pupils equal. Conjunctiva pale NECK: JVD not raised. Mass not palpable. RESPIRATORY: Respiratory effort normal. Lungs clear to auscultation. CARDIOVASCULAR: First and second sounds normal. No edema. ABDOMEN: Soft. Nontender, there was palpable, no mass palpable,.. PSYCHIATRY: Alert and oriented x3. Mood and affect a bit anxious INVESTIGATIONS, reviewed in the clinical context: White count 3.8 hemoglobin 7.2 platelets 18 Previous testing White count 8.9 hemoglobin 9 repeat 7.4 platelets 54 INR 3.8 potassium 4.7 creatinine 1.17 glucose 355 Assessment: - radiation proctitis the current treated with argon plasma coagulation- -Intra-abdominal metastatic disease with liver masses, pancreatic masses and splenic masses. Well-differentiated metastatic adenocarcinoma-on chemotherapy -Acute blood loss anemia from GI bleed -Paroxysmal Atrial fibrillation-on Coumadin -COPD -GERD -Hyperlipidemia -Essential hypertension -Obstructive sleep apnea -History of prostate cancer with treatment -Sigmoid diverticulosis -Thrombocytopenia from chemotherapy -Acute ST elevation myocardial infarction-March 06 Plan: Plan was to let the patient go home. Then he developed chest pain with acute ST elevation IA. Moved to the ICU. Cardiology mirror framer was consulted. I spoke to patient's daughter on the phone. He does understand his guarded prognosis. Limited choices.
[2020-03-06] MEDS ORDERED: METOPROLOL TARTRATE 25 MG TAB PO STA (15:08)
[2020-03-06] MEDS: SODIUM CHLORIDE 0.9% 1,000 ML IV SCH (15:16)
--- NOTE | 2020-03-06 15:49 | ECHOF ---
Referral Reason:STEMI MEASUREMENTS -------- HEIGHT: 182.9 cm WEIGHT: 73.9 kg BP: 164/67 RVIDd: 2.9 cm (< 3.3) IVSd: 1.3 cm (0.6 - 1.1) LVIDd: 3.9 cm (3.9 - 5.3) LVPWd: 1.1 cm (0.6 - 1.1) IVSs: 1.4 cm LVIDs: 3.2 cm LVPWs: 1.6 cm LAESV Index (A-L): 36.70 ml/m MV E Acosta: 0.63 m/s MV DecT: 180 ms MV A Acosta: 0.72 m/s MV E/A Ratio: 0.88 RAP: 5.00 mmHg RVSP: 35.00 mmHg FINDINGS -------- Sinus rhythm. This was a technically difficult study with suboptimal parasternal views. The left ventricular size is normal. There is mild concentric left ventricular hypertrophy. Overa ll left ventricular systolic function is moderate-severely impaired with, an EF between 30 - 35 %. Mitral Doppler inflow pattern suggests diastolic filling abnormality {E/E'}. Mid anteroseptal LV wa ll motion is hypokinetic. Apical anterior LV wall motion is hypokinetic. Apical lateral LV wall motion is hypokinetic. Apical inferior LV wall motion is hypokinetic. Apical septum LV wall mo tion is hypokinetic. The right ventricle is normal in size. LA is moderately dilated 34-39 ml/m2 The right atrium was not well visualized. xx ml of Lumason was utilized for enhancement of images. Interatrial and interventricular septum intact. The aortic valve was not well visualized. There is no evidence of aortic regurgitation. There is no evidence of aortic stenosis. Moderate mitral regurgitation is present. Mild tricuspid regurgitation present. There is mild pulmonary hypertension. The right ventricular systolic pressure, as measured by Doppler, is 35.00mmHg. The pulmonic valve was not well visualized. IVC Not well visulized. There is no pericardial effusion. CONCLUSIONS -------- 1. The left ventricular size is normal. 2. There is mild concentric left ventricular hypertrophy. 3. Overall left ventricular systolic function is moderate-severely impaired with, an EF between 30 - 35 %. 4. Mitral Doppler inflow pattern suggest diastolic filling abnormality {E/E'}. 5. Mid anteroseptal LV wall motion is hypokinetic. 6. Apical anterior LV wall motion is hypokinetic. 7. Apical lateral LV wall motion is hypokinetic. 8. Apical inferior LV wall motion is hypokinetic. 9. Apical septum LV wall motion is hypokinetic. 10. LA is moderately dilated 34-39 ml/m2 11. Moderate mitral regurgitation is present. 12. Mild tricuspid regurgitation present. 13. There is mild pulmonary hypertension. 14. The right ventricular systolic pressure, as measured by Doppler, is 35.00mmHg. MANAGER SHOP: Brooklynn Acharya RDCS
[2020-03-06] MEDS ORDERED: SODIUM CHLORIDE 0.9% 500 ML 500 ML IV ONE (18:09)
[2020-03-06] MEDS ORDERED: LIDOCAINE 1% INJ 10MG/ML (20 ML MDV) ONE (18:25)
[2020-03-06] MEDS ORDERED: MIDAZOLAM 2 MG/2 ML VIAL IV ONE (18:26)
[2020-03-06] MEDS ORDERED: VERAPAMIL 2.5 MG/ML 2 ML AMP ONE (18:26)
[2020-03-06] MEDS ORDERED: LIDOCAINE 1% INJ 10MG/ML (20 ML MDV) SQ ONE (18:29)
[2020-03-06] MEDS ORDERED: HEPARIN SODIUM 1,000 UN/ML (10ML VL) ONE (18:30)
[2020-03-06] MEDS ORDERED: BIVALIRUDIN 250 MG in SODIUM CHLORIDE 0.9% 50 ML IV ONE (18:37)
[2020-03-06] MEDS ORDERED: BIVALIRUDIN BOLUS 250 MG/50 ML IV ONE (18:37)
[2020-03-06] MEDS ORDERED: ONDANSETRON 4 MG/2 ML VIAL ONE (18:50)
[2020-03-06] MEDS ORDERED: CLOPIDOGREL 75 MG TAB ONE (18:51)
[2020-03-06] MEDS ORDERED: ONDANSETRON 4 MG/2 ML VIAL IVP ONE (18:54)
[2020-03-06] MEDS ORDERED: IOPAMIDOL-370 100ML BTL INJ ONE (18:56)
[2020-03-06] MEDS ORDERED: CLOPIDOGREL 75 MG TAB PO ONE (18:56)
[2020-03-06] MEDS ORDERED: MAG HYDROX/AL HYDROX/SIMETH 30 ML CUP PO PRN (18:58)
[2020-03-06] MEDS ORDERED: ZOLPIDEM 5 MG TAB PO PRN (18:58)
[2020-03-06] MEDS ORDERED: ATROPINE SULFATE 0.1 MG/ML 10ML SYRINGE IV PRN (18:58)
[2020-03-06] MEDS ORDERED: RX INFO: IV CONTRAST WAS GIVEN 1 EACH MISC MISCELLANE PRN (18:58)
[2020-03-06] MEDS ORDERED: SODIUM CHLORIDE 0.9% 1,000 ML IV SCH (19:00)
[2020-03-06] MEDS: HYDROcodone/APAP 7.5-325MG 1 EACH TAB PO PRN (20:26)
[2020-03-06 22:22] LABS: Glucose,Whole Blood 295 mg/dL (75-99)
[2020-03-06] MEDS: ATORVASTATIN 80 MG TAB PO SCH (22:38)
[2020-03-06] MEDS: FOLIC ACID 1 MG TAB PO SCH (22:38)
[2020-03-06] MEDS: LATANOPROST 0.005% OPHTH DROPS 2.5 ML BTL BOTH EYES SCH (22:38)
[2020-03-06] MEDS: METOPROLOL TARTRATE 25 MG TAB PO SCH (22:42)
--- NOTE | 2020-03-07 02:08 | CC ---
CARDIAC CATHETERIZATION REPORT CARDIAC CATHETERIZATION AND PERCUTANEOUS CORONARY INTERVENTION: DATE OF SERVICE: March 06, 2020. PERFORMING PHYSICIAN: Eric Li MD. PROCEDURE PERFORMED: 1. Successful stenting of the proximal left anterior descending artery using 3.0 x 15 mm Vision BMS with an excellent angiographic result and reduction of stenosis from 100% to 0%. 2. Aspiration thrombectomy from the left anterior descending artery. 3. Selective left and right coronary angiogram. 4. Left heart catheterization. INDICATION: This is a 79-year-old gentleman with paroxysmal atrial fibrillation as well as hypertension and dyslipidemia who was admitted to the hospital recently with gastrointestinal symptoms and he was diagnosed with metastatic pancreatic cancer. He was going to be discharged home today when he developed chest discomfort associated with jaw and left arm discomfort as well as diaphoresis. An EKG was performed and revealed acute anterior ST-elevation myocardial infarction. Because his prognosis as well as because of his platelet count, which was only 20,000 along with hemoglobin which was only around 7, we decided to pursue conservative medical approach. That plan was discussed with his family including his daughter who agreed about the above. The patient in the ICU was initiated on nitroglycerin IV along with morphine. Unfortunately a few hours after he continues to have increasing in the chest discomfort which was about 10/10 in intensity. Because of that and after a long discussion with the family, the family decided to go with a heart catheterization and possible percutaneous coronary intervention knowing the risk of bleeding which is very high including intracranial bleeding, gastrointestinal bleeding as well as intraocular bleeding. APPROACH: Right radial artery. COMPLICATION: None. LEVEL OF SEDATION: Moderate with sedation length of 28 minutes. Door to balloon was exceeding 90 minutes. The reason for that because the patient and his family wanted a conservative medical approach knowing the high risk of bleeding going with heart catheterization and percutaneous coronary intervention. This plan was changed during the hospital stay because of the increasing chest discomfort. PROCEDURE DESCRIPTION: After obtaining an informed consent, the patient was brought to the cardiac labor delivery specialist. The right radial artery was cannulated using micropuncture technique, the micropuncture wire passed easily then I placed a 6-Portuguese sheath at the right radial artery. Subsequently I did engage the left main using JL3.5 guide. Left coronary angiogram was performed and revealed acute total occlusion of the LAD. I did perform successful percutaneous coronary intervention and that will be described on a separate paragraph during this report. After that, right coronary angiogram was performed using JR4 catheter. Left heart catheterization was performed using the JR4 catheter which crossed the aortic valve then I did pullback across the valve. The procedure was completed without any complication. SELECTIVE CORONARY ANGIOGRAM: 1. The right coronary artery is a large caliber vessel and it is a dominant vessel. The RCA is angiographically normal. Distally, it bifurcates into PDA and PLV branches. Both appeared to be angiographically normal. 2. The left main is angiographically normal. It bifurcates into left circumflex and left anterior descending artery. 3. The left circumflex is a large caliber vessel. It is a nondominant vessel. The left circumflex is angiographically normal. In the proximal to midportion gives rise into an OM1 which is small caliber vessel with intermediate lesion in the proximal portion. 4. The LAD: The LAD is 100% occluded in the proximal portion right after the takeoff from the left main. PCI OF THE LEFT ANTERIOR DESCENDING ARTERY: Anticoagulation was initiated with Angiomax. After engaging the left main with JL3.5 guide, I did cross the lesion using a run-through wire. Aspiration thrombectomy was performed using the [place] catheter. After that I did balloon angioplasty using 2.5 x 12 mm balloon. Subsequently I performed successful stenting of the very proximal LAD using 3.0 x 15 mm Vision bare metal stent where the stent was positioned under fluoroscopy guidance and deployed under 10 atmospheres for 20 seconds. The following angiogram showed excellent angiographic results with BISHOP-3 flow in the left anterior descending artery. At that point, the procedure was completed without any complication. HEMODYNAMICS: The LVEDP was about 12-14 mmHg without significant gradient across the aortic valve. CONCLUSION: 1. 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 2. Successful stenting of the proximal left anterior descending artery using bare metal stent. 3. Normal left ventricular end-diastolic pressure. POSTPROCEDURE MANAGEMENT: 1. Dual anti-platelet therapy for 4 weeks only and subsequently the patient will stay on aspirin. 2. High-intensity statin. 3. Continue anti-ischemic medication with metoprolol. 4. Add lisinopril down the line. 5. Follow up with the patient. MMODL / IJN: [id number] /
[2020-03-07] MEDS: HYDROcodone/APAP 7.5-325MG 1 EACH TAB PO PRN (03:21)
[2020-03-07 04:23] LABS: Anisocytosis Slight; HCT 23.2 % (39.0-53.0); HGB 7.8 gm/dL (13.0-17.5); MCH 32.1 pg (25.0-35.0); MCHC 33.8 g/dL (31.0-37.0); MCV 94.9 fL (80.0-100.0); Macrocytosis Slight; Mean Platelet Volume 12.4; RBC 2.44 m/uL (4.30-5.90); RDW 17.3 % (11.5-15.5); WBC 3.5 k/uL (3.8-10.6)
[2020-03-07 04:25] LABS: Platelet Count 17 k/uL (150-450)
[2020-03-07 04:28] LABS: INR 1.1 (<1.2); Prothrombin Time 11.6 sec (9.0-12.0)
[2020-03-07 04:58] LABS: Albumin 2.9 g/dL (3.5-5.0); Calcium 8.3 mg/dL (8.4-10.2); Potassium 4.2 mmol/L (3.5-5.1); Total Bilirubin 0.8 mg/dL (0.2-1.3); Total Protein 5.4 g/dL (6.3-8.2)
[2020-03-07 07:00] LABS: Glucose,Whole Blood 185 mg/dL (75-99)
[2020-03-07] MEDS: REPAGLINIDE 1 MG TAB PO SCH ×3 (07:07→18:03)
[2020-03-07] MEDS: INSULIN ASPART (NovoLOG) 100 UNIT/ML VIAL SQ SCH ×4 (07:07→21:10)
[2020-03-07] MEDS: metFORMIN 500 MG TAB PO SCH ×2 (08:37→18:01)
[2020-03-07] MEDS: METOPROLOL TARTRATE 25 MG TAB PO SCH ×2 (08:37→18:01)
[2020-03-07] MEDS: PANTOPRAZOLE 40 MG TABLET PO SCH ×2 (08:37→18:01)
[2020-03-07] MEDS: TIMOLOL 0.5% OPHTH DROPS 5 ML BTL BOTH EYES SCH ×2 (08:38→21:11)
[2020-03-07] MEDS ORDERED: ASPIRIN 81 MG PO SCH (09:00)
[2020-03-07 09:50] VITALS: BMI 23.7
[2020-03-07 10:55] LABS: Anisocytosis Slight; Basophils % (A) 0 %; Eosinophils # (A) 0.1 k/uL (0-0.7); Eosinophils % (A) 3 %; HCT 23.9 % (39.0-53.0); HGB 7.9 gm/dL (13.0-17.5); Lymphocytes # (A) 0.8 k/uL (1.0-4.8); Lymphocytes % (A) 22 %; MCH 31.6 pg (25.0-35.0); MCV 95.7 fL (80.0-100.0); Macrocytosis Slight; Mean Platelet Volume 11.7; Monocytes % (A) 1 %; Neutrophils # (A) 2.5 k/uL (1.3-7.7); Neutrophils % (A) 73 %; RBC 2.49 m/uL (4.30-5.90); RDW 17.6 % (11.5-15.5); WBC 3.5 k/uL (3.8-10.6)
[2020-03-07 10:57] LABS: Platelet Count 16 k/uL (150-450)
[2020-03-07 11:30] LABS: Albumin 2.9 g/dL (3.5-5.0); Calcium 8.1 mg/dL (8.4-10.2); Potassium 5.4 mmol/L (3.5-5.1); Total Bilirubin 0.9 mg/dL (0.2-1.3); Total Protein 5.4 g/dL (6.3-8.2)
[2020-03-07 11:54] LABS: Glucose,Whole Blood 257 mg/dL (75-99)
--- NOTE | 2020-03-07 11:54 | PN ---
PROGRESS NOTE Mr. Duvall is a 79-year-old male with known history of paroxysmal atrial fibrillation who presented with anemia and has a history of pancreatic cancer with metastasis. He presented with anemia during this admission. Subsequently, had chest discomfort and ST- segment elevation anteriorly. Initially the plan according to the record was to treat the patient conservatively, then he had more pain and Dr. Li proceeded with undergoing cardiac catheterization and stenting of his proximal LAD. He is doing well this morning. He denies any symptoms of chest pain. He denies any dizziness or palpitation. Patient is doing well this morning. He denies any symptoms of chest pain. He denies any dizziness, palpitation. He denies any nausea. He received a bare metal stent yesterday. He continues to be at this time on aspirin, Lipitor 80 mg daily, Plavix 75 mg daily, metformin, methotrexate, metoprolol tartrate 25 mg twice a day. PHYSICAL EXAMINATION: Blood pressure 102/54 with a heart rate in the 80s. LUNGS: Clear. HEART: Regular rate and rhythm, S1, S2. No S3 with a systolic murmur, no diastolic murmur. ABDOMEN: Soft, nontender. EXTREMITIES: No edema, right radial pulse intact. LAB DATA: Revealed a platelet count of 17,000, hemoglobin of 7.8, his BUN was 30. IMPRESSION: 1. Status post an acute anterior myocardial infarction and stenting for totally occluded LAD. 2. Ischemic cardiomyopathy related to myocardial infarction. 3. Severe thrombocytopenia and anemia related to pancreatic cancer with metastasis. 4. Paroxysmal atrial fibrillation, remains in sinus mechanism. 5. History of diabetes. RECOMMENDATION: Will continue present therapy. Will follow his platelet count and hemoglobin closely. I will hold ASA for now and continues Plavix. Unfortunately, prognosis remains quite poor. MMODL / IJN: [id number] / OMAR
[2020-03-07 12:40] LABS: % Iron Saturation 33.05 (15.00-50.00); Ferritin 1589.3 ng/mL (22.0-322.0); Folate, Serum >24.0 ng/mL; Iron 77 ug/dL (65-175); Total Iron Binding Capacity 233 ug/dL (228-460)
--- NOTE | 2020-03-07 12:57 | P.PN ---
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 Acute ST elevation myocardial infarction 79-year-old male patient who came developed an acute chest pain hypotension with abnormal EKG changes suggestive an acute ST segment elevation myocardial infarction. The patient was about to get discharged home and he developed chest pain and he got transferred to the intensive care unit. At time of arrival his systolic blood pressure was in the mid 80s. His cardiac rhythm is sinus and the mid 70s. He is having active pressure over the anterior chest area. He looks a bit diaphoretic and pale. He is known to have metastatic pancreatic cancer that was recently diagnosed. The patient was found to have a pancreatic mass with metastases to his liver. He had also multiple splenic masses measuring up to 5.2 cm in size. He also had a renal mass measuring 2.5 cm in size in addition to prominent lymph nodes sedation adjacent to the ascending colon. There was also evidence of peritoneal deposits. The patient decided to proceed with systemic chemotherapy. Following his first cycle of systemic chemo in December 2019, the patient developed side effects and the chemotherapy had to be held because he was admitted to the hospital because of rectal bleeding. At that time he was also noted the correlation with warfarin. He was admitted and he was given a sigmoidoscopy and he was treated with argon plasma coagulation with multiple telangiectasias were found in the rectal area. 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 In any rate, the patient was discharged and he was given a second session of systemic chemotherapy and February 2020. He was readmitted for complaints of rectal bleeding. GI evaluated this patient. Argon plasma was carried out by Dr. Garza where the patient underwent a flexible sigmoidoscopy and he was found again to have radiation proctitis and few scattered telangiectasias. There is related to systemic chemotherapy. The patient has a white cell count of 3.8 with hemoglobin 7.2 and the plated count of 18 this morning. His chest x-ray at time of admission showed no acute cardio pulmonary abnormalities. Patient was reevaluated today on 03/07/2020, patient is now status post acute ST elevation myocardial infarction requiring cardiac catheterization and stent placement. Patient had successful stenting of the proximal LAD yesterday by Dr. Peraza, he had aspiration thrombectomy from left anterior descending artery. Today the patient seems to be doing much better, denies any chest pain, denies any further episodes of GI bleeding although the patient's initial presentation was mostly a presentation of GI bleeding secondary to radiation proctitis. Patient developed chest pain on 03/[address] elevation myocardial infarction. Hence cardiac catheterization and stenting were performed yesterday. Today the patient is feeling great, asymptomatic, no chest pain no shortness of breath, he is on 2 L nasal cannula, O2 saturation 98%. Hemoglobin is 7.9 platelets are 16,000. Electrolytes are normal. BUN is 33 creatinine 1.18. Chest x-ray yesterday showed no acute cardiopulmonary process. Objective - Vital Signs Vital signs: Vital Signs Temp 97.9 F 03/07/20 10:00 Pulse 79 03/07/20 09:00 Resp 13 03/07/20 09:00 BP 110/57 03/07/20 09:00 Pulse Ox 95 03/07/20 09:00 Intake & Output 03/06/20 03/07/20 03/07/20 18:59 06:59 18:59 Intake Total 2724.770 1309.0 70 Output Total 325 750 200 Balance 2399.770 559.0 -130 Weight 79.3 kg 79.3 kg Intake: IV 2456.07 675 Sodium Chloride 0.9% 1, 600 000 ml @ 75 mls/hr IV . [id number] [facility] Rx#:[id number] Sodium Chloride 0.9% 1, 2225 75 000 ml In Empty Bag 1 bag @ 1 ML/KG/HR 74.2 mls/hr IV .[id number] [facility] Rx#: [id number] Intake, IV Titration 22.700 154.0 Amount Nitroglycerin-D5w Pmx 50 22.700 154.0 mg In Dextrose/Water 1 250ml.bag @ Titrate IV . Q0M [facility] Rx#:[id number] Oral 236 480 70 Blood Product 10 Rc As-1 Unit 10 [id number] Output: Urine 325 750 200 Other: Voiding Method Urinal Urinal # Voids 0 0 - Exam Physical Exam: Revealed 79-year-old white male in no distress, on 2 L nasal cannula. Head: Atraumatic, normocephalic. HEENT:[Neck is supple.] [No neck masses.] [No thyromegaly.] [No JVD.] Minimal erythema and bleeding noted from the nares bilaterally. Chest: [Clear throughout, no crackles, no rhonchi, no wheezes.] Cardiac Exam: [Normal S1 and S2, no S3 gallop, no murmur.] Abdomen: [Soft, nontender, no megaly, no rebound, no guarding, normal bowel sounds.] Extremities: [No clubbing, no edema, no cyanosis.] Neurological Exam: [No focal neurologic deficit.] Alert oriented 3. Psychiatric: Normal mood, affect and normal mental status examination. - Labs CBC & Chem 7: 03/07/20 Unknown 03/07/20 Unknown Labs: Abnormal Lab Results - Last 24 Hours (Table) 03/06/20 03/06/20 03/06/20 Range/Units 12:06 12:06 12:06 WBC 3.4 L (3.8-10.6) k/uL RBC 2.38 L (4.30-5.90) m/uL Hgb 7.2 L (13.0-17.5) gm/dL Hct 22.9 L (39.0-53.0) % RDW 17.7 H (11.5-15.5) % Plt Count 20 L (150-450) k/uL Lymphocytes # (1.0-4.8) k/uL D-Dimer 26.57 H (<0.60) mg/L FEU Sodium (137-145) mmol/L Potassium (3.5-5.1) mmol/L BUN (9-20) mg/dL Glucose (74-99) mg/dL POC Glucose (mg/dL) (75-99) mg/dL Calcium (8.4-10.2) mg/dL Ferritin 1589.3 H (22.0-322.0) ng/mL AST (17-59) U/L ALT (4-49) U/L Troponin I (0.000-0.034) ng/mL Total Protein (6.3-8.2) g/dL Albumin (3.5-5.0) g/dL Vitamin B12 1195.0 H (200.0-944.0) pg/mL Crossmatch 03/06/20 03/06/20 03/06/20 Range/Units 12:09 13:10 13:45 WBC (3.8-10.6) k/uL RBC (4.30-5.90) m/uL Hgb (13.0-17.5) gm/dL Hct (39.0-53.0) % RDW (11.5-15.5) % Plt Count (150-450) k/uL Lymphocytes # (1.0-4.8) k/uL D-Dimer (<0.60) mg/L FEU Sodium (137-145) mmol/L Potassium (3.5-5.1) mmol/L BUN (9-20) mg/dL Glucose (74-99) mg/dL POC Glucose (mg/dL) 302 H 240 H (75-99) mg/dL Calcium (8.4-10.2) mg/dL Ferritin (22.0-322.0) ng/mL AST (17-59) U/L ALT (4-49) U/L Troponin I 0.065 H* (0.000-0.034) ng/mL Total Protein (6.3-8.2) g/dL Albumin (3.5-5.0) g/dL Vitamin B12 (200.0-944.0) pg/mL Crossmatch 03/06/20 03/06/20 03/07/20 Range/Units 14:17 22:20 06:58 WBC (3.8-10.6) k/uL RBC (4.30-5.90) m/uL Hgb (13.0-17.5) gm/dL Hct (39.0-53.0) % RDW (11.5-15.5) % Plt Count (150-450) k/uL Lymphocytes # (1.0-4.8) k/uL D-Dimer (<0.60) mg/L FEU Sodium (137-145) mmol/L Potassium (3.5-5.1) mmol/L BUN (9-20) mg/dL Glucose (74-99) mg/dL POC Glucose (mg/dL) 295 H 185 H (75-99) mg/dL Calcium (8.4-10.2) mg/dL Ferritin (22.0-322.0) ng/mL AST (17-59) U/L ALT (4-49) U/L Troponin I (0.000-0.034) ng/mL Total Protein (6.3-8.2) g/dL Albumin (3.5-5.0) g/dL Vitamin B12 (200.0-944.0) pg/mL Crossmatch See Detail 03/07/20 03/07/20 03/07/20 Range/Units 10:38 10:38 11:53 WBC 3.5 L (3.8-10.6) k/uL RBC 2.49 L (4.30-5.90) m/uL Hgb 7.9 L (13.0-17.5) gm/dL Hct 23.9 L (39.0-53.0) % RDW 17.6 H (11.5-15.5) % Plt Count 16 L* (150-450) k/uL Lymphocytes # 0.8 L (1.0-4.8) k/uL D-Dimer (<0.60) mg/L FEU Sodium 136 L (137-145) mmol/L Potassium 5.4 H (3.5-5.1) mmol/L BUN 33 H (9-20) mg/dL Glucose 251 H (74-99) mg/dL POC Glucose (mg/dL) 257 H (75-99) mg/dL Calcium 8.1 L (8.4-10.2) mg/dL Ferritin (22.0-322.0) ng/mL AST 419 H (17-59) U/L ALT 130 H (4-49) U/L Troponin I (0.000-0.034) ng/mL Total Protein 5.4 L (6.3-8.2) g/dL Albumin 2.9 L (3.5-5.0) g/dL Vitamin B12 (200.0-944.0) pg/mL Crossmatch 03/07/20 03/07/20 Range/Units Unknown Unknown WBC 3.5 L (3.8-10.6) k/uL RBC 2.44 L (4.30-5.90) m/uL Hgb 7.8 L (13.0-17.5) gm/dL Hct 23.2 L (39.0-53.0) % RDW 17.3 H (11.5-15.5) % Plt Count 17 L* (150-450) k/uL Lymphocytes # (1.0-4.8) k/uL D-Dimer (<0.60) mg/L FEU Sodium 133 L (137-145) mmol/L Potassium (3.5-5.1) mmol/L BUN 30 H (9-20) mg/dL Glucose 168 H (74-99) mg/dL POC Glucose (mg/dL) (75-99) mg/dL Calcium 8.3 L (8.4-10.2) mg/dL Ferritin (22.0-322.0) ng/mL AST 530 H (17-59) U/L ALT 114 H (4-49) U/L Troponin I (0.000-0.034) ng/mL Total Protein 5.4 L (6.3-8.2) g/dL Albumin 2.9 L (3.5-5.0) g/dL Vitamin B12 (200.0-944.0) pg/mL Crossmatch Assessment and Plan Assessment: Impression: Acute ST elevation myocardial infarction requiring stent placement in LAD. Anemia associated with acute blood loss. Secondary to GI bleeding radiation proctitis. Stage IV pancreatic adenocarcinoma. History of prostate cancer and radiation. Radiation proctitis. Thrombocytopenia, being addressed by oncology on the case. Chronic atrial fibrillation. Anticoagulation therapy is presently on hold until platelets recover. Pancytopenia secondary to chemotherapy. History of diverticular disease. History of hiatal hernia. Obstructive sleep apnea, not utilizing CPAP. History of temporal arteritis. History of CVA in 2017. Recommendation: Continue present supportive care measures. Continue to hold anticoagulation therapy. Continue to monitor his coagulation profile. Consider transferring the patient out of the ICU to a monitor bed on selective. Patient is being followed by cardiology and by hematology/oncology. Overall prognosis remains poor and guarded considering his metastatic pancreatic cancer and now ongoing cardiovascular complications. We'll continue to follow Time with Patient: Less than 30
--- NOTE | 2020-03-07 13:48 | P.PN ---
Subjective Progress Note Date: 03/07/20 Principal diagnosis: Pancreatic carcinoma Shortly after evaluation of patient, who was eager to be discharged yesterday he unfortunately had an acute ST elevation myocardial infarction requiring cardiac catheterization and stent placement. Per medical record Stenting of the proximal LAD yesterday by Dr. Peraza, and he had aspiration thrombectomy from left anterior descending artery. Today he is feeling better. Liver Enzymes were initially elevated on admission, then it appeared this improved, although recheck today they are increased significantly as expected with recent [place], likely from passive hepatic congestion and impaired perfusion. This normally peaks at 24 hours post cardiac injury, hence the drastic increase, should begin to normalize moving forward, otherwise his platelets are 16K, and coags have normalized. HGB 7.8 Objective - Vital Signs Vital signs: Vital Signs Temp 97.9 F 03/07/20 10:00 Pulse 79 03/07/20 09:00 Resp 13 03/07/20 09:00 BP 110/57 03/07/20 09:00 Pulse Ox 95 03/07/20 09:00 Intake & Output 03/06/20 03/07/20 03/07/20 18:59 06:59 18:59 Intake Total 2724.770 1309.0 120 Output Total 325 750 200 Balance 2399.770 559.0 -80 Weight 79.3 kg 79.3 kg Intake: IV 2456.07 675 Sodium Chloride 0.9% 1, 600 000 ml @ 75 mls/hr IV . [id number] [facility] Rx#:[id number] Sodium Chloride 0.9% 1, 2225 75 000 ml In Empty Bag 1 bag @ 1 ML/KG/HR 74.2 mls/hr IV .[id number] [facility] Rx#: [id number] Intake, IV Titration 22.700 154.0 Amount Nitroglycerin-D5w Pmx 50 22.700 154.0 mg In Dextrose/Water 1 250ml.bag @ Titrate IV . Q0M [facility] Rx#:[id number] Oral 236 480 120 Blood Product 10 Rc As-1 Unit 10 [id number] Output: Urine 325 750 200 Other: Voiding Method Urinal Urinal # Voids 0 0 - Exam - Constitutional General appearance: cooperative, no acute distress - EENT Eyes: PERRLA ENT: NA/AT, normal oropharynx - Neck Neck: normal ROM - Respiratory Respiratory: bilateral: CTA - Cardiovascular Rhythm: irregularly irregular Heart sounds: normal: S1, S2 - Gastrointestinal General gastrointestinal: normal bowel sounds, soft, tenderness - Integumentary Integumentary: pale - Neurologic non focal - Musculoskeletal Musculoskeletal: generalized weakness - Labs CBC & Chem 7: 03/07/20 Unknown 03/07/20 Unknown Labs: Abnormal Lab Results - Last 24 Hours (Table) 03/06/20 03/06/20 03/06/20 Range/Units 12:06 12:06 12:06 WBC 3.4 L (3.8-10.6) k/uL RBC 2.38 L (4.30-5.90) m/uL Hgb 7.2 L (13.0-17.5) gm/dL Hct 22.9 L (39.0-53.0) % RDW 17.7 H (11.5-15.5) % Plt Count 20 L (150-450) k/uL Lymphocytes # (1.0-4.8) k/uL D-Dimer (<0.60) mg/L FEU Sodium (137-145) mmol/L Potassium (3.5-5.1) mmol/L BUN (9-20) mg/dL Glucose (74-99) mg/dL POC Glucose (mg/dL) (75-99) mg/dL Calcium (8.4-10.2) mg/dL Ferritin 1589.3 H (22.0-322.0) ng/mL AST (17-59) U/L ALT (4-49) U/L Troponin I (0.000-0.034) ng/mL Total Protein (6.3-8.2) g/dL Albumin (3.5-5.0) g/dL CA 19-9 Antigen >84260.0 H (0.0-34.9) U/mL Vitamin B12 1195.0 H (200.0-944.0) pg/mL Crossmatch 03/06/20 03/06/20 03/06/20 Range/Units 12: 12:09 13:10 WBC (3.8-10.6) k/uL RBC (4.30-5.90) m/uL Hgb (13.0-17.5) gm/dL Hct (39.0-53.0) % RDW (11.5-15.5) % Plt Count (150-450) k/uL Lymphocytes # (1.0-4.8) k/uL D-Dimer 26.57 H (<0.60) mg/L FEU Sodium (137-145) mmol/L Potassium (3.5-5.1) mmol/L BUN (9-20) mg/dL Glucose (74-99) mg/dL POC Glucose (mg/dL) 302 H (75-99) mg/dL Calcium (8.4-10.2) mg/dL Ferritin (22.0-322.0) ng/mL AST (17-59) U/L ALT (4-49) U/L Troponin I 0.065 H* (0.000-0.034) ng/mL Total Protein (6.3-8.2) g/dL Albumin (3.5-5.0) g/dL CA 19-9 Antigen (0.0-34.9) U/mL Vitamin B12 (200.0-944.0) pg/mL Crossmatch 03/06/20 03/06/20 03/06/20 Range/Units 13:45 14:17 22:20 WBC (3.8-10.6) k/uL RBC (4.30-5.90) m/uL Hgb (13.0-17.5) gm/dL Hct (39.0-53.0) % RDW (11.5-15.5) % Plt Count (150-450) k/uL Lymphocytes # (1.0-4.8) k/uL D-Dimer (<0.60) mg/L FEU Sodium (137-145) mmol/L Potassium (3.5-5.1) mmol/L BUN (9-20) mg/dL Glucose (74-99) mg/dL POC Glucose (mg/dL) 240 H 295 H (75-99) mg/dL Calcium (8.4-10.2) mg/dL Ferritin (22.0-322.0) ng/mL AST (17-59) U/L ALT (4-49) U/L Troponin I (0.000-0.034) ng/mL Total Protein (6.3-8.2) g/dL Albumin (3.5-5.0) g/dL CA 19-9 Antigen (0.0-34.9) U/mL Vitamin B12 (200.0-944.0) pg/mL Crossmatch See Detail 03/07/20 03/07/20 03/07/20 Range/Units 06:58 10:38 10:38 WBC 3.5 L (3.8-10.6) k/uL RBC 2.49 L (4.30-5.90) m/uL Hgb 7.9 L (13.0-17.5) gm/dL Hct 23.9 L (39.0-53.0) % RDW 17.6 H (11.5-15.5) % Plt Count 16 L* (150-450) k/uL Lymphocytes # 0.8 L (1.0-4.8) k/uL D-Dimer (<0.60) mg/L FEU Sodium 136 L (137-145) mmol/L Potassium 5.4 H (3.5-5.1) mmol/L BUN 33 H (9-20) mg/dL Glucose 251 H (74-99) mg/dL POC Glucose (mg/dL) 185 H (75-99) mg/dL Calcium 8.1 L (8.4-10.2) mg/dL Ferritin (22.0-322.0) ng/mL AST 419 H (17-59) U/L ALT 130 H (4-49) U/L Troponin I (0.000-0.034) ng/mL Total Protein 5.4 L (6.3-8.2) g/dL Albumin 2.9 L (3.5-5.0) g/dL CA 19-9 Antigen (0.0-34.9) U/mL Vitamin B12 (200.0-944.0) pg/mL Crossmatch 03/07/20 03/07/20 03/07/20 Range/Units 11:53 Unknown Unknown WBC 3.5 L (3.8-10.6) k/uL RBC 2.44 L (4.30-5.90) m/uL Hgb 7.8 L (13.0-17.5) gm/dL Hct 23.2 L (39.0-53.0) % RDW 17.3 H (11.5-15.5) % Plt Count 17 L* (150-450) k/uL Lymphocytes # (1.0-4.8) k/uL D-Dimer (<0.60) mg/L FEU Sodium 133 L (137-145) mmol/L Potassium (3.5-5.1) mmol/L BUN 30 H (9-20) mg/dL Glucose 168 H (74-99) mg/dL POC Glucose (mg/dL) 257 H (75-99) mg/dL Calcium 8.3 L (8.4-10.2) mg/dL Ferritin (22.0-322.0) ng/mL AST 530 H (17-59) U/L ALT 114 H (4-49) U/L Troponin I (0.000-0.034) ng/mL Total Protein 5.4 L (6.3-8.2) g/dL Albumin 2.9 L (3.5-5.0) g/dL CA 19-9 Antigen (0.0-34.9) U/mL Vitamin B12 (200.0-944.0) pg/mL Crossmatch Assessment and Plan (1) Anemia associated with acute blood loss Current Visit: Yes Status: Acute Code(s): D62 - ACUTE POSTHEMORRHAGIC ANEMIA SNOMED Code(s): 340873592 (2) Pancreatic adenocarcinoma Current Visit: Yes Status: Acute Code(s): C25.9 - MALIGNANT NEOPLASM OF PANCREAS, UNSPECIFIED SNOMED Code(s): 262264941 (3) History of prostate cancer Current Visit: Yes Status: Acute Code(s): Z85.46 - PERSONAL HISTORY OF MALIGNANT NEOPLASM OF PROSTATE SNOMED Code(s): 489266580 (4) Radiation proctitis Current Visit: Yes Status: Acute Code(s): K62.7 - RADIATION PROCTITIS SNOMED Code(s): 944801588 Plan: Assessment and PLan: 1. Normocytic Anemia:Improving - Secondary to Acute Blood Loss and Sarabjit of chemotherapy - Check Iron Studies and transfusion support less than 7 2. Bleeding from Rectum: Improving - Status post GI procedure for radiation procititis 3. Pancreatic Cancer: - Status POst Abraxane and Gemsar on 03/01/20 - On hold at this time 4. Increased LFTS: secondary to decreased perfusion related to [place] - Initially increased but improved until todays draw which is normal 24 hours to peak after cardiac injury, this is expected to improve moving forward 5. THrombocytopenia: - Hold Warfarin and all other Anticoagualtion until greater than 50K, if still bleeding transfuse Platlets less than 50K. - Monitor Daily CBC - There is concern he will not be able to restart anticoagulation as his platelet count is not recovering well. Patient and are aware of the risks associated 6. Shortness of Breath:Improved - Chest Xray was without acute cardiopulmonary event (prior to [place]) 7. ST Elevated [place] with Cardiac cath and successful stent placement on 03/06/20 P. Atrial Fibbrilation: - Continue to hold Warfarin until platelets recover PLan: - COntinue to monitor daily CBC, CMP - Dr. Ellison to discuss AC therapy further with Cardiology regarding persistent thrombocytopenia - Transfusion support PRN - COntinue to hold AC therapy with platelets less than 50K - All others per ICU and Primary teams
[2020-03-07] MEDS: SODIUM CHLORIDE 0.9% 1,000 ML IV SCH (13:53)
[2020-03-07 17:45] LABS: Glucose,Whole Blood 198 mg/dL (75-99)
[2020-03-07] MEDS: CLOPIDOGREL 75 MG TAB PO SCH (18:03)
[2020-03-07] MEDS: ATORVASTATIN 80 MG TAB PO SCH (21:10)
[2020-03-07] MEDS: FOLIC ACID 1 MG TAB PO SCH (21:10)
[2020-03-07] MEDS: LATANOPROST 0.005% OPHTH DROPS 2.5 ML BTL BOTH EYES SCH (21:11)
[2020-03-07 21:14] LABS: Glucose,Whole Blood 226 mg/dL (75-99)
--- NOTE | 2020-03-08 00:27 | P.PN ---
Subjective Progress Note Date: 03/07/20 Principal diagnosis: Rectal bleeding. 79-year-old patient of Dr. Morrow. Presented on December 18 to the hospital with abdominal pain.. Computed tomography scan of the abdomen showed multiple hepatic masses and what appeared to be metastatic disease in the pancreas and the spleen. Bone scan did show some lighting up in right femur. MRI of the brain did not show any metastatic disease. Patient on December 22 underwent biopsy of the right intra-abdominal mass. Did come back showing metastatic well- differentiated adenocarcinoma. Today but it January 26 and discharge in January 27. Bleeding from rectum. 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 Argon plasma coagulation was carried out. Patient now presents with intermittent bleeding for last 10 days. Within without stool. Decreased appetite tired rundown. GI was consulted. No rectal pain. Patient been on Coumadin. INR was 3.5. Given vitamin K in the ER. Patient again underwent argon plasma coagulation. Also found to have very few scattered telangiectasia.-By Dr. Annamarie Ramsey On 03/07/2020 Patient is currently in the MICU. Patient was being discharged yesterday but he developed acute ST elevated NJ and status post cardiac cath does not stent placement. Patient had stenting of the proximal LAD by Dr. Peraza. Patient also had aspiration thrombectomy from the left anterior descending artery. Today patient denied any complaints of chest pain or shortness of breath. Liver enzymes are slightly elevated compared to yesterday. Platelet count is 16,000. Hemoglobin is at 7.8. Currently resting in bed comfortably. Patient did have rectal bleeding thought to be secondary to radiation proctitis. Chest x-ray showed no acute cardiopulmonary process. Pulmonary and cardiology and oncology is following. Current medications reviewed. Review of systems: Was done for constitutional, cardiovascular, GI, pulmonary. relevant finding as above Objective - Vital Signs Vital signs: Vital Signs Temp 97.9 F 03/07/20 12:00 Pulse 87 03/07/20 13:00 Resp 27 H 03/07/20 13:00 BP 122/57 03/07/20 13:00 Pulse Ox 90 L 03/07/20 13:00 Intake & Output 03/06/20 03/07/20 03/07/20 18:59 06:59 18:59 Intake Total 2724.770 1309.0 120 Output Total 325 750 250 Balance 2399.770 559.0 -130 Weight 79.3 kg 79.3 kg Intake: IV 2456.07 675 Sodium Chloride 0.9% 1, 600 000 ml @ 75 mls/hr IV . [id number] [facility] Rx#:[id number] Sodium Chloride 0.9% 1, 2225 75 000 ml In Empty Bag 1 bag @ 1 ML/KG/HR 74.2 mls/hr IV .[id number] [facility] Rx#: [id number] Intake, IV Titration 22.700 154.0 Amount Nitroglycerin-D5w Pmx 50 22.700 154.0 mg In Dextrose/Water 1 250ml.bag @ Titrate IV . Q0M [facility] Rx#:[id number] Oral 236 480 120 Blood Product 10 Rc As-1 Unit 10 [id number] Output: Urine 325 750 250 Other: Voiding Method Urinal Urinal # Voids 0 1 - Exam PHYSICAL EXAMINATION: Patient is lying in the bed comfortably, no acute distress, awake alert and or iented.. HEENT: Normocephalic. Neck is supple. Pupils reactive. Nostrils clear. Oral cavity is moist. Ears reveal no drainage. Neck reveals no JVD, carotid bruits, or thyromegaly. CHEST EXAMINATION: Trachea is central. Symmetrical expansion. Lung [place] clear to auscultation and percussion. CARDIAC: Normal S1, S2 with no gallops. No murmurs ABDOMEN: Soft. Bowel soundsnormal Nontender. . No organomegaly. No abdominal bruits. Extremities: reveal no edema. No clubbing or cyanosis Neurologically awake, alert, oriented x3 with well-coordinated movements. No focal deficits noted Skin: No rash or skin lesions. Psychiatric: Coperative. Nonsuicidal Musculoskeletal: No joint swelling or deformity. Normal range of motion. - Labs CBC & Chem 7: 03/07/20 Unknown 03/07/20 Unknown Labs: Abnormal Lab Results - Last 24 Hours (Table) 03/06/20 03/06/20 03/06/20 Range/Units 12:06 12:06 14:17 WBC (3.8-10.6) k/uL RBC (4.30-5.90) m/uL Hgb (13.0-17.5) gm/dL Hct (39.0-53.0) % RDW (11.5-15.5) % Plt Count (150-450) k/uL Lymphocytes # (1.0-4.8) k/uL Sodium (137-145) mmol/L Potassium (3.5-5.1) mmol/L BUN (9-20) mg/dL Glucose (74-99) mg/dL POC Glucose (mg/dL) (75-99) mg/dL Calcium (8.4-10.2) mg/dL Ferritin 1589.3 H (22.0-322.0) ng/mL AST (17-59) U/L ALT (4-49) U/L Total Protein (6.3-8.2) g/dL Albumin (3.5-5.0) g/dL CA 19-9 Antigen >55173.0 H (0.0-34.9) U/mL Vitamin B12 1195.0 H (200.0-944.0) pg/mL Crossmatch See Detail 03/06/20 03/07/20 03/07/20 Range/Units 22:20 06:58 10:38 WBC 3.5 L (3.8-10.6) k/uL RBC 2.49 L (4.30-5.90) m/uL Hgb 7.9 L (13.0-17.5) gm/dL Hct 23.9 L (39.0-53.0) % RDW 17.6 H (11.5-15.5) % Plt Count 16 L* (150-450) k/uL Lymphocytes # 0.8 L (1.0-4.8) k/uL Sodium (137-145) mmol/L Potassium (3.5-5.1) mmol/L BUN (9-20) mg/dL Glucose (74-99) mg/dL POC Glucose (mg/dL) 295 H 185 H (75-99) mg/dL Calcium (8.4-10.2) mg/dL Ferritin (22.0-322.0) ng/mL AST (17-59) U/L ALT (4-49) U/L Total Protein (6.3-8.2) g/dL Albumin (3.5-5.0) g/dL CA 19-9 Antigen (0.0-34.9) U/mL Vitamin B12 (200.0-944.0) pg/mL Crossmatch 03/07/20 03/07/20 03/07/20 Range/Units 10:38 11:53 Unknown WBC (3.8-10.6) k/uL RBC (4.30-5.90) m/uL Hgb (13.0-17.5) gm/dL Hct (39.0-53.0) % RDW (11.5-15.5) % Plt Count (150-450) k/uL Lymphocytes # (1.0-4.8) k/uL Sodium 136 L 133 L (137-145) mmol/L Potassium 5.4 H (3.5-5.1) mmol/L BUN 33 H 30 H (9-20) mg/dL Glucose 251 H 168 H (74-99) mg/dL POC Glucose (mg/dL) 257 H (75-99) mg/dL Calcium 8.1 L 8.3 L (8.4-10.2) mg/dL Ferritin (22.0-322.0) ng/mL AST 419 H 530 H (17-59) U/L ALT 130 H 114 H (4-49) U/L Total Protein 5.4 L 5.4 L (6.3-8.2) g/dL Albumin 2.9 L 2.9 L (3.5-5.0) g/dL CA 19-9 Antigen (0.0-34.9) U/mL Vitamin B12 (200.0-944.0) pg/mL Crossmatch 03/07/20 Range/Units Unknown WBC 3.5 L (3.8-10.6) k/uL RBC 2.44 L (4.30-5.90) m/uL Hgb 7.8 L (13.0-17.5) gm/dL Hct 23.2 L (39.0-53.0) % RDW 17.3 H (11.5-15.5) % Plt Count 17 L* (150-450) k/uL Lymphocytes # (1.0-4.8) k/uL Sodium (137-145) mmol/L Potassium (3.5-5.1) mmol/L BUN (9-20) mg/dL Glucose (74-99) mg/dL POC Glucose (mg/dL) (75-99) mg/dL Calcium (8.4-10.2) mg/dL Ferritin (22.0-322.0) ng/mL AST (17-59) U/L ALT (4-49) U/L Total Protein (6.3-8.2) g/dL Albumin (3.5-5.0) g/dL CA 19-9 Antigen (0.0-34.9) U/mL Vitamin B12 (200.0-944.0) pg/mL Crossmatch Assessment and Plan Assessment: - Acute ST elevated [place] status post cardiac catheterization and stent placement. - radiation proctitis the current treated with argon plasma coagulation- -Intra-abdominal metastatic disease with liver masses, pancreatic masses and sp lenic masses. Well-differentiated metastatic adenocarcinoma-on chemotherapy -Acute blood loss anemia from GI bleed -Paroxysmal Atrial fibrillation-on Coumadin -COPD -GERD -Hyperlipidemia -Essential hypertension -Obstructive sleep apnea -History of prostate cancer with treatment -Sigmoid diverticulosis -Thrombocytopenia from chemotherapy -Acute ST elevation myocardial infarction-March 06 Plan: Patient will be continued on telemetry monitoring. Continue with aspirin Plavix and statins. Started on metoprolol 25 mg twice daily and continue to follow closely. Cardiology and pulmonary is on board. Hemoglobin is fairly stable at 7.8. Time with Patient: Greater than 30
[2020-03-08 05:19] LABS: Anisocytosis Slight; HCT 23.5 % (39.0-53.0); HGB 7.7 gm/dL (13.0-17.5); MCH 31.2 pg (25.0-35.0); MCV 94.7 fL (80.0-100.0); Mean Platelet Volume 11.8; RBC 2.48 m/uL (4.30-5.90); RDW 17.1 % (11.5-15.5); WBC 3.3 k/uL (3.8-10.6)
[2020-03-08 05:20] LABS: Platelet Count 12 k/uL (150-450)
[2020-03-08 05:52] LABS: Calcium 8.4 mg/dL (8.4-10.2); Potassium 4.5 mmol/L (3.5-5.1)
[2020-03-08 06:38] LABS: Glucose,Whole Blood 147 mg/dL (75-99)
[2020-03-08] MEDS: PANTOPRAZOLE 40 MG TABLET PO SCH ×2 (06:41→17:29)
[2020-03-08] MEDS: INSULIN ASPART (NovoLOG) 100 UNIT/ML VIAL SQ SCH ×4 (06:41→22:36)
[2020-03-08] MEDS: REPAGLINIDE 1 MG TAB PO SCH ×3 (06:41→17:30)
[2020-03-08] MEDS: metFORMIN 500 MG TAB PO SCH ×2 (08:28→17:30)
[2020-03-08] MEDS: CLOPIDOGREL 75 MG TAB PO SCH (08:29)
[2020-03-08] MEDS: TIMOLOL 0.5% OPHTH DROPS 5 ML BTL BOTH EYES SCH ×2 (08:29→22:36)
[2020-03-08] MEDS: SPIRONOLACTONE 25 MG TAB PO SCH (08:29)
[2020-03-08] MEDS: METOPROLOL TARTRATE 25 MG TAB PO SCH ×2 (08:29→18:13)
--- NOTE | 2020-03-08 09:24 | PN ---
PROGRESS NOTE Mr. Duvall is a 79-year-old male who has a history of pancreatic cancer with metastasis, history of paroxysmal atrial fibrillation who presented with GI bleeding and subsequently had chest discomfort and ST-segment elevation, underwent angioplasty and stenting of the proximal LAD. He has mild dyspnea this morning, but no chest pain. He denies any dizziness or palpitation. He continued to be in sinus mechanism. He has pancytopenia related to his malignancy and recent chemotherapy, his last course was on Saturday. He has no overt signs of bleeding. He has no evidence of arrhythmia. He continues to be on Plavix 75 mg daily, Lipitor 80 mg daily, and metformin 500 mg twice a day, metoprolol tartrate 100 mg twice a day. PHYSICAL EXAMINATION: Blood pressure 112/50 with a heart rate in the 80s. LUNGS: Clear. HEART: Regular rate and rhythm, S1, S2. No S3 with a systolic murmur, no diastolic murmur. ABDOMEN: Soft, nontender. EXTREMITIES: No significant edema. LAB DATA: Revealed a hemoglobin of 7.7, platelet count of 12, white blood cell of 3.3, BUN and creatinine 26 and 0.95. IMPRESSION: 1. Status post acute anterior myocardial infarction and stenting of the LAD. 2. Pancytopenia status post chemotherapy for metastatic pancreatic cancer. 3. Prior history of paroxysmal atrial fibrillation. 4. Radiation proctitis with prior history of prostate cancer and radiation. RECOMMENDATION: From the cardiac standpoint I will add to his regimen Aldactone 25 mg daily in addition to lisinopril 2.5 mg daily. His echocardiogram revealed a severely impaired left ventricular systolic function. Will continue to follow his platelet count and depending on his progress, further recommendation will be made. Unfortunately the prognosis remains guarded. MMODL / IJN: [id number] /
[2020-03-08 12:09] LABS: Glucose,Whole Blood 192 mg/dL (75-99)
--- NOTE | 2020-03-08 13:10 | P.PN ---
Subjective Progress Note Date: 03/08/20 Principal diagnosis: Acute GI bleeding secondary to radiation proctitis. Acute ST elevation myocardial infarction 79-year-old male patient who came developed an acute chest pain hypotension with abnormal EKG changes suggestive an acute ST segment elevation myocardial infarction. The patient was about to get discharged home and he developed chest pain and he got transferred to the intensive care unit. At time of arrival his systolic blood pressure was in the mid 80s. His cardiac rhythm is sinus and the mid 70s. He is having active pressure over the anterior chest area. He looks a bit diaphoretic and pale. He is known to have metastatic pancreatic cancer that was recently diagnosed. The patient was found to have a pancreatic mass with metastases to his liver. He had also multiple splenic masses measuring up to 5.2 cm in size. He also had a renal mass measuring 2.5 cm in size in addition to prominent lymph nodes sedation adjacent to the ascending colon. There was also evidence of peritoneal deposits. The patient decided to proceed with systemic chemotherapy. Following his first cycle of systemic chemo in December 2019, the patient developed side effects and the chemotherapy had to be held because he was admitted to the hospital because of rectal bleeding. At that time he was also noted the correlation with warfarin. He was admitted and he was given a sigmoidoscopy and he was treated with argon plasma coagulation with multiple telangiectasias were found in the rectal area. 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 In any rate, the patient was discharged and he was given a second session of systemic chemotherapy and February 2020. He was readmitted for complaints of rectal bleeding. GI evaluated this patient. Argon plasma was carried out by Dr. Garza where the patient underwent a flexible sigmoidoscopy and he was found again to have radiation proctitis and few scattered telangiectasias. There is related to systemic chemotherapy. The patient has a white cell count of 3.8 with hemoglobin 7.2 and the plated count of 18 this morning. His chest x-ray at time of admission showed no acute cardio pulmonary abnormalities. Patient was reevaluated today on 03/07/2020, patient is now status post acute ST elevation myocardial infarction requiring cardiac catheterization and stent placement. Patient had successful stenting of the proximal LAD yesterday by Dr. Peraza, he had aspiration thrombectomy from left anterior descending artery. Today the patient seems to be doing much better, denies any chest pain, denies any further episodes of GI bleeding although the patient's initial presentation was mostly a presentation of GI bleeding secondary to radiation proctitis. Patient developed chest pain on 03/[address] elevation myocardial infarction. Hence cardiac catheterization and stenting were performed yesterday. Today the patient is feeling great, asymptomatic, no chest pain no shortness of breath, he is on 2 L nasal cannula, O2 saturation 98%. Hemoglobin is 7.9 platelets are 16,000. Electrolytes are normal. BUN is 33 creatinine 1.18. Chest x-ray yesterday showed no acute cardiopulmonary process. Reevaluated today on 03/08/20, patient remains in the ICU, he is presently on overflow. He is on room air, O2 saturation is in the 90s. His IV fluid is at KVO. Platelets are down to 12,000, hemoglobin is holding at 7.7, no bleeding o vernight, and no chest pain. Aspirin is on hold but the patient remains on Plavix because of his new stent placement. Hemodynamically stable, denies any pulmonary symptoms. Basic metabolic profile is relatively unremarkable. Objective - Vital Signs Vital signs: Vital Signs Temp 97.7 F 03/08/20 12:00 Pulse 89 03/08/20 12:00 Resp 19 03/08/20 12:00 BP 124/56 03/08/20 12:00 Pulse Ox 96 03/08/20 04:00 Intake & Output 03/07/20 03/08/20 03/08/20 18:59 06:59 18:59 Intake Total 120 150 Output Total 600 670 350 Balance -480 -670 -200 Weight 79.3 kg 75.3 kg Intake: Oral 120 150 Output: Urine 600 670 350 Other: Voiding Method Urinal Urinal Urinal # Voids 1 0 1 - Exam Physical Exam: Revealed 79-year-old white male in no distress, on room air. Head: Atraumatic, normocephalic. HEENT:[Neck is supple.] [No neck masses.] [No thyromegaly.] [No JVD.] Minimal erythema and crusting in the nasal mucosa. Chest: [Clear throughout, no crackles, no rhonchi, no wheezes.] Cardiac Exam: [Normal S1 and S2, no S3 gallop, no murmur.] Abdomen: [Soft, nontender, no megaly, no rebound, no guarding, normal bowel sounds.] Extremities: [No clubbing, no edema, no cyanosis.] Neurological Exam: [No focal neurologic deficit.] Alert oriented 3. Psychiatric: Normal mood, affect and normal mental status examination. - Labs CBC & Chem 7: 03/08/20 04:53 03/08/20 04:53 Labs: Abnormal Lab Results - Last 24 Hours (Table) 03/06/20 03/07/20 03/07/20 Range/Units 12:06 17:43 21:02 WBC (3.8-10.6) k/uL RBC (4.30-5.90) m/uL Hgb (13.0-17.5) gm/dL Hct (39.0-53.0) % RDW (11.5-15.5) % Plt Count (150-450) k/uL Sodium (137-145) mmol/L BUN (9-20) mg/dL Glucose (74-99) mg/dL POC Glucose (mg/dL) 198 H 226 H (75-99) mg/dL CA 19-9 Antigen >49444.0 H (0.0-34.9) U/mL 03/08/20 03/08/20 03/08/20 Range/Units 04:53 04:53 06:26 WBC 3.3 L (3.8-10.6) k/uL RBC 2.48 L (4.30-5.90) m/uL Hgb 7.7 L (13.0-17.5) gm/dL Hct 23.5 L (39.0-53.0) % RDW 17.1 H (11.5-15.5) % Plt Count 12 L* (150-450) k/uL Sodium 132 L (137-145) mmol/L BUN 26 H (9-20) mg/dL Glucose 125 H (74-99) mg/dL POC Glucose (mg/dL) 147 H (75-99) mg/dL CA 19-9 Antigen (0.0-34.9) U/mL 03/08/20 Range/Units 12:06 WBC (3.8-10.6) k/uL RBC (4.30-5.90) m/uL Hgb (13.0-17.5) gm/dL Hct (39.0-53.0) % RDW (11.5-15.5) % Plt Count (150-450) k/uL Sodium (137-145) mmol/L BUN (9-20) mg/dL Glucose (74-99) mg/dL POC Glucose (mg/dL) 192 H (75-99) mg/dL CA 19-9 Antigen (0.0-34.9) U/mL Assessment and Plan Assessment: Impression: Acute ST elevation myocardial infarction requiring stent placement in LAD. Anemia associated with acute blood loss. Secondary to GI bleeding radiation proctitis. Stage IV pancreatic adenocarcinoma. History of prostate cancer and radiation. Radiation proctitis. Thrombocytopenia, being addressed by oncology on the case. Patient is to receive platelet transfusion today as ordered by oncology. Chronic atrial fibrillation. Anticoagulation therapy is presently on hold until platelets recover. However the patient is on Plavix for his stent placement. Pancytopenia secondary to chemotherapy. History of diverticular disease. History of hiatal hernia. Obstructive sleep apnea, not utilizing CPAP. History of temporal arteritis. History of CVA in 2017. Recommendation: Transfer patient out of the ICU to a monitor bed on selective Continue to hold anticoagulation therapy. However patient is on Plavix. Continue to monitor his coagulation profile. Pancytopenia, being addressed by oncology. Patient is being followed by cardiology and by hematology/oncology. Overall prognosis remains poor and guarded considering his metastatic pancreatic cancer and now ongoing cardiovascular complications. We'll continue to follow Time with Patient: Less than 30
[2020-03-08] MEDS: SODIUM CHLORIDE 0.9% 1,000 ML IV SCH (14:00)
[2020-03-08 16:41] LABS: Glucose,Whole Blood 192 mg/dL (75-99)
[2020-03-08 20:40] LABS: Glucose,Whole Blood 181 mg/dL (75-99)
--- NOTE | 2020-03-08 21:19 | P.PN ---
Subjective Progress Note Date: 03/08/20 Principal diagnosis: Pancreatic carcinoma Feeling better today, no acute events overnight. Successful cath and evacuation of clot and stent placement post STEMI Objective - Vital Signs Vital signs: Vital Signs Temp 97.8 F 03/08/20 08:00 Pulse 96 03/08/20 08:00 Resp 21 03/08/20 08:00 BP 136/60 03/08/20 08:00 Pulse Ox 96 03/08/20 04:00 Intake & Output 03/07/20 03/08/20 03/08/20 18:59 06:59 18:59 Intake Total 120 150 Output Total 600 670 250 Balance -480 -670 -100 Weight 79.3 kg 75.3 kg Intake: Oral 120 150 Output: Urine 600 670 250 Other: Voiding Method Urinal Urinal Urinal # Voids 1 0 1 - Exam - Constitutional General appearance: cooperative, no acute distress - EENT Eyes: PERRLA ENT: NA/AT, normal oropharynx - Neck Neck: normal ROM - Respiratory Respiratory: bilateral: CTA - Cardiovascular Rhythm: irregularly irregular Heart sounds: normal: S1, S2 - Gastrointestinal General gastrointestinal: normal bowel sounds, soft, tenderness - Integumentary Integumentary: pale - Neurologic non focal - Musculoskeletal Musculoskeletal: generalized weakness - Labs CBC & Chem 7: 03/08/20 04:53 03/08/20 04:53 Labs: Abnormal Lab Results - Last 24 Hours (Table) 03/06/20 03/06/20 03/07/20 Range/Units 12:06 12:06 10:38 WBC 3.5 L (3.8-10.6) k/uL RBC 2.49 L (4.30-5.90) m/uL Hgb 7.9 L (13.0-17.5) gm/dL Hct 23.9 L (39.0-53.0) % RDW 17.6 H (11.5-15.5) % Plt Count 16 L* (150-450) k/uL Lymphocytes # 0.8 L (1.0-4.8) k/uL Sodium (137-145) mmol/L Potassium (3.5-5.1) mmol/L BUN (9-20) mg/dL Glucose (74-99) mg/dL POC Glucose (mg/dL) (75-99) mg/dL Calcium (8.4-10.2) mg/dL Ferritin 1589.3 H (22.0-322.0) ng/mL AST (17-59) U/L ALT (4-49) U/L Total Protein (6.3-8.2) g/dL Albumin (3.5-5.0) g/dL CA 19-9 Antigen >73263.0 H (0.0-34.9) U/mL Vitamin B12 1195.0 H (200.0-944.0) pg/mL 03/07/20 03/07/20 03/07/20 Range/Units 10:38 11:53 17:43 WBC (3.8-10.6) k/uL RBC (4.30-5.90) m/uL Hgb (13.0-17.5) gm/dL Hct (39.0-53.0) % RDW (11.5-15.5) % Plt Count (150-450) k/uL Lymphocytes # (1.0-4.8) k/uL Sodium 136 L (137-145) mmol/L Potassium 5.4 H (3.5-5.1) mmol/L BUN 33 H (9-20) mg/dL Glucose 251 H (74-99) mg/dL POC Glucose (mg/dL) 257 H 198 H (75-99) mg/dL Calcium 8.1 L (8.4-10.2) mg/dL Ferritin (22.0-322.0) ng/mL AST 419 H (17-59) U/L ALT 130 H (4-49) U/L Total Protein 5.4 L (6.3-8.2) g/dL Albumin 2.9 L (3.5-5.0) g/dL CA 19-9 Antigen (0.0-34.9) U/mL Vitamin B12 (200.0-944.0) pg/mL 03/07/20 03/08/20 03/08/20 Range/Units 21:02 04:53 04:53 WBC 3.3 L (3.8-10.6) k/uL RBC 2.48 L (4.30-5.90) m/uL Hgb 7.7 L (13.0-17.5) gm/dL Hct 23.5 L (39.0-53.0) % RDW 17.1 H (11.5-15.5) % Plt Count 12 L* (150-450) k/uL Lymphocytes # (1.0-4.8) k/uL Sodium 132 L (137-145) mmol/L Potassium (3.5-5.1) mmol/L BUN 26 H (9-20) mg/dL Glucose 125 H (74-99) mg/dL POC Glucose (mg/dL) 226 H (75-99) mg/dL Calcium (8.4-10.2) mg/dL Ferritin (22.0-322.0) ng/mL AST (17-59) U/L ALT (4-49) U/L Total Protein (6.3-8.2) g/dL Albumin (3.5-5.0) g/dL CA 19-9 Antigen (0.0-34.9) U/mL Vitamin B12 (200.0-944.0) pg/mL 03/08/20 Range/Units 06:26 WBC (3.8-10.6) k/uL RBC (4.30-5.90) m/uL Hgb (13.0-17.5) gm/dL Hct (39.0-53.0) % RDW (11.5-15.5) % Plt Count (150-450) k/uL Lymphocytes # (1.0-4.8) k/uL Sodium (137-145) mmol/L Potassium (3.5-5.1) mmol/L BUN (9-20) mg/dL Glucose (74-99) mg/dL POC Glucose (mg/dL) 147 H (75-99) mg/dL Calcium (8.4-10.2) mg/dL Ferritin (22.0-322.0) ng/mL AST (17-59) U/L ALT (4-49) U/L Total Protein (6.3-8.2) g/dL Albumin (3.5-5.0) g/dL CA 19-9 Antigen (0.0-34.9) U/mL Vitamin B12 (200.0-944.0) pg/mL Assessment and Plan (1) Anemia associated with acute blood loss Current Visit: Yes Status: Acute Code(s): D62 - ACUTE POSTHEMORRHAGIC ANEMIA SNOMED Code(s): 904004391 (2) Pancreatic adenocarcinoma Current Visit: Yes Status: Acute Code(s): C25.9 - MALIGNANT NEOPLASM OF PANCREAS, UNSPECIFIED SNOMED Code(s): 578446800 (3) History of prostate cancer Current Visit: Yes Status: Acute Code(s): Z85.46 - PERSONAL HISTORY OF MALIGNANT NEOPLASM OF PROSTATE SNOMED Code(s): 017652799 (4) Radiation proctitis Current Visit: Yes Status: Acute Code(s): K62.7 - RADIATION PROCTITIS SNOMED Code(s): 892333721 Plan: Assessment and PLan: 1. Normocytic Anemia:Improving - Secondary to Acute Blood Loss and Sarabjit of chemotherapy - Check Iron Studies and transfusion support less than 7 2. Bleeding from Rectum: Improving/Resolved - Status post GI procedure for radiation procititis 3. Pancreatic Cancer: - Status POst Abraxane and Gemsar on 03/01/20 - On hold at this time 4. Increased LFTS: secondary to decreased perfusion related to GA - Initially increased but improved until todays draw which is normal 24 hours to peak after cardiac injury, this is expected to improve moving forward - Recheck 03/09 5. THrombocytopenia: 16K today - Hold Warfarin and all other Anticoagualtion until greater than 50K, if still bleeding transfuse Platlets less than 50K. - Monitor Daily CBC - There is concern he will not be able to restart anticoagulation as his platelet count is not recovering well. Patient and are aware of the risks associated 6. Shortness of Breath:Improved - Chest Xray was without acute cardiopulmonary event (prior to GA) 7. ST Elevated GA with Cardiac cath and successful stent placement on 03/06/20 8. Atrial Fibbrilation: - Continue to hold Warfarin until platelets recover PLan: - COntinue to monitor daily CBC, CMP - Dr. Ellison to discuss AC therapy further with Cardiology regarding persistent thrombocytopenia - Transfusion support PRN - Continue to hold AC therapy with platelets less than 50K - Transfer back to Medical floor today from ICU
[2020-03-08] MEDS: FOLIC ACID 1 MG TAB PO SCH (22:36)
[2020-03-08] MEDS: ATORVASTATIN 80 MG TAB PO SCH (22:36)
[2020-03-08] MEDS: LATANOPROST 0.005% OPHTH DROPS 2.5 ML BTL BOTH EYES SCH (22:37)
[2020-03-09] MEDS: BENZONATATE 100 MG CAP PO PRN ×2 (00:49→09:11)
[2020-03-09 06:05] LABS: Glucose,Whole Blood 158 mg/dL (75-99)
[2020-03-09] MEDS: PANTOPRAZOLE 40 MG TABLET PO SCH ×2 (06:21→17:25)
[2020-03-09 07:43] LABS: Anisocytosis Slight; HCT 22.5 % (39.0-53.0); HGB 7.2 gm/dL (13.0-17.5); MCH 30.7 pg (25.0-35.0); MCHC 32.2 g/dL (31.0-37.0); MCV 95.3 fL (80.0-100.0); Macrocytosis Slight; Mean Platelet Volume 8.9; RBC 2.36 m/uL (4.30-5.90); RDW 17.3 % (11.5-15.5); WBC 3.6 k/uL (3.8-10.6)
[2020-03-09 07:57] LABS: Platelet Count 32 k/uL (150-450)
[2020-03-09 07:59] LABS: Calcium 8.2 mg/dL (8.4-10.2); Potassium 4.6 mmol/L (3.5-5.1)
[2020-03-09] MEDS: INSULIN ASPART (NovoLOG) 100 UNIT/ML VIAL SQ SCH ×4 (09:03→20:48)
[2020-03-09] MEDS: REPAGLINIDE 1 MG TAB PO SCH ×3 (09:03→17:25)
[2020-03-09] MEDS: metFORMIN 500 MG TAB PO SCH ×2 (09:11→17:25)
[2020-03-09] MEDS: METOPROLOL TARTRATE 25 MG TAB PO SCH ×2 (09:11→20:54)
[2020-03-09] MEDS: SPIRONOLACTONE 25 MG TAB PO SCH (09:12)
[2020-03-09] MEDS: TIMOLOL 0.5% OPHTH DROPS 5 ML BTL BOTH EYES SCH ×2 (09:12→20:56)
[2020-03-09] MEDS: CLOPIDOGREL 75 MG TAB PO SCH (09:12)
[2020-03-09] MEDS: HYDROcodone/APAP 7.5-325MG 1 EACH TAB PO PRN ×2 (09:12→20:54)
[2020-03-09 12:11] LABS: Glucose,Whole Blood 191 mg/dL (75-99)
--- NOTE | 2020-03-09 13:26 | P.PN ---
Subjective Progress Note Date: 03/09/20 CHIEF COMPLAINT: Chest pain HISTORY OF PRESENT ILLNESS: Patient examined this morning at the bedside. He is status post angioplasty and stenting of the proximal LAD. Patient reports feeling "lousy" this morning. He denies chest pain or shortness of breath. He does report an occasional productive cough. Blood pressure stable. Heart rate in the 70s. PHYSICAL EXAM: VITAL SIGNS: Reviewed. GENERAL: Well-developed in no acute distress. NECK: Supple. No JVD or thyromegaly LUNGS: Respirations even and unlabored. Lungs essentially clear to auscultation bilaterally. HEART: Regular rate and rhythm. S1 and S2 heard. EXTREMITIES: Normal range of motion. No clubbing or cyanosis. Peripheral pulses intact. No lower extremity edema ASSESSMENT: 1. Acute myocardial infarction, status post stenting to the LAD 2. Pancytopenia, status post chemotherapy for metastatic pancreatic cancer 3. History of paroxysmal atrial fibrillation PLAN: -Continue current cardiac medications -Continue to monitor labs -Platelet infusion per oncology Nurse practitioner note has been reviewed by physician. Signing provider agrees with the documented findings, assessment, and plan of care. Objective - Vital Signs Vital signs: Vital Signs Temp 98.1 F 03/09/20 08:00 Pulse 78 03/09/20 11:26 Resp 18 03/09/20 11:26 BP 111/53 03/09/20 08:00 Pulse Ox 94 L 03/09/20 08:00 Intake & Output 03/08/20 03/09/20 03/09/20 18:59 06:59 18:59 Intake Total 150 317 120 Output Total 350 500 250 Balance -200 -183 -130 Weight 73.8 kg Intake: Oral 150 120 Blood Product 317 Platelet Pheresis Acda2 317 Unit [id number] Output: Urine 350 500 250 Other: Voiding Method Urinal Urinal # Voids 1 2 - Labs CBC & Chem 7: 03/09/20 06:59 03/09/20 06:59 Labs: Abnormal Lab Results - Last 24 Hours (Table) 03/06/20 03/08/20 03/08/20 Range/Units 14:17 16:29 20:39 WBC (3.8-10.6) k/uL RBC (4.30-5.90) m/uL Hgb (13.0-17.5) gm/dL Hct (39.0-53.0) % RDW (11.5-15.5) % Plt Count (150-450) k/uL Sodium (137-145) mmol/L BUN (9-20) mg/dL Glucose (74-99) mg/dL POC Glucose (mg/dL) 192 H 181 H (75-99) mg/dL Calcium (8.4-10.2) mg/dL Crossmatch See Detail 03/09/20 03/09/20 03/09/20 Range/Units 06:04 06:59 06:59 WBC 3.6 L (3.8-10.6) k/uL RBC 2.36 L (4.30-5.90) m/uL Hgb 7.2 L (13.0-17.5) gm/dL Hct 22.5 L (39.0-53.0) % RDW 17.3 H (11.5-15.5) % Plt Count 32 L D (150-450) k/uL Sodium 134 L (137-145) mmol/L BUN 22 H (9-20) mg/dL Glucose 142 H (74-99) mg/dL POC Glucose (mg/dL) 158 H (75-99) mg/dL Calcium 8.2 L (8.4-10.2) mg/dL Crossmatch 03/09/20 Range/Units 12:09 WBC (3.8-10.6) k/uL RBC (4.30-5.90) m/uL Hgb (13.0-17.5) gm/dL Hct (39.0-53.0) % RDW (11.5-15.5) % Plt Count (150-450) k/uL Sodium (137-145) mmol/L BUN (9-20) mg/dL Glucose (74-99) mg/dL POC Glucose (mg/dL) 191 H (75-99) mg/dL Calcium (8.4-10.2) mg/dL Crossmatch
[2020-03-09] MEDS: SODIUM CHLORIDE 0.9% 1,000 ML IV SCH (16:12)
[2020-03-09 17:04] LABS: Glucose,Whole Blood 147 mg/dL (75-99)
--- NOTE | 2020-03-09 20:32 | P.PN ---
Subjective Progress Note Date: 03/09/20 Principal diagnosis: Pancreatic carcinoma Patients platelet count 32K, since he has recent stent placement and requiring plavix to be continued we will need to maintain a platelet count close to 50K, therefore platelet transfusion was ordered. Overall he is feeling better Objective - Vital Signs Vital signs: Vital Signs Temp 98 F 03/09/20 16:00 Pulse 91 03/09/20 16:00 Resp 20 03/09/20 16:00 BP 102/54 03/09/20 16:00 Pulse Ox 96 03/09/20 16:00 Intake & Output 03/09/20 03/09/20 03/10/20 06:59 18:59 06:59 Intake Total 317 577 Output Total 500 450 Balance -183 127 Weight 73.8 kg Intake: Oral 360 Blood Product 317 217 Platelet Irr Pheresis 3 217 Acda Unit [id number] Platelet Pheresis Acda2 317 Unit [id number] Output: Urine 500 450 Other: Voiding Method Urinal # Voids 2 - Exam - Constitutional General appearance: cooperative, no acute distress - EENT Eyes: PERRLA ENT: NA/AT, normal oropharynx - Neck Neck: normal ROM - Respiratory Respiratory: bilateral: CTA - Cardiovascular Rhythm: irregularly irregular Heart sounds: normal: S1, S2 - Gastrointestinal General gastrointestinal: normal bowel sounds, soft, tenderness - Integumentary Integumentary: pale - Neurologic non focal - Musculoskeletal Musculoskeletal: generalized weakness - Labs CBC & Chem 7: 03/09/20 06:59 03/09/20 06:59 Labs: Abnormal Lab Results - Last 24 Hours (Table) 03/06/20 03/08/20 03/09/20 Range/Units 14:17 20:39 06:04 WBC (3.8-10.6) k/uL RBC (4.30-5.90) m/uL Hgb (13.0-17.5) gm/dL Hct (39.0-53.0) % RDW (11.5-15.5) % Plt Count (150-450) k/uL Sodium (137-145) mmol/L BUN (9-20) mg/dL Glucose (74-99) mg/dL POC Glucose (mg/dL) 181 H 158 H (75-99) mg/dL Calcium (8.4-10.2) mg/dL Crossmatch See Detail 03/09/20 03/09/20 03/09/20 Range/Units 06:59 06:59 12:09 WBC 3.6 L (3.8-10.6) k/uL RBC 2.36 L (4.30-5.90) m/uL Hgb 7.2 L (13.0-17.5) gm/dL Hct 22.5 L (39.0-53.0) % RDW 17.3 H (11.5-15.5) % Plt Count 32 L D (150-450) k/uL Sodium 134 L (137-145) mmol/L BUN 22 H (9-20) mg/dL Glucose 142 H (74-99) mg/dL POC Glucose (mg/dL) 191 H (75-99) mg/dL Calcium 8.2 L (8.4-10.2) mg/dL Crossmatch 03/09/20 Range/Units 17:00 WBC (3.8-10.6) k/uL RBC (4.30-5.90) m/uL Hgb (13.0-17.5) gm/dL Hct (39.0-53.0) % RDW (11.5-15.5) % Plt Count (150-450) k/uL Sodium (137-145) mmol/L BUN (9-20) mg/dL Glucose (74-99) mg/dL POC Glucose (mg/dL) 147 H (75-99) mg/dL Calcium (8.4-10.2) mg/dL Crossmatch Assessment and Plan (1) Anemia associated with acute blood loss Current Visit: Yes Status: Acute Code(s): D62 - ACUTE POSTHEMORRHAGIC ANEMIA SNOMED Code(s): 345465835 (2) Pancreatic adenocarcinoma Current Visit: Yes Status: Acute Code(s): C25.9 - MALIGNANT NEOPLASM OF PANCREAS, UNSPECIFIED SNOMED Code(s): 423195032 (3) History of prostate cancer Current Visit: Yes Status: Acute Code(s): Z85.46 - PERSONAL HISTORY OF MALIGNANT NEOPLASM OF PROSTATE SNOMED Code(s): 051477300 (4) Radiation proctitis Current Visit: Yes Status: Acute Code(s): K62.7 - RADIATION PROCTITIS SNOMED Code(s): 947442425 Plan: Assessment and PLan: 1. Normocytic Anemia:Improving - Secondary to Acute Blood Loss and Sarabjit of chemotherapy - Transfusion support less than 7 - No Iron or B12 support at this time needed 2. Bleeding from Rectum: Improving/Resolved - Status post GI procedure for radiation procititis 3. Pancreatic Cancer: - Status POst Abraxane and Gemsar on 03/01/20 - On hold at this time - HIs tumor marker Ca 19-9 remains >70K, this has unfortunetly not decreased which is concerning for his effectiveness of treatment, will need to discuss further with primary oncologist Dr. Markham for plan moving forward 4. Increased LFTS: secondary to decreased perfusion related to IL - Initially increased but improved until todays draw which is normal 24 hours to peak after cardiac injury, this is expected to improve moving forward - Recheck 03/10, cmp placed 5. THrombocytopenia: 32K today - Continue to hold Warfarin, patient must continue plavix with recent stent, therefore must maintain platelet count close to 50K - Monitor Daily CBC 6. Shortness of Breath:Improved - Chest Xray was without acute cardiopulmonary event (prior to IL) 7. ST Elevated [place] with Cardiac cath and successful stent placement on 03/06/20 - On plavix, No aspirin with recent stent 8. Atrial Fibrilation: - Continue to hold Warfarin until platelets recover PLan: - No aspirin, continues on Plavix - Transfuse to keep platelets close to 50K with need of continue plavix - Uncertainty of response to treatment as continued increase in CA 19-9, will need to further discuss with Dr. Markham for treatment options. Physiacian Attest: I have completed the full history and physical and agree with above dictation, dictated as a scribe.
[2020-03-09 20:36] LABS: Glucose,Whole Blood 96 mg/dL (75-99)
[2020-03-09] MEDS: ATORVASTATIN 80 MG TAB PO SCH (20:54)
[2020-03-09] MEDS: FOLIC ACID 1 MG TAB PO SCH (20:54)
[2020-03-09] MEDS: LATANOPROST 0.005% OPHTH DROPS 2.5 ML BTL BOTH EYES SCH (20:56)
--- NOTE | 2020-03-09 23:42 | P.PN ---
Subjective Progress Note Date: 03/08/20 Principal diagnosis: Rectal bleeding. 79-year-old patient of Dr. Morrow. Presented on December 18 to the hospital with abdominal pain.. Computed tomography scan of the abdomen showed multiple hepatic masses and what appeared to be metastatic disease in the pancreas and the spleen. Bone scan did show some lighting up in right femur. MRI of the brain did not show any metastatic disease. Patient on December 22 underwent biopsy of the right intra-abdominal mass. Did come back showing metastatic well- differentiated adenocarcinoma. Today but it January 26 and discharge in January 27. Bleeding from rectum. 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 Argon plasma coagulation was carried out. Patient now presents with intermittent bleeding for last 10 days. Within without stool. Decreased appetite tired rundown. GI was consulted. No rectal pain. Patient been on Coumadin. INR was 3.5. Given vitamin K in the ER. Patient again underwent argon plasma coagulation. Also found to have very few scattered telangiectasia.-By Dr. Annamarie Ramsey On 03/07/2020 Patient is currently in the MICU. Patient was being discharged yesterday but he developed acute ST elevated ID and status post cardiac cath does not stent placement. Patient had stenting of the proximal LAD by Dr. Peraza. Patient also had aspiration thrombectomy from the left anterior descending artery. Today patient denied any complaints of chest pain or shortness of breath. Liver enzymes are slightly elevated compared to yesterday. Platelet count is 16,000. Hemoglobin is at 7.8. Currently resting in bed comfortably. Patient did have rectal bleeding thought to be secondary to radiation proctitis. Chest x-ray showed no acute cardiopulmonary process. Pulmonary and cardiology and oncology is following. 03/08/2020 Patient is currently lying in the bed comfortably. Currently on room air. No complaints of chest pain. Patient is being continued on Plavix. Status post cardiac catheterization and stent placement due to ST elevated ID. Patient is being transferred to medical floor today. Laboratory data showed WBC 3.3, hemoglobin 7.7 and platelets 12 Sodium 132, potassium 4.5, BUN 26 and creatinine 0.95 Current medications reviewed. Review of systems: Was done for constitutional, cardiovascular, GI, pulmonary. relevant finding as above Objective - Vital Signs Vital signs: Vital Signs Temp 97.9 F 03/08/20 15:58 Pulse 99 03/08/20 16:00 Resp 16 03/08/20 16:00 BP 133/62 03/08/20 15:58 Pulse Ox 96 03/08/20 15:58 Intake & Output 03/08/20 03/08/20 03/09/20 06:59 18:59 06:59 Intake Total 150 Output Total 670 350 Balance -670 -200 Weight 75.3 kg Intake: Oral 150 Output: Urine 670 350 Other: Voiding Method Urinal Urinal # Voids 0 1 - Exam PHYSICAL EXAMINATION: Patient is lying in the bed comfortably, no acute distress, awake alert and oriented.. HEENT: Normocephalic. Neck is supple. Pupils reactive. Nostrils clear. Oral cavity is moist. Ears reveal no drainage. Neck reveals no JVD, carotid bruits, or thyromegaly. CHEST EXAMINATION: Trachea is central. Symmetrical expansion. Lung [place] clear to auscultation and percussion. CARDIAC: Normal S1, S2 with no gallops. No murmurs ABDOMEN: Soft. Bowel soundsnormal Nontender. . No organomegaly. No abdominal bruits. Extremities: reveal no edema. No clubbing or cyanosis Neurologically awake, alert, oriented x3 with well-coordinated movements. No focal deficits noted Skin: No rash or skin lesions. Psychiatric: Coperative. Nonsuicidal Musculoskeletal: No joint swelling or deformity. Normal range of motion. - Labs CBC & Chem 7: 03/09/20 06:59 03/09/20 06:59 Labs: Abnormal Lab Results - Last 24 Hours (Table) 03/06/20 03/08/20 03/08/20 Range/Units 14:17 04:53 04:53 WBC 3.3 L (3.8-10.6) k/uL RBC 2.48 L (4.30-5.90) m/uL Hgb 7.7 L (13.0-17.5) gm/dL Hct 23.5 L (39.0-53.0) % RDW 17.1 H (11.5-15.5) % Plt Count 12 L* (150-450) k/uL Sodium 132 L (137-145) mmol/L BUN 26 H (9-20) mg/dL Glucose 125 H (74-99) mg/dL POC Glucose (mg/dL) (75-99) mg/dL Crossmatch See Detail 03/08/20 03/08/20 03/08/20 Range/Units 06:26 12:06 16:29 WBC (3.8-10.6) k/uL RBC (4.30-5.90) m/uL Hgb (13.0-17.5) gm/dL Hct (39.0-53.0) % RDW (11.5-15.5) % Plt Count (150-450) k/uL Sodium (137-145) mmol/L BUN (9-20) mg/dL Glucose (74-99) mg/dL POC Glucose (mg/dL) 147 H 192 H 192 H (75-99) mg/dL Crossmatch 03/08/20 Range/Units 20:39 WBC (3.8-10.6) k/uL RBC (4.30-5.90) m/uL Hgb (13.0-17.5) gm/dL Hct (39.0-53.0) % RDW (11.5-15.5) % Plt Count (150-450) k/uL Sodium (137-145) mmol/L BUN (9-20) mg/dL Glucose (74-99) mg/dL POC Glucose (mg/dL) 181 H (75-99) mg/dL Crossmatch Assessment and Plan Assessment: - Acute ST elevated ID status post cardiac catheterization and stent placement. - radiation proctitis the current treated with argon plasma coagulation- -Intra-abdominal metastatic disease with liver masses, pancreatic masses and splenic masses. Well-differentiated metastatic adenocarcinoma-on chemotherapy -Acute blood loss anemia from GI bleed -Paroxysmal Atrial fibrillation-on Coumadin -COPD -GERD -Hyperlipidemia -Essential hypertension -Obstructive sleep apnea -History of prostate cancer with treatment -Sigmoid diverticulosis -Thrombocytopenia from chemotherapy -Acute ST elevation myocardial infarction-March 06 Plan: Patient will be continued on telemetry monitoring. Continue with Plavix and statins. Started on metoprolol 25 mg twice daily and continue to follow closely. Cardiology and pulmonary is on board. Hemoglobin is fairly stable. Time with Patient: Greater than 30
--- NOTE | 2020-03-09 23:45 | P.PN ---
Subjective Progress Note Date: 03/09/20 Principal diagnosis: Rectal bleeding. 79-year-old patient of Dr. Morrow. Presented on December 18 to the hospital with abdominal pain.. Computed tomography scan of the abdomen showed multiple hepatic masses and what appeared to be metastatic disease in the pancreas and the spleen. Bone scan did show some lighting up in right femur. MRI of the brain did not show any metastatic disease. Patient on December 22 underwent biopsy of the right intra-abdominal mass. Did come back showing metastatic well- differentiated adenocarcinoma. Today but it January 26 and discharge in January 27. Bleeding from rectum. 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 Argon plasma coagulation was carried out. Patient now presents with intermittent bleeding for last 10 days. Within without stool. Decreased appetite tired rundown. GI was consulted. No rectal pain. Patient been on Coumadin. INR was 3.5. Given vitamin K in the ER. Patient again underwent argon plasma coagulation. Also found to have very few scattered telangiectasia.-By Dr. Annamarie Ramsey On 03/07/2020 Patient is currently in the MICU. Patient was being discharged yesterday but he developed acute ST elevated SD and status post cardiac cath does not stent placement. Patient had stenting of the proximal LAD by Dr. Peraza. Patient also had aspiration thrombectomy from the left anterior descending artery. Today patient denied any complaints of chest pain or shortness of breath. Liver enzymes are slightly elevated compared to yesterday. Platelet count is 16,000. Hemoglobin is at 7.8. Currently resting in bed comfortably. Patient did have rectal bleeding thought to be secondary to radiation proctitis. Chest x-ray showed no acute cardiopulmonary process. Pulmonary and cardiology and oncology is following. 03/08/2020 Patient is currently lying in the bed comfortably. Currently on room air. No complaints of chest pain. Patient is being continued on Plavix. Status post cardiac catheterization and stent placement due to ST elevated [place]. Patient is being transferred to medical floor today. Laboratory data showed WBC 3.3, hemoglobin 7.7 and platelets 12 Sodium 132, potassium 4.5, BUN 26 and creatinine 0.95 03/09/2020 Patient is lying in the bed comfortably. No complaints of chest pain or shortness of breath. Denies any hematemesis or melena. No further bleeding per rectum. Platelet count is 35 today. To maintain the platelet count close to 50 platelet transfusion was ordered as per oncology. Patient has been afebrile. Denied any bleeding. Hemoglobin dropped down to 7.2 today. Current medications reviewed. Review of systems: Was done for constitutional, cardiovascular, GI, pulmonary. relevant finding as above Objective - Vital Signs Vital signs: Vital Signs Temp 98.1 F 03/09/20 20:40 Pulse 107 H 03/09/20 20:40 Resp 18 03/09/20 20:40 BP 137/61 03/09/20 20:40 Pulse Ox 95 03/09/20 20:40 Intake & Output 03/09/20 03/09/20 03/10/20 06:59 18:59 06:59 Intake Total 317 577 Output Total 500 450 Balance -183 127 Weight 73.8 kg Intake: Oral 360 Blood Product 317 217 Platelet Irr Pheresis 3 217 Acda Unit [id number] Platelet Pheresis Acda2 317 Unit [id number] Output: Urine 500 450 Other: Voiding Method Urinal Urinal # Voids 2 - Exam PHYSICAL EXAMINATION: Patient is lying in the bed comfortably, no acute distress, awake alert and oriented.. HEENT: Normocephalic. Neck is supple. Pupils reactive. Nostrils clear. Oral cavity is moist. Ears reveal no drainage. Neck reveals no JVD, carotid bruits, or thyromegaly. CHEST EXAMINATION: Trachea is central. Symmetrical expansion. Lung [place] clear to auscultation and percussion. CARDIAC: Normal S1, S2 with no gallops. No murmurs ABDOMEN: Soft. Bowel soundsnormal Nontender. . No organomegaly. No abdominal bruits. Extremities: reveal no edema. No clubbing or cyanosis Neurologically awake, alert, oriented x3 with well-coordinated movements. No focal deficits noted Skin: No rash or skin lesions. Psychiatric: Coperative. Nonsuicidal Musculoskeletal: No joint swelling or deformity. Normal range of motion. - Labs CBC & Chem 7: 03/09/20 06:59 03/09/20 06:59 Labs: Abnormal Lab Results - Last 24 Hours (Table) 03/06/20 03/09/20 03/09/20 Range/Units 14:17 06:04 06:59 WBC (3.8-10.6) k/uL RBC (4.30-5.90) m/uL Hgb (13.0-17.5) gm/dL Hct (39.0-53.0) % RDW (11.5-15.5) % Plt Count (150-450) k/uL Sodium 134 L (137-145) mmol/L BUN 22 H (9-20) mg/dL Glucose 142 H (74-99) mg/dL POC Glucose (mg/dL) 158 H (75-99) mg/dL Calcium 8.2 L (8.4-10.2) mg/dL Crossmatch See Detail 03/09/20 03/09/20 03/09/20 Range/Units 06:59 12:09 17:00 WBC 3.6 L (3.8-10.6) k/uL RBC 2.36 L (4.30-5.90) m/uL Hgb 7.2 L (13.0-17.5) gm/dL Hct 22.5 L (39.0-53.0) % RDW 17.3 H (11.5-15.5) % Plt Count 32 L D (150-450) k/uL Sodium (137-145) mmol/L BUN (9-20) mg/dL Glucose (74-99) mg/dL POC Glucose (mg/dL) 191 H 147 H (75-99) mg/dL Calcium (8.4-10.2) mg/dL Crossmatch Assessment and Plan Assessment: - Acute ST elevated SD status post cardiac catheterization and stent placement. - radiation proctitis the current treated with argon plasma coagulation- -Pancreatic cancer metastatic with liver masses, pancreatic masses and splenic masses. Well-differentiated metastatic adenocarcinoma-on chemotherapy -Acute blood loss anemia from GI bleed - Pancytopenia secondary to chemotherapy. -Paroxysmal Atrial fibrillation-on Coumadin -COPD -GERD -Hyperlipidemia -Essential hypertension -Obstructive sleep apnea -History of prostate cancer with treatment -Sigmoid diverticulosis -Thrombocytopenia from chemotherapy -Acute ST elevation myocardial infarction-March 06 Plan: Patient will be continued on telemetry monitoring. Continue with Plavix and statins. Started on metoprolol 25 mg twice daily and continue to follow closely. Cardiology and pulmonary is on board. Hemoglobin is fairly stable. Time with Patient: Greater than 30
[2020-03-10 05:52] LABS: Glucose,Whole Blood 184 mg/dL (75-99)
[2020-03-10 06:02] LABS: Anisocytosis Slight; Basophils % (A) 0 %; Eosinophils # (A) 0.2 k/uL (0-0.7); Eosinophils % (A) 7 %; HCT 21.7 % (39.0-53.0); Lymphocytes # (A) 0.6 k/uL (1.0-4.8); Lymphocytes % (A) 22 %; MCH 30.6 pg (25.0-35.0); MCHC 32.1 g/dL (31.0-37.0); MCV 95.3 fL (80.0-100.0); Macrocytosis Slight; Mean Platelet Volume 9.1; Monocytes # (A) 0.1 k/uL (0-1.0); Monocytes % (A) 3 %; Neutrophils # (A) 1.9 k/uL (1.3-7.7); Neutrophils % (A) 66 %; RBC 2.28 m/uL (4.30-5.90); RDW 17.9 % (11.5-15.5); WBC 2.9 k/uL (3.8-10.6)
[2020-03-10 06:07] LABS: Platelet Count 40 k/uL (150-450)
[2020-03-10 06:18] LABS: Albumin 2.7 g/dL (3.5-5.0); Calcium 8.2 mg/dL (8.4-10.2); Magnesium 1.6 mg/dL (1.6-2.3); Potassium 4.5 mmol/L (3.5-5.1); Total Bilirubin 0.4 mg/dL (0.2-1.3); Total Protein 5.2 g/dL (6.3-8.2)
[2020-03-10] MEDS: CLOPIDOGREL 75 MG TAB PO SCH (08:07)
[2020-03-10] MEDS: SPIRONOLACTONE 25 MG TAB PO SCH (08:07)
[2020-03-10] MEDS: METOPROLOL TARTRATE 25 MG TAB PO SCH ×2 (08:07→17:42)
[2020-03-10] MEDS: PANTOPRAZOLE 40 MG TABLET PO SCH ×2 (08:07→17:43)
[2020-03-10] MEDS: metFORMIN 500 MG TAB PO SCH ×2 (08:08→17:43)
[2020-03-10] MEDS: REPAGLINIDE 1 MG TAB PO SCH ×3 (08:08→17:42)
[2020-03-10] MEDS: INSULIN ASPART (NovoLOG) 100 UNIT/ML VIAL SQ SCH ×4 (08:10→20:40)
[2020-03-10] MEDS: TIMOLOL 0.5% OPHTH DROPS 5 ML BTL BOTH EYES SCH ×2 (08:10→20:41)
--- NOTE | 2020-03-10 11:40 | P.PN ---
Subjective Progress Note Date: 03/10/20 CHIEF COMPLAINT: Chest pain HISTORY OF PRESENT ILLNESS: Patient examined this morning at the bedside. He is status post angioplasty and stenting of the proximal LAD. He denies chest pain or shortness of breath. He does report an occasional productive cough. Vital signs stable. PHYSICAL EXAM: VITAL SIGNS: Reviewed. GENERAL: Well-developed in no acute distress. NECK: Supple. No JVD or thyromegaly LUNGS: Respirations even and unlabored. Lungs essentially clear to auscultation bilaterally. HEART: Regular rate and rhythm. S1 and S2 heard. EXTREMITIES: Normal range of motion. No clubbing or cyanosis. Peripheral pulses intact. No lower extremity edema ASSESSMENT: 1. Acute myocardial infarction, status post stenting to the LAD 2. Pancytopenia, status post chemotherapy for metastatic pancreatic cancer 3. History of paroxysmal atrial fibrillation PLAN: -Continue current cardiac medications -Continue to monitor labs -Patient hoping to be discharged soon. From a cardiac perspective, the patient may be discharged home. Nurse practitioner note has been reviewed by physician. Signing provider agrees with the documented findings, assessment, and plan of care. Objective - Vital Signs Vital signs: Vital Signs Temp 98.0 F 03/10/20 08:26 Pulse 99 03/10/20 08:26 Resp 16 03/10/20 08:26 BP 117/77 03/10/20 08:26 Pulse Ox 99 03/10/20 08:26 Intake & Output 03/09/20 03/10/20 03/10/20 18:59 06:59 18:59 Intake Total 577 120 Output Total 450 350 Balance 127 -350 120 Weight 75.7 kg Intake: Oral 360 120 Blood Product 217 Platelet Irr Pheresis 3 217 Acda Unit [id number] Output: Urine 450 350 Other: Voiding Method Urinal Urinal Urinal # Voids 2 1 - Labs CBC & Chem 7: 03/10/20 05:38 03/10/20 05:38 Labs: Abnormal Lab Results - Last 24 Hours (Table) 03/09/20 03/09/20 03/10/20 Range/Units 12:09 17:00 05:38 WBC 2.9 L (3.8-10.6) k/uL RBC 2.28 L (4.30-5.90) m/uL Hgb 7.0 L (13.0-17.5) gm/dL Hct 21.7 L (39.0-53.0) % RDW 17.9 H (11.5-15.5) % Plt Count 40 L (150-450) k/uL Lymphocytes # 0.6 L (1.0-4.8) k/uL Sodium (137-145) mmol/L BUN (9-20) mg/dL Glucose (74-99) mg/dL POC Glucose (mg/dL) 191 H 147 H (75-99) mg/dL Calcium (8.4-10.2) mg/dL AST (17-59) U/L ALT (4-49) U/L Total Protein (6.3-8.2) g/dL Albumin (3.5-5.0) g/dL 03/10/20 03/10/20 Range/Units 05:38 05:50 WBC (3.8-10.6) k/uL RBC (4.30-5.90) m/uL Hgb (13.0-17.5) gm/dL Hct (39.0-53.0) % RDW (11.5-15.5) % Plt Count (150-450) k/uL Lymphocytes # (1.0-4.8) k/uL Sodium 133 L (137-145) mmol/L BUN 22 H (9-20) mg/dL Glucose 161 H (74-99) mg/dL POC Glucose (mg/dL) 184 H (75-99) mg/dL Calcium 8.2 L (8.4-10.2) mg/dL AST 64 H (17-59) U/L ALT 71 H (4-49) U/L Total Protein 5.2 L (6.3-8.2) g/dL Albumin 2.7 L (3.5-5.0) g/dL
[2020-03-10 12:13] LABS: Glucose,Whole Blood 172 mg/dL (75-99)
[2020-03-10] MEDS: HYDROcodone/APAP 7.5-325MG 1 EACH TAB PO PRN ×2 (12:36→20:41)
[2020-03-10] MEDS: SODIUM CHLORIDE 0.9% 1,000 ML IV SCH (14:41)
[2020-03-10 16:49] LABS: Glucose,Whole Blood 150 mg/dL (75-99)
[2020-03-10 20:08] LABS: Glucose,Whole Blood 182 mg/dL (75-99)
[2020-03-10] MEDS: BENZONATATE 100 MG CAP PO PRN (20:40)
[2020-03-10] MEDS: ATORVASTATIN 80 MG TAB PO SCH (20:40)
[2020-03-10] MEDS: LATANOPROST 0.005% OPHTH DROPS 2.5 ML BTL BOTH EYES SCH (20:40)
[2020-03-10] MEDS: FOLIC ACID 1 MG TAB PO SCH (20:40)
--- NOTE | 2020-03-10 23:51 | P.PN ---
Subjective Progress Note Date: 03/10/20 Principal diagnosis: Pancreatic carcinoma platelet count 40K, transfuse platelets Objective - Vital Signs Vital signs: Vital Signs Temp 97.9 F 03/10/20 20:34 Pulse 95 03/10/20 20:34 Resp 18 03/10/20 20:34 BP 114/54 03/10/20 20:34 Pulse Ox 96 03/10/20 20:34 Intake & Output 03/10/20 03/10/20 03/11/20 06:59 18:59 06:59 Intake Total 500 Output Total 350 620 200 Balance -350 -120 -200 Weight 75.7 kg Intake: IV 20 Invasive Line 2 20 Oral 480 Output: Urine 350 620 200 Other: Voiding Method Urinal Urinal Urinal # Voids 1 - Exam - Constitutional General appearance: cooperative, no acute distress - EENT Eyes: PERRLA ENT: NA/AT, normal oropharynx - Neck Neck: normal ROM - Respiratory Respiratory: bilateral: CTA - Cardiovascular Rhythm: irregularly irregular Heart sounds: normal: S1, S2 - Gastrointestinal General gastrointestinal: normal bowel sounds, soft, tenderness - Integumentary Integumentary: pale - Neurologic non focal - Musculoskeletal Musculoskeletal: generalized weakness - Labs CBC & Chem 7: 03/10/20 05:38 03/10/20 05:38 Labs: Abnormal Lab Results - Last 24 Hours (Table) 03/10/20 03/10/20 03/10/20 Range/Units 05:38 05:38 05:38 WBC 2.9 L (3.8-10.6) k/uL RBC 2.28 L (4.30-5.90) m/uL Hgb 7.0 L (13.0-17.5) gm/dL Hct 21.7 L (39.0-53.0) % RDW 17.9 H (11.5-15.5) % Plt Count 40 L (150-450) k/uL Lymphocytes # 0.6 L (1.0-4.8) k/uL Sodium 133 L (137-145) mmol/L BUN 22 H (9-20) mg/dL Glucose 161 H (74-99) mg/dL POC Glucose (mg/dL) (75-99) mg/dL Calcium 8.2 L (8.4-10.2) mg/dL AST 64 H (17-59) U/L ALT 71 H (4-49) U/L Total Protein 5.2 L (6.3-8.2) g/dL Albumin 2.7 L (3.5-5.0) g/dL CA 19-9 Antigen >55230.0 H (0.0-34.9) U/mL 03/10/20 03/10/20 03/10/20 Range/Units 05:50 12:12 16:48 WBC (3.8-10.6) k/uL RBC (4.30-5.90) m/uL Hgb (13.0-17.5) gm/dL Hct (39.0-53.0) % RDW (11.5-15.5) % Plt Count (150-450) k/uL Lymphocytes # (1.0-4.8) k/uL Sodium (137-145) mmol/L BUN (9-20) mg/dL Glucose (74-99) mg/dL POC Glucose (mg/dL) 184 H 172 H 150 H (75-99) mg/dL Calcium (8.4-10.2) mg/dL AST (17-59) U/L ALT (4-49) U/L Total Protein (6.3-8.2) g/dL Albumin (3.5-5.0) g/dL CA 19-9 Antigen (0.0-34.9) U/mL 03/10/20 Range/Units 20:06 WBC (3.8-10.6) k/uL RBC (4.30-5.90) m/uL Hgb (13.0-17.5) gm/dL Hct (39.0-53.0) % RDW (11.5-15.5) % Plt Count (150-450) k/uL Lymphocytes # (1.0-4.8) k/uL Sodium (137-145) mmol/L BUN (9-20) mg/dL Glucose (74-99) mg/dL POC Glucose (mg/dL) 182 H (75-99) mg/dL Calcium (8.4-10.2) mg/dL AST (17-59) U/L ALT (4-49) U/L Total Protein (6.3-8.2) g/dL Albumin (3.5-5.0) g/dL CA 19-9 Antigen (0.0-34.9) U/mL Assessment and Plan (1) Anemia associated with acute blood loss Current Visit: Yes Status: Acute Code(s): D62 - ACUTE POSTHEMORRHAGIC ANEMIA SNOMED Code(s): 302020676 (2) Pancreatic adenocarcinoma Current Visit: Yes Status: Acute Code(s): C25.9 - MALIGNANT NEOPLASM OF PANCREAS, UNSPECIFIED SNOMED Code(s): 326182382 (3) History of prostate cancer Current Visit: Yes Status: Acute Code(s): Z85.46 - PERSONAL HISTORY OF MALIGNANT NEOPLASM OF PROSTATE SNOMED Code(s): 108987413 (4) Radiation proctitis Current Visit: Yes Status: Acute Code(s): K62.7 - RADIATION PROCTITIS SNOMED Code(s): 228193685 Plan: Assessment and PLan: 1. Normocytic Anemia:Improving - Secondary to Acute Blood Loss and Sarabjit of chemotherapy - Transfusion support less than 7 - No Iron or B12 support at this time needed 2. Bleeding from Rectum: Improving/Resolved - Status post GI procedure for radiation procititis 3. Pancreatic Cancer: - Status POst Abraxane and Gemsar on 03/01/20 - On hold at this time - HIs tumor marker Ca 19-9 remains >70K, this has unfortunetly not decreased which is concerning for his effectiveness of treatment, will need to discuss further with primary oncologist Dr. Markham for plan moving forward 4. Increased LFTS: secondary to decreased perfusion related to IA - Initially increased but improved until todays draw which is normal 24 hours to peak after cardiac injury, this is expected to improve moving forward 5. THrombocytopenia: 40K today - Continue to hold Warfarin, patient must continue plavix with recent stent, therefore must maintain platelet count close to 50K - Monitor Daily CBC 6. Shortness of Breath:Improved - Chest Xray was without acute cardiopulmonary event (prior to IA) 7. ST Elevated IA with Cardiac cath and successful stent placement on 03/06/20 - On plavix, No aspirin with recent stent 8. Atrial Fibrilation: - Continue to hold Warfarin until platelets recover PLan: - No aspirin, continues on Plavix - Transfuse to keep platelets close to 50K with need of continue plavix, 40K today platelets ordered - Uncertainty of response to treatment as continued increase in CA 19-9, will need to further discuss with Dr. Markham for treatment options. Physiacian Attest: I have completed the full history and physical and agree with above dictation, dictated as a scribe.
--- NOTE | 2020-03-11 01:02 | P.PN ---
Subjective Progress Note Date: 03/10/20 Principal diagnosis: Rectal bleeding. 79-year-old patient of Dr. Morrow. Presented on December 18 to the hospital with abdominal pain.. Computed tomography scan of the abdomen showed multiple hepatic masses and what appeared to be metastatic disease in the pancreas and the spleen. Bone scan did show some lighting up in right femur. MRI of the brain did not show any metastatic disease. Patient on December 22 underwent biopsy of the right intra-abdominal mass. Did come back showing metastatic well- differentiated adenocarcinoma. Today but it January 26 and discharge in January 27. Bleeding from rectum. 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 Argon plasma coagulation was carried out. Patient now presents with intermittent bleeding for last 10 days. Within without stool. Decreased appetite tired rundown. GI was consulted. No rectal pain. Patient been on Coumadin. INR was 3.5. Given vitamin K in the ER. Patient again underwent argon plasma coagulation. Also found to have very few scattered telangiectasia.-By Dr. Annamarie Ramsey On 03/07/2020 Patient is currently in the MICU. Patient was being discharged yesterday but he developed acute ST elevated [place] and status post cardiac cath does not stent placement. Patient had stenting of the proximal LAD by Dr. Peraza. Patient also had aspiration thrombectomy from the left anterior descending artery. Today patient denied any complaints of chest pain or shortness of breath. Liver enzymes are slightly elevated compared to yesterday. Platelet count is 16,000. Hemoglobin is at 7.8. Currently resting in bed comfortably. Patient did have rectal bleeding thought to be secondary to radiation proctitis. Chest x-ray showed no acute cardiopulmonary process. Pulmonary and cardiology and oncology is following. 03/08/2020 Patient is currently lying in the bed comfortably. Currently on room air. No complaints of chest pain. Patient is being continued on Plavix. Status post cardiac catheterization and stent placement due to ST elevated [place]. Patient is being transferred to medical floor today. Laboratory data showed WBC 3.3, hemoglobin 7.7 and platelets 12 Sodium 132, potassium 4.5, BUN 26 and creatinine 0.95 03/09/2020 Patient is lying in the bed comfortably. No complaints of chest pain or shortness of breath. Denies any hematemesis or melena. No further bleeding per rectum. Platelet count is 35 today. To maintain the platelet count close to 50 platelet transfusion was ordered as per oncology. Patient has been afebrile. Denied any bleeding. Hemoglobin dropped down to 7.2 today. 03/10/2020 Patient is currently lying in the bed but complains of headache today. Not feeling very well. No complaints of chest pain or shortness of breath. No hematemesis or melena. Platelet count improved to 40,000 and repeat transfusion was ordered to keep the platelet count greater than 50 K. Otherwise hemoglobin level is 7.0 today. Oncology is following. Further plans for treatment as per oncology. Cleared from cardiology standpoint. Current medications reviewed. Review of systems: Was done for constitutional, cardiovascular, GI, pulmonary. relevant finding as above Objective - Vital Signs Vital signs: Vital Signs Temp 97.9 F 03/10/20 20:34 Pulse 95 03/10/20 20:34 Resp 18 03/10/20 20:34 BP 114/54 03/10/20 20:34 Pulse Ox 96 03/10/20 20:34 Intake & Output 03/10/20 03/10/20 03/11/20 06:59 18:59 06:59 Intake Total 500 Output Total 350 620 200 Balance -350 -120 -200 Weight 75.7 kg Intake: IV 20 Invasive Line 2 20 Oral 480 Output: Urine 350 620 200 Other: Voiding Method Urinal Urinal Urinal # Voids 1 - Exam PHYSICAL EXAMINATION: Patient is lying in the bed comfortably, no acute distress, awake alert and oriented.. HEENT: Normocephalic. Neck is supple. Pupils reactive. Nostrils clear. Oral cavity is moist. Ears reveal no drainage. Neck reveals no JVD, carotid bruits, or thyromegaly. CHEST EXAMINATION: Trachea is central. Symmetrical expansion. Lung [place] clear to auscultation and percussion. CARDIAC: Normal S1, S2 with no gallops. No murmurs ABDOMEN: Soft. Bowel soundsnormal Nontender. . No organomegaly. No abdominal bruits. Extremities: reveal no edema. No clubbing or cyanosis Neurologically awake, alert, oriented x3 with well-coordinated movements. No focal deficits noted Skin: No rash or skin lesions. Psychiatric: Coperative. Nonsuicidal Musculoskeletal: No joint swelling or deformity. Normal range of motion. - Labs CBC & Chem 7: 03/10/20 05:38 03/10/20 05:38 Labs: Abnormal Lab Results - Last 24 Hours (Table) 03/10/20 03/10/20 03/10/20 Range/Units 05:38 05:38 05:38 WBC 2.9 L (3.8-10.6) k/uL RBC 2.28 L (4.30-5.90) m/uL Hgb 7.0 L (13.0-17.5) gm/dL Hct 21.7 L (39.0-53.0) % RDW 17.9 H (11.5-15.5) % Plt Count 40 L (150-450) k/uL Lymphocytes # 0.6 L (1.0-4.8) k/uL Sodium 133 L (137-145) mmol/L BUN 22 H (9-20) mg/dL Glucose 161 H (74-99) mg/dL POC Glucose (mg/dL) (75-99) mg/dL Calcium 8.2 L (8.4-10.2) mg/dL AST 64 H (17-59) U/L ALT 71 H (4-49) U/L Total Protein 5.2 L (6.3-8.2) g/dL Albumin 2.7 L (3.5-5.0) g/dL CA 19-9 Antigen >56913.0 H (0.0-34.9) U/mL 03/10/20 03/10/20 03/10/20 Range/Units 05:50 12:12 16:48 WBC (3.8-10.6) k/uL RBC (4.30-5.90) m/uL Hgb (13.0-17.5) gm/dL Hct (39.0-53.0) % RDW (11.5-15.5) % Plt Count (150-450) k/uL Lymphocytes # (1.0-4.8) k/uL Sodium (137-145) mmol/L BUN (9-20) mg/dL Glucose (74-99) mg/dL POC Glucose (mg/dL) 184 H 172 H 150 H (75-99) mg/dL Calcium (8.4-10.2) mg/dL AST (17-59) U/L ALT (4-49) U/L Total Protein (6.3-8.2) g/dL Albumin (3.5-5.0) g/dL CA 19-9 Antigen (0.0-34.9) U/mL 03/10/20 Range/Units 20:06 WBC (3.8-10.6) k/uL RBC (4.30-5.90) m/uL Hgb (13.0-17.5) gm/dL Hct (39.0-53.0) % RDW (11.5-15.5) % Plt Count (150-450) k/uL Lymphocytes # (1.0-4.8) k/uL Sodium (137-145) mmol/L BUN (9-20) mg/dL Glucose (74-99) mg/dL POC Glucose (mg/dL) 182 H (75-99) mg/dL Calcium (8.4-10.2) mg/dL AST (17-59) U/L ALT (4-49) U/L Total Protein (6.3-8.2) g/dL Albumin (3.5-5.0) g/dL CA 19-9 Antigen (0.0-34.9) U/mL Assessment and Plan Assessment: - Acute ST elevated [place] status post cardiac catheterization and stent placement. - radiation proctitis the current treated with argon plasma coagulation- -Pancreatic cancer metastatic with liver masses, pancreatic masses and splenic masses. Well-differentiated metastatic adenocarcinoma-on chemotherapy -Acute blood loss anemia from GI bleed - Pancytopenia secondary to chemotherapy. -Paroxysmal Atrial fibrillation-on Coumadin -COPD -GERD -Hyperlipidemia -Essential hypertension -Obstructive sleep apnea -History of prostate cancer with treatment -Sigmoid diverticulosis -Thrombocytopenia from chemotherapy -Acute ST elevation myocardial infarction-March 06 Plan: Patient will be continued on telemetry monitoring. Continue with Plavix and statins. Started on metoprolol 25 mg twice daily and continue to follow closely. Cardiology and pulmonary is on board. Hemoglobin is fairly stable. Time with Patient: Greater than 30
[2020-03-11] MEDS: PANTOPRAZOLE 40 MG TABLET PO SCH (05:57)
[2020-03-11] MEDS: REPAGLINIDE 1 MG TAB PO SCH ×2 (05:57→13:13)
[2020-03-11] MEDS: metFORMIN 500 MG TAB PO SCH (05:57)
[2020-03-11] MEDS: INSULIN ASPART (NovoLOG) 100 UNIT/ML VIAL SQ SCH ×2 (05:57→13:15)
[2020-03-11 05:58] LABS: Glucose,Whole Blood 70 mg/dL (75-99)
[2020-03-11 06:23] VITALS: RESP 18
[2020-03-11 07:13] LABS: Albumin 2.8 g/dL (3.5-5.0); Calcium 8.3 mg/dL (8.4-10.2); Potassium 4.4 mmol/L (3.5-5.1); Total Bilirubin 0.7 mg/dL (0.2-1.3); Total Protein 5.4 g/dL (6.3-8.2)
[2020-03-11 07:17] LABS: Anisocytosis Slight; HCT 23.2 % (39.0-53.0); HGB 7.6 gm/dL (13.0-17.5); MCH 31.1 pg (25.0-35.0); MCHC 32.6 g/dL (31.0-37.0); MCV 95.6 fL (80.0-100.0); Macrocytosis Slight; Mean Platelet Volume 10.8; RBC 2.43 m/uL (4.30-5.90); RDW 18.1 % (11.5-15.5); WBC 2.9 k/uL (3.8-10.6)
[2020-03-11 07:18] LABS: Platelet Count 53 k/uL (150-450)
[2020-03-11 08:04] LABS: Lymphocytes # (M) 0.58 k/uL (1.0-4.8); Monocytes # (M) 0.35 k/uL (0-1.0); Neutrophils # (M) 1.77 k/uL (1.3-7.7); Neutrophils % (M) 61 %; Nucleated Red Blood Cells 0 /100 WBC (0-0); Total Cells Counted 100
[2020-03-11] MEDS: CLOPIDOGREL 75 MG TAB PO SCH (08:22)
[2020-03-11] MEDS: SPIRONOLACTONE 25 MG TAB PO SCH (08:22)
[2020-03-11] MEDS: METOPROLOL TARTRATE 25 MG TAB PO SCH (08:22)
[2020-03-11] MEDS: TIMOLOL 0.5% OPHTH DROPS 5 ML BTL BOTH EYES SCH (08:24)
[2020-03-11] MEDS: HYDROcodone/APAP 7.5-325MG 1 EACH TAB PO PRN (10:42)
[2020-03-11 11:51] LABS: Glucose,Whole Blood 136 mg/dL (75-99)
[2020-03-11 12:35] VITALS: BP 106/53; PULSE 89; TEMP 98.7
--- NOTE | 2020-03-11 12:57 | P.PN ---
Subjective Progress Note Date: 03/11/20 CHIEF COMPLAINT: Chest pain HISTORY OF PRESENT ILLNESS: Patient examined this morning at the bedside. He is status post angioplasty and stenting of the proximal LAD. He denies chest pain or shortness of breath. Vital signs stable. He received a platelet transfusion yesterday. Platelet count today is 53. He is very anxious to be discharged home. PHYSICAL EXAM: VITAL SIGNS: Reviewed. GENERAL: Well-developed in no acute distress. NECK: Supple. No JVD or thyromegaly LUNGS: Respirations even and unlabored. Lungs essentially clear to auscultation bilaterally. HEART: Regular rate and rhythm. S1 and S2 heard. EXTREMITIES: Normal range of motion. No clubbing or cyanosis. Peripheral pulses intact. No lower extremity edema ASSESSMENT: 1. Acute myocardial infarction, status post stenting to the LAD 2. Pancytopenia, status post chemotherapy for metastatic pancreatic cancer 3. History of paroxysmal atrial fibrillation PLAN: -Continue current cardiac medications -Continue to monitor labs -Spoke with Carisa Snider MANAGER APPLIED with oncology. Okay to resume aspirin -The patient is anxious to be discharged home. From a cardiac perspective, the patient may be discharged home. Nurse practitioner note has been reviewed by physician. Signing provider agrees with the documented findings, assessment, and plan of care. Objective - Vital Signs Vital signs: Vital Signs Temp 98.9 F 03/11/20 08:26 Pulse 99 03/11/20 08:26 Resp 18 03/11/20 08:26 BP 112/61 03/11/20 08:26 Pulse Ox 95 03/11/20 08:26 Intake & Output 03/10/20 03/11/20 03/11/20 18:59 06:59 18:59 Intake Total 500 0 449 Output Total 620 550 Balance -120 -550 449 Weight 75.6 kg Intake: IV 20 Invasive Line 2 20 Oral 480 240 Blood Product 0 209 Platelet Pheresis Acda3 0 209 Unit [id number] Output: Urine 620 550 Other: Voiding Method Urinal Urinal Urinal # Bowel Movements 1 - Labs CBC & Chem 7: 03/11/20 06:28 03/11/20 06:28 Labs: Abnormal Lab Results - Last 24 Hours (Table) 03/10/20 03/10/20 03/10/20 Range/Units 05:38 12:12 16:48 WBC (3.8-10.6) k/uL RBC (4.30-5.90) m/uL Hgb (13.0-17.5) gm/dL Hct (39.0-53.0) % RDW (11.5-15.5) % Plt Count (150-450) k/uL Lymphocytes # (Manual) (1.0-4.8) k/uL Sodium (137-145) mmol/L Glucose (74-99) mg/dL POC Glucose (mg/dL) 172 H 150 H (75-99) mg/dL Calcium (8.4-10.2) mg/dL ALT (4-49) U/L Total Protein (6.3-8.2) g/dL Albumin (3.5-5.0) g/dL CA 19-9 Antigen >56721.0 H (0.0-34.9) U/mL 03/10/20 03/11/20 03/11/20 Range/Units 20:06 05:56 06:28 WBC 2.9 L (3.8-10.6) k/uL RBC 2.43 L (4.30-5.90) m/uL Hgb 7.6 L (13.0-17.5) gm/dL Hct 23.2 L (39.0-53.0) % RDW 18.1 H (11.5-15.5) % Plt Count 53 L (150-450) k/uL Lymphocytes # (Manual) 0.58 L (1.0-4.8) k/uL Sodium (137-145) mmol/L Glucose (74-99) mg/dL POC Glucose (mg/dL) 182 H 70 L (75-99) mg/dL Calcium (8.4-10.2) mg/dL ALT (4-49) U/L Total Protein (6.3-8.2) g/dL Albumin (3.5-5.0) g/dL CA 19-9 Antigen (0.0-34.9) U/mL 03/11/20 03/11/20 Range/Units 06:28 11:48 WBC (3.8-10.6) k/uL RBC (4.30-5.90) m/uL Hgb (13.0-17.5) gm/dL Hct (39.0-53.0) % RDW (11.5-15.5) % Plt Count (150-450) k/uL Lymphocytes # (Manual) (1.0-4.8) k/uL Sodium 136 L (137-145) mmol/L Glucose 102 H (74-99) mg/dL POC Glucose (mg/dL) 136 H (75-99) mg/dL Calcium 8.3 L (8.4-10.2) mg/dL ALT 63 H (4-49) U/L Total Protein 5.4 L (6.3-8.2) g/dL Albumin 2.8 L (3.5-5.0) g/dL CA 19-9 Antigen (0.0-34.9) U/mL
--- NOTE | 2020-03-11 17:13 | P.DS ---
Providers Date of admission: 03/03/20 13:20 Expected date of discharge: 03/11/20 Attending physician: Sekou Johnson Consults: 03/06/20 08:50 Consult Physician Routine Consulting Provider: John Ellison Consult Reason/Comments: Pancreatic cancer Do you want consulting provider notified?: Yes 03/06/20 13:43 Consult Physician Stat Consulting Provider: Eric Li Consult Reason/Comments: acute IL Do you want consulting provider notified?: Already Contacted Consult Physician Urgent Consulting Provider: Eric Pollock Consult Reason/Comments: ICU management, Acute IL Do you want consulting provider notified?: Already Contacted 03/06/20 18:58 Consult Physician Routine Consulting Provider: [facility] Consult Reason/Comments: Post Interventional patient Do you want consulting provider notified?: Already Contacted [facility] Course: final diagnosis - Acute ST elevated [place] status post cardiac catheterization and stent placement. - radiation proctitis the current treated with argon plasma coagulation- -Pancreatic cancer metastatic with liver masses, pancreatic masses and splenic masses. Well-differentiated metastatic adenocarcinoma-on chemotherapy -Acute blood loss anemia from GI bleed - Pancytopenia secondary to chemotherapy. -Paroxysmal Atrial fibrillation-on Coumadin -COPD -GERD -Hyperlipidemia -Essential hypertension -Obstructive sleep apnea -History of prostate cancer with treatment -Sigmoid diverticulosis -Thrombocytopenia from chemotherapy -Acute ST elevation myocardial infarction-March 06 Discharge disposition Patient is being discharged in a stable condition with guarded prognosis to home. patient will [facility] with [facility] care. Patient will follow-up with Dr. Morrow upon discharge. patient will also follow-up with oncology in the outpatient setting as well. will continue to hold anticoagulant until oncology follow-up. Total time taken is 35 minutes. History of present illness This is an 79-year-old male who was recently admitted with abdominal pain and was being closely monitored. patient underwent a CT of the abdomen showing multiple hepatic masses with what appears to be metastatic disease in the pancreas and spleen and a bone scan was also done showing some lighting up in the right femur. MRI of the brain was done did not show any metastatic disease. Patient is being followed by oncology in the outpatient setting. Patient was having some bleeding in the stool and decreased appetite. GI was consulted and underwent argon plasma coagulation. Patient was briefly evaluated and monitored closely in the ICU and had an acute ST elevated [place] and underwent stent placement. patient was being followed closely by cardiology and will follow-up with cardiology in the outpatient setting. patient continued to have low platelets receiving transfusions. Discussed with oncology and patient will be following up closely and will have a prescription provided upon discharge for repeat labs.patient would really like to go home today. currently no reports of chest pain, worsening shortness of breath, or palpitations. Patient is afebrile. No reports of nausea or vomiting and patient is tolerating diet. extremely Guarded prognosis. On exam vital signs are stable. Temp is 98.7F, pulse is 89, respirations are 16, blood pressure is 106/53, oxygen saturation is 98% on room air. Cardio S1, S2 are muffled. Respiratory shows diminished breath sounds at the bases with some scattered rhonchi noted. Abdomen is soft and nontender. Nervous system shows diffuse weakness. Please refer to medication reconciliation sheet for a list of medications. Patient Condition at Discharge: Stable Plan - Discharge Summary Discharge Rx Participant: No New Discharge Prescriptions: New Spironolactone [Aldactone] 25 mg PO DAILY 30 Days #30 tab Atorvastatin [Lipitor] 80 mg PO HS 30 Days #30 tab Metoprolol Tartrate [Lopressor] 25 mg PO BID@0800,1900 30 Days #60 tab Clopidogrel [Plavix] 75 mg PO DAILY 30 Days #30 tab lisinopriL [Zestril] 2.5 mg PO DAILY 30 Days #30 tab Aspirin 81 mg PO DAILY #30 chewable Continue Pantoprazole [Protonix] 40 mg PO DAILY@0800 Timolol 0.5% Ophth Soln [Timoptic 0.5% Ophth Soln] 1 drop BOTH EYES BID@0800,2200 metFORMIN HCL [Glucophage] 500 mg PO BID@0800,1700 metHOTREXate sodium [Methotrexate] 25 mg PO FR@1900 Ferrous Sulfate [Iron (65 MG Elemental)] 325 mg PO DAILY@1200 Latanoprost/Pf [Latanoprost 0.005% Eye Drop] 1 drop BOTH EYES HS@2200 Repaglinide [Prandin] 1 mg PO TID Folic Acid 0.8 mg PO HS@2200 Ondansetron [Zofran] 4 mg PO Q8HR PRN PRN Reason: Nausea Hydrocodone/Acetaminophen [[place] 7.5-325] 1 tab PO Q6HR PRN PRN Reason: Pain Discontinued Warfarin Sodium [Jantoven] 2.5 mg PO DAILY@1900 Metoprolol Tartrate [Lopressor] 50 mg PO BID@0800,1900 Lisinopril-Hctz 20-12.5 mg [Zestoretic 20-12.5] 1 tab PO BID #60 tab amLODIPine [Norvasc] 10 mg PO DAILY@1900 Discharge Medication List Pantoprazole [Protonix] 40 mg PO DAILY@0800 11/28/16 [History] Timolol 0.5% Ophth Soln [Timoptic 0.5% Ophth Soln] 1 drop BOTH EYES BID@0800,2200 03/11/17 [History] Ferrous Sulfate [Iron (65 MG Elemental)] 325 mg PO DAILY@1200 11/22/17 [History] metFORMIN HCL [Glucophage] 500 mg PO BID@0800,1700 11/22/17 [History] metHOTREXate sodium [Methotrexate] 25 mg PO FR@189911/22/17 [History] Folic Acid 0.8 mg PO HS@219912/19/19 [History] Latanoprost/Pf [Latanoprost 0.005% Eye Drop] 1 drop BOTH EYES HS@219912/19/19 [History] Repaglinide [Prandin] 1 mg PO TID 12/19/19 [History] Hydrocodone/Acetaminophen [[place] 7.5-325] 1 tab PO Q6HR PRN 01/25/20 [History] Ondansetron [Zofran] 4 mg PO Q8HR PRN 01/25/20 [History] Aspirin 81 mg PO DAILY #30 chewable 03/11/20 [Rx] Atorvastatin [Lipitor] 80 mg PO HS 30 Days #30 tab 03/11/20 [Rx] Clopidogrel [Plavix] 75 mg PO DAILY 30 Days #30 tab 03/11/20 [Rx] Metoprolol Tartrate [Lopressor] 25 mg PO BID@0800,1900 30 Days #60 tab 03/11/20 [Rx] Spironolactone [Aldactone] 25 mg PO DAILY 30 Days #30 tab 03/11/20 [Rx] lisinopriL [Zestril] 2.5 mg PO DAILY 30 Days #30 tab 03/11/20 [Rx] Follow up Appointment(s)/Referral(s): John Ellison MD [STAFF PHYSICIAN] - 03/15/20 3:30 pm Jose Morrow DO [Primary Care Provider] - 1-2 days Eric Li MD [STAFF PHYSICIAN] - 03/18/20 9:45 am [facility], [NON-STAFF] - 1-2 Days Ambulatory/Diagnostic Orders: Complete Blood Count w/diff [LAB.AMB] Time Frame: 2 Days, Location: None Selected Patient Instructions/Handouts: *Surgery [facility] - After Heart Catheterization - Isotope Technician Instructions, Heart Attack (DC), Gastrointestinal Bleeding (ED), After Radial Heart Catheterization (GEN) Activity/Diet/Wound Care/Special Instructions: Activity Limited until follow-up Continue current diet Continue to hold Coumadin Repeat labs in 2-3 days to monitor hemoglobin and platelets Follow up with oncology this week Discharge Disposition: HOME WITH HOME HEALTH SERVICES
== END 2020-03-11 15:10 | disposition home health service (06) | DRG 981 ==
LOC: EC 11:55 → 3SCARD 13:20 → 2SICU 03-06 13:32 → 3SCARD 03-08 14:42
PROVIDERS: ADMIT Hospitalist; ATTEND Hospitalist
PROC: 0W3P8ZZ Control Bleeding in Gastrointestinal Tract, Via Natural or Artificial Opening Endoscopic (ICD-10-PCS; 2020-03-04)
PROC: 02C03ZZ Extirpation of Matter from Coronary Artery, One Artery, Percutaneous Approach (ICD-10-PCS; 2020-03-06)
PROC: 4A023N7 Measurement of Cardiac Sampling and Pressure, Left Heart, Percutaneous Approach (ICD-10-PCS; 2020-03-06)
PROC: 02703DZ Dilation of Coronary Artery, One Artery with Intraluminal Device, Percutaneous Approach (ICD-10-PCS; principal; 2020-03-06 18:03)
PROC: B2111ZZ Fluoroscopy of Multiple Coronary Arteries using Low Osmolar Contrast (ICD-10-PCS; principal; 2020-03-06 18:03)
DX: K62.7 Radiation proctitis (principal); D61.810 Antineoplastic chemotherapy induced pancytopenia; I21.09 ST elevation (STEMI) myocardial infarction involving other coronary artery of anterior wall; C25.9 Malignant neoplasm of pancreas, unspecified; C78.7 Secondary malignant neoplasm of liver and intrahepatic bile duct; C79.89 Secondary malignant neoplasm of other specified sites; D62 Acute posthemorrhagic anemia; I48.20 Chronic atrial fibrillation, unspecified; I48.92 Unspecified atrial flutter; Z85.46 Personal history of malignant neoplasm of prostate; E11.22 Type 2 diabetes mellitus with diabetic chronic kidney disease; E78.5 Hyperlipidemia, unspecified; G47.33 Obstructive sleep apnea (adult) (pediatric); I12.9 Hypertensive chronic kidney disease with stage 1 through stage 4 chronic kidney disease, or unspecified chronic kidney disease; Z87.891 Personal history of nicotine dependence; I25.10 Atherosclerotic heart disease of native coronary artery without angina pectoris; I25.2 Old myocardial infarction; I25.5 Ischemic cardiomyopathy; I48.0 Paroxysmal atrial fibrillation; I78.1 Nevus, non-neoplastic; J44.9 Chronic obstructive pulmonary disease, unspecified; K21.9 Gastro-esophageal reflux disease without esophagitis; K22.70 Barrett's esophagus without dysplasia; K57.30 Diverticulosis of large intestine without perforation or abscess without bleeding; K76.1 Chronic passive congestion of liver; N18.9 Chronic kidney disease, unspecified; N28.89 Other specified disorders of kidney and ureter; N41.9 Inflammatory disease of prostate, unspecified; T45.1X5A Adverse effect of antineoplastic and immunosuppressive drugs, initial encounter; Y84.2 Radiological procedure and radiotherapy as the cause of abnormal reaction of the patient, or of later complication, without mention of misadventure at the time of the procedure; Z79.01 Long term (current) use of anticoagulants; Z79.02 Long term (current) use of antithrombotics/antiplatelets; Z79.84 Long term (current) use of oral hypoglycemic drugs; Z79.899 Other long term (current) drug therapy; Z80.3 Family history of malignant neoplasm of breast; Z82.3 Family history of stroke; Z82.49 Family history of ischemic heart disease and other diseases of the circulatory system; Z85.07 Personal history of malignant neoplasm of pancreas; I69.398 Other sequelae of cerebral infarction; I69.311 Memory deficit following cerebral infarction; H53.9 Unspecified visual disturbance; Z92.3 Personal history of irradiation; Z96.651 Presence of right artificial knee joint; Z90.89 Acquired absence of other organs; Z90.49 Acquired absence of other specified parts of digestive tract; Z98.42 Cataract extraction status, left eye; Z98.41 Cataract extraction status, right eye; M31.6 Other giant cell arteritis; Z60.2 Problems related to living alone
CPT/HCPCS: 36415; 45388; 71046; 80048; 80053; 82607; 82728; 82746; 83540; 83550; 83615; 83735; 83921; 84484; 85025; 85027; 85045; 85379; 85610; 85730; 86301; 86850; 86900; 86901; 86920; 92941; 93005; 93306; 93458; 96374; 99285